=== PATIENT | male | born 1950 | race Hispanic/Latino ===

== ENCOUNTER 2017-10-25 17:11 | Emergency (ER) | payer BC, MEDICARE ==
[~2017-10-25] VITALS: Ht 177.8 cm; Wt 89.4 kg
[~2017-10-25 17:11] MED LIST: ATORVASTATIN CA20 MG PO; CLINDAMYCIN HC150 MG PO; HYDRALAZINE HCL25 MG PO; HYDRALAZINE HCL50 MG PO; METOPROLOL SUCC50 MG PO; NORCO 10MG-325MG1 EA PO; PROCARDIA XL60 MG PO; SODIUM BICARBO650 MG PO
[2017-10-25] MEDS ORDERED: MINERAL OIL 132 ML BTL PR ONE (17:45)
[2017-10-25] MEDS ORDERED: CITRATE OF MAGNESIA 300ML BOTTLE PO NR (18:00)
--- NOTE | 2017-10-25 18:15 | Diagnostic Imaging Report ---
PROCEDURE:ABDOMEN COMP INCL UPR OR DECUB TECHNIQUE:Supine and upright INDICATION:Constipation COMPARISON:None. FINDINGS: Moderate amount of stool in the right abdomen and in the left abdomen. Stool material within small bowel loops. Multiple prominent air-filled loops of small bowel. No radiopaque stones. No abnormal soft tissue masses. Mild degenerative changes of the lumbar spine CONCLUSION: Findings consistent with constipation. Dictated by: Orlando Perez M.D. on 10/25/2017 at 18:20 Electronically approved by: Orlando Perez M.D. on 10/25/2017 at 18:20
[2017-10-25 20:49] VITALS: BP 165/88
== END 2017-10-25 20:45 | disposition home or self-care (01) ==
LOC: ER 17:11
DX: R10.30 Lower abdominal pain, unspecified (principal); K59.00 Constipation, unspecified; I10 Essential (primary) hypertension; Z99.2 Dependence on renal dialysis
CPT/HCPCS: 99284

== ENCOUNTER 2018-03-25 11:21 | Emergency (ER) | payer BC, MEDICARE ==
[~2018-03-25] VITALS: Ht 177.8 cm; Wt 89.4 kg
--- OUTSIDE RECORDS SUMMARY | 2018-03-25 11:24 | XMS REPORT | Continuity of Care Document ---
Author Author [facility] Interface Address Unknown Phone Unavailable Problems Problem Status Onset Date Classification Date Reported Comments Source UNK Active 03/09/2018 [facility] M54.16 - RADICULOPATHY, LUMBAR REGION Active 11/06/2017 [facility] [place] [facility] CREATION Active 10/09/2017 [facility] Medications Medication Details Route Status Patient Instructions Ordering Provider Order Date Source Allergies, Adverse Reactions, Alerts Substance Category Reaction Severity Reaction type Status Date Reported Comments Source Immunizations Immunization Date Given Site Status Last Updated Comments Source Results Order Name Results Value Reference Range Date Interpretation Comments Source Chest 2 views DX Chest 2 views DX Patient Name: NOHEMI JEFFREY : 1950; Age: 66 years y/o Male MR: [id number] * CHEST, 2 views HISTORY: Coughing - preoperative study. COMPARISON: None TECHNIQUE: Frontal and lateral radiographs of the chest were obtained. FINDINGS: The lungs are clear. There are no pleural effusions. The heart and pulmonary vasculature are within normal limits. The regional skeleton is unremarkable. There is a right IJ PermCath which terminates in the mid right atrium. IMPRESSION: 1. No active disease. 2. There is a right IJ PermCath which terminates in the mid right atrium. SL: [id number] 11/03/2017 - - Read by: Vahe Knight MD Dictated Date/time: 11/03/17 12:25 Electronically Signed by: Vahe Knight MD 11/03/17 12:26 FINAL REPORT [facility] Vital Signs Vital Sign Value Date Comments Source Encounters Location Location Details Encounter Type Encounter Number Reason For Visit Attending Provider ADM Date DC Date Status Source Procedures Procedure Code Date Perfomer Comments Source
--- OUTSIDE RECORDS SUMMARY | 2018-03-25 11:24 | XMS REPORT | Clinical Summary ---
Author Author [facility] Address Unknown Phone Unavailable Care Team Providers Care Edge Stainer Machine Name Role Phone Chuckie Crawford PCP Unavailable Antony Keron 40 Allergies Comments Active Allergy Reactions Severity Noted Date Makes patient jittery Sulfa (Sulfonamide Other (See 05/24/2017 Antibiotics) Comments) Medications End Date Status Medication Sig Dispensed Refills Start Date Active hydrALAZINE (APRESOLINE) Take 50 mg by 0 50 MG tablet mouth 2 (two) times daily . Active NIFEdipine (ADALAT CC) 60 Take 60 mg by 0 MG 24 hr tablet mouth 2 (two) times daily . Active HYDROcodone-acetaminophen Take 1 tablet 0 (NORCO 5-325) 5-325 mg by mouth per tablet every 8 (eight) hours as needed for Pain. Active Problems Not on file Encounters Care Team Description Date Type Specialty Polina Redding 03/19/2018 Documentation Transplant Terese Magdaleno MD Provider, [facility] Generic 02/21/2018 [facility] Charge Transplant Visit Polina Redding 02/21/2018 Documentation Transplant Jennifer Patton, RN 02/21/2018 Documentation Transplant Mariya Pak RN Follow-up 01/04/2018 Telephone Transplant Sadia Foreman Follow-up (Unable to leave a message on Mr. Jeffrey voicemail his mailbox is full. I spoke with Mrs. Jeffrey and she's aware of Mr. Jeffrey MRB recommendations and per Mrs. Jeffrey her has been referred to a gastro doctor to have the colonoscopy and he's waiting for the gastro doctor office to call to schedule the appt) 11/23/2017 Telephone Transplant Shelly Coker RN 11/23/2017 Abstract Transplant Shelly Coker RN 11/20/2017 Abstract Transplant Shelly Coker RN Committee Review 11/20/2017 Telephone Transplant Shelly Coker RN Follow-up 11/14/2017 Telephone Transplant Terese Magdaleno MD ESRD (end stage renal disease) on dialysis (HCC); Pre-transplant evaluation for chronic kidney disease 09/22/2017 Hospital Cardiology Encounter Terese Magdaleno MD ESRD (end stage renal disease) on dialysis (HCC); Pre-transplant evaluation for chronic kidney disease 09/22/2017 Hospital Radiology Encounter Shelly Coker RN Pre-transplant evaluation for chronic kidney disease (Primary Dx); ESRD (end stage renal disease) on dialysis (HCC) 09/21/2017 Orders Only Transplant Sadia Foreman Appointment (Mr. Jeffrey is aware of his appt on Monday,09/22/17 and to check in at 6:30 am to complete the registration process and not to eat after 3:30 am. I have mailed the patient his itinerary for the appt and faxed the itinerary to the hd unit) 09/07/2017 Telephone Transplant Shelly Coker RN Committee Review 08/31/2017 Telephone Transplant Shelly Coker RN ESRD (end stage renal disease) on dialysis (HCC) (Primary Dx); Pre-transplant evaluation for chronic kidney disease 07/17/2017 Orders Only Transplant Shelly Coker RN Committee Review 07/17/2017 Telephone Transplant Shelly Coker RN 07/17/2017 Abstract Transplant Terese Magdaleno MD Pandya, Aashish Mahesh, MD ESRD (end stage renal disease) (HCC) (Primary Dx) 06/28/2017 Evaluation Transplant Terese Magdaleno MD Pre-transplant evaluation for chronic kidney disease; ESRD (end stage renal disease) on dialysis (HCC); Hypertensive renal disease; Anemia of renal disease 06/28/2017 Orders Only Lab Terese Magdaleno MD ESRD (end stage renal disease) on dialysis (HCC); Pre-transplant evaluation for chronic kidney disease; Hypertensive renal disease; Anemia of renal disease 06/28/2017 Hospital Radiology Encounter Patito Hough MD 06/27/2017 Orders Only Transplant Sadia Foreman Appointment (Mr. Jeffrey confirmed his appt for tomorrow and he's aware of the locations of the appts) 06/27/2017 Telephone Transplant Terese Magdaleno MD ESRD (end stage renal disease) on dialysis (HCC); Pre-transplant evaluation for chronic kidney disease; Hypertensive renal disease; Anemia of renal disease 05/24/2017 Hospital Encounter Terese Magdaleno MD ESRD (end stage renal disease) on dialysis (HCC); Pre-transplant evaluation for chronic kidney disease; Hypertensive renal disease; Anemia of renal disease 05/24/2017 Hospital Radiology Encounter Terese Magdaleno MD ESRD (end stage renal disease) on dialysis (HCC) (Primary Dx) 05/24/2017 Evaluation Transplant Terese Magdaleno MD 05/24/2017 Evaluation Transplant Terese Magdaleno MD Pre-transplant evaluation for chronic kidney disease 05/24/2017 Orders Only Transplant Hepatology Terese Magdaleno MD Labrador, Florencia P, RN 05/24/2017 Office Visit Transplant Reynaldo Shane RN ESRD (end stage renal disease) (HCC) (Primary Dx); Pre-op evaluation 05/24/2017 Orders Only Transplant Terese Magdaleno MD 05/24/2017 Outside Orders Shelly Coker RN ESRD (end stage renal disease) on dialysis (HCC) (Primary Dx); Pre-transplant evaluation for chronic kidney disease; Hypertensive renal disease; Anemia of renal disease 05/19/2017 Orders Only Transplant Sim, Na Y 04/26/2017 Documentation Transplant after 03/24/2017 Family History Medical History Relation Name Comments No Known Problem Brother No Known Problem Brother No Known Problem Brother No Known Problem Father Hypertension Mother No Known Problem Sister No Known Problem Sister No Known Problem Sister Cancer Son Relation Name Status Comments Brother Alive Brother Alive Brother Alive Father Mother Sister Alive Sister Alive Sister Alive Son Social History Date Tobacco Use Types Packs/Day Years Used Current Every Day Smoker 1.5 Alcohol Use Drinks/Week oz/Week Comments Yes beer occassional Sex Assigned at Date Recorded Not on file Industry Job Start Date Occupation Not on file Not on file Not on file Travel End Travel History Travel Start No recent travel history available. Last Filed Vital Signs Time Taken Vital Sign Reading 06/28/2017 3:01 PM CDT Blood Pressure 175/89 06/28/2017 3:01 PM CDT Pulse 102 06/28/2017 2:12 PM CDT Temperature 37.1 C (98.7 F) 06/28/2017 3:01 PM CDT Respiratory Rate 20 - Oxygen Saturation - - Inhaled Oxygen - Concentration 06/28/2017 2:12 PM CDT Weight 88.1 kg (194 lb 3.2 oz) 06/28/2017 2:12 PM CDT Height 170.2 cm (5' 7") 06/28/2017 2:12 PM CDT Body Mass Index 30.42 Plan of Treatment Health Maintenance Due Date Last Done Comments INFLUENZA VACCINE 01/08/2018 Procedures Comments Procedure Name Priority Date/Time Associated Diagnosis OCCULT BLOOD, STOOL Routine 12/14/2017 Pre-transplant evaluation 12:10 PM CDT for chronic kidney disease OCCULT BLOOD, STOOL Routine 12/14/2017 Pre-transplant evaluation 12:10 PM CDT for chronic kidney disease ECHOCARDIOGRAM REPORT - 09/22/2017 SCAN 12:20 PM CDT 2D ECHO W/ DOPPLER Routine 09/22/2017 ESRD (end stage renal (CW/PW/COLOR) 10:45 AM CDT disease) on dialysis ([facility] [place]) Pre-transplant evaluation for chronic kidney disease 2D ECHO W/ DOPPLER Routine 09/22/2017 Pre-transplant evaluation (CW/PW/COLOR) 10:19 AM CDT for chronic kidney disease ESRD (end stage renal disease) on dialysis ([facility] [place]) CT/CTA ABDOMEN & PELVIS Routine 09/22/2017 Pre-transplant evaluation 10:10 AM CDT for chronic kidney disease ESRD (end stage renal disease) on dialysis ([facility] [place]) TRANSFUSION SERVICE 06/29/2017 REPORT - SCAN 5:44 PM CDT FL CYSTOGRAM CINE OR Routine 06/28/2017 ESRD (end stage renal VIDEO VOIDING 1:15 PM CDT disease) on dialysis ([facility] [place]) Pre-transplant evaluation for chronic kidney disease Hypertensive renal disease Anemia of renal disease TYPE AND SCREEN, Routine 06/28/2017 Pre-transplant evaluation AUTOMATED 11:27 AM CDT for chronic kidney disease BLOOD TYPING, AUTOMATED Routine 06/28/2017 ESRD (end stage renal 11:27 AM CDT disease) on dialysis ([facility] [place]) Pre-transplant evaluation for chronic kidney disease Hypertensive renal disease Anemia of renal disease AB SPECIFICITY CLASS II Routine 06/28/2017 ESRD (end stage renal 11:27 AM CDT disease) on dialysis ([facility] [place]) Pre-transplant evaluation for chronic kidney disease Hypertensive renal disease Anemia of renal disease AB SPECIFICITY CLASS I Routine 06/28/2017 ESRD (end stage renal 11:27 AM CDT disease) on dialysis ([facility] [place]) Pre-transplant evaluation for chronic kidney disease Hypertensive renal disease Anemia of renal disease HLA TYPING CII Routine 06/28/2017 ESRD (end stage renal 11:27 AM CDT disease) on dialysis ([facility] [place]) Pre-transplant evaluation for chronic kidney disease Hypertensive renal disease Anemia of renal disease PROTHROMBIN TIME/INR Routine 06/28/2017 Pre-transplant evaluation 11:27 AM CDT for chronic kidney disease FLOW PRA CLASS II WITH Routine 06/28/2017 ESRD (end stage renal REFLEX TO ANTIBODY 11:27 AM CDT disease) on dialysis SPECIFICITY ([facility] [place]) Pre-transplant evaluation for chronic kidney disease Hypertensive renal disease Anemia of renal disease FLOW PRA CLASS I WITH Routine 06/28/2017 ESRD (end stage renal REFLEX TO ANTIBODY 11:27 AM CDT disease) on dialysis SPECIFICITY ([facility] [place]) Pre-transplant evaluation for chronic kidney disease Hypertensive renal disease Anemia of renal disease HLA TYPING CI Routine 06/28/2017 ESRD (end stage renal 11:27 AM CDT disease) on dialysis ([facility] [place]) Pre-transplant evaluation for chronic kidney disease Hypertensive renal disease Anemia of renal disease LIPID PANEL Routine 06/28/2017 ESRD (end stage renal 11:27 AM CDT disease) on dialysis ([facility] [place]) Pre-transplant evaluation for chronic kidney disease Hypertensive renal disease Anemia of renal disease TRANSFUSION SERVICE 05/25/2017 REPORT - SCAN 5:45 PM ACADEMIC AFFAIRS SPECIALIST US ABDOMEN COMPLETE Routine 05/24/2017 ESRD (end stage renal 1:35 PM ACADEMIC AFFAIRS SPECIALIST disease) on dialysis (HCC) Pre-transplant evaluation for chronic kidney disease Hypertensive renal disease Anemia of renal disease XR CHEST 2 VIEWS Routine 05/24/2017 ESRD (end stage renal 12:49 PM ACADEMIC AFFAIRS SPECIALIST disease) on dialysis (HCC) Pre-transplant evaluation for chronic kidney disease Hypertensive renal disease Anemia of renal disease PSA Routine 05/24/2017 Pre-transplant evaluation 9:04 AM ACADEMIC AFFAIRS SPECIALIST for chronic kidney disease URINALYSIS W/ MICROSCOPIC Routine 05/24/2017 Pre-transplant evaluation 9:04 AM ACADEMIC AFFAIRS SPECIALIST for chronic kidney disease RPR Routine 05/24/2017 Pre-transplant evaluation 9:04 AM ACADEMIC AFFAIRS SPECIALIST for chronic kidney disease HIV-1 ANTIGEN WITH Routine 05/24/2017 Pre-transplant evaluation HIV-1/2 ANTIBODY 9:04 AM ACADEMIC AFFAIRS SPECIALIST for chronic kidney disease HEPATITIS C ANTIBODY Routine 05/24/2017 Pre-transplant evaluation 9:04 AM ACADEMIC AFFAIRS SPECIALIST for chronic kidney disease HEPATITIS B CORE Routine 05/24/2017 Pre-transplant evaluation ANTIBODY, IGM 9:04 AM ACADEMIC AFFAIRS SPECIALIST for chronic kidney disease HEPATITIS B SURFACE Routine 05/24/2017 Pre-transplant evaluation ANTIGEN 9:04 AM ACADEMIC AFFAIRS SPECIALIST for chronic kidney disease HEPATITIS B SURFACE Routine 05/24/2017 Pre-transplant evaluation ANTIBODY 9:04 AM ACADEMIC AFFAIRS SPECIALIST for chronic kidney disease EBV ANTIBODY, IGM Routine 05/24/2017 Pre-transplant evaluation 9:04 AM ACADEMIC AFFAIRS SPECIALIST for chronic kidney disease EBV ANTIBODY, IGG Routine 05/24/2017 Pre-transplant evaluation 9:04 AM ACADEMIC AFFAIRS SPECIALIST for chronic kidney disease CYTOMEGALOVIRUS ANTIBODY, Routine 05/24/2017 Pre-transplant evaluation IGM 9:04 AM ACADEMIC AFFAIRS SPECIALIST for chronic kidney disease CYTOMEGALOVIRUS ANTIBODY, Routine 05/24/2017 Pre-transplant evaluation IGG 9:04 AM ACADEMIC AFFAIRS SPECIALIST for chronic kidney disease URINE CULTURE Routine 05/24/2017 Pre-transplant evaluation 9:04 AM ACADEMIC AFFAIRS SPECIALIST for chronic kidney disease URIC ACID Routine 05/24/2017 Pre-transplant evaluation 9:03 AM ACADEMIC AFFAIRS SPECIALIST for chronic kidney disease T SPOT TB Routine 05/24/2017 Pre-transplant evaluation 9:03 AM ACADEMIC AFFAIRS SPECIALIST for chronic kidney disease PT/APTT Routine 05/24/2017 Pre-transplant evaluation 9:03 AM ACADEMIC AFFAIRS SPECIALIST for chronic kidney disease PHOSPHORUS Routine 05/24/2017 Pre-transplant evaluation 9:03 AM ACADEMIC AFFAIRS SPECIALIST for chronic kidney disease LACTATE DEHYDROGENASE Routine 05/24/2017 Pre-transplant evaluation (LDH) 9:03 AM ACADEMIC AFFAIRS SPECIALIST for chronic kidney disease GAMMA GLUTAMYL Routine 05/24/2017 Pre-transplant evaluation TRANSFERASE (GGT) 9:03 AM ACADEMIC AFFAIRS SPECIALIST for chronic kidney disease COMPREHENSIVE METABOLIC Routine 05/24/2017 Pre-transplant evaluation PANEL 9:03 AM ACADEMIC AFFAIRS SPECIALIST for chronic kidney disease CBC W/PLT COUNT & AUTO Routine 05/24/2017 Pre-transplant evaluation DIFFERENTIAL 9:02 AM ACADEMIC AFFAIRS SPECIALIST for chronic kidney disease DIRECT AHG (HYU)/DIRECT Routine 05/24/2017 Pre-transplant evaluation GILBERT 9:02 AM ACADEMIC AFFAIRS SPECIALIST for chronic kidney disease BLOOD TYPING, AUTOMATED Routine 05/24/2017 Pre-transplant evaluation 9:02 AM ACADEMIC AFFAIRS SPECIALIST for chronic kidney disease HEMOGLOBIN A1C Routine 05/24/2017 Pre-transplant evaluation 9:02 AM ACADEMIC AFFAIRS SPECIALIST for chronic kidney disease VARICELLA ZOSTER Routine 05/24/2017 Pre-transplant evaluation ANTIBODY, IGG 9:02 AM ACADEMIC AFFAIRS SPECIALIST for chronic kidney disease PTH, INTACT Routine 05/24/2017 Pre-transplant evaluation 9:02 AM ACADEMIC AFFAIRS SPECIALIST for chronic kidney disease CBC W/PLT COUNT & AUTO Routine 05/24/2017 Pre-transplant evaluation DIFFERENTIAL 9:02 AM ACADEMIC AFFAIRS SPECIALIST for chronic kidney disease after 03/24/2017 Results * Occult blood, stool (12/14/2017 12:10 PM CDT) Only the most recent of 2 results within the time period is included. Occult blood Negative Negative [facility] Specimen Stool - Stool Performing Organization Address City/State/Zipcode Phone Number [facility] [address] [place] [address] MEDICAL CENTER * ECHOCARDIOGRAM REPORT - SCAN (09/22/2017 12:20 PM CDT) Narrative Performed At * 2D Echo W/Doppler(CW/PW/Color) (09/22/2017 10:45 AM CDT) Ejection Fraction [facility] Narrative Performed At Transthoracic Echocardiography Report (TTE) [facility] Demographics [facility] Patient Name SEGUNDO JEFFREY Date of Study09/22/2017 [id number] Gender Male Visit Number [id number] Race Unknown [id number] Number Number Date of Birth1950 ReferringRasta Johnson Physician Age66 year(s) SonographerMartinez Mendes Interpreting Physician MaeveMD Fellow JOHN Mendosa Procedure Type of Study TTE procedure:2DECHO W DOPPLER(CW/PW/COLOR) (Routine) Indications:Pre-surgical evaluation of organ transplant. Height: 67 inches Weight: 88 kg (194 lbs) BSA: 2 m^2 BMI: 30.38 kg/m^2 HR: 96 bpm BP: 193/94 mmHg Summary The LV endocardium is incompletely visualized. Parasternal long axis measurements not possible. Consider IV ultrasound enhancing agent for improved endocardial border detection. Global LV systolic function normal . Unable to reliably assess LV ejection fraction. LVEF is in the range of 55-60% based on available views. The estimated RA pressure by IVC dynamics 5-10mmHg . Estimated peak systolic PA pressure is 35-40 mmHg + RA pressure. Previous Study In comparison with the prior exam on 08/06/2016 there are no significant changes. Signature Findings Left Ventricle The LV endocardium is incompletely visualized. Parasternal long axis measurements not possible. Consider IV ultrasound enhancing agent for improved endocardial border detection. Global LV systolic function normal . Unable to reliably assess LV ejection fraction. LVEF is in the range of 55-60% based on available views. Left AtriumLA size is normal . LA size by qualitative assessment (unable to measure). Right VentricleThe right ventricular chamber size and systolic function are within normal limits. Right Atrium RA size is probably normal based on available views. Aortic Valve AoV is not well visualized. No evidence of aortic regurgitation. No evidence of aortic stenosis. Mitral Valve MV is not well visualized; function appears normal by Doppler. Tricuspid ValveTV is not well visualized; likely normal based on available views and Doppler. Estimated peak systolic PA pressure is 35-40 mmHg + RA pressure. Pulmonic Valve PV is not well visualized; function appears normal by Doppler visualized. AortaAortic root size (SInus of Valsalva diameter) is normal . PericardiumNo significant pericardial effusion is visualized. IVC/SVC/PA/PV/PleuralThe estimated RA pressure by IVC dynamics 5-10mmHg . Chambers/Structures Left Ventricle LVOT Diameter: 2.1 cm Doppler/Quantitative Measurements Mitral Valve MV Peak E-Wave: 1.07 m/sMV Peak A-Wave: 1.02 m/s E/A Ratio: 1.04 Peak Gradient: 4.57 mmHg MV Fidel. Peak: Tissue Doppler E' Lateral Velocity: 0.09 m/s E/E': 11.35 Aortic Valve Peak Velocity: 1.61 m/sMean Velocity: 0.96 m/s Peak Gradient: 10.36 mmHgMean Gradient: 4.57 mmHg AV Area (continuity): 3.3 cm^2 AV VTI: 28.3 cm AV DVI: 0.95 LVOT Peak Velocity: 1.38 m/s Peak Gradient: 7.62 mmHg Mean Velocity: 0.85 m/s Mean Gradient: 3.59 mmHg LVOT Diameter: 2.1 cm LVOT VTI: 26.98 cm LVOT Area: 3.46 cm^2LVOT SV:93.4 ml LVOT CO: 8.97 l/min LVOT CI: 4.48 l/min/m^2 Tricuspid Valve TR Velocity: 2.98 m/s TR Gradient: 35.41 mmHg Procedure Note Interface, External Ris In - 09/22/2017 11:56 AM CDT Transthoracic Echocardiography Report (TTE) Demographics Patient Name SEGUNDO JEFFREY Date of Study 09/22/2017 Gender Male Visit Number [id number] Race Unknown Room Number Number Date of 1950 Referring Rasta Johnson Physician Age 66 year(s) Skein Mercerizing Machine Operator Martinez Mendes Interpreting Stewart Callejas Physician MD Fellow JOHN Mendosa Procedure Type of Study TTE procedure:2DECHO W DOPPLER(CW/PW/COLOR) (Routine) Indications:Pre-surgical evaluation of organ transplant. Height: 67 inches Weight: 88 kg (194 lbs) BSA: 2 m^2 BMI: 30.38 kg/m^2 HR: 96 bpm BP: 193/94 mmHg Summary The LV endocardium is incompletely visualized. Parasternal long axis measurements not possible. Consider IV ultrasound enhancing agent for improved endocardial border detection. Global LV systolic function normal . Unable to reliably assess LV ejection fraction. LVEF is in the range of 55-60% based on available views. The estimated RA pressure by IVC dynamics 5-10mmHg . Estimated peak systolic PA pressure is 35-40 mmHg + RA pressure. Previous Study In comparison with the prior exam on 08/06/2016 there are no significant changes. Signature Findings Left Ventricle The LV endocardium is incompletely visualized. Parasternal long axis measurements not possible. Consider IV ultrasound enhancing agent for improved endocardial border detection. Global LV systolic function normal . Unable to reliably assess LV ejection fraction. LVEF is in the range of 55-60% based on available views. Left Atrium LA size is normal . LA size by qualitative assessment (unable to measure). Right Ventricle The right ventricular chamber size and systolic function are within normal limits. Right Atrium RA size is probably normal based on available views. Aortic Valve AoV is not well visualized. No evidence of aortic regurgitation. No evidence of aortic stenosis. Mitral Valve MV is not well visualized; function appears normal by Doppler. Tricuspid Valve TV is not well visualized; likely normal based on available views and Doppler. Estimated peak systolic PA pressure is 35-40 mmHg + RA pressure. Pulmonic Valve PV is not well visualized; function appears normal by Doppler visualized. Aorta Aortic root size (SInus of Valsalva diameter) is normal . Pericardium No significant pericardial effusion is visualized. IVC/SVC/PA/PV/Pleural The estimated RA pressure by IVC dynamics 5-10mmHg . Chambers/Structures Left Ventricle LVOT Diameter: 2.1 cm Doppler/Quantitative Measurements Mitral Valve MV Peak E-Wave: 1.07 m/s MV Peak A-Wave: 1.02 m/s E/A Ratio: 1.04 Peak Gradient: 4.57 mmHg MV Fidel. Peak: Tissue Doppler E' Lateral Velocity: 0.09 m/s E/E': 11.35 Aortic Valve Peak Velocity: 1.61 m/s Mean Velocity: 0.96 m/s Peak Gradient: 10.36 mmHg Mean Gradient: 4.57 mmHg AV Area (continuity): 3.3 cm^2 AV VTI: 28.3 cm AV DVI: 0.95 LVOT Peak Velocity: 1.38 m/s Peak Gradient: 7.62 mmHg Mean Velocity: 0.85 m/s Mean Gradient: 3.59 mmHg LVOT Diameter: 2.1 cm LVOT VTI: 26.98 cm LVOT Area: 3.46 cm^2 LVOT SV:93.4 ml LVOT CO: 8.97 l/min LVOT CI: 4.48 l/min/m^2 Tricuspid Valve TR Velocity: 2.98 m/s TR Gradient: 35.41 mmHg Performing Organization Address City/State/Zipcode Phone Number [facility] * CTA abdomen & pelvis (09/22/2017 10:10 AM CDT) Narrative Performed At Addendum Begins [employer] RIS REPORT STATUS:A ADDENDUM: I agree with the nonvascular findings as reported by Dr. Castellanos. Signed: René Victoria MD Report Verified Date/Time:09/22/2017 18:26:06 Reading Location: [facility] P048 Angio Body Reading Room Addendum Ends FINAL REPORT CT angiography of the abdominal aorta and pelvic arteries, 22 September 2017 INDICATION: This is a 66 year old male with a diagnosis of end-stage renal disease, presents for pretransplant assessment.This study is performed in an attempt to avoid an invasive procedure. TECHNIQUE: Spiral acquisition before and during intravenous contrast administration using a Siemens CT scanner. Images were obtained before and during the dynamic passage of intravenous contrast material.Multi-planar 3-D volume-rendering reconstruction was performed using an independent workstation interactively by the interpreting physician as well as the 3-D specialist for optimal visualisation of the abdominal aorta, pelvic arteries, and its proximal branches. Please refer to the contrast sheet scanned in the RIS system for the amount and route of contrast given. This exam was performed according to our departmental dose-optimisation programme, which includes automated exposure control, adjustment of the mA and/or kV according to patient size and/or use of iterative reconstruction technique. Dose modulation, iterative reconstruction, and/or weight based adjustment of the mA/kV was utilized to reduce the radiation dose to as low as reasonably achievable. FINDINGS: VASCULAR: The abdominal aorta is normal in course, calibre and contour. However, there is scattered calcific atherosclerosis is identified. No ectasia or aneurysmal dilation is present.There is no evidence of acute aortic pathology, specifically, there is no dissection, intramural hematoma, or contained rupture. Quantitative dimensions of the abdominal aorta are as follows: 2.3 cm at the mesenteric segment; 2.1 cm at the renal segment,; and 1.8 cm at the aortic bifurcation. The common iliac, external iliac, common femoral, and the visualized superficial femoral arteries, bilaterally, are widely patent, except for minimal nonobstructive calcific atherosclerosis. Manufacturing Controls Engineer dimensions of the left and the right external iliac arteries are 8 and 9 mm, respectively. Similarly, the associated pelvic veins are patent with no venous thrombosis identified.Manufacturing Controls Engineer dimensions of the left and the right external iliac veins are 14 and 14 mm, respectively. The celiac axis, SMA, SANJIV are widely patent. There are single left and right renal arteries that are also widely patent with minimal nonobstructive calcification seen in the ostium of the right renal artery. Single left and two right renal veins are seen draining normally into the IVC. NON-VASCULAR: The lung bases are unremarkable. No pleural effusions identified. Minimal atelectatic changes are seen. Next In the abdomen, the liver and spleen appears unremarkable. The liver edge is smooth. Patchy enhancement is identified image 25, likely represent vascular shunting. The gallbladder, the adrenal glands, and the pancreas appears unremarkable. In the precontrast series, that could be tiny punctate calcification seen in the body of the pancreas. Patient has end-stage renal disease status. The left kidney is atrophic. Cortical scarring is identified in the right kidney. Subcentimeter hypodensities are seen in both kidneys, too small to characterize. Bowel is not well assessed by CT angiography as enteric contrast is not given. No obvious bowel dilation is identified. The appendix appears unremarkable. Scattered colonic diverticulum is identified. Tiny fat-containing hernia is identified in the right. The bladder appears unremarkable. The prostate gland is unremarkable. No free air free fluid is seen abdomen and pelvis. No significant retroperitoneal adenopathy is identified. Some small lymph nodes are seen in both groins, considered nonspecific in nature. In the bony windows, no acute bony pathology is seen. Degenerative changes is noted. CONCLUSIONS: 1.The abdominal aorta is normal in course, calibre and contour. Mild atherosclerosis is identified. There is no evidence of acute aortic pathology, specifically, there is no dissection, intramural hematoma, or contained rupture. Quantitative dimension of the abdominal aorta are as noted. The pelvic arteries and veins are widely patent with no arterial stenosis or venous thrombosis identified. Manufacturing Controls Engineer dimensions of the left and the right external iliac arteries and veins are as described above. 2.Widely patent mesenteric and renal arteries. 3.Other findings as described above. 4.An addendum will be dictated regarding the non-vascular findings by the Automotive Welder Radiologist. Signed: Sebastien Castellanos MD Report Verified Date/Time:09/22/2017 10:45:05 Reading Location: [place] [id number] Cardiology MRI Procedure Note Interface, External Ris In - 09/22/2017 6:28 PM CDT Addendum Begins REPORT STATUS:A ADDENDUM: I agree with the nonvascular findings as reported by Dr. Castellanos. Signed: René Victoria MD Report Verified Date/Time: 09/22/2017 18:26:06 Reading Location: [facility] P048 Angio Body Reading Room Addendum Ends FINAL REPORT CT angiography of the abdominal aorta and pelvic arteries, 22 September 2017 INDICATION: This is a 66 year old male with a diagnosis of end-stage renal disease, presents for pretransplant assessment. This study is performed in an attempt to avoid an invasive procedure. TECHNIQUE: Spiral acquisition before and during intravenous contrast administration using a Siemens CT scanner. Images were obtained before and during the dynamic passage of intravenous contrast material. Multi-planar 3-D volume-rendering reconstruction was performed using an independent workstation interactively by the interpreting physician as well as the 3-D specialist for optimal visualisation of the abdominal aorta, pelvic arteries, and its proximal branches. Please refer to the contrast sheet scanned in the RIS system for the amount and route of contrast given. This exam was performed according to our departmental dose-optimisation programme, which includes automated exposure control, adjustment of the mA and/or kV according to patient size and/or use of iterative reconstruction technique. Dose modulation, iterative reconstruction, and/or weight based adjustment of the mA/kV was utilized to reduce the radiation dose to as low as reasonably achievable. FINDINGS: VASCULAR: The abdominal aorta is normal in course, calibre and contour. However, there is scattered calcific atherosclerosis is identified. No ectasia or aneurysmal dilation is present. There is no evidence of acute aortic pathology, specifically, there is no dissection, intramural hematoma, or contained rupture. Quantitative dimensions of the abdominal aorta are as follows: 2.3 cm at the mesenteric segment; 2.1 cm at the renal segment,; and 1.8 cm at the aortic bifurcation. The common iliac, external iliac, common femoral, and the visualized superficial femoral arteries, bilaterally, are widely patent, except for minimal nonobstructive calcific atherosclerosis. Manufacturing Controls Engineer dimensions of the left and the right external iliac arteries are 8 and 9 mm, respectively. Similarly, the associated pelvic veins are patent with no venous thrombosis identified. Manufacturing Controls Engineer dimensions of the left and the right external iliac veins are 14 and 14 mm, respectively. The celiac axis, SMA, SANJIV are widely patent. There are single left and right renal arteries that are also widely patent with minimal nonobstructive calcification seen in the ostium of the right renal artery. Single left and two right renal veins are seen draining normally into the IVC. NON-VASCULAR: The lung bases are unremarkable. No pleural effusions identified. Minimal atelectatic changes are seen. Next In the abdomen, the liver and spleen appears unremarkable. The liver edge is smooth. Patchy enhancement is identified image 25, likely represent vascular shunting. The gallbladder, the adrenal glands, and the pancreas appears unremarkable. In the precontrast series, that could be tiny punctate calcification seen in the body of the pancreas. Patient has end-stage renal disease status. The left kidney is atrophic. Cortical scarring is identified in the right kidney. Subcentimeter hypodensities are seen in both kidneys, too small to characterize. Bowel is not well assessed by CT angiography as enteric contrast is not given. No obvious bowel dilation is identified. The appendix appears unremarkable. Scattered colonic diverticulum is identified. Tiny fat-containing hernia is identified in the right. The bladder appears unremarkable. The prostate gland is unremarkable. No free air free fluid is seen abdomen and pelvis. No significant retroperitoneal adenopathy is identified. Some small lymph nodes are seen in both groins, considered nonspecific in nature. In the bony windows, no acute bony pathology is seen. Degenerative changes is noted. CONCLUSIONS: 1. The abdominal aorta is normal in course, calibre and contour. Mild atherosclerosis is identified. There is no evidence of acute aortic pathology, specifically, there is no dissection, intramural hematoma, or contained rupture. Quantitative dimension of the abdominal aorta are as noted. The pelvic arteries and veins are widely patent with no arterial stenosis or venous thrombosis identified. Manufacturing Controls Engineer dimensions of the left and the right external iliac arteries and veins are as described above. 2. Widely patent mesenteric and renal arteries. 3. Other findings as described above. 4. An addendum will be dictated regarding the non-vascular findings by the Automotive Welder Radiologist. Signed: Sebastien Castellanos MD Report Verified Date/Time: 09/22/2017 10:45:05 Reading Location: [facility] P047 Cardiology MRI Performing Organization Address City/[facility] Phone Number [facility] * TRANSFUSION SERVICE REPORT - SCAN (06/29/2017 5:44 PM CDT) Only the most recent of 2 results within the time period is included. Narrative Performed At * [place] Cystogram Cine or Video Voiding (06/28/2017 1:15 PM CDT) Narrative Performed At FINAL REPORT [facility] [employer] Voiding cystourethrogram Clinical History: pre transplant evaluation Discussion: After a Palacios catheter is placed into the bladder, performed by the Radiology nurse, approximately 300 cc of Isovue 300 is infused into the bladder via gravity. Sequential images are obtained. The bladder contour is normal.No vesicoureteral reflux is noted. The urethra is normal. There is no significant post void residual. Fluoro time:0.58 minutes Number of images obtained: 9 Impression: Normal VCUG exam Signed: Miah Sherwood MD Report Verified Date/Time:06/28/2017 14:29:52 Reading Location: [facility] [id number] Ortho Consult Reading Room Procedure Note Interface, External Ris In - 06/28/2017 2:32 PM CDT FINAL REPORT Voiding cystourethrogram Clinical History: pre transplant evaluation Discussion: After a Palacios catheter is placed into the bladder, performed by the Radiology nurse, approximately 300 cc of Isovue 300 is infused into the bladder via gravity. Sequential images are obtained. The bladder contour is normal. No vesicoureteral reflux is noted. The urethra is normal. There is no significant post void residual. Fluoro time: 0.58 minutes Number of images obtained: 9 Impression: Normal VCUG exam Signed: Miah Sherwood MD Report Verified Date/Time: 06/28/2017 14:29:52 Reading Location: [facility] C013X Ortho Consult Reading Room Performing Organization Address City/[facility] Phone Number [facility] * HLA TYPING CII (06/28/2017 11:27 AM CDT) HLA-DR AG1 4 [facility] HLA-DR AG2 13 [facility] HLA-DR AG3-1 [facility] HLA-DR AG3-2 52 [facility] HLA-DR AG4-1 53 [facility] HLA-DR AG4-2 [facility] HLA-DR AG5-1 [facility] HLA-DR AG5-2 [facility] HLA-DQA1 AG 1-1 03 [facility] HLA-DQA1 AG 1-2 01 [facility] HLA-DQB1 AG 1-1 8 [facility] HLA-DQB1 AG 1-2 6 [facility] HLA-DPA1 AG 1-1 01 [facility] HLA-DPA1 AG 1-2 01 [facility] HLA-DPB1 AG 1-1 04:01 [facility] HLA-DPB1 AG 1-2 04:02 [facility] HLA-AG Notes [facility] HLA-AG Report Comments [facility] Specimen Blood Performing Organization Address [facility] Phone Number [facility] ONE [facility] Marika, MS: [id number], [place] [address] CLIA#[id number] CAP#[id number] UNOS#[id number] [facility] ONE [facility] Marika, MS: [id number] [place] [address] * HLA TYPING CI (06/28/2017 11:27 AM CDT) HLA-A AG1 2 [facility] HLA-A AG2 3 [facility] HLA-B AG1 62 [facility] HLA-B AG2 35 [facility] HLA-C AG1 9 [facility] HLA-C AG2 7 [facility] HLA-B BW1 6 [facility] HLA-B BW2 6 [facility] HLA-AG Notes [facility] HLA-AG Report Comments [facility] Specimen Blood Performing Organization Address [facility] Phone Number [facility] ONE [facility] Marika, MS: [id number], [place] [address] CLIA#[id number] CAP#[id number] UNOS#[id number] [facility] ONE [facility] Marika, MS: [id number] [place] [address] * FLOW PRA CLASS II WITH REFLEX TO ANTIBODY SPECIFICITY (06/28/2017 11:27 AM CDT) Flow Class II Percent 5 [facility] Positive Flow Class Report [facility] Comments Specimen Blood Performing Organization Address [facility] Phone Number [facility], MS: [id number], [place] [address] CLIA#[id number] CAP#[id number] UNOS#[id number] [facility], MS: [id number] [place] [address] * FLOW PRA CLASS I WITH REFLEX TO ANTIBODY SPECIFICITY (06/28/2017 11:27 AM CDT) Flow Class I Percent 5 [facility] Positive Flow Class Report [facility] Comments Specimen Blood Performing Organization Address [facility] Phone Number [facility] [address], MS: [id number], [place] [address] CLIA#[id number] CAP#[id number] UNOS#[id number] [facility] ONE Salty Hairston, MS: [id number] [place] [address] * AB SPECIFICITY CLASS II (06/28/2017 11:27 AM CDT) AB Specificity Class II NO CLASS II ANTIBODY DETECTED [facility] WITH MFIs > 4000 AB Specificity Titr Class [facility] Report Specimen Blood Performing Organization Address [facility] Phone Number [facility] ONE [facility] Marika, MS: [id number], [place] [address] CLIA#[id number] CAP#[id number] UNOS#[id number] [facility] ONE Salty Hairston, MS: [id number] [place] [address] * AB SPECIFICITY CLASS I (06/28/2017 11:27 AM CDT) AB Specificity Class I NO CLASS I ANTIBODY DETECTED [facility] WITH MFIs > 4000 AB Specificity Titr Class [facility] Report Specimen Blood Performing Organization Address [facility] Phone Number [facility] ONE Salty Hairston, MS: [id number], [place] [address] CLIA#[id number] CAP#[id number] UNOS#[id number] [facility] ONE [facility] Marika, MS: [id number] [place] [address] * Type and Screen, Automated (06/28/2017 11:27 AM CDT) ABO/RH AUTOMATED (BEAKER) A POSITIVE [facility] Ab Scrn NEGATIVE [facility] Specimen Blood Performing Organization Address City/[facility]/Zipcode Phone Number [facility] [address] [place] [address] [facility] * Blood typing, automated (06/28/2017 11:27 AM CDT) Only the most recent of 2 results within the time period is included. ABO/RH AUTOMATED ([facility] A POSITIVE [facility] Specimen Blood Performing Organization Address [facility] Phone Number [facility] [address] [place] [address] [facility] * Prothrombin time/INR (06/28/2017 11:27 AM CDT) Protime 12.8 11.7 - 14.7 seconds [facility] INR 1.0 <=5.9 [facility] Specimen Blood Narrative Performed At RECOMMENDED COUMADIN/WARFARIN INR THERAPY RANGES [facility] STANDARD DOSE: 2.0 - 3.0 Includes: PROPHYLAXIS for venous thrombosis, [facility] systemic embolization; TREATMENT for venous thrombosis and/or pulmonary embolus. HIGH RISK: Target INR is 2.5-3.5 for patients with mechanical heart valves. Performing Organization Address City/[facility] Phone Number [facility] [address] [place] [address] [facility] * Lipid panel (06/28/2017 11:27 AM CDT) Triglycerides 75 mg/dL [facility] Cholesterol 173 mg/dL [facility] HDL 100 mg/dL [facility] LDL Calculated 58 mg/dL [facility] Specimen Blood Narrative Performed At Triglyceride Reference Range: [facility] Low Risk <150 [facility] [id number] High Risk 200-499 Very High Risk>=500 Cholesterol Reference Range: Low Risk <200 [id number] High Risk>240 HDL Cholesterol Reference Range: Low Risk >=60 High Risk <40 LDL Cholesterol Reference Range: Optimal<100 Near [id number] Pgqb363-191 Very High >=190 Performing Organization Address City/State/Zipcode Phone Number [facility] [address] [place] [address] [facility] * US abdomen complete (05/24/2017 1:35 PM ACADEMIC AFFAIRS SPECIALIST) Narrative Performed At FINAL REPORT [employer] [facility] Ultrasound of the Abdomen, complete Clinical History:pre transplant evaluation Discussion: Sonographic evaluation of the abdomen is performed. Liver: 14 cm in length at the right midclavicular line.Normal echogenicity.No discrete lesion is identified by ultrasound.Main portal vein diameter 1.4 cm. Biliary tree:Common duct 5 mm.No intrahepatic biliary dilatation. Gallbladder:No shadowing calculus/calculi. No wall thickening. No pericholecystic fluid. Negative sonographic Canseco's sign. Pancreas: Mostly obscured by bowel gas. Ascites:None seen Spleen:10.2 cm in length. Kidneys: Right kidney 10.3 x 5.6 x 5 cm.Left kidney 9.2 x 4.5 x 3.8 cm.Increased cortical echogenicity. There is a 1 cm cyst in the right lower pole, and a 9 mm cyst in the left upper pole.No shadowing calculus, no hydronephrosis. IVC/Aorta:Segments partially seen.Unremarkable. Impression: Echogenic kidneys, compatible with medical renal disease. Poor visualization of the pancreas. Signed: Miah Sherwood MD Report Verified Date/Time:05/24/2017 15:26:21 Reading Location: [address] Radiology Reading Room Procedure Note Interface, External Ris In - 05/24/2017 3:28 PM ACADEMIC AFFAIRS SPECIALIST FINAL REPORT Ultrasound of the Abdomen, complete Clinical History: pre transplant evaluation Discussion: Sonographic evaluation of the abdomen is performed. Liver: 14 cm in length at the right midclavicular line. Normal echogenicity. No discrete lesion is identified by ultrasound. Main portal vein diameter 1.4 cm. Biliary tree: Common duct 5 mm. No intrahepatic biliary dilatation. Gallbladder: No shadowing calculus/calculi. No wall thickening. No pericholecystic fluid. Negative sonographic Canseco's sign. Pancreas: Mostly obscured by bowel gas. Ascites: None seen Spleen: 10.2 cm in length. Kidneys: Right kidney 10.3 x 5.6 x 5 cm. Left kidney 9.2 x 4.5 x 3.8 cm. Increased cortical echogenicity. There is a 1 cm cyst in the right lower pole, and a 9 mm cyst in the left upper pole. No shadowing calculus, no hydronephrosis. IVC/Aorta: Segments partially seen. Unremarkable. Impression: Echogenic kidneys, compatible with medical renal disease. Poor visualization of the pancreas. Signed: Miah Sherwood MD Report Verified Date/Time: 05/24/2017 15:26:21 Reading Location: [address] Radiology Reading Room Performing Organization Address City/State/Zipcode Phone Number [facility] * XR chest 2 views (05/24/2017 12:49 PM ACADEMIC AFFAIRS SPECIALIST) Narrative Performed At FINAL REPORT [facility] Chest x-ray, PA and lateral views Clinical History: pre transplant evaluation Comparison:None Findings: Cardiomediastinal contours are unremarkable. There is a right-sided dialysis catheter, tip projects over the right atrium. There is no consolidation, bhavna edema, pneumothorax, or effusion. Osseous structures demonstrate degenerative changes. Impression: No acute process identified. Signed: Miah Sherwood MD Report Verified Date/Time:05/24/2017 13:43:29 Reading Location: [address] Radiology Reading Room Procedure Note Interface, External Ris In - 05/24/2017 1:45 PM ACADEMIC AFFAIRS SPECIALIST FINAL REPORT Chest x-ray, PA and lateral views Clinical History: pre transplant evaluation Comparison: None Findings: Cardiomediastinal contours are unremarkable. There is a right-sided dialysis catheter, tip projects over the right atrium. There is no consolidation, bhavna edema, pneumothorax, or effusion. Osseous structures demonstrate degenerative changes. Impression: No acute process identified. Signed: Miah Sherwood MD Report Verified Date/Time: 05/24/2017 13:43:29 Reading Location: [address] Radiology Reading Room Performing Organization Address City/State/Zipcode Phone Number [facility] * HIV-1 Antigen with HIV-1/2 Antibody (05/24/2017 9:04 AM ACADEMIC AFFAIRS SPECIALIST) HIV-1 Antigen with HIV NON-REACTIVE Nonreactive [facility] 1&2 Antibody [facility] Specimen Blood Performing Organization Address City/State/Zipcode Phone Number [phone] [place] [address] * Hepatitis C Antibody (05/24/2017 9:04 AM ACADEMIC AFFAIRS SPECIALIST) Hepatitis C Ab NON-REACTIVE Nonreactive [facility] Specimen Blood Performing Organization Address City/[facility] Phone Number [address] * Cytomegalovirus antibody, IgM (05/24/2017 9:04 AM ACADEMIC AFFAIRS SPECIALIST) CMV IgM Negative [facility] Specimen Blood Performing Organization Address City/[facility] Phone Number [address] * Hepatitis B core antibody, IgM (05/24/2017 9:04 AM ACADEMIC AFFAIRS SPECIALIST) Hep B C IgM NON-REACTIVE Nonreactive [facility] Specimen Blood Performing Organization Address City/State/Zipcode Phone Number [phone] [place] [address] * EBV-VCA antibody, IgM (05/24/2017 9:04 AM ACADEMIC AFFAIRS SPECIALIST) EBV VCA IgM Negative [facility] Specimen Blood Performing Organization Address City/[facility]/Zipcode Phone Number [address] * EBV-VCA antibody, IgG (05/24/2017 9:04 AM ACADEMIC AFFAIRS SPECIALIST) EBV VCA IgG Positive [facility] Specimen Blood Performing Organization Address [facility] Phone Number [phone] [place] [address] * RPR (05/24/2017 9:04 AM ACADEMIC AFFAIRS SPECIALIST) RPR Nonreactive Nonreactive [facility] Specimen Blood Performing Organization Address City/[facility] Phone Number [phone] [place] [address] * Hepatitis B surface antibody (05/24/2017 9:04 AM ACADEMIC AFFAIRS SPECIALIST) Hep B S Ab 130.1 (H) <8.0 mIU/mL [facility] Specimen Blood Performing Organization Address [facility] Phone Number [phone] [place] [address] * Hepatitis B surface antigen (05/24/2017 9:04 AM ACADEMIC AFFAIRS SPECIALIST) hepatitis B Surface Ag NON-REACTIVE Nonreactive [facility] Specimen Blood Performing Organization Address [facility] Phone Number [phone] [place] [address] * Cytomegalovirus antibody, IgG (05/24/2017 9:04 AM ACADEMIC AFFAIRS SPECIALIST) CMV IgG Positive [facility] Specimen Blood Performing Organization Address [facility] Phone Number [address] * Urinalysis, Routine (05/24/2017 9:04 AM ACADEMIC AFFAIRS SPECIALIST) Color, UA Light Yellow [facility] Clarity, UA Clear [facility] Specific [place], UA 1.010 1.001 - 1.035 [facility] pH, UA 7.0 5.0 - 8.0 [facility] Protein, UA 300 mg/dL (A) Negative [facility] Glucose, UA Negative Negative [facility] Ketones, UA Negative Negative [facility] Bilirubin, UA Negative Negative [facility] Blood, UA Negative Negative [facility] Nitrite, UA Negative Negative [facility] Leukocytes, UA Negative Negative [facility] Urobilinogen, UA 0.2 0.2 - 1.0 mg/dL [facility] RBC, UA <1 /HPF [facility] HOSPITAL WBC, UA <1 /HPF [facility] Squam Epithel, UA <1 /HPF [facility] Specimen Source [facility] Specimen Urine Performing Organization Address City/[facility]/Zipcode Phone Number [address] * Urine Culture (05/24/2017 9:04 AM ACADEMIC AFFAIRS SPECIALIST) Result No growth [facility] Specimen Urine Performing Organization Address City/[facility]/Zipcode Phone Number [address] * PSA (05/24/2017 9:04 AM ACADEMIC AFFAIRS SPECIALIST) PSA 0.4 0.0 - 4.0 ng/mL [facility] Specimen Blood Performing Organization Address City/[facility] Phone Number [address] * T Spot TB (05/24/2017 9:03 AM ACADEMIC AFFAIRS SPECIALIST) T-Spot TB Negative [facility] Neg Ctrl Spot Count 0 [facility] Panel A Spot 0 [facility] Panel B Spot 1 [facility] Pos Ctrl Spot Ct >20 [facility] Scan Result [facility] Specimen Blood Narrative Performed At Performing Organization Address City/State/Zipcode Phone Number [facility] [address] [facility] [place] [address] LABORATORIES 100 * PT/aPTT (05/24/2017 9:03 AM ACADEMIC AFFAIRS SPECIALIST) Protime 13.2 11.7 - 14.7 seconds [facility] INR 1.0 <=5.9 [facility] PTT 28.6 22.5 - 36.0 seconds [facility] Specimen Blood Narrative Performed At RECOMMENDED COUMADIN/WARFARIN INR THERAPY RANGES [facility] STANDARD DOSE: 2.0 - 3.0 Includes: PROPHYLAXIS for venous thrombosis, [facility] systemic embolization; TREATMENT for venous thrombosis and/or pulmonary embolus. HIGH RISK: Target INR is 2.5-3.5 for patients with mechanical heart valves. Performing Organization Address City/[facility]/Zipcode Phone Number [place] [phone] [place] [address] * Uric Acid (05/24/2017 9:03 AM ACADEMIC AFFAIRS SPECIALIST) Uric Acid 5.4 2.6 - 7.2 mg/dL [facility] Specimen Blood Performing Organization Address City/[facility] Phone Number [address] [address] [facility] * Phosphorus (05/24/2017 9:03 AM ACADEMIC AFFAIRS SPECIALIST) Phosphorus 4.4 2.3 - 4.7 mg/dL [facility] Specimen Blood Performing Organization Address City/[facility]/Zipcode Phone Number [address] [address] [facility] * Lactate Dehydrogenase (LDH) (05/24/2017 9:03 AM ACADEMIC AFFAIRS SPECIALIST) LDH 233 (H) 125 - 220 U/L [facility] Specimen Blood Performing Organization Address City/[facility]/Zipcode Phone Number [address] [address] [facility] * Gamma Glutamyl Transferase (GGT) (05/24/2017 9:03 AM ACADEMIC AFFAIRS SPECIALIST) GGT 36 9 - 64 U/L [facility] Specimen Blood Performing Organization Address City/[facility]/Zipcode Phone Number [facility] [address] [place] [address] [facility] * Comprehensive metabolic panel (05/24/2017 9:03 AM ACADEMIC AFFAIRS SPECIALIST) Protein, Total 7.5 6.0 - 8.3 gm/dL [facility] Albumin 3.8 3.5 - 5.0 g/dL [facility] Alkaline Phosphatase 71 40 - 150 U/L [facility] Total Bilirubin <0.3 0.2 - 1.2 mg/dL [facility] Sodium 138 136 - 145 meq/L [facility] Potassium 4.1 3.5 - 5.1 meq/L [facility] Chloride 99 98 - 107 meq/L [facility] CO2 26 22 - 29 meq/L [facility] BUN 53 (H) 7 - 21 mg/dL [facility] Creatinine 4.96 (H) 0.57 - 1.25 mg/dL [facility] Glucose 85 70 - 105 mg/dL [facility] Calcium 8.5 8.4 - 10.2 mg/dL [facility] AST 13 5 - 34 U/L [facility] ALT 12 6 - 55 U/L [facility] EGFR 12Comment: ESTIMATED GFR IS mL/min/1.73 sq m [facility] NOT ACCURATE CREATININE [facility] CLEARANCE IN PREDICTING GLOMERULAR FILTRATION RATE. ESTIMATED GFR IS NOT APPLICABLE FOR DIALYSIS PATIENTS. Specimen Blood Performing Organization Address City/State/Zipcode Phone Number [facility] [address] [address] [facility] * CBC with platelet count + automated diff (05/24/2017 9:02 AM ACADEMIC AFFAIRS SPECIALIST) WBC 9.3 3.5 - 10.5 K/L [facility] RBC 3.74 (L) 4.63 - 6.08 M/L [facility] Hemoglobin 11.8 (L) 13.7 - 17.5 GM/DL [facility] Hematocrit 36.4 (L) 40.1 - 51.0 % [facility] MCV 97.3 (H) 79.0 - 92.2 fL [facility] MCH 31.6 25.7 - 32.2 pg [facility] MCHC 32.4 32.3 - 36.5 GM/DL [facility] RDW 14.1 11.6 - 14.4 % [facility] Platelets 314 150 - 450 K/CU MM [facility] MPV 10.4 9.4 - 12.4 fL [facility] nRBC 0 0 - 0 /100 WBC [facility] % Neutros 68 % [facility] % Lymphs 17 % [facility] % Monos 11 % [facility] % Eos 3 % [facility] % Baso 1 % [facility] # Neutros 6.27 (H) 1.78 - 5.38 K/L [facility] # Lymphs 1.59 1.32 - 3.57 K/L [facility] # Monos 1.02 (H) 0.30 - 0.82 K/L [facility] # Eos 0.29 0.04 - 0.54 K/L [facility] # Baso 0.06 0.01 - 0.08 K/L [facility] Immature 1 0 - 1 % [facility] Granulocytes-Relative [facility] Specimen Blood Performing Organization Address City/[facility]ode Phone Number [address] * Direct AHG (HUY)/Direct Gilbert (05/24/2017 9:02 AM ACADEMIC AFFAIRS SPECIALIST) Direct AHG-IGG NEGATIVE [facility] Direct AHG-C3B, C3D NEGATVIE [facility] Specimen Blood Performing Organization Address [facility] Cent[facility]ofl Phone Number [address] * Varicella Zoster Antibody, IgG (05/24/2017 9:02 AM ACADEMIC AFFAIRS SPECIALIST) Varicella IgG 2.9 Al [facility] Specimen Blood Narrative Performed At VARICELLA ZOSTER RESULT INTERPRETATIONS: [facility] <=0.8 AlNonreactive:Presumed non-immune to VZV [facility] 0.9-1.0 AlEquivocal >=1.1 AlReactive:Presumed immune to VZV Performing Organization Address [facility] Phone Number [address] * PTH, Intact (05/24/2017 9:02 AM ACADEMIC AFFAIRS SPECIALIST) PTH 298.6 (H) 8.5 - 72.5 pg/mL [facility] Specimen Blood Performing Organization Address City/[facility]ode Phone Number [address] * Hemoglobin A1c (05/24/2017 9:02 AM ACADEMIC AFFAIRS SPECIALIST) Hemoglobin A1C 4.7 4.3 - 6.1 % [facility] Specimen Blood Performing Organization Address City/[facility]ode Phone Number [facility] [address] [place], [place] [id number] [facility] after 03/24/2017 Insurance Payer Benefit Subscriber ID Type Phone Address Plan / Group [employer] - MEDICARE MGD [employer] xxxxxxxxx Maps CARE MEDICARE Contracted ADV
[2018-03-25] MEDS ORDERED: ALBUTEROL/IPRATROPIUM 3 ML NEB NEB ONE ×2 (12:00→13:45)
[2018-03-25] MEDS ORDERED: METHYLPREDNISOLONE SOD SUCC 125 MG/2ML VIAL IV ONE (12:00)
[2018-03-25 12:05] LABS: BASOPHILS % 0.3 % (0.0-1.0); EOSINOPHILS # (AUTO) 0.2 (0.0-0.4); EOSINOPHILS % 2.2 % (0.0-6.0); HEMATOCRIT 30.4 % (38.2-49.6); LYMPHOCYTES % 13.6 % (18.0-39.1); MEAN CORPUSCULAR HEMOGLOBIN 30.7 pg (28-32); MEAN CORPUSCULAR HGB CONC 32.9 g/dL (31-35); MEAN CORPUSCULAR VOLUME 93.3 fL (81-99); MONOCYTES # (AUTO) 0.6 (0.2-0.8); MONOCYTES % 8.1 % (4.4-11.3); NEUTROPHILS # (AUTO) 5.6 (2.1-6.9); NEUTROPHILS % 75.1 % (38.7-80.0); PLATELET COUNT 266 x10e3/uL (140-360); RED BLOOD COUNT 3.26 x10e6/uL (4.3-5.7); RED CELL DISTRIBUTION WIDTH 14.6 % (11.7-14.4)
[2018-03-25 12:16] LABS: PARTIAL THROMBOPLASTIN TIME 29.2 seconds (23.8-35.5)
[2018-03-25 12:23] LABS: ALBUMIN 3.2 g/dL (3.5-5.0); ALBUMIN/GLOBULIN RATIO 0.8 (0.8-2.0); ANION GAP 20.9 mmol/L (8-16); CALCIUM 8.9 mg/dL (8.4-10.2); CREATININE, SERUM 8.14 mg/dL (0.72-1.25); MAGNESIUM 2.2 MG/DL (1.3-2.1); POTASSIUM 4.9 mmol/L (3.5-5.1)
[2018-03-25 12:30] LABS: CREATINE KINASE MB 3.4 ng/mL (0-5.0)
[2018-03-25 12:31] LABS: INR 0.84; PROTHROMBIN TIME 12.3 seconds (11.9-14.5)
--- NOTE | 2018-03-25 12:51 | Diagnostic Imaging Report ---
EXAMINATION: CHEST SINGLE (NOT PORTABLE) INDICATION: Shortness of breath, chest pain ^ERMD ORDER ^[id number] ^1215 ^Y COMPARISON: Chest radiograph 09/21/2016 FINDINGS: AP view TUBES and LINES: None. LUNGS: Lungs are well inflated. Reticular opacities in both medial lower lobes. This is increased. There is no evidence of pneumonia or pulmonary edema. PLEURA: No pleural effusion or pneumothorax. HEART AND MEDIASTINUM: Mild enlargement of the cardiac silhouette is stable. BONES AND SOFT TISSUES: No acute osseous lesion. Soft tissues are unremarkable. UPPER ABDOMEN: No free air under the diaphragm. IMPRESSION: Bilateral interstitial edema with possible superimposed infection. Recommend follow-up chest radiograph in 4-6 weeks. Signed by: Dr. Ruby Hawthorne M.D. on 03/25/2018 12:48 PM
[2018-03-25] MEDS ORDERED: FUROSEMIDE INJ 10 MG/ML 10 ML VIAL IV ONE (13:30)
[2018-03-25] MEDS ORDERED: FUROSEMIDE INJ 10 MG/ML 4 ML VIAL ONE (13:31)
[2018-03-25] MEDS ORDERED: FUROSEMIDE INJ 10 MG/ML 4 ML VIAL IV ONE (13:45)
== END 2018-03-25 14:15 | disposition home or self-care (01) ==
LOC: ER 11:21
DX: R06.09 Other forms of dyspnea (principal); R06.2 Wheezing; I10 Essential (primary) hypertension; N19 Unspecified kidney failure; Z99.2 Dependence on renal dialysis; E78.5 Hyperlipidemia, unspecified; F17.210 Nicotine dependence, cigarettes, uncomplicated
CPT/HCPCS: 36415; 71045; 80053; 82550; 82553; 83735; 83880; 84484; 85025; 85610; 85730; 93005; 99284; J1940; J2930

== ENCOUNTER 2018-06-25 02:56 | Inpatient (IN) | payer MEDICARE ==
[2018-06-25] VITALS (12 sets, daily range): BP systolic 93–157; BP diastolic 51–80
[~2018-06-25] VITALS: Ht 177.8 cm; Wt 69.5 kg
--- OUTSIDE RECORDS SUMMARY | 2018-06-25 03:00 | XMS REPORT | Clinical Summary ---
Author Author RAFAELA [facility] Address Unknown Phone Unavailable Care Team Providers Care Sugar Cane Planter Name Role Phone Chuckie Crawford PCP Unavailable Ade Hardydavenia 40 Allergies Comments Active Allergy Reactions Severity [...] Team Description Date Type Specialty Polina Redding Appointment 05/30/2018 Telephone Transplant Floresita Goode RN Awaiting transplantation of kidney (Primary Dx) 05/19/2018 Documentation Transplant Floresita Goode RN Awaiting transplantation of kidney (Primary Dx) 04/14/2018 Orders Only Transplant Judit Zapata MD Renal failure, unspecified chronicity (Primary Dx) 03/26/2018 Orders Only Lab Polina Redding 03/19/2018 Documentation Transplant Terese Magdaleno II, MD Provider, [facility] Registry Generic 02/21/2018 UNOS Charge Transplant Visit Polina Redding 02/21/2018 Documentation Transplant Jennifer Patton RN 02/21/2018 Documentation Transplant Mariya Pak RN Follow-up 01/04/2018 Telephone Transplant Mode Foremana Follow-up (Unable to leave a message on [...] RN Follow-up 11/14/2017 Telephone Transplant Terese Magdaleno II, MD ESRD (end stage renal disease) on dialysis (HCC); Pre-transplant evaluation for chronic kidney disease 09/22/2017 Hospital Cardiology Encounter Terese Magdaleno II, MD ESRD (end stage renal disease) on dialysis (HCC); Pre-transplant evaluation for chronic kidney disease 09/22/2017 Hospital Radiology Encounter Shelly Coker RN Pre-transplant evaluation for chronic kidney disease (Primary Dx); ESRD (end stage renal disease) on dialysis (HCC) 09/21/2017 Orders Only Transplant Ahsan Sadia Appointment (Mr. Jeffrey is aware of his [...] Coker RN 07/17/2017 Abstract Transplant Terese Magdaleno II, MD Pandya, Aashish Mahesh, MD ESRD (end stage renal disease) (HCC) (Primary Dx) 06/28/2017 Evaluation Transplant Terese Magdaleno II, MD Pre-transplant evaluation for chronic kidney disease; ESRD (end stage renal disease) on dialysis (HCC); Hypertensive renal disease; Anemia of renal disease 06/28/2017 Orders Only Lab Terese Magdaleno II, MD ESRD (end stage renal disease) on dialysis (HCC); Pre-transplant evaluation for chronic kidney disease; Hypertensive renal disease; Anemia of renal disease 06/28/2017 Hospital Radiology Encounter Provider, MD Patito 06/27/2017 Orders Only Transplant Sadia Foreman Appointment (Mr. Jeffrey confirmed his appt for tomorrow and he's aware of the locations of the appts) 06/27/2017 Telephone Transplant after 06/24/2017 Family History Medical History Relation Name Comments [...] Body Mass Index 30.42 Plan of Treatment Care Team Description Date Type Specialty Terese Magdaleno II, MD [address] [place] [address] 06/27/2018 Appointment Cardiology 06/27/2018 Orders Only Transplant Hepatology 06/27/2018 Evaluation Transplant Procedures Comments Procedure Name Priority Date/Time Associated Diagnosis FLOW PRA CLASS II WITH Routine 03/26/2018 Renal failure, REFLEX TO ANTIBODY 3:16 PM SCIENTIST unspecified chronicity SPECIFICITY FLOW PRA CLASS I WITH Routine 03/26/2018 Renal failure, REFLEX TO ANTIBODY 3:16 PM SCIENTIST unspecified chronicity SPECIFICITY OCCULT BLOOD, STOOL Routine 12/14/2017 Pre-transplant evaluation 12:10 PM CDT for chronic kidney disease OCCULT BLOOD, STOOL Routine 12/14/2017 Pre-transplant evaluation 12:10 PM CDT for chronic kidney disease ECHOCARDIOGRAM REPORT - 09/22/2017 SCAN 12:20 PM CDT 2D ECHO W/ DOPPLER Routine 09/22/2017 ESRD (end stage renal (CW/PW/COLOR) 10:45 AM CDT disease) on dialysis ([facility]) Pre-transplant evaluation for chronic kidney disease 2D ECHO W/ DOPPLER Routine 09/22/2017 Pre-transplant evaluation (CW/PW/COLOR) 10:19 AM CDT for chronic kidney disease ESRD (end stage renal disease) on dialysis ([facility]) CT/CTA ABDOMEN & PELVIS Routine 09/22/2017 Pre-transplant evaluation 10:10 AM CDT for chronic kidney disease ESRD (end stage renal disease) on dialysis ([facility]) TRANSFUSION SERVICE 06/29/2017 REPORT - SCAN 5:44 PM CDT FL CYSTOGRAM CINE OR Routine 06/28/2017 ESRD (end stage renal VIDEO VOIDING 1:15 PM CDT disease) on dialysis ([facility]) Pre-transplant evaluation for chronic kidney disease Hypertensive renal disease Anemia of renal disease TYPE AND SCREEN, Routine 06/28/2017 Pre-transplant evaluation AUTOMATED 11:27 AM CDT for chronic kidney disease BLOOD TYPING, AUTOMATED Routine 06/28/2017 ESRD (end stage renal 11:27 AM CDT disease) on dialysis ([facility]) Pre-transplant evaluation for chronic kidney disease Hypertensive renal disease Anemia of renal disease AB SPECIFICITY CLASS II Routine 06/28/2017 ESRD (end stage renal 11:27 AM CDT disease) on dialysis (HCC) Pre-transplant evaluation for chronic kidney disease Hypertensive renal disease Anemia of renal disease AB SPECIFICITY CLASS I Routine 06/28/2017 ESRD (end stage renal 11:27 AM CDT disease) on dialysis (HCC) Pre-transplant evaluation for chronic kidney disease Hypertensive renal disease Anemia of renal disease HLA TYPING CII Routine 06/28/2017 ESRD (end stage renal 11:27 AM CDT disease) on dialysis (HCC) Pre-transplant evaluation for chronic kidney disease Hypertensive renal disease Anemia of renal disease PROTHROMBIN TIME/INR Routine 06/28/2017 Pre-transplant evaluation 11:27 AM CDT for chronic kidney disease FLOW PRA CLASS II WITH Routine 06/28/2017 ESRD (end stage renal REFLEX TO ANTIBODY 11:27 AM CDT disease) on dialysis SPECIFICITY ([facility]) Pre-transplant evaluation for chronic kidney disease Hypertensive renal disease Anemia of renal disease FLOW PRA CLASS I WITH Routine 06/28/2017 ESRD (end stage renal REFLEX TO ANTIBODY 11:27 AM CDT disease) on dialysis SPECIFICITY ([facility]) Pre-transplant evaluation for chronic kidney disease Hypertensive renal disease Anemia of renal disease HLA TYPING CI Routine 06/28/2017 ESRD (end stage renal 11:27 AM CDT disease) on dialysis ([facility]) Pre-transplant evaluation for chronic kidney disease Hypertensive renal disease Anemia of renal disease LIPID PANEL Routine 06/28/2017 ESRD (end stage renal 11:27 AM CDT disease) on dialysis ([facility]) Pre-transplant evaluation for chronic kidney disease Hypertensive renal disease Anemia of renal disease after 06/24/2017 Results * FLOW PRA CLASS II WITH REFLEX TO ANTIBODY SPECIFICITY (03/26/2018 3:16 PM SCIENTIST) Only the most recent of 2 results within the time period is included. Flow Class II Percent 0 [facility] HLA TESTING Positive Flow Class Report [facility] HLA TESTING Comments Specimen Blood Narrative Performed At Disclaimer: [facility] HLA TESTING This test was developed and its performance characteristics determined by the [facility]. It has not been cleared or approved by the U.S. Food and Drug Administration. The FDA has determined that such clearance or approval is not necessary. This test is used for clinical purposes. It should not be regarded as investigational or for research. This laboratory is certified under the Clinical Laboratory Improvement Amendments of 1988 (CLIA-88) as qualified to perform high complexity clinical laboratory testing. Performing Organization Address City/[facility] Cent[facility]ode Phone Number [facility] HLA TESTING [address], MS: [id number], [place] [address] CLIA#[id number] CAP#[id number] UNOS#[id number] * FLOW PRA CLASS I WITH REFLEX TO ANTIBODY SPECIFICITY (03/26/2018 3:16 PM SCIENTIST) Only the most recent of 2 results within the time period is included. Flow Class I Percent 0 [facility] HLA TESTING Positive Flow Class Report [facility] HLA TESTING Comments Specimen Blood Narrative Performed At Disclaimer: [facility] HLA TESTING This test was developed and its performance characteristics determined by the [facility] Laboratory. It has not been cleared or approved by the U.S. Food and Drug Administration. The FDA has determined that such clearance or approval is not necessary. This test is used for clinical purposes. It should not be regarded as investigational or for research. This laboratory is certified under the Clinical Laboratory Improvement Amendments of 1988 (CLIA-88) as qualified to perform high complexity clinical laboratory testing. Performing Organization Address [facility] Phone Number [facility] HLA TESTING [address], MS: [id number], [place] [address] CLIA#[id number] CAP#[id number] UNOS#[id number] * Occult blood, stool (12/14/2017 12:10 PM CDT) Only the most recent of 2 results within the time period is included. Occult blood Negative Negative [facility] Specimen Stool - Stool Performing Organization Address City/[facility]/Zipcode Phone Number [facility] [address] [place] [address] [facility] * ECHOCARDIOGRAM REPORT - SCAN (09/22/2017 12:20 PM CDT) Narrative Performed At * 2D Echo W/Doppler(CW/PW/Color) (09/22/2017 10:45 AM CDT) Ejection Fraction [facility] Narrative Performed At Transthoracic Echocardiography Report (TTE) [facility]CHO [facility]ART[facility] Demographics [facility] Patient Name SEGUNDO JEFFREY Date of Study09/22/2017 [id number] Gender Male Visit Number [id number] Race Unknown [id number] Number Number Date of Birth1950 Timmy Johnson Physician Age66 year(s) SonographerMartinez Mendes Interpreting [...] of Study 09/22/2017 Gender Male Visit Number [id number] Race Unknown Room Number Number Date of 1950 Referring Rasta Johnson Physician Age 66 year(s) Packaging Engineer Martinez Mendes Interpreting Stewart Callejas Physician Fellow JOHN Mendosa Procedure Type of Study [...] mmHg Performing Organization Address City/State/Zipcode Phone Number [facility] * CTA abdomen & pelvis (09/22/2017 10:10 AM CDT) Narrative Performed At Addendum Begins Acomni [facility] REPORT STATUS:A ADDENDUM: I agree with the nonvascular findings as reported by Dr. Castellanos. Signed: René Victoria MD Report Verified Date/Time:09/22/2017 18:26:06 Reading Location: [place] [address] Angio Body Reading Room Addendum Ends FINAL [...] patent, except for minimal nonobstructive calcific atherosclerosis. Steerer dimensions of the left and the right external iliac arteries are 8 and 9 mm, respectively. Similarly, the associated pelvic veins are patent with no venous thrombosis identified.Steerer dimensions of the left and the right [...] no arterial stenosis or venous thrombosis identified. Steerer dimensions of the left and the right external iliac arteries and veins are as described above. 2.Widely patent mesenteric and renal arteries. 3.Other findings as described above. 4.An addendum will be dictated regarding the non-vascular findings by the Haul Truck Driver Radiologist. Signed: Sebastien Castellanos MD Report Verified Date/Time:09/22/2017 10:45:05 Reading Location: [place] [address] Cardiology MRI Procedure Note Interface, External Ris In - 09/22/2017 6:28 PM CDT Addendum Begins REPORT STATUS:A ADDENDUM: I agree with the nonvascular findings as reported by Dr. Castellanos. Signed: René Victoria MD Report Verified Date/Time: 09/22/2017 18:26:06 Reading Location: [facility] P048 Angio Body Reading Room Addendum Ends [...] patent, except for minimal nonobstructive calcific atherosclerosis. Steerer dimensions of the left and the right external iliac arteries are 8 and 9 mm, respectively. Similarly, the associated pelvic veins are patent with no venous thrombosis identified. Steerer dimensions of the left and the right [...] no arterial stenosis or venous thrombosis identified. Steerer dimensions of the left and the right external iliac arteries and veins are as described above. 2. Widely patent mesenteric and renal arteries. 3. Other findings as described above. 4. An addendum will be dictated regarding the non-vascular findings by the Haul Truck Driver Radiologist. Signed: Sebastien Castellanos MD Report Verified Date/Time: 09/22/2017 10:45:05 Reading Location: [place] [address] Cardiology MRI Performing Organization Address City/State/Zipcode Phone Number [employer] * TRANSFUSION SERVICE REPORT - SCAN (06/29/2017 5:44 PM CDT) Narrative Performed At * FL Cystogram Cine or Video Voiding (06/28/2017 1:15 PM CDT) Narrative Performed At FINAL REPORT [employer] Voiding cystourethrogram Clinical History: pre transplant evaluation [...] MD Report Verified Date/Time:06/28/2017 14:29:52 Reading Location: [facility] C013X Ortho Consult Reading Room Procedure Note [...] Report Verified Date/Time: 06/28/2017 14:29:52 Reading Location: [facility] B1 C013X Ortho Consult Reading Room Performing Organization Address City/State/Zipcode Phone Number GE [facility]IS * HLA TYPING CII (06/28/2017 11:27 AM CDT) HLA-DR AG1 4 [facility] HLA TESTING HLA-DR AG2 13 [facility] HLA TESTING HLA-DR AG3-1 [facility] HLA TESTING HLA-DR AG3-2 52 [facility] HLA TESTING HLA-DR AG4-1 53 [facility] HLA TESTING HLA-DR AG4-2 [facility] HLA TESTING HLA-DR AG5-1 [facility] HLA TESTING HLA-DR AG5-2 [facility] HLA TESTING HLA-DQA1 AG 1-1 03 [facility] HLA TESTING HLA-DQA1 AG 1-2 01 [facility] HLA TESTING HLA-DQB1 AG 1-1 8 [facility] HLA TESTING HLA-DQB1 AG 1-2 6 [facility] HLA TESTING HLA-DPA1 AG 1-1 01 [facility] HLA TESTING HLA-DPA1 AG 1-2 01 [facility] HLA TESTING HLA-DPB1 AG 1-1 04:01 [facility] HLA TESTING HLA-DPB1 AG 1-2 04:02 [facility] HLA TESTING HLA-AG Notes [facility] HLA TEST[facility] HLA-AG Report Comments [facility] HLA TESTING Specimen Blood Performing Organization Address [facility] Phone Number [facility] HLA TESTING ONE [address], MS: [id number], [place] [address] CLIA#[id number] CAP#[id number] UNOS#[id number] [facility] HLA TESTING ONE [place] [address], MS: [id number] [place] [address] * HLA TYPING CI (06/28/2017 11:27 AM CDT) HLA-A AG1 2 [facility] HLA TESTING HLA-A AG2 3 [facility] HLA TESTING HLA-B AG1 62 [facility] HLA TESTING HLA-B AG2 35 [facility] HLA TESTING HLA-C AG1 9 [facility] HLA TESTING HLA[facility]C AG2 7 [facility] HLA TESTING HLA-B BW1 6 [facility] HLA TESTING HLA-B BW2 6 [facility] HLA TEST[facility] HLA-AG Notes [facility] HLA TESTING HLA-AG Report Comments [facility] HLA TESTING Specimen Blood Performing Organization Address [facility] Phone Number [facility] HLA TESTING ONE [place] [address], MS: [id number], [place] [address] CLIA#[id number] CAP#[id number] UNOS#[id number] [facility] HLA TESTING ONE [place] [place] [address], MS: [id number] [place] [address] * AB SPECIFICITY CLASS II (06/28/2017 11:27 AM CDT) AB Specificity Class II NO CLASS II ANTIBODY DETECTED [facility] HLA TESTING WITH MFIs > 4000 AB Specificity Titr Class [facility] HLA TESTING Report Specimen Blood Performing Organization Address [facility] Phone Number [facility] HLA TESTING ONE [place] [place] [address], MS: [id number], [place] [address] CLIA#[id number] CAP#[id number] UNOS#[id number] [facility] HLA TESTING ONE [place] [address], MS: [id number] [place] [address] * AB SPECIFICITY CLASS I (06/28/2017 11:27 AM CDT) AB Specificity Class I NO CLASS I ANTIBODY DETECTED [facility] HLA TESTING WITH MFIs > 4000 AB Specificity Titr Class [facility] HLA TESTING Report Specimen Blood Performing Organization Address City/State/[facility] Cent[facility] Phone Number [facility] HLA TESTING ONE [place] [place] [address], MS: [id number], [place] [address] CLIA#[id number] CAP#[id number] UNOS#[id number] [facility] HLA TESTING ONE [address] [place] [address], MS: [id number] [place] [address] * Type and Screen, Automated (06/28/2017 11:27 AM CDT) ABO/RH AUTOMATED ([employer]) A POSITIVE [facility] Ab Scrn NEGATIVE [facility] Specimen Blood Performing Organization Address City/[facility]/Zipcode Phone Number [address] * Blood typing, automated (06/28/2017 11:27 AM CDT) ABO/RH AUTOMATED ([employer]) A POSITIVE [facility] Specimen Blood Performing Organization Address City/[facility] Centercode Phone Number [phone] * Prothrombin time/INR (06/28/2017 11:27 AM CDT) Protime 12.8 11.7 - 14.7 seconds [facility] INR 1.0 <=5.9 [facility] Specimen Blood Narrative Performed At RECOMMENDED COUMADIN/WARFARIN INR THERAPY RANGES [facility] STANDARD DOSE: 2.0 - 3.0 Includes: PROPHYLAXIS for venous thrombosis, [facility] systemic embolization; TREATMENT for venous thrombosis and/or pulmonary embolus. HIGH RISK: Target INR is 2.5-3.5 for patients with mechanical heart valves. Performing Organization Address City/[facility] Centercode Phone Number [address] [address] [phone] [place] [address] * Lipid panel (06/28/2017 11:27 AM CDT) Triglycerides 75 mg/dL [facility] Cholesterol 173 mg/dL [facility] HDL 100 mg/dL [facility] LDL Calculated 58 mg/dL [facility] Specimen Blood Narrative Performed At Triglyceride Reference Range: [facility] Low Risk <150 [facility] [id number] High Risk 200-499 Very High Risk>=500 Cholesterol Reference Range: Low Risk <200 [id number] High Risk>240 HDL Cholesterol Reference Range: Low Risk >=60 High Risk <40 LDL Cholesterol Reference Range: Optimal<100 Near [id number] Fdnzpdamik546-191 Gnfm808-075 Very High >=190 Performing Organization Address City/State/Zipcode Phone Number [facility] [address] [place] [address] [facility] after 06/24/2017 Insurance Payer Benefit Subscriber ID Type Phone Address Plan / Group [employer] - MEDICARE MGD HU[employer]NA xxxxxxxxx [facility] MEDICARE Contracted ADV
--- OUTSIDE RECORDS SUMMARY | 2018-06-25 03:01 | XMS REPORT | Summary of Care ---
Author Author [facility] [place] Organization [facility] [place] Address Unknown Phone Unavailable Encounter HQ Huyen_tricia(FIN) [id number] Date(s): 11/08/17 - 11/08/17 [facility] [place] [address] [phone] Attending Physician: Chuckie Morgan MD Referring Physician: Chuckie Morgan MD Vital Signs No data available for this section Problem List Condition Effective Dates Status Health Status Informant Back pain(Confirmed) Active COPD (chronic Active obstructive pulmonary disease)(Confirmed) Cramping of Active feet(Confirmed)1 Dialysis Active patient(Confirmed) SOB (shortness of Active breath) on exertion(Confirmed) ESRD (end stage Active renal disease) on dialysis(Confirmed) Hypercholesteremia(C Active onfirmed) HTN Active (hypertension)(Confi rmed) 1and LE bilat after dialysis Allergies, Adverse Reactions, Alerts Substance Reaction Severity Status sulfa drugs Active Medications No data available for this section Results No data available for this section Immunizations No data available for this section Procedures Procedure Date Related Diagnosis Body Site Status Formation of arteriovenous fistula by Completed external cannula for renal dialysis Operation Completed Social History Social History Type Response Alcohol Current, Type Beer. Frequency: Daily. Smoking Status Current every day smoker; Type: Cigarettes; Ready to change: No; Concerns about tobacco use in household: No; Exposure to Tobacco Smoke None; Cigarette Smoking Last 365 Days Yes; Reg Smoking Cessation Counseling Yes; Tobacco use per day: 20; Number of years: 22; entered on: 12/20/17 Assessment and Plan No data available for this section
--- OUTSIDE RECORDS SUMMARY | 2018-06-25 03:01 | XMS REPORT | Encounter Summary ---
Author Organization Unknown Address [address] [place] [address] Phone [phone] Care Team Providers Care First Aid Officer Name Role Phone Dr. Siddhartha Mckee 3 [phone] Jm Wasserman MD 102 [phone] [facility] [place], [place] 111 [phone] Adolfo Tolliver 118 [phone] [facility] 124 [phone] Reason for Visit other - see typed reason Instructions 1. Acute bronchitis 2. Acute exacerbation of chronic obstructive airways disease Discussion Note: None recorded. Patient educational handouts: No information available. Plan of Care Reminders Provider Appointments Est Patient 07/23/2018 9:30AM Chuckie Lee MD Lab None recorded. Referral None recorded. Procedures None recorded. Surgeries None recorded. Imaging None recorded. Medications Name Start Date albuterol sulfate 2.5 mg/3 mL (0.083 %) solution for nebulization Inhale 3 mL by nebulization route as needed. amoxicillin 875 mg-potassium clavulanate 125 mg tablet Take 1 tablet every 12 hours by oral route as directed for 10 days. atorvastatin 80 mg tablet TAKE 1 TABLET BY MOUTH EVERY DAY calcium carbonate 260 mg calcium (648 mg) tablet gabapentin 300 mg capsule TAKE 1 CAPSULE BY MOUTH EVERY DAY AT BEDTIME needs appt hydralazine 100 mg tablet take 1 and 1/2 tablet in the AM and 1 tablet at PM hydrocodone 10 mg-acetaminophen 325 mg tablet TID PRN ipratropium-albuterol 0.5 mg-3 mg(2.5 mg base)/3 mL nebulization soln USE 1 VIAL VIA NEBULIZER FOUR TIMES DAILY nifedipine ER 60 mg tablet,extended release 24 hr Take 1 tablet twice a day by oral route for 90 days. sodium bicarbonate 650 mg tablet TID Symbicort 160 mcg-4.5 mcg/actuation HFA aerosol inhaler Inhale 1 puff twice a day by inhalation route as directed for 30 days. Velphoro 500 mg chewable tablet 3 tabs with every meal Ventolin HFA 90 mcg/actuation aerosol inhaler INHALE 2 PUFFS BY MOUTH EVERY 4 HOURS Medications Administered None recorded. Vitals Height Weight BMI Blood Pressure 5 ft 10 in 182 lbs 26.1 kg/m2 (1) 160/62 mm[Hg] (2) 152/58 mm[Hg] Lab Results None recorded. Allergies Code Code System Name Reaction Severity Status Onset Sulfa (Sulfonamide Antibiotics) Active Problems Name Status Onset Date Source Idiopathic Peripheral Neuropathy Active 05/08/2017 Chronic Kidney Disease Active 05/08/2017 Dependence on Hemodialysis Active 05/08/2017 Chronic Obstructive Lung Disease Active 10/18/2017 Hyperlipidemia Active Hypertensive Disorder Active Renal Failure Syndrome Active Cellulitis Active Procedures Date Name Performed by 01/24/2018 Colonoscopy Information not available Vaccine List Vaccine Type influenza, unspecified formulation 12/09/2016 12/09/2017 pneumococcal, unspecified formulation 09/08/2017 Social History Smoking Status Current Some Day Smoker Past Encounters 05/02/2018 Acute Bronchitis; Acute Exacerbation of Chronic Obstructive Airways Disease Chuckie Lee MD: [address] [place] [address], Ph. 04/27/2018 Acute Bronchitis; Acute Exacerbation of Chronic Obstructive Airways Disease; Opioid Dependence; Peripheral Vascular Disease; Dependence on Hemodialysis; Fever Chuckie Lee MD: [address] [place] [address], Ph. History of Present Illness Note:F/u on acute bronchitis/COPD exacerbation. Feeling better. Cough, runny nose, nasal congestion have decreased progressively. Denies sob or wheezing. Taking augmentin day 09/17. Pt completed 5 days of prednisone. Review of Systems:ROS as noted in the HPI Review of Systems None recorded. Physical Exam General Adult Exam (male) Reported By: Patient Constitutional: General Appearance: healthy-appearing, overweight. Level of Distress: NAD. Ambulation: ambulating normally Psychiatric: Insight: good judgement. Mental Status: active and alert, normal mood, normal affect. Orientation: to time, to place, to person. Memory: recent memory normal, remote memory normal Eyes: Lids and Conjunctivae: non-injected, no discharge ENMT: Ears: EACs clear, TMs clear. Nose: nares patent, no sinus tenderness, no nasal discharge. Lips, Teeth, and Gums: no mouth or lip ulcers. Oropharynx: moist mucous membranes, no erythema, no exudates, tonsils not enlarged Neck: Neck: supple, trachea midline. Thyroid: no enlargement, non-tender Lungs: Respiratory effort: no dyspnea; R subclavian HD catheter. Auscultation: no rhonchi, expiratory wheezing Cardiovascular: Heart Auscultation: RRR, normal S1, normal S2, no murmurs Musculoskeletal:: Motor Strength and Tone: normal, normal tone. Joints, Bones, and Muscles: normal movement of all extremities. Extremities: no edema Neurologic: Gait and Station: normal gait
--- OUTSIDE RECORDS SUMMARY | 2018-06-25 03:01 | XMS REPORT | Encounter Summary ---
Author Organization Unknown Address [address] [place] [address] Phone [phone] Care Team Providers Care Wet Pour Mixer Name Role Phone Dr. Siddhartha Mckee 3 [phone] Jm Wasserman MD 102 [phone] [facility] [place] 111 [phone] Adolfo Tolliver 118 [phone] [facility] 124 [phone] Reason for Visit Chronic obstructive lung disease; URI Instructions 1. Acute bronchitis Augmentin 875 mg-125 mg tablet ceftriaxone 1 gram solution for injection Depo-Medrol 80 mg/mL suspension for injection albuterol sulfate 2.5 mg/3 mL (0.083 %) solution for nebulization prednisone 50 mg tablet 2. Acute exacerbation of chronic obstructive airways disease ipratropium-albuterol 0.5 mg-3 mg(2.5 mg base)/3 mL nebulization soln spirometry 3. Opioid dependence 4. Peripheral vascular disease 5. Dependence on hemodialysis 6. Fever rapid flu (A+B) Discussion Note: None recorded. Patient educational handouts: No information available. Plan of Care Reminders Provider Appointments Est Patient 05/01/2018 8:00AM Chuckie Lee MD Lab Rapid Flu (A+B) 04/27/2018 [facility] Referral None recorded. Procedures None recorded. Surgeries None recorded. Imaging None recorded. Medications Name Start Date atorvastatin 80 mg tablet TAKE 1 TABLET BY MOUTH EVERY DAY Augmentin 875 mg-125 mg tablet Take 1 tablet every 12 hours by oral route as directed for 10 days. calcium carbonate 260 mg calcium (648 mg) tablet gabapentin 300 mg capsule TAKE 1 CAPSULE BY MOUTH EVERY DAY AT BEDTIME needs appt hydralazine 100 mg tablet take 1 and 1/2 tablet in the AM and 1 tablet at PM hydrocodone 10 mg-acetaminophen 325 mg tablet TID PRN ipratropium-albuterol 0.5 mg-3 mg(2.5 mg base)/3 mL nebulization soln use four times daily as needed nifedipine ER 60 mg tablet,extended release 24 hr Take 1 tablet twice a day by oral route for 90 days. prednisone 50 mg tablet Take 1 tablet every day by oral route as directed for 5 days. sodium bicarbonate 650 mg tablet TID Symbicort 160 mcg-4.5 mcg/actuation HFA aerosol inhaler Inhale 1 puff twice a day by inhalation route as directed for 30 days. Ventolin HFA 90 mcg/actuation aerosol inhaler INHALE 2 PUFFS BY MOUTH EVERY 4 HOURS Medications Administered None recorded. Vitals Height Weight BMI Blood Pressure 5 ft 10 in 182 lbs 26.1 kg/m2 (1) 156/64 mm[Hg] (2) 140/70 mm[Hg] Lab Results None recorded. Allergies Code [...] Vaccine Type influenza, unspecified formulation 12/09/2016 12/09/2017 Social History Smoking Status Heavy Tobacco Smoker (1/2 PPD) Past Encounters 04/27/2018 Acute Bronchitis; Acute Exacerbation of Chronic Obstructive Airways Disease; Opioid Dependence; Peripheral Vascular Disease; Dependence on Hemodialysis; Fever Chuckie Lee MD: [address] [place] [phone], Ph. 03/30/2018 Acute Exacerbation of Chronic Obstructive Airways Disease; Benign Essential Hypertension; Hyperlipidemia; Peripheral Vascular Disease Chuckie Lee MD: [address] [place] [address], Ph. History of Present Illness Note:Hx of COPD complaining of productive cough, runny nose, nasal congestion, sob and wheezing since 3 days ago. Using symbicort inh bid and ipratropium/albuterol nebs every 4-6 hrs.<div>Hx of spinal stenosis in lumbar area taking hydrocodone as needed. Appointment with pain management scheduled for 05/29.
</div> Review of Systems:ROS as noted in the HPI Review of Systems None recorded. Physical Exam General Adult Exam (male) Reported By: Patient Constitutional: General Appearance: healthy-appearing, overweight. Level of Distress: mild distress. Ambulation: ambulating normally Psychiatric: Insight: good judgement. Mental Status: active and alert, normal mood, normal affect. Orientation: to time, to place, to person. Memory: recent memory normal, remote memory normal Eyes: Lids and Conjunctivae: non-injected, no discharge ENMT: Ears: EACs clear, TMs clear. Nose: nares non-patent, nasal discharge, post nasal drip. Lips, Teeth, and Gums: no mouth or lip ulcers. Oropharynx: moist mucous membranes, no exudates, tonsils enlarged, erythema Neck: Neck: supple, trachea midline. Thyroid: no enlargement, non-tender Lungs: Respiratory effort: ; R subclavian HD catheter. Auscultation: inspiratory wheezing, expiratory wheezing, rhonchi Cardiovascular: Heart Auscultation: RRR, normal S1, normal S2, no murmurs Musculoskeletal:: Motor Strength and Tone: normal, normal tone. Joints, Bones, and Muscles: normal movement of all extremities. Extremities: no edema Neurologic: Gait and Station: normal gait
--- OUTSIDE RECORDS SUMMARY | 2018-06-25 03:01 | XMS REPORT | Continuity of Care Document ---
Author Author [facility] Interface Address Unknown Phone Unavailable Problems Problem Status Onset Date Classification Date Reported Comments Source UNK Active 03/09/2018 [facility] Hypertensive chronic kidney disease with stage 5 chronic kidney disease or end stage renal disease 11/23/2017 05/30/2018 [facility] M54.16 - RADICULOPATHY, LUMBAR REGION Active 11/06/2017 ANGELIQUE Hyatta AVF CREATION Active 10/09/2017 [facility] End stage renal disease 05/30/2018 [facility] Dependence on renal dialysis 05/30/2018 [facility] Pure hypercholesterolemia, unspecified 05/30/2018 [facility] Nicotine dependence, cigarettes, uncomplicated 05/30/2018 [facility] Back pain Active Problem [facility]/30[facility] (<span ID="[id number]">Confirmed</span>) Active Problem 05/30/2018 [facility] Cramping of feet<sup>1</sup> Active Problem 05/30/2018 and LE bilat after dialysis ANGELIQUE Lewis,[facility] Dialysis patient Active Problem 05/30/2018 [facility] SOB on exertion(<span ID="[id number]">Confirmed</span>) Active Problem 05/30/2018 [facility] ESRD on [facility](<span ID="[id number]">Confirmed</span>) Active Problem 05/30/2018 [facility] Hypercholesteremia Active Problem 05/30/2018 [facility] HTN (<span ID="[id number]">Confirmed</span>) Active Problem 05/30/2018 [facility] Medications Medication Details Route Status Patient Instructions Ordering Provider Order Date Source Meperidine 12.5 mg, Route: IVP, Q30Min, Dosing Weight 84.091, kg, PRN Other -See Comment, For shivering, Start date: 11/10/17 15:05:00 CDT, Duration: 2 doses or times, Stop date: Limited # of times No Longer Active 11/10/2017 [facility] 72 HR Scopolamine 0.0139 MG/HR Transdermal Patch 1 patch, Route: TOP, Drug Form: ERFILM, Dosing Weight 84.091, kg, ONCE, Apply behind ear. Avoid use in elderly., Start date: 11/10/17 15:05:00 CDT, Stop date: 11/10/17 15:05:00 CDT No Longer Active 11/10/2017 [facility] Ondansetron 4 mg, Route: IVP, ONCE, Dosing Weight 84.091, kg, PRN Nausea & Vomiting, Start date: 11/10/17 15:05:00 CDT No Longer Active 11/10/2017 [facility] Promethazine 6.25 mg, Route: IVPB, ONCE, Dosing Weight 84.091, kg, PRN Nausea & Vomiting, Start date: 11/10/17 15:05:00 CDT No Longer Active 11/10/2017 [facility] Oxycodone 10 mg, Route: PO, Drug form: TAB, Q4H, Dosing Weight 84.091, kg, PRN Pain Score 7-10, Start date: 11/10/17 15:05:00 CDT, Duration: 30 day, Stop date: 12/10/17 15:04:00 CDT No Longer Active 11/10/2017 [facility] Hydromorphone 0.5 mg, Route: IVP, Q5Min, Dosing Weight 84.091, kg, PRN Pain Score 7-10, Start date: 11/10/17 15:05:00 CDT, Duration: 4 doses or times, Stop date: Limited # of times No Longer Active 11/10/2017 [facility] Fentanyl 50 microgram, Route: IVP, Q5Min, Dosing Weight 84.091, kg, PRN Pain Score 7-10, Priority: Routine, Start date: 11/10/17 15:05:00 CDT, Duration: 2 doses or times, Stop date: Limited # of times No Longer Active 11/10/2017 [facility] Flumazenil 0.2 mg, Route: IVP, PRN, Dosing Weight 84.091, kg, PRN Benzodiazepine Reversal, Initial dose, Start date: 11/10/17 15:05:00 CDT, Duration: 30 day, Stop date: 12/10/17 15:04:00 CDT No Longer Active 11/10/2017 [facility] Morphine 4 mg, Route: IVP, Q5Min, Dosing Weight 84.091, kg, PRN Pain Score 7-10, Start date: 11/10/17 15:05:00 CDT, Duration: 3 doses or times, Stop date: Limited # of times No Longer Active 11/10/2017 [facility] Diphenhydramine 12.5 mg, Route: IVP, Drug form: INJ, Q6H, Dosing Weight 84.091, kg, PRN Itching, Start date: 11/10/17 15:05:00 CDT, Duration: 30 day, Stop date: 12/10/17 15:04:00 CDT No Longer Active 11/10/2017 [facility] Naloxone 0.4 mg, Route: IVP, Q2MIN, Dosing Weight 84.091, kg, PRN Narcotic Reversal, Start date: 11/10/17 15:05:00 CDT, Duration: 8 doses or times, Stop date: Limited # of times No Longer Active 11/10/2017 [facility] Ketorolac 30 mg, Route: IVP, ONCE, Dosing Weight 84.091, kg, Start date: 11/10/17 15:05:00 CDT, Stop date: 11/10/17 15:05:00 CDT No Longer Active 11/10/2017 [facility] Acetaminophen 1,000 mg, Route: IVPB, Drug form: INJ, ONCE, Dosing Weight 84.091, kg, PRN Pain Score 1-3, Start date: 11/10/17 15:05:00 CDT No Longer Active 11/10/2017 [facility] Calcium Chloride 0.0014 MEQ/ML / Potassium Chloride 0.004 MEQ/ML / Sodium Chloride 0.103 MEQ/ML / Sodium Lactate 0.028 MEQ/ML Injectable Solution 1,000 mL, Rate: 125 ml/hr, Infuse over: 8 hr, Route: IV, Dosing Weight 84.091 kg, Total Volume: 1,000, Start date: 11/10/17 15:05:00 CDT, Duration: 30 day, Stop date: 12/10/17 15:04:00 CDT, 2.04, m2 No Longer Active 11/10/2017 [facility] Acetaminophen 325 MG / Hydrocodone Bitartrate 10 MG Oral Tablet 1 tab, Route: PO, Dosing Weight 84.091, kg, Q4H, PRN Pain Score 4-6, Start date: 11/10/17 13:38:00 CDT, Duration: 30 day, Stop date: 12/10/17 13:37:00 CDT No Longer Active 11/10/2017 [facility] Morphine 2 mg, Route: IVP, Q3H, Dosing Weight 84.091, kg, PRN Pain Score 1-3, Start date: 11/10/17 13:38:00 CDT, Duration: 30 day, Stop date: 12/10/17 13:37:00 CDT No Longer Active 11/10/2017 [facility] Acetaminophen 325 MG / Hydrocodone Bitartrate 5 MG Oral Tablet 1 tab, Route: PO, Dosing Weight 84.091, kg, Q4H, PRN Pain Score 4-6, Start date: 11/10/17 13:38:00 CDT, Duration: 30 day, Stop date: 12/10/17 13:37:00 CDT No Longer Active 11/10/2017 [facility] ondansetron (ANES) Route: IV, Drug form: INJ, ONCE, Stop date: 11/10/17 13:36:00 CDT Inactive 11/10/2017 [facility] metoclopramide (ANES) Route: IV, Drug form: INJ, ONCE, Stop date: 11/10/17 13:36:00 CDT Inactive 11/10/2017 [facility] famotidine (ANES) Route: IV, Drug form: INJ, ONCE, Stop date: 11/10/17 13:36:00 CDT Inactive 11/10/2017 [facility] dexamethasone (ANES) Route: IV, Drug form: INJ, ONCE, Stop date: 11/10/17 13:36:00 CDT Inactive 11/10/2017 [facility] propofol (ANES) Route: IV, Drug form: INJ, ONCE, Stop date: 11/10/17 13:36:00 CDT Inactive 11/10/2017 [facility] midazolam (ANES) Route: IV, Drug form: SOLN, ONCE, Stop date: 11/10/17 13:36:00 CDT Inactive 11/10/2017 [facility] lidocaine (ANES) Route: IV, Drug form: INJ, ONCE, Stop date: 11/10/17 13:36:00 CDT Inactive 11/10/2017 [facility] fentaNYL (ANES) Route: IV, Drug form: INJ, ONCE, Stop date: 11/10/17 13:36:00 CDT Inactive 11/10/2017 [facility] acetaminophen (ANES) 10 mg Route: IV, Drug form: INJ, Start date: 11/10/17 13:21:00 CDT, Stop date: 11/10/17 14:21:00 CDT Inactive 11/10/2017 [facility] vancomycin (ANES) 1000 mg Route: IV, Drug form: INJ, Start date: 11/10/17 12:42:00 CDT, Stop date: 11/10/17 13:42:00 CDT Inactive 11/10/2017 [facility] ceFAZolin (ANES) 1000 mg Route: IV, Drug form: INJ, Start date: 11/10/17 12:42:00 CDT, Stop date: 11/10/17 13:42:00 CDT Inactive 11/10/2017 [facility] Sodium Chloride 0.9% IV (ANES) 500 mL Route: IV, Total Volume: 500, Start date: 11/10/17 12:41:00 CDT, Stop date: 11/10/17 13:41:00 CDT Inactive 11/10/2017 [facility] Calcium Chloride 0.0014 MEQ/ML / Potassium Chloride 0.004 MEQ/ML / Sodium Chloride 0.103 MEQ/ML / Sodium Lactate 0.028 MEQ/ML Injectable Solution 1,000 mL, Rate: 25 ml/hr, Infuse over: 40 hr, Route: IV, Dosing Weight 84.091 kg, Total Volume: 1,000, Start date: 11/10/17 10:41:00 CDT, Duration: 30 day, Stop date: 12/10/17 10:40:00 CDT, 2.04, m2 Inactive 11/10/2017 [facility] Iron Chews 15 mg, PO, Daily, 0 Refill(s) Active 11/03/2017 [facility] Renvela PO, 0 Refill(s) No Longer Active 11/03/2017 [facility] Ventolin HFA INHALATION, QID, 0 Refill(s) Active 11/03/2017 [facility] Hydralazine Hydrochloride 100 MG Oral Tablet 100 mg=1 tab, PO, BID, 0 Refill(s) Active 11/03/2017 [facility] atorvastatin 80 mg oral tablet 80 mg=1 tab, PO, Daily, 0 Refill(s) Active 11/03/2017 [facility] NIFEdipine 60 mg oral tablet, extended release 60 mg=1 tab, PO, Daily, 0 Refill(s) Active 11/03/2017 [facility] gabapentin 300 MG Oral Capsule 300 mg=1 cap, PO, TID, 0 Refill(s) Active 11/03/2017 [facility] Acetaminophen 325 MG / Hydrocodone Bitartrate 10 MG Oral Tablet [[place] 10/325] 1 tab, PO, Q6H, 0 Refill(s) Active 11/03/2017 [facility] Ancef 2 gm, 20 mL, Route: IV, Drug form: INJ, PRE OP, Dosing Weight 84.091, kg, Start date: 11/03/17 11:00:00 CDT, Duration: 1 day, Stop date: 11/04/17 10:59:00 CDT, ABX Indication: Surgical ProphylaxisNotes: (Same As: Ancef) Inject direct IV slowly over 5 minutes. Cefazolin 1gm in sterile water 10mL No Longer Active 11/03/2017 [facility] Vancomycin 1 gm, Route: IVPB, Drug form: INJ, PRE OP, Dosing Weight 84.091, kg, Start date: 11/03/17 11:00:00 CDT, Duration: 1 day, Stop date: 11/04/17 10:59:00 CDT, ABX Indication: Surgical ProphylaxisNotes: TIME CRITICAL MEDICATION (Same As: Vancocin) Infusion rate 2001 mg: infuse over 2.5 hours For adult patients only: Round to nearest 250 mg per Medical Staff approval MEDICATION WASTE Product Size: 1000 mg Product Wasted: ___ mg No Longer Active 11/03/2017 [facility] Allergies, Adverse Reactions, Alerts Substance Category Reaction Severity Reaction type Status Date Reported Comments Source sulfa drugs Assertion Drug allergy Active [facility] Immunizations Immunization Date Given Site Status Last Updated Comments Source Results Order Name Results Value Reference Range Date Interpretation Comments Source ELECTROLYTES Potassium Lvl 3.8 meq/L 3.5 - 5.1 11/10/2017 [facility] BLOOD BANK RESULTS ABO/Rh A POS 11/03/2017 [facility] BLOOD BANK RESULTS Antibody Scrn Negative (11/03/17 11:04 AM) 11/03/2017 [facility] ELECTROLYTES AGAP 14.5 meq/L 10.0 - 20.0 11/03/2017 [facility] ELECTROLYTES eGFR 11 mL/min/1.73m2 11/03/2017 Result Comment: The eGFR is calculated using the CKD-EPI formula. In most young, healthy individuals the eGFR will be >90 mL/min/1.73m2. The eGFR declines with age. An eGFR of 60-89 may be normal in some populations, particularly the elderly, for whom the CKD-EPI formula has not been extensively validated. Use of the eGFR is not recommended in the following populations: Individuals with unstable creatinine concentrations, including patients and those with serious co-morbid conditions. Patients with extremes in muscle mass or diet. The data above are obtained from the National Kidney Disease Education Program (NKDEP) which additionally recommends that when the eGFR is used in patients with extremes of body mass index for purposes of drug dosing, the eGFR should be multiplied by the estimated BMI. [facility] ELECTROLYTES CO2 30 meq/L 24 - 32 11/03/2017 [facility] ELECTROLYTES Calcium Lvl 8.5 mg/dL 8.5 - 10.5 11/03/2017 [facility] ELECTROLYTES Chloride Lvl 104 meq/L 95 - 109 11/03/2017 [facility] ELECTROLYTES Potassium Lvl 4.5 meq/L 3.5 - 5.1 11/03/2017 [facility] ELECTROLYTES Sodium Lvl 144 meq/L 135 - 145 11/03/2017 [facility] ELECTROLYTES Creatinine Lvl 5.16 mg/dL 0.50 - 1.40 11/03/2017 [facility] ELECTROLYTES BUN 38 mg/dL 7 - 11/03/2017 [facility] ELECTROLYTES Glucose Lvl 83 mg/dL 70 - 99 11/03/2017 [facility] HEMATOLOGY Monocytes 9.7 % 2.0 - 12.0 11/03/2017 [facility] HEMATOLOGY Segs 73.2 % 45.0 - 75.0 11/03/2017 [facility] HEMATOLOGY Lymphocytes 13.6 % 20.0 - 40.0 11/03/2017 [facility] HEMATOLOGY Basophils 0.7 % 0.0 - 1.0 11/03/2017 [facility] HEMATOLOGY Eosinophils 2.8 % 0.0 - 4.0 11/03/2017 [facility] Lymphocytes # 1.1 K/CMM 1.0 - 5.5 11/03/2017 [facility] Neutrophils # 5.9 K/CMM 1.5 - 8.1 11/03/2017 [facility] Eosinophils # 0.2 K/CMM 0.0 - 0.5 11/03/2017 [facility] Monocytes # 0.8 K/CMM 0.0 - 0.8 11/03/2017 [facility] Basophils # 0.1 K/CMM 0.0 - 0.2 11/03/2017 [facility] PTT 26.8 s 22.9 - 35.8 11/03/2017 [facility] INR 0.91 0.85 - 1.17 11/03/2017 [facility] PT 12.2 s 12.0 - 14.7 11/03/2017 [facility] RDW 15.4 % 11.5 - 14.5 11/03/2017 [facility] Platelet 229 K/CMM 133 - 450 11/03/2017 [facility] MPV 8.6 fL 7.4 - 10.4 11/03/2017 [facility] RBC 3.85 M/CMM 4.70 - 6.10 11/03/2017 [facility] Hct 36.5 % 42.0 - 54.0 11/03/2017 [facility] Hgb 12.0 g/dL 14.0 - 18.0 11/03/2017 [facility] MCH 31.2 pg 27.0 - 31.0 11/03/2017 [facility] MCHC 32.9 g/dL 32.0 - 36.0 11/03/2017 [facility] MCV 94.8 fL 80.0 - 94.0 11/03/2017 [facility] WBC 8.1 K/CMM 3.7 - 10.4 11/03/2017 [facility] Chest 2 views DX Chest 2 views DX Patient Name: NOHEMI JEFFREY : 1950; Age: 66 years y/o Male MR: [id number] * CHEST, 2 views HISTORY: Coughing - [...] terminates in the mid right atrium. SL: [id number] 11/03/2017 - - Read by: Vahe Knight MD Dictated Date/time: 11/03/17 12:25 Electronically Signed by: Vahe Knight MD 11/03/17 12:26 FINAL REPORT [facility] Vital Signs Vital Sign Value Date Comments Source Systolic (mm Hg) 135 11/10/2017 [facility] Diastolic (mm Hg) 59 11/10/2017 [facility] Respitory Rate 15 11/10/2017 [facility] Respitory Rate 14 11/10/2017 [facility] Systolic (mm Hg) 144 11/10/2017 [facility] Diastolic (mm Hg) 62 11/10/2017 [facility] Respitory Rate 14 11/10/2017 [facility] Systolic (mm Hg) 155 11/10/2017 [facility] Diastolic (mm Hg) 67 11/10/2017 [facility] Heart Rate 88 11/10/2017 [facility] Heart Rate 95 11/03/2017 [facility] Temperature Oral (F) 99.2 F 11/03/2017 [facility] BMI Calculated 27.38 11/03/2017 [facility] Weight 84.091 11/03/2017 [facility] Height 175.26 cm 11/03/2017 [facility] Encounters Location Location Details Encounter Type Encounter Number Reason For Visit Attending Provider ADM Date DC Date Status Source [facility] [place] [facility] [id number] Chuckie Lee 11/08/2017 11/08/2017 ANGELIQUE Lewis [facility] [id number] [place] 11/10/2017 11/10/2017 [facility] Procedures Procedure Code Date Perfomer Comments Source Formation of arteriovenous fistula by external cannula for renal dialysis [id number] [id number] Formation of arteriovenous fistula by external cannula for renal dialysis [id number] [facility] Operation [id number] [facility]
--- OUTSIDE RECORDS SUMMARY | 2018-06-25 03:01 | XMS REPORT | Summary of Care ---
Author Author [facility] Address Unknown Phone Unavailable Encounter NATALIYA Nava(RISHI) [id number] Date(s): 11/10/17 - 11/10/17 [facility] [id number] [place] [address]- Encounter Diagnosis Hypertensive chronic kidney disease with stage 5 chronic kidney disease or end s tage renal disease (Final) - 11/22/17 End stage renal disease (Final) - Dependence on renal dialysis (Final) - Pure hypercholesterolemia, unspecified (Final) - Nicotine dependence, cigarettes, uncomplicated (Final) - Discharge Disposition: Home or Self Care Attending Physician: Cholo Mesa MD Referring Physician: Cholo Mesa MD Vital Signs 1 2 3 Most recent to oldest [Reference Range]: 175.26 cm (11/03/17 10:50 AM) Height 99.2 DegF *HI* (11/03/17 10:50 AM) Temperature Oral [96.4-99.1 DegF] 135/59 mmHg (11/10/17 3:35 PM) 144/62 mmHg *HI* (11/10/17 3:20 PM) 155/67 mmHg *HI* (11/10/17 3:05 PM) Blood Pressure [90-140/60-90 mmHg] 15 BRMIN (11/10/17 3:35 PM) 14 BRMIN (11/10/17 3:20 PM) 14 BRMIN (11/10/17 3:05 PM) Respiratory Rate [14-20 BRMIN] 88 bpm (11/10/17 10:43 AM) 95 bpm (11/03/17 10:50 AM) Peripheral Pulse Rate [60-100 bpm] 84.091 kg (11/03/17 10:50 AM) Weight 27.38 m2 (11/03/17 10:50 AM) Body Mass Index Problem List Condition Effective Dates Status Health [...] Reaction Severity Status sulfa drugs Active Medications acetaminophen (ANES) 10 mg Route: IV, Drug form: INJ, Start date: 11/10/17 13:21:00 CDT, Stop date: 8 14:21:00 CDT Start Date: 11/10/17 Stop Date: 11/10/17 Status: Completed acetaminophen-hydrocodone 325 mg-10 mg oral tablet 1 tab, Route: PO, Dosing Weight 84.091, kg, Q4H, PRN Pain Score 4-6, Start date: 11/10/17 13:38:00 CDT, Duration: 30 day, Stop date: 12/10/17 13:37:00 CDT Start Date: 11/10/17 Stop Date: 11/11/17 Status: Discontinued acetaminophen-hydrocodone 325 mg-5 mg oral tablet 1 tab, Route: PO, Dosing Weight 84.091, kg, Q4H, PRN Pain Score 4-6, Start date: 11/10/17 13:38:00 CDT, Duration: 30 day, Stop date: 12/10/17 13:37:00 CDT Start Date: 11/10/17 Stop Date: 11/11/17 Status: Discontinued Ancef 2 gm, 20 mL, Route: IV, Drug form: INJ, PRE OP, Dosing Weight 84.091, kg, Start date: 11/03/17 11:00:00 CDT, Duration: 1 day, Stop date: 11/04/17 10:59:00 CDT, ABX Indication: Surgical Prophylaxis Notes: (Same As: Ancef)Inject direct IV slowly over 5 minutes.Cefazolin 1gm in s terile water 10mL Start Date: 11/03/17 Stop Date: 11/11/17 Status: Discontinued ANES acetaminophen 1,000 mg, Route: IVPB, Drug form: INJ, ONCE, Dosing Weight 84.091, kg, PRN Pain Score 1-3, Start date: 11/10/17 15:05:00 CDT Start Date: 11/10/17 Stop Date: 11/11/17 Status: Discontinued ANES diphenhydrAMINE 12.5 mg, Route: IVP, Drug form: INJ, Q6H, Dosing Weight 84.091, kg, PRN Itching, Start date: 11/10/17 15:05:00 CDT, Duration: 30 day, Stop date: 12/10/17 15:04: 00 CDT Start Date: 11/10/17 Stop Date: 11/11/17 Status: Discontinued ANES fentaNYL 50 microgram, Route: IVP, Q5Min, Dosing Weight 84.091, kg, PRN Pain Score 7-10, Priority: Routine, Start date: 11/10/17 15:05:00 CDT, Duration: 2 doses or times , Stop date: Limited # of times Start Date: 11/10/17 Stop Date: 11/11/17 Status: Discontinued ANES fentaNYL 25 microgram, Route: IVP, Q5Min, Dosing Weight 84.091, kg, PRN Pain Score 4-6, P riority: Routine, Start date: 11/10/17 15:05:00 CDT, Duration: 4 doses or times, Stop date: Limited # of times Start Date: 11/10/17 Stop Date: 11/11/17 Status: Discontinued ANES flumazenil 0.2 mg, Route: IVP, PRN, Dosing Weight 84.091, kg, PRN Benzodiazepine Reversal, Initial dose, Start date: 11/10/17 15:05:00 CDT, Duration: 30 day, Stop date: 15:04:00 CDT Start Date: 11/10/17 Stop Date: 11/11/17 Status: Discontinued ANES HYDROmorphone 0.5 mg, Route: IVP, Q5Min, Dosing Weight 84.091, kg, PRN Pain Score 7-10, Start date: 11/10/17 15:05:00 CDT, Duration: 4 doses or times, Stop date: Limited # of times Start Date: 11/10/17 Stop Date: 11/11/17 Status: Discontinued ANES ketOROLAC 30 mg, Route: IVP, ONCE, Dosing Weight 84.091, kg, Start date: 11/10/17 15:05:00 CDT, Stop date: 11/10/17 15:05:00 CDT Start Date: 11/10/17 Stop Date: 11/20/17 Status: Discontinued ANES meperidine 12.5 mg, Route: IVP, Q30Min, Dosing Weight 84.091, kg, PRN Other -See Comment, F or shivering, Start date: 11/10/17 15:05:00 CDT, Duration: 2 doses or times, Sto p date: Limited # of times Start Date: 11/10/17 Stop Date: 11/11/17 Status: Discontinued ANES morphine Sulfate 4 mg, Route: IVP, Q5Min, Dosing Weight 84.091, kg, PRN Pain Score 7-10, Start da te: 11/10/17 15:05:00 CDT, Duration: 3 doses or times, Stop date: Limited # of t imes Start Date: 11/10/17 Stop Date: 11/11/17 Status: Discontinued ANES morphine Sulfate 2 mg, Route: IVP, Q5Min, Dosing Weight 84.091, kg, PRN Pain Score 4-6, Start christian e: 11/10/17 15:05:00 CDT, Duration: 5 doses or times, Stop date: Limited # of ti mes Start Date: 11/10/17 Stop Date: 11/11/17 Status: Discontinued ANES naloxone 0.4 mg, Route: IVP, Q2MIN, Dosing Weight 84.091, kg, PRN Narcotic Reversal, Star t date: 11/10/17 15:05:00 CDT, Duration: 8 doses or times, Stop date: Limited # of times Start Date: 11/10/17 Stop Date: 11/11/17 Status: Discontinued ANES ondansetron 4 mg, Route: IVP, ONCE, Dosing Weight 84.091, kg, PRN Nausea & Vomiting, Start date: 11/10/17 15:05:00 CDT Start Date: 11/10/17 Stop Date: 11/11/17 Status: Discontinued ANES oxyCODONE 10 mg, Route: PO, Drug form: TAB, Q4H, Dosing Weight 84.091, kg, PRN Pain Score 7-10, Start date: 11/10/17 15:05:00 CDT, Duration: 30 day, Stop date: 12/10/17 1 5:04:00 CDT Start Date: 11/10/17 Stop Date: 11/11/17 Status: Discontinued ANES oxyCODONE 5 mg, Route: PO, Drug form: TAB, Q4H, Dosing Weight 84.091, kg, PRN Pain Score 4 -6, Start date: 11/10/17 15:05:00 CDT, Duration: 30 day, Stop date: 12/10/17 15: 04:00 CDT Start Date: 11/10/17 Stop Date: 11/11/17 Status: Discontinued ANES promethazine 6.25 mg, Route: IVPB, ONCE, Dosing Weight 84.091, kg, PRN Nausea & Vomiting, Start date: 11/10/17 15:05:00 CDT Start Date: 11/10/17 Stop Date: 11/11/17 Status: Discontinued ANES scopolamine 1.5 mg transdermal film 1 patch, Route: TOP, Drug Form: ERFILM, Dosing Weight 84.091, kg, ONCE, Apply be hind ear. Avoid use in elderly., Start date: 11/10/17 15:05:00 CDT, Stop date: 11/10/17 15:05:00 CDT Start Date: 11/10/17 Stop Date: 11/20/17 Status: Discontinued atorvastatin 80 mg oral tablet 80 mg=1 tab, PO, Daily, 0 Refill(s) Start Date: 11/03/17 Status: Ordered ceFAZolin (ANES) 1000 mg Route: IV, Drug form: INJ, Start date: 11/10/17 12:42:00 CDT, Stop date: 8 13:42:00 CDT Start Date: 11/10/17 Stop Date: 11/10/17 Status: Completed dexamethasone (ANES) Route: IV, Drug form: INJ, ONCE, Stop date: 11/10/17 13:36:00 CDT Start Date: 11/10/17 Stop Date: 11/10/17 Status: Completed famotidine (ANES) Route: IV, Drug form: INJ, ONCE, Stop date: 11/10/17 13:36:00 CDT Start Date: 11/10/17 Stop Date: 11/10/17 Status: Completed fentaNYL (ANES) Route: IV, Drug form: INJ, ONCE, Stop date: 11/10/17 13:36:00 CDT Start Date: 11/10/17 Stop Date: 11/10/17 Status: Completed gabapentin 300 mg oral capsule 300 mg=1 cap, PO, TID, 0 Refill(s) Start Date: 11/03/17 Status: Ordered hydrALAZINE 100 mg oral tablet 100 mg=1 tab, PO, BID, 0 Refill(s) Start Date: 11/03/17 Status: Ordered Iron Chews 15 mg, PO, Daily, 0 Refill(s) Start Date: 11/03/17 Status: Ordered Lactated Ringers Injection IV 1000 mL 1,000 mL, Rate: 25 ml/hr, Infuse over: 40 hr, Route: IV, Dosing Weight 84.091 kg , Total Volume: 1,000, Start date: 11/10/17 10:41:00 CDT, Duration: 30 day, Stop date: 12/10/17 10:40:00 CDT, 2.04, m2 Start Date: 11/10/17 Stop Date: 11/10/17 Status: Discontinued Lactated Ringers Injection IV 1000 mL 1,000 mL, Rate: 125 ml/hr, Infuse over: 8 hr, Route: IV, Dosing Weight 84.091 kg , Total Volume: 1,000, Start date: 11/10/17 15:05:00 CDT, Duration: 30 day, Stop date: 12/10/17 15:04:00 CDT, 2.04, m2 Start Date: 11/10/17 Stop Date: 11/11/17 Status: Discontinued lidocaine (ANES) Route: IV, Drug form: INJ, ONCE, Stop date: 11/10/17 13:36:00 CDT Start Date: 11/10/17 Stop Date: 11/10/17 Status: Completed metoclopramide (ANES) Route: IV, Drug form: INJ, ONCE, Stop date: 11/10/17 13:36:00 CDT Start Date: 11/10/17 Stop Date: 11/10/17 Status: Completed midazolam (ANES) Route: IV, Drug form: SOLN, ONCE, Stop date: 11/10/17 13:36:00 CDT Start Date: 11/10/17 Stop Date: 11/10/17 Status: Completed morphine Sulfate 2 mg, Route: IVP, Q3H, Dosing Weight 84.091, kg, PRN Pain Score 1-3, Start date: 11/10/17 13:38:00 CDT, Duration: 30 day, Stop date: 12/10/17 13:37:00 CDT Start Date: 11/10/17 Stop Date: 11/11/17 Status: Discontinued NIFEdipine 60 mg oral tablet, extended release 60 mg=1 tab, PO, Daily, 0 Refill(s) Start Date: 11/03/17 Status: Ordered [place] 10/325 oral tablet 1 tab, PO, Q6H, 0 Refill(s) Start Date: 11/03/17 Status: Ordered ondansetron (ANES) Route: IV, Drug form: INJ, ONCE, Stop date: 11/10/17 13:36:00 CDT Start Date: 11/10/17 Stop Date: 11/10/17 Status: Completed propofol (ANES) Route: IV, Drug form: INJ, ONCE, Stop date: 11/10/17 13:36:00 CDT Start Date: 11/10/17 Stop Date: 11/10/17 Status: Completed Renvela PO, 0 Refill(s) Start Date: 11/03/17 Stop Date: 12/20/17 Status: Completed Sodium Chloride 0.9% IV (ANES) 500 mL Route: IV, Total Volume: 500, Start date: 11/10/17 12:41:00 CDT, Stop date: 06/25 13:41:00 CDT Start Date: 11/10/17 Stop Date: 11/10/17 Status: Completed vancomycin (ANES) 1000 mg Route: IV, Drug form: INJ, Start date: 11/10/17 12:42:00 CDT, Stop date: 8 13:42:00 CDT Start Date: 11/10/17 Stop Date: 11/10/17 Status: Completed vancomycin + Dextrose 5% in Water IV 250 mL 1 gm, Route: IVPB, Drug form: INJ, PRE OP, Dosing Weight 84.091, kg, Start date: 11/03/17 11:00:00 CDT, Duration: 1 day, Stop date: 11/04/17 10:59:00 CDT, ABX I ndication: Surgical Prophylaxis Notes: TIME CRITICAL MEDICATION(Same As: Vancocin)Infusion rate< 1000 mg: infuse over 1 [id number] - 1500 mg: infuse over 1.5 [id number] - 2000 mg: infuse over 2 hours> 2001 mg: infuse over 2.5 hoursFor adult patients only: Round to nearest 250 mg per Medical Staff approval MEDICATION WASTE Product Size: 1000 mgProduct Wasted: ___ mg Start Date: 11/03/17 Stop Date: 11/11/17 Status: Discontinued Ventolin HFA INHALATION, QID, 0 Refill(s) Start Date: 11/03/17 Status: Ordered Results BLOOD BANK RESULTS Most recent to 1 oldest [Reference Range]: ABO/Rh A POS *Unknown* (11/03/17 11:04 AM) Antibody Scrn Negative (11/03/17 11:04 AM) ELECTROLYTES Most recent to 1 2 oldest [Reference Range]: Sodium Lvl [135-145 144 mEq/L mEq/L] (11/03/17 11:04 AM) Potassium Lvl 3.8 mEq/L 4.5 mEq/L [3.5-5.1 mEq/L] (11/10/17 10:38 AM) (11/03/17 11:04 AM) Chloride Lvl [95-109 104 mEq/L mEq/L] (11/03/17 11:04 AM) CO2 [24-32 mEq/L] 30 mEq/L (11/03/17 11:04 AM) AGAP [10.0-20.0 14.5 mEq/L mEq/L] (11/03/17 11:04 AM) CHEM PANEL Most recent to 1 2 oldest [Reference Range]: Creatinine Lvl 5.16 mg/dL [0.50-1.40 mg/dL] *HI* (11/03/17 11:04 AM) eGFR 11 mL/min/1.73m2 1 *NA* (11/03/17 11:04 AM) BUN [7-22 mg/dL] 38 mg/dL *HI* (11/03/17 11:04 AM) Glucose Lvl [70-99 83 mg/dL mg/dL] (11/03/17 11:04 AM) Calcium Lvl 8.5 mg/dL [8.5-10.5 mg/dL] (11/03/17 11:04 AM) 1Result Comment: The eGFR is calculated using the [...] from the National Kid[employer] Education Program ( NKDEP) which additionally recommends that when the eGFR is used in patients with extremes of body mass index for purposes of drug dosing, the eGFR should be mul tiplied by the estimated BMI. HEMATOLOGY Most recent to 1 2 oldest [Reference Range]: WBC [3.7-10.4 K/CMM] 8.1 K/CMM (11/03/17 11:04 AM) RBC [4.70-6.10 3.85 M/CMM M/CMM] *LOW* (11/03/17 11:04 AM) Hgb [14.0-18.0 g/dL] 12.0 g/dL *LOW* (11/03/17 11:04 AM) Hct [42.0-54.0 %] 36.5 % *LOW* (11/03/17 11:04 AM) MCV [80.0-94.0 fL] 94.8 fL *HI* (11/03/17 11:04 AM) MCH [27.0-31.0 pg] 31.2 pg *HI* (11/03/17 11:04 AM) MCHC [32.0-36.0 32.9 g/dL g/dL] (11/03/17 11:04 AM) RDW [11.5-14.5 %] 15.4 % *HI* (11/03/17 11:04 AM) MPV [7.4-10.4 fL] 8.6 fL (11/03/17 11:04 AM) Platelet [133-450 229 K/CMM K/CMM] (11/03/17 11:04 AM) Segs [45.0-75.0 %] 73.2 % (11/03/17 11:04 AM) Lymphocytes 13.6 % [20.0-40.0 %] *LOW* (11/03/17:04 AM) Monocytes [2.0-12.0 9.7 % %] (11/03/17 11:04 AM) Eosinophils [0.0-4.0 2.8 % %] (11/03/17 11:04 AM) Basophils [0.0-1.0 0.7 % %] (11/03/17 11:04 AM) Neutrophils # 5.9 K/CMM [1.5-8.1 K/CMM] (11/03/17 11:04 AM) Lymphocytes # 1.1 K/CMM [1.0-5.5 K/CMM] (11/03/17 11:04 AM) Monocytes # [0.0-0.8 0.8 K/CMM K/CMM] (11/03/17 11:04 AM) Eosinophils # 0.2 K/CMM [0.0-0.5 K/CMM] (11/03/17 11:04 AM) Basophils # [0.0-0.2 0.1 K/CMM K/CMM] (11/03/17 11:04 AM) PT [12.0-14.7 12.2 seconds seconds] (11/03/17 11:04 AM) INR [0.85-1.17] 0.91 (11/03/17 11:04 AM) PTT [22.9-35.8 26.8 seconds seconds] (11/03/17 11:04 AM) Immunizations No data available for this section [...]
[2018-06-25] MEDS ORDERED: VECURONIUM BROMIDE FOR INJ 20 MG VIAL ONE ×2 (03:23→18:46)
[2018-06-25] MEDS ORDERED: VECURONIUM BROMIDE FOR INJ 20 MG VIAL IV STA (03:28)
[2018-06-25] MEDS ORDERED: ETOMIDATE 2 MG/ML 10 ML INJ IV STA (03:33)
[2018-06-25 03:41] LABS: BASOPHILS % 0.3 % (0.0-1.0); EOSINOPHILS # (AUTO) 0.1 (0.0-0.4); EOSINOPHILS % 0.9 % (0.0-6.0); HEMATOCRIT 27.3 % (38.2-49.6); HEMOGLOBIN 8.6 g/dL (14.0-18.0); LYMPHOCYTES # (AUTO) 1.2 (1.0-3.2); LYMPHOCYTES % 13.3 % (18.0-39.1); MEAN CORPUSCULAR HEMOGLOBIN 32.3 pg (28-32); MEAN CORPUSCULAR HGB CONC 31.5 g/dL (31-35); MEAN CORPUSCULAR VOLUME 102.6 fL (81-99); MONOCYTES # (AUTO) 0.8 (0.2-0.8); MONOCYTES % 9.3 % (4.4-11.3); NEUTROPHILS # (AUTO) 6.5 (2.1-6.9); NEUTROPHILS % 75.7 % (38.7-80.0); PLATELET COUNT 270 x10e3/uL (140-360); RED BLOOD COUNT 2.66 x10e6/uL (4.3-5.7); RED CELL DISTRIBUTION WIDTH 16.3 % (11.7-14.4)
[2018-06-25] MEDS ORDERED: FUROSEMIDE INJ 10 MG/ML 4 ML VIAL IV ONE (03:45)
[2018-06-25 03:54] LABS: ALBUMIN 3.7 g/dL (3.5-5.0); ALBUMIN/GLOBULIN RATIO 0.9 (0.8-2.0); CALCIUM 8.3 mg/dL (8.4-10.2); CREATININE, SERUM 6.48 mg/dL (0.72-1.25); MAGNESIUM 2.4 MG/DL (1.3-2.1)
--- NOTE | 2018-06-25 03:55 | Diagnostic Imaging Report ---
EXAMINATION: CHEST SINGLE (PORTABLE) INDICATION: S/P INTUBATION COMPARISON: Chest radiograph 03/25/2018 FINDINGS: AP view TUBES and LINES: ET with distal tip approximately 3.1 cm proximal to the danyelle, in adequate position. LUNGS: There is mild prominence of the central pulmonary vasculature, consistent with pulmonary venous congestion. PLEURA: No pleural effusion or pneumothorax. HEART AND MEDIASTINUM: Mild enlargement of the cardiac silhouette is stable. BONES AND SOFT TISSUES: No acute osseous lesion. UPPER ABDOMEN: No free air under the diaphragm. IMPRESSION: 1. ET tube in adequate position. 2. Mild bilateral pulmonary venous congestion. Signed by: Dr. Dm Capone M.D. on 06/25/2018 3:52 AM
[2018-06-25] MEDS ORDERED: MIDAZOLAM HCL 2 MG/2 ML VIAL ONE ×2 (04:00→18:46)
[2018-06-25] MEDS ORDERED: MIDAZOLAM HCL 25 MG in SODIUM CHLORIDE 0.9% 50ML 45 ML IV PRN (04:00)
[2018-06-25 04:01] LABS: CREATINE KINASE MB 3.5 ng/mL (0-5.0)
[2018-06-25] MEDS ORDERED: SODIUM CHLORIDE 0.9% 50ML 50 ML ONE (04:01)
[2018-06-25] MEDS ORDERED: ASPIRIN 81 MG CHEW TAB PO ONE (05:00)
[2018-06-25] MEDS ORDERED: PROPOFOL IV EMULSION 10MG/ML 100 ML ONE (05:10)
--- NOTE | 2018-06-25 05:10 | NUR ---
PER MD ORDERS, VERSED D/C AND PROPOFOL IV STARTED.
[2018-06-25] MEDS: PROPOFOL IV EMULSION 10MG/ML 100 ML IV SCH ×4 (05:12→22:38)
--- OUTSIDE RECORDS SUMMARY | 2018-06-25 05:39 | XMS REPORT | Clinical Summary ---
Author Author [facility] Address Unknown Phone Unavailable Care Team Providers Care Shower Maid Name Role Phone Chuckie Crawford PCP Unavailable [...] Date Type Specialty Terese Magdaleno II, MD [address] [place] [address] 06/27/2018 Appointment Cardiology 06/27/2018 Orders Only Transplant Hepatology 06/27/2018 Evaluation Transplant Procedures Comments Procedure Name Priority Date/Time Associated Diagnosis FLOW PRA CLASS II WITH Routine 03/26/2018 Renal failure, REFLEX TO ANTIBODY 3:16 PM COMMUNITY RELATIONS REPRESENTATIVE unspecified chronicity SPECIFICITY FLOW PRA CLASS I WITH Routine 03/26/2018 Renal failure, REFLEX TO ANTIBODY 3:16 PM COMMUNITY RELATIONS REPRESENTATIVE unspecified chronicity SPECIFICITY OCCULT BLOOD, STOOL Routine [...] REFLEX TO ANTIBODY SPECIFICITY (03/26/2018 3:16 PM COMMUNITY RELATIONS REPRESENTATIVE) Only the most recent of 2 results within the time period is included. Flow Class II Percent 0 [facility] Positive Flow Class Report [facility] Comments Specimen Blood Narrative Performed At Disclaimer: [facility] This test was developed and its performance characteristics determined by the [facility]. It has not been cleared or [...] complexity clinical laboratory testing. Performing Organization Address City/[facility] Phone Number [facility] HLA TESTING [address], MS: [id number], [place] [address] CLIA#[id number] CAP#[id number] UNOS#[id number] * FLOW PRA CLASS I WITH REFLEX TO ANTIBODY SPECIFICITY (03/26/2018 3:16 PM COMMUNITY RELATIONS REPRESENTATIVE) Only the most recent of 2 results within the time period is included. Flow Class I Percent 0 [facility] Positive Flow Class Report [facility] TEST[facility] Comments Specimen Blood Narrative Performed At Disclaimer: [facility] This test was developed and its performance characteristics determined by the [facility]. It has not been cleared or [...] complexity clinical laboratory testing. Performing Organization Address [facility] Phone Number [facility] HLA TESTING [address], MS: [id number], [place] [address] CLIA#[id number] CAP#[id number] UNOS#[id number] * Occult blood, stool (12/14/2017 12:10 PM CDT) Only the most recent of 2 results within the time period is included. Occult blood Negative Negative [facility] Specimen Stool - Stool Performing Organization Address City/[facility]/Zipcode Phone Number [facility] [address] [place] [address] [facility] * ECHOCARDIOGRAM REPORT - SCAN (09/22/2017 12:20 PM CDT) Narrative Performed At * 2D Echo W/Doppler(CW/PW/Color) (09/22/2017 10:45 AM CDT) Ejection Fraction [facility] Narrative Performed At Transthoracic Echocardiography Report (TTE) [facility] Demographics [facility] Patient Name SEGUNDO JEFFREY Date of Study09/22/2017 [id number] Gender Male Visit Number [id number] Race Unknown [id number] Number Number Date of Birth1950 Timmy Johnson [...] of Study 09/22/2017 Gender Male Visit Number [id number] Race Unknown Room Number Number Date of 1950 Referring Rasta Johnson Physician Age 66 year(s) [employer] Machine Feeder Offbearer Martinez Mendes Interpreting Stewart Callejas Physician Fellow [...] AM CDT) Narrative Performed At Addendum Begins Keyword [employer] [facility] REPORT STATUS:A ADDENDUM: I agree with the nonvascular findings as reported by Dr. Castellanos. Signed: René Victoria MD Report Verified Date/Time:09/22/2017 18:26:06 Reading Location: [place] [address] Angio Body Reading Room Addendum Ends FINAL [...] patent, except for minimal nonobstructive calcific atherosclerosis. [employer] dimensions of the left and the right external iliac arteries are 8 and 9 mm, respectively. Similarly, the associated pelvic veins are patent with no venous thrombosis identified.[employer] Developer dimensions of the left and the right [...] no arterial stenosis or venous thrombosis identified. [employer] dimensions of the left and the right external iliac arteries and veins are as described above. 2.Widely patent mesenteric and renal arteries. 3.Other findings as described above. 4.An addendum will be dictated regarding the non-vascular findings by the Foreign Legal Consultant Radiologist. Signed: Sebastien Castellanos MD Report Verified Date/Time:09/22/2017 10:45:05 Reading Location: [place] [address] Cardiology MRI Procedure Note Interface, External Ris In - 09/22/2017 6:28 PM CDT Addendum Begins REPORT STATUS:A ADDENDUM: I agree with the nonvascular findings as reported by Dr. Castellanos. Signed: René Victoria MD Report Verified Date/Time: 09/22/2017 18:26:06 Reading Location: [facility] P048 Angio Body Reading Room [...] patent, except for minimal nonobstructive calcific atherosclerosis. [employer] dimensions of the left and the right external iliac arteries are 8 and 9 mm, respectively. Similarly, the associated pelvic veins are patent with no venous thrombosis identified. [employer] Developer dimensions of the left and the right [...] no arterial stenosis or venous thrombosis identified. [employer] dimensions of the left and the right external iliac arteries and veins are as described above. 2. Widely patent mesenteric and renal arteries. 3. Other findings as described above. 4. An addendum will be dictated regarding the non-vascular findings by the Foreign Legal Consultant Radiologist. Signed: Sebastien Castellanos MD Report Verified Date/Time: 09/22/2017 10:45:05 Reading Location: [place] [address] Cardiology MRI Performing Organization Address City/State/Zipcode Phone Number [employer] * TRANSFUSION SERVICE REPORT - SCAN (06/29/2017 5:44 PM CDT) Narrative Performed At * [place] Cystogram Cine or Video Voiding (06/28/2017 1:15 PM CDT) Narrative Performed At FINAL REPORT [employer] Voiding cystourethrogram Clinical History: pre transplant evaluation [...] MD Report Verified Date/Time:06/28/2017 14:29:52 Reading Location: [facility] C013X Ortho Consult Reading Room [...] Report Verified Date/Time: 06/28/2017 14:29:52 Reading Location: [facility] B1 C013X Ortho Consult Reading Room Performing Organization Address City/State/Zipcode Phone Number [facility] * HLA TYPING CII (06/28/2017 11:27 AM CDT) HLA-DR AG1 4 [facility] HLA-DR AG2 13 [facility] HLA-DR AG3-1 [facility] TEST[facility] HLA-DR AG3-2 52 [facility] TEST[facility] HLA-DR AG4-1 53 [facility] TESTING HLA-DR AG4-2 [facility] TEST[facility] HLA-DR AG5-1 [facility] TEST[facility] HLA-DR AG5-2 [facility] TEST[facility] HLA-DQA1 AG 1-1 03 [facility] TEST[facility] HLA-DQA1 AG 1-2 01 [facility] TEST[facility] HLA-DQB1 AG 1-1 8 [facility] TEST[facility] HLA-DQB1 AG 1-2 6 [facility] TEST[facility] HLA-DPA1 AG 1-1 01 [facility] TEST[facility] HLA-DPA1 AG 1-2 01 [facility] HLA-DPB1 AG 1-1 04:01 [facility] TEST[facility] HLA-DPB1 AG 1-2 04:02 [facility] HLA-AG Notes [facility] HLA-AG Report Comments [facility] Specimen Blood Performing Organization Address [facility] Phone Number [facility] HLA TESTING ONE [address] Marika, MS: [id number], [place] [address] CLIA#[id number] CAP#[id number] UNOS#[id number] [facility] HLA TEST[facility] ONE [address], MS: [id number] [place] [address] * HLA TYPING CI (06/28/2017 11:27 AM CDT) HLA-A AG1 2 [facility] HLA-A AG2 3 [facility] HLA-B AG1 62 [facility] HLA TESTING HLA-B AG2 35 [facility] TEST[facility] HLA-C AG1 9 [facility] TESTING HLA-C AG2 7 [facility] TEST[facility] HLA-B BW1 6 [facility] TESTING HLA-B BW2 6 [facility] HLA-AG Notes [facility] HLA-AG Report Comments [facility] Specimen Blood Performing Organization Address [facility] Phone Number [facility] HLA TEST[facility] ONE [address], MS: [id number], [place] [address] CLIA#[id number] CAP#[id number] UNOS#[id number] [facility] HLA TEST[facility] ONE [address], MS: [id number] [place] [address] * AB SPECIFICITY CLASS II (06/28/2017 11:27 AM CDT) AB Specificity Class II NO CLASS II ANTIBODY DETECTED [facility] TEST[facility] WITH MFIs > 4000 AB Specificity Titr Class [facility] Report Specimen Blood Performing Organization Address [facility] Phone Number [facility] HLA TESTING ONE [address], MS: [id number], [place] [address] CLIA#[id number] CAP#[id number] UNOS#[id number] [facility] HLA TEST[facility] [address], MS: [id number] [place] [address] * AB SPECIFICITY CLASS I (06/28/2017 11:27 AM CDT) AB Specificity Class I NO CLASS I ANTIBODY DETECTED [facility] HLA TESTING WITH MFIs > 4000 AB Specificity Titr Class [facility] TEST[facility] Report Specimen Blood Performing Organization Address City/State/[facility] Phone Number [facility] HLA TESTING ONE [address]ika, MS: [id number], [place] [address] CLIA#[id number] CAP#[id number] UNOS#[id number] [facility] HLA TESTING ONE [address], MS: [id number] [place] [address] * Type and Screen, Automated (06/28/2017 11:27 AM CDT) ABO/RH AUTOMATED ([employer]) A POSITIVE [facility] Ab Scrn NEGATIVE [facility] Specimen Blood Performing Organization Address City/[facility]/Zipcode Phone Number [address] * Blood typing, automated (06/28/2017 11:27 AM CDT) ABO/RH AUTOMATED ([employer]) A POSITIVE [facility] Specimen Blood Performing Organization Address City/[facility] Phone Number [address] [address] [phone] * Prothrombin time/INR (06/28/2017 11:27 AM CDT) Protime 12.8 11.7 - 14.7 seconds [facility] INR 1.0 <=5.9 [facility] Specimen Blood Narrative Performed At RECOMMENDED COUMADIN/WARFARIN INR THERAPY RANGES [facility] STANDARD DOSE: 2.0 - 3.0 Includes: PROPHYLAXIS for venous thrombosis, [facility] systemic embolization; TREATMENT for venous thrombosis and/or pulmonary embolus. HIGH RISK: Target INR is 2.5-3.5 for patients with mechanical heart valves. Performing Organization Address City/[facility] Phone Number [address] [address] [phone] [place] [address] * Lipid panel (06/28/2017 11:27 AM CDT) Triglycerides 75 mg/dL [facility] Cholesterol 173 mg/dL [facility] HDL 100 mg/dL [facility] LDL Calculated 58 mg/dL [facility] Specimen Blood Narrative Performed At Triglyceride Reference Range: [facility] Low Risk <150 [facility] [id number] High Risk 200-499 Very High Risk>=500 Cholesterol Reference Range: Low Risk <200 [id number] High Risk>240 HDL Cholesterol Reference Range: Low Risk >=60 High Risk <40 LDL Cholesterol Reference Range: Optimal<100 Near [id number] [id number] Heas161-753 Very High >=190 Performing Organization Address City/State/Zipcode Phone Number [facility] [address] [place] [address] [facility] after 06/24/2017 Insurance Payer Benefit Subscriber ID Type Phone Address Plan / Group [employer] - MEDICARE MGD HU[employer]NA xxxxxxxxx [facility] MEDICARE Contracted ADV
[2018-06-25] MEDS ORDERED: ACETAMINOPHEN 1000 MG/100 ML IV STA (05:56)
[2018-06-25 06:00] LABS: CLARITY,URINE CLEAR (CLEAR); COLOR,URINE YELLOW (YELLOW); KETONES,URINE NEGATIVE (NEGATIVE); LEUKOCYTE ESTERASE ,URINE NEGATIVE (NEGATIVE); NITRITE,URINE NEGATIVE (NEGATIVE); PROTEIN,URINE DIPSTICK 2+ (NEGATIVE); URINE UROBILINOGEN 0.2 mg/dL (0.2 - 1)
[2018-06-25] MEDS ORDERED: VANCOMYCIN 1GM/NS 250 ML 250 ML IV ONE (06:00)
[2018-06-25] MEDS ORDERED: SOD POLYSTYRENE SULFONATE SUSP 15 GM/60 ML BTL PO ONE (06:00)
[2018-06-25] MEDS ORDERED: CEFEPIME HCL 1 GM VIAL IV SCH (06:00)
[2018-06-25 06:01] LABS: BILIRUBIN,URINE NEGATIVE (NEGATIVE)
[2018-06-25 06:11] LABS: BACTERIA,URINE RARE /HPF; EPITHELIAL CELLS,URINE FEW /LPF; WBC,URINE (MAN) 0-5 /HPF (0-5)
[2018-06-25] MEDS ORDERED: METOPROLOL TARTRATE INJ 1 MG/ML VIAL IV PRN (06:15)
--- NOTE | 2018-06-25 06:45 | NUR ---
DR. RICHARD AT BEDSIDE WITH PT.
[2018-06-25] MEDS: CEFEPIME 1GM/NS 0.9% 50 ML 50 ML IV SCH ×2 (06:48→17:24)
--- NOTE | 2018-06-25 07:05 | NUR ---
DR. RICHARD ROUNDING AT THIS TIME, AWAITING ORDERS.
--- NOTE | 2018-06-25 07:10 | NUR ---
BEDSIDE REPORT GIVEN TO SAMEER HENDERSON AND SAMEER VALLEJO DAY SHIFT NURSES.
--- NOTE | 2018-06-25 08:00 | NUR ---
RT AT BEDSIDE FOR ABG.
[2018-06-25] MEDS: PANTOPRAZOLE 40 MG 10ML VIAL IV SCH (08:05)
[2018-06-25] MEDS: ENOXAPARIN SOD INJ 40 MG/0.4 ML SYR SC SCH (08:05)
--- NOTE | 2018-06-25 08:12 | NUR ---
RT AT BEDSIDE, DECREASING FiO2 to 60.
[2018-06-25 08:22] LABS: ABG PCO2 37 mmHg (41-51); ABG PH 7.46 (7.31-7.41); ABG PO2 363 mmHg (80-105)
[2018-06-25 08:23] LABS: ABG HCO3 27 mmol/L (23-28)
--- NOTE | 2018-06-25 08:26 | NUR ---
DR. VELIZ ROUNDING AT THIS TIME, AWAITING ORDERS.
--- NOTE | 2018-06-25 08:30 | NUR ---
DR. VELIZ AT BEDSIDE, ADJUSTING VENT SETTINGS. O2 50%, RR 16. NO FURTHER ORDERS RECEIVED AT THIS TIME.
--- NOTE | 2018-06-25 08:48 | NUR ---
Spoke with HD nurse, SAMEER Wynne. Labs & status update provided.
--- NOTE | 2018-06-25 09:00 | NUR ---
SPOKE WITH Luis M JEFFREY (PT ) FOR VERBAL CONSENT, AWARE OF RISKS AND BENEFITS OF PROCEDURE, TELEPHONE CONSENT FOR HD COMPLETED, VERIFIED WITH SAMEER GROVES. CONSENT FORM PLACED ON CHART.
[2018-06-25] MEDS: AZITHROMYCIN 500MG/NS 250 ML 250 ML IV SCH ×2 (09:15→13:50)
--- NOTE | 2018-06-25 09:15 | NUR ---
DIALYSIS NURSE AT BEDSIDE AT THIS TIME.
[2018-06-25] MEDS: METOPROLOL SUCCINATE 50 MG TAB XL PO SCH (09:20)
[2018-06-25] MEDS: SODIUM BICARBONATE 650 MG TAB PO SCH (09:20)
[2018-06-25] MEDS ORDERED: SODIUM CHLORIDE 0.9% 1000ML 2,000 ML ONE (09:23)
[2018-06-25 11:49] LABS: CREATINE KINASE MB 1.8 ng/mL (0-5.0)
--- NOTE | 2018-06-25 11:50 | NUR ---
ECHO AT BEDSIDE, UNABLE TO PERFORM EXAM AT THIS TIME DUE TO DIALYSIS MACHINE ON EXAM SIDE.
--- NOTE | 2018-06-25 14:31 | History and Physical ---
PRIMARY CARE PHYSICIAN: Not on staff. CHILD NUTRITION DIRECTOR: Dr. Conklin. CHIEF COMPLAINT: Severe dyspnea. The patient was intubated in the ER. HISTORY OF PRESENT ILLNESS: Mr. Garcia is a 67-year-old gentleman with end-stage renal disease on dialysis, Monday, and Monday. His last dialysis was Monday. This is Monday morning, he complains of severe dyspnea, worsening extreme as he was intubated urgently in the ER by the ER physician. REVIEW OF SYSTEMS: Unobtainable as the patient is intubated. PAST MEDICAL HISTORY: Significant for hypertension, type 2 diabetes, and end-stage renal disease on hemodialysis, Monday, , Monday. He has had dialysis access placed. No other history is available at this time. SOCIAL HISTORY: Not available due to intubation. FAMILY HISTORY: Not available due to intubation. PHYSICAL EXAMINATION: GENERAL: The patient is intubated. He has normal body habitus. VITAL SIGNS: Blood pressure 167/80, came down to 123/65 after intubation, pulse 126, came down to 84 after intubation, respiratory rate 20 with O2 sat of 100% on vent, temperature 100.0. HEENT: His head is atraumatic. His eyes are anicteric. He is orally intubated with an oral NG tube. His ears and nares have no drainage or erythema. NECK: Supple with no mass or thyromegaly. LYMPHATIC SYSTEM: He has no palpable cervical, axillary, or inguinal adenopathy. CARDIOVASCULAR: His heart has regular rate and rhythm without murmur or extra heart sound. RESPIRATORY: His lungs have basilar crackles. He has been ventilated. GASTROINTESTINAL: His abdomen is soft with normal bowel sounds. CUTANEOUS: His skin is warm and dry to touch with no rash or skin breakdown. MUSCULOSKELETAL: His joints are in normal alignment. He has no calf tenderness. No palpable venous cords. NEUROLOGIC: The patient was nonfocal, but now sedated on the ventilator. DIAGNOSTIC STUDIES: Chest x-ray shows mild bilateral pulmonary vascular congestion. His BNP is 663.2, troponin is 0.024. His chemistry shows a potassium of 5.0. Rest of his electrolytes are normal. CO2 26, creatinine 6.48, BUN 35 for a GFR of 9, calcium is 8.3, lipase is 41. Transaminase, bilirubin, and alkaline phosphatase were normal. CBC shows a white count of 8.62 with a normal differential, hemoglobin 8.6, macrocytic indices, hematocrit 27.3, platelet count 270,000. ASSESSMENT AND PLAN: 1. Acute respiratory failure. The patient has been intubated. He is on a ventilator, will go to the ICU. Nephrology has been consulted and Pulmonary has been consulted. 2. End-stage renal disease with volume overload. Lasix given in the ER. The patient needs hemodialysis per Nephrology. 3. Possible pneumonia. The patient will receive IV vanc and Zosyn since he is going to the ICU. 4. Hypertension with end-stage renal disease. We will use IV hydralazine and metoprolol as needed at this time. 5. Type 2 diabetes with end-stage renal disease. We will place the patient on sliding scale insulin. 6. For prophylaxis, the patient will be on Lovenox and Protonix. MD LLOYD Hernandes/JOSE EDUARDO /[id number]
--- NOTE | 2018-06-25 14:45 | Consultation ---
DATE OF CONSULTATION: 06/25/2018 Pulmonary Critical Care Consultation CHIEF COMPLAINT: Dyspnea and respiratory failure. HISTORY OF PRESENT ILLNESS: The patient is a 67-year-old man. He has a history of hypertension and chronic renal failure. He receives dialysis on a regular basis. He came to the hospital with worsening dyspnea and congestion. He had some phlegm production. He did not report any chest pain. After arriving in the emergency department, he was intubated and started on mechanical ventilation. He was placed on Diprivan and is receiving antibiotics. He was also seen in consultation with Nephrology. PAST SURGICAL HISTORY: Status post brain surgery at [facility]. PAST MEDICAL HISTORY: 1. Chronic renal failure. 2. Hypertension. 3. Pulmonary hypertension with elevated pulmonary artery pressures in the 60 to 70 range. ALLERGIES: NO KNOWN DRUG ALLERGIES. SOCIAL HISTORY: The patient has been an occasional drinker and an occasional smoker. FAMILY HISTORY: Hypertension. REVIEW OF SYSTEMS: There is no report of fevers. He does not have a headache. There is no neck pain. He has increased chest congestion and dyspnea. He did not have chest pain. There is no nausea or vomiting. He has no abdominal pain. He does have some leg swelling. PHYSICAL EXAMINATION: VITAL SIGNS: The blood pressure is 129/66 and the saturation is 100%. Pulse is 76 and the respiratory rate is at 19. HEENT: Shows no facial swelling or erythema. The nasal mucosa is normal. The patient has an oral endotracheal tube in place. CARDIAC: Reveals a regular rate and rhythm with a normal S1 and S2. There are no murmurs or rubs heard. LUNGS: Auscultation of lungs reveals rhonchorous breath sounds bilaterally. There is no wheezing. ABDOMEN: Soft and nontender. There is no rebound or guarding. EXTREMITIES: Show 2 to 3+ leg edema. NEUROLOGICAL: Shows no focal abnormalities. The patient is sedated on Diprivan. RADIOGRAPHIC DATA: Chest x-ray shows mild pulmonary edema. LABORATORY DATA: White blood cell count is 8.6 and hemoglobin is 8.6. Platelet count is 270. The BUN to creatinine ratio is 55:6.5. The other electrolytes are within normal limits. The blood gas is 7.46, 37, 363 and 27. IMPRESSION: 1. Pneumonia with severe sepsis, present on admission. 2. Acute on chronic respiratory failure. 3. End-stage renal disease. 4. Hypertension. 5. Chronic pain requiring [place]. PLAN: 1. Begin antibiotics including coverage for healthcare-acquired organisms. 2. Await culture results. 3. Await dialysis. 4. Begin aggressive weaning working towards extubation once dialysis is completed. 5. Avoid Versed in this patient because of the prolonged metabolites and possibility of prolonged sedation. 6. Continue antihypertensive regimen. 7. Case discussed with nursing and ER staff. 8. Discuss further management with Dr. Conklin and Dr. Keys. MD TWIN Martinez/MODL /[id number]
--- NOTE | 2018-06-25 15:31 | NUR ---
patient received from ER via stretcher. see admit assess. sinus rhythm. restrained and intubated. Dr Willard in to see patient and weaning already in process. CPAP 10/5 at 50%. will monitor status closely. AGB in 30 min.
--- NOTE | 2018-06-25 16:45 | NUR ---
patient failed weaning and propofol restarted to sedate. Dr Willard notified. restraints causing no distress.
[2018-06-25 16:54] LABS: ABG HCO3 32 mmol/L (23-28); ABG PCO2 57 mmHg (41-51); ABG PH 7.35 (7.31-7.41); ABG PO2 46 mmHg (80-105)
[2018-06-25] MEDS ORDERED: ETOMIDATE 2 MG/ML 10 ML INJ IV ONE (18:46)
[2018-06-25] MEDS ORDERED: WATER STERILE 10 ML VIAL ONE (18:46)
[2018-06-25 19:54] LABS: CREATINE KINASE MB 1.9 ng/mL (0-5.0)
[2018-06-25] MEDS: ACETAMINOPHEN 325 MG TAB PO PRN (20:44)
[2018-06-26] VITALS (26 sets, daily range): BP systolic 81–165; BP diastolic 48–109
[2018-06-26] MEDS: PROPOFOL IV EMULSION 10MG/ML 100 ML IV SCH ×7 (01:50→22:56)
--- NOTE | 2018-06-26 03:39 | Consultation ---
DATE OF CONSULTATION: 06/25/2018 HISTORY OF PRESENT ILLNESS: A 67-year-old gentleman, underlying history of end-stage renal disease, hypertension, type 2 diabetes, history of congestive heart failure, secondary hyperparathyroidism, anemia, and chronic kidney disease. The patient was admitted with severe respiratory failure, subsequently intubated, currently sedated in the ICU. Being treated for pneumonia and congestive heart failure. He has a history of pulmonary hypertension, has been taking pain medication in the form of [place] for chronic pain. Apparently, he is currently intubated and unable to give any history or following commands to give review of system. Chemistries show serum sodium of 135, potassium 5, bicarb 26, creatinine 6.4, calcium 8.3. CBC shows a white count of 8.6 with a hemoglobin of 8.2. His urinalysis shows rbc 6-10, wbc 0-5. ALLERGIES: SULFA. CURRENT MEDICATIONS: The patient is on propofol. He is sedated. He is on pantoprazole. He is also on sodium bicarbonate through the NG tube 1300 mg daily. He received a dose of Kayexalate for hyperkalemia, received one time dose of furosemide. He is on 50 mg metoprolol daily, aspirin 81 mg daily, enoxaparin 40 mg subcu daily. He received vancomycin, currently on cefepime 1 g IV q.12 hours and azithromycin 250 mg IV every 24 hours. SOCIAL HISTORY: Please see primary care physician's note. FAMILY HISTORY: Significant for apparent diabetes and hypertension. PHYSICAL EXAMINATION: GENERAL: He is intubated, sedated, and unable to follow any commands. VITAL SIGNS: Pupils are reactive. Orally intubated. Blood pressure 157/80, pulse rate 110, temperature 100.1 degree Fahrenheit with a respiratory rate of 18. HEAD AND NECK: As above. LUNGS: Harsh vesicular breath sounds. Scattered rales. HEART: S1, S2 audible. Tachycardic rhythm. ABDOMEN: Otherwise soft, nontender. EXTREMITIES: Lower extremity, 1+ edema. IMPRESSION: Evidence of third spacing edema. Congestive heart failure. Acute respiratory failure with fever, likely sepsis, possible pneumonia versus bacteremia. We will draw blood cultures, arrange for dialysis, consult ID. Agree with antibiotics. We will change the cefepime dose to q.24 given his ESRD status. Laboratory test noted. Please see orders. MD SHAWN Martinez/JOSE EDUARDO /[id number]
[2018-06-26] MEDS: ACETAMINOPHEN 325 MG TAB PO PRN (04:06)
[2018-06-26 04:48] LABS: BASOPHILS % 0.3 % (0.0-1.0); EOSINOPHILS # (AUTO) 0.2 (0.0-0.4); HEMATOCRIT 27.5 % (38.2-49.6); HEMOGLOBIN 8.7 g/dL (14.0-18.0); LYMPHOCYTES # (AUTO) 0.7 (1.0-3.2); LYMPHOCYTES % 7.2 % (18.0-39.1); MEAN CORPUSCULAR HEMOGLOBIN 31.9 pg (28-32); MEAN CORPUSCULAR HGB CONC 31.6 g/dL (31-35); MEAN CORPUSCULAR VOLUME 100.7 fL (81-99); MONOCYTES # (AUTO) 1.3 (0.2-0.8); MONOCYTES % 14.6 % (4.4-11.3); NEUTROPHILS # (AUTO) 6.9 (2.1-6.9); NEUTROPHILS % 75.4 % (38.7-80.0); PLATELET COUNT 208 x10e3/uL (140-360); RED BLOOD COUNT 2.73 x10e6/uL (4.3-5.7); RED CELL DISTRIBUTION WIDTH 16.8 % (11.7-14.4)
[2018-06-26 05:09] LABS: ALBUMIN/GLOBULIN RATIO 0.8 (0.8-2.0); ANION GAP 17.1 mmol/L (8-16); CALCIUM 8.5 mg/dL (8.4-10.2); CREATININE, SERUM 5.05 mg/dL (0.72-1.25); MAGNESIUM 2.3 MG/DL (1.3-2.1); PHOSPHORUS 5.2 MG/DL (2.3-4.7); POTASSIUM 4.1 mmol/L (3.5-5.1)
--- NOTE | 2018-06-26 06:24 | Diagnostic Imaging Report ---
Examination: Single AP view of the chest. COMPARISON: Portable chest 06/25/2018 INDICATION: Acute respiratory failure IMPRESSION: 1. Lines and Tubes: Endotracheal tube is stable. Interval placement of enteric tube, which is noted below the hemidiaphragm, tip not visualized. 2. Lungs are well aerated. No consolidation. Mild bilateral perihilar interstitial edema, which is similar to prior exam. 3. Stable enlargement of the cardiac silhouette. Stable central pulmonary venous congestion 4. No acute bony abnormalities. Signed by: Dr. Jerman Gay M.D. on 06/26/2018 6:21 AM
--- NOTE | 2018-06-26 07:33 | NUR ---
see shift assess. patient on cooling blanket. dialysis being started now.
[2018-06-26] MEDS ORDERED: LORAZEPAM INJ 2 MG/ML VIAL IV STA (08:11)
[2018-06-26] MEDS ORDERED: LORAZEPAM INJ 2 MG/ML VIAL IV PRN (08:15)
[2018-06-26 09:38] LABS: ABG PH 7.26 (7.31-7.41)
[2018-06-26 09:39] LABS: ABG HCO3 31 mmol/L (23-28); ABG PCO2 69 mmHg (41-51); ABG PO2 96 mmHg (80-105)
--- NOTE | 2018-06-26 09:41 | NUR ---
all am meds being held until after dialysis
--- NOTE | 2018-06-26 11:10 | NUR ---
Dr Cedeno's office notified of consult. spoke with Joe.
[2018-06-26] MEDS ORDERED: ONDANSETRON HCL INJ 2MG/ML 2ML 2 MG/ML VIAL IV PRN (11:15)
[2018-06-26] MEDS ORDERED: DEXTROSE 50% SYRINGE 50 ML IV PRN (11:15)
[2018-06-26] MEDS: INSULIN LISPRO 100 UNIT/1 ML 3ML VIAL SQ SCH ×3 (11:30→21:00)
--- NOTE | 2018-06-26 12:21 | Diagnostic Imaging Report ---
Examination: Single AP view of the chest. COMPARISON: Earlier 06/26/2018 INDICATION: Possible endotracheal tube movement DISCUSSION: When accounting for differences in patient positioning, endotracheal tube appears stable in position, projecting approximately 1.5-2 cm above the danyelle. Enteric tube tip projects over the gastric fundus. Lungs remain reasonably well inflated and without focal consolidation or effusion. Mild pulmonary venous congestion, unchanged. No acute osseous abnormality. IMPRESSION: Endotracheal tube is likely stable in position when accounting for differences in patient positioning, with the tip projecting 1.5-2 cm above the danyelle. Pulmonary venous congestion improved relative to 0558 hours 06/26/2018. Signed by: Dr. Jm Stephenson M.D. on 06/26/2018 12:17 PM
[2018-06-26] MEDS: METOPROLOL SUCCINATE 50 MG TAB XL PO SCH (12:27)
[2018-06-26] MEDS: AZITHROMYCIN 500MG/NS 250 ML 250 ML IV SCH (12:27)
[2018-06-26] MEDS: CEFEPIME 1GM/NS 0.9% 50 ML 50 ML IV SCH (12:27)
[2018-06-26] MEDS: ENOXAPARIN SOD INJ 40 MG/0.4 ML SYR SC SCH (12:27)
[2018-06-26] MEDS: SODIUM BICARBONATE 650 MG TAB PO SCH (12:27)
[2018-06-26] MEDS: PANTOPRAZOLE 40 MG 10ML VIAL IV SCH (12:27)
--- NOTE | 2018-06-26 12:28 | NUR ---
dialysis complete with 2500 removed. am meds given at this time.
[2018-06-26] MEDS ORDERED: ACETAMINOPHEN 1000 MG/100 ML IV PRN (14:00)
--- NOTE | 2018-06-26 16:15 | NUR ---
PT LIVE WITH HIS IN A HOUSE IN [place] PT IS RETIRED NO DME OR HOME HEALTH LEVI JEFFREY [phone] PT WAS INDEPENDENT PRIOR TO ADMIT ADMITS TO HEAVY ETOH CONSUMPTION [facility]AN [facility]
[2018-06-26] MEDS: FAMOTIDINE 20 MG/2 ML VIAL IV SCH (17:05)
[2018-06-26] MEDS ORDERED: VANCOMYCIN 1GM/NS 250 ML 250 ML IV ONE (17:30)
--- NOTE | 2018-06-26 18:04 | NUR ---
vent settings changed per Dr Willard to PC25, P5, 50%, R16. CT abd and US abd ordered. vanco dose given. nepro to be started after CT
[2018-06-26] MEDS ORDERED: DIATRIZOATE MEGL/DIATRIZOA SOD 30 ML BTL PO ONE (18:14)
--- NOTE | 2018-06-26 18:38 | Progress Note ---
DATE: 06/26/2018 Pulmonary Critical Care Progress Note SUBJECTIVE: The patient received dialysis early this morning. He subsequently developed some fevers and had to be placed on a cooling blanket. He continues to be agitated and has required increased sedation. PHYSICAL EXAMINATION: VITAL SIGNS: The blood pressure is 156/88 with a heart rate of 105. He is on a propofol infusion at 75 and intermittent Ativan. His T-max is 101.3. He is on a cooling blanket. HEENT: Shows no facial swelling. He has an oral endotracheal tube in place. CARDIAC: Reveals a regular rate and rhythm with a normal S1 and S2. LUNGS: Auscultation of lungs reveals decreased breath sounds at the bases. There is no wheezing. ABDOMEN: Firm and distended. There is no tenderness. EXTREMITIES: Show 1 to 2+ edema. NEUROLOGICAL: Shows the patient to be sedated. LABORATORY DATA: The patient has ABG of 7.26, 69, 96 and 31 on an assist control with volume control at a rate of 16 and a tidal volume of 450. The white blood cell count is 9.1 and the hemoglobin is 8.7. The platelet count is 208. The BUN to creatinine ratio is 29:5.05. The other electrolytes are within normal limits. Urinalysis is normal. RADIOGRAPHIC DATA: Chest x-ray shows an endotracheal about 1-2 cm above the danyelle and with some improved venous congestion. IMPRESSION: 1. Acute on chronic respiratory failure. 2. End-stage renal disease. 3. Fever of unclear etiology. 4. Possible liver disease. 5. Metabolic encephalopathy. PLAN: 1. The patient will be switched to pressure regulated assist control with a repeat ABG. 2. Ultrasound of the abdomen. 3. Ammonia level and coagulation parameters. 4. Await culture results. 5. Continue antibiotics. 6. Ultrasound of abdomen. 7. Greater than 35 minutes in direct critical care time during 2 separate visits. 8. Case discussed with nursing staff, Respiratory and Dr. Keys. Rojelio Willard MD [facility] /[id number]
[2018-06-26] MEDS: FENTANYL CITRATE INJ 2,000 MCG in SODIUM CHLORIDE 0.9% 250ML 210 ML IV PRN ×2 (19:53→20:10)
--- NOTE | 2018-06-26 20:33 | Diagnostic Imaging Report ---
A single frontal view of the chest. HISTORY: abnormal ABG, acute respiratory failure COMPARISON: Chest radiograph June 26, 2018. DISCUSSION: Portable technique, limits sensitivity of the exam. Numerous overlying artifacts. Soft tissue attenuation partially limits sensitivity of the exam. Tubes/Lines: The endotracheal tube and NG/OG tube appear unchanged when allowing for the limitations and differences in technique. Lungs and pleura: The lungs are well inflated. No evidence of a consolidative pneumonia or pulmonary alveolar edema. No definite pleural effusion or pneumothorax is identified. Heart and mediastinum: The cardiomediastinal silhouette appears unremarkable. Persistent pulmonary vascular congestion. Bones and soft tissues: Appear unremarkable, given this limited exam. IMPRESSION: 1. Pulmonary vascular congestion. 2. No significant interval change. Signed by: Dr. Josue Mcfadden D.O., M.M.M. on 06/26/2018 8:30 PM
[2018-06-26 20:41] LABS: BASOPHILS % 0.2 % (0.0-1.0); EOSINOPHILS % 0.2 % (0.0-6.0); HEMATOCRIT 27.1 % (38.2-49.6); HEMOGLOBIN 8.4 g/dL (14.0-18.0); LYMPHOCYTES # (AUTO) 0.6 (1.0-3.2); LYMPHOCYTES % 4.5 % (18.0-39.1); MEAN CORPUSCULAR HEMOGLOBIN 32.3 pg (28-32); MEAN CORPUSCULAR VOLUME 104.2 fL (81-99); MONOCYTES # (AUTO) 1.8 (0.2-0.8); MONOCYTES % 14.4 % (4.4-11.3); NEUTROPHILS % 80.2 % (38.7-80.0); PLATELET COUNT 181 x10e3/uL (140-360); RED CELL DISTRIBUTION WIDTH 17.1 % (11.7-14.4)
[2018-06-26 20:51] LABS: INR 0.93
[2018-06-26 20:52] LABS: PARTIAL THROMBOPLASTIN TIME 41.8 seconds (23.8-35.5)
[2018-06-26 21:00] LABS: ALBUMIN/GLOBULIN RATIO 0.8 (0.8-2.0); ANION GAP 17.8 mmol/L (8-16); CALCIUM 8.5 mg/dL (8.4-10.2); CREATININE, SERUM 3.66 mg/dL (0.72-1.25); POTASSIUM 3.8 mmol/L (3.5-5.1)
[2018-06-26 21:16] LABS: ABG PH 7.21 (7.31-7.41)
[2018-06-26 21:22] LABS: ABG PCO2 76 mmHg (41-51)
[2018-06-26 21:23] LABS: ABG HCO3 30 mmol/L (23-28); ABG PO2 192 mmHg (80-105)
[2018-06-26] MEDS ORDERED: THIAMINE HCL INJ 100 MG/ML 2ML VIAL IV ONE (21:30)
[2018-06-26 21:36] LABS: ABG HCO3 28 mmol/L (23-28); ABG PCO2 53 mmHg (41-51); ABG PH 7.35 (7.31-7.41); ABG PO2 110 mmHg (80-105)
[2018-06-26] MEDS: METRONIDAZOLE 500MG/NS 100ML 100 ML IV SCH (22:11)
[2018-06-27] VITALS (20 sets, daily range): BP systolic 86–134; BP diastolic 44–63
--- NOTE | 2018-06-27 01:24 | Consultation ---
DATE OF CONSULTATION: REASON FOR CONSULTATION: Sepsis. HISTORY OF PRESENT ILLNESS: This patient, who is currently in the intensive care unit, was admitted on June 25, 2018, to [facility] with shortness of breath, had to be intubated in the emergency room. The patient, who is 67, who have history of end-stage renal disease, on hemodialysis Monday, and Monday, comes in with shortness of breath. Came to the emergency room after he was found to be in respiratory failure. He was intubated. The patient does have underlying history of diabetes mellitus, end-stage renal disease on hemodialysis. It was also found out that he does have history of alcoholism. He was seen by Dr. Rojelio Willard, he was seen by Dr. Conklin. I was asked to see him to make recommendations in terms of antibiotic. There was no family for me to interview, but I did review all the records since he came here, the charts and the labs. The patient was admitted with diagnoses of pneumonia, acute respiratory failure, renal failure, history of chronic pain, on Edmondson. As mentioned above, there is concern about alcoholism. He was started on several antibiotics, but I am asked to see him today to make recommendations for antibiotic. He has been seen by Renal. ALLERGIES: SULFA DRUGS. SOCIAL HISTORY: There is no smoking or drug abuse, but apparently the patient is on Edmondson and he does drink alcohol, but I do not have any family to confirm. MEDICATIONS: The patient is currently on Pepcid, propofol, cefepime daily, Toprol, Protonix, Lovenox. He received azithromycin. PHYSICAL EXAMINATION: GENERAL: He is intubated and sedated. VITAL SIGNS: Stable currently. Temperature 101.3, heart rate 97, and blood pressure 108/78. HEENT: Normocephalic. He is not icteric. Oral intubation. CHEST: Few crackles in the bases. HEART: S1, S2. No S3, S4, or murmur. ABDOMEN: Soft, but distended. The bowel sounds hypoactive. EXTREMITIES: No edema. SKIN: There is no rash. IMPRESSION: 1. Sepsis, present on admission. I am concerned about the finding of the abdomen on physical examination. I would recommend to obtain a CT scan of abdomen and pelvis stat with oral contrast. Obtain amylase, lipase. Recheck CBC. Recheck Chem panel. We will put him on cefepime, metronidazole oral, Flagyl and vancomycin. We will modify after the above. Discussed with the nurse. 2. End-stage renal disease. 3. Concerned about history of alcoholism. 4. We will reassess. Thank you for asking me to see this patient. MD MOSHE Cooper/JOSE EDUARDO /[id number]
[2018-06-27] MEDS: PROPOFOL IV EMULSION 10MG/ML 100 ML IV SCH ×4 (01:26→20:31)
[2018-06-27 05:43] LABS: INR 0.81; PROTHROMBIN TIME 11.7 seconds (11.9-14.5)
[2018-06-27 05:58] LABS: ALBUMIN 2.7 g/dL (3.5-5.0); ALBUMIN/GLOBULIN RATIO 0.8 (0.8-2.0); ANION GAP 16.4 mmol/L (8-16); BILIRUBIN,DIRECT 0.3 mg/dL (0.0-0.5); CALCIUM 8.2 mg/dL (8.4-10.2); CREATININE, SERUM 4.31 mg/dL (0.72-1.25); MAGNESIUM 2.1 MG/DL (1.3-2.1); POTASSIUM 3.4 mmol/L (3.5-5.1)
[2018-06-27] MEDS: METRONIDAZOLE 500MG/NS 100ML 100 ML IV SCH ×3 (05:58→20:50)
--- NOTE | 2018-06-27 06:09 | Diagnostic Imaging Report ---
Examination: Single AP view of the chest. COMPARISON: Portable chest 06/26/2018 INDICATION: Acute respiratory failure IMPRESSION: 1. Lines and Tubes: Supporting tubes are unchanged. 2. No interval change in central pulmonary venous congestion. No consolidation or effusion. Signed by: Dr. Jerman Gay M.D. on 06/27/2018 6:06 AM
[2018-06-27 06:24] LABS: FERRITIN 542.24 ng/mL (21.81-274.66); FREE T4 (FREE THYROXINE) 1.07 ng/dL (0.9-1.8); THYROID STIMULATING HORMONE 0.485 uIU/mL (0.350-4.940)
[2018-06-27 06:33] LABS: BASOPHILS % 0.4 % (0.0-1.0); EOSINOPHILS # (AUTO) 0.1 (0.0-0.4); EOSINOPHILS % 1.8 % (0.0-6.0); FOLATE 13.4 ng/mL (7.0-15.4); HEMATOCRIT 24.5 % (38.2-49.6); LYMPHOCYTES # (AUTO) 0.3 (1.0-3.2); LYMPHOCYTES % 4.7 % (18.0-39.1); MEAN CORPUSCULAR HEMOGLOBIN 32.3 pg (28-32); MEAN CORPUSCULAR HGB CONC 32.7 g/dL (31-35); MEAN CORPUSCULAR VOLUME 98.8 fL (81-99); MONOCYTES # (AUTO) 0.5 (0.2-0.8); MONOCYTES % 8.1 % (4.4-11.3); NEUTROPHILS # (AUTO) 4.7 (2.1-6.9); NEUTROPHILS % 84.5 % (38.7-80.0); PLATELET COUNT 162 x10e3/uL (140-360); RED BLOOD COUNT 2.48 x10e6/uL (4.3-5.7); RED CELL DISTRIBUTION WIDTH 16.7 % (11.7-14.4)
[2018-06-27 06:53] LABS: % IRON SATURATION 9 % (15-50); IRON 18 ug/dL (65-175); TOTAL IRON BINDING CAPACITY 206 ug/dL (261-478); TRANSFERRIN 147 mg/dL (174-364)
[2018-06-27 07:09] LABS: B-TYPE NATRIURETIC PEPTIDE2 477.6 pg/mL (0-100)
[2018-06-27] MEDS: INSULIN LISPRO 100 UNIT/1 ML 3ML VIAL SQ SCH ×4 (07:30→21:00)
[2018-06-27] MEDS ORDERED: POTASSIUM CHLORIDE 20MEQ/100ML 100 ML IV ONE (08:15)
[2018-06-27] MEDS ORDERED: LORAZEPAM INJ 2 MG/ML VIAL ONE (08:23)
[2018-06-27] MEDS ORDERED: LIDOCAINE HCL 2% LOCAL 20 ML VIAL ONE (08:29)
[2018-06-27 08:32] LABS: ABG PCO2 37 mmHg (41-51); ABG PH 7.44 (7.31-7.41)
[2018-06-27 08:33] LABS: ABG HCO3 25 mmol/L (23-28); ABG PO2 127 mmHg (80-105)
[2018-06-27] MEDS ORDERED: THIAMINE HCL INJ 100 MG/ML 2ML VIAL IV ONE (09:00)
[2018-06-27] MEDS: METOPROLOL SUCCINATE 50 MG TAB XL PO SCH (09:00)
--- NOTE | 2018-06-27 09:22 | Diagnostic Imaging Report ---
EXAMINATION: CHEST XRAY LINE PLACEMENT INDICATION: Central venous catheter placement COMPARISON: Chest radiograph 06/27/18 at 630AM. FINDINGS: TUBES and LINES: Interval placement of a right IJ central line which terminates in the expected location of the brachiocephalic confluence. ET tube terminates proximally 6.1 cm above the danyelle. Enteric tube courses into the stomach, the side port is below the GE junction. LUNGS: Mild central vascular congestion. No evidence of pulmonary edema or pneumonia. PLEURA: No pleural effusion or pneumothorax. HEART AND MEDIASTINUM: The cardiomediastinal silhouette is unremarkable. BONES AND SOFT TISSUES: No acute osseous abnormality. UPPER ABDOMEN: No free air under the diaphragm. IMPRESSION: Interval placement of a right IJ central line which terminates in the expected location of the brachiocephalic confluence. No evidence of pneumothorax. Signed by: Dr. Michelle Shafer MD on 06/27/2018 9:18 AM
[2018-06-27] MEDS ORDERED: SODIUM CHLORIDE 0.9% 1000ML 2,000 ML ONE (10:59)
[2018-06-27] MEDS: CEFEPIME 1GM/NS 0.9% 50 ML 50 ML IV SCH (11:12)
[2018-06-27] MEDS: PANTOPRAZOLE 40 MG 10ML VIAL IV SCH (11:12)
[2018-06-27] MEDS: FAMOTIDINE 20 MG/2 ML VIAL IV SCH ×2 (11:12→17:31)
--- NOTE | 2018-06-27 11:18 | Diagnostic Imaging Report ---
CT BRAIN WO HISTORY: Altered mental status COMPARISON: None. Technique: Noncontrast axial scans were obtained from skull base to the vertex. Coronal and sagittal reconstructions obtained from the axial data. One or more of the following dose reduction techniques were used: Automated exposure control, adjustment of the mA and/or kV according to patient size, and/or utilization of iterative reconstruction technique. DISCUSSION: Scalp/Skull: Unremarkable. Brain sulci: Mildly prominent. Ventricles: Compensatory dilatation. Extra-axial spaces: No masses or fluid collections. Carotid siphon calcifications are present. Parenchyma: Mild bilateral deep white matter hypodensity is likely chronic microvascular ischemic change. Old small lacunar infarct in the left christine is suspected. Otherwise, no masses, hemorrhage, or large vascular territory acute infarct. Dural sinuses: No abnormal densities. Sellar/Suprasellar region: Intact. Skull base: Intact. Incidental findings: Tube and fluid in the pharynx are partially visualized. Mild scattered ethmoid air cell and sphenoid sinus opacification is present. Trace bilateral mastoid effusions are also present. IMPRESSION: 1. No acute intracranial abnormalities. 2. Mild supratentorial chronic microvascular ischemic change. Mild generalized cerebral volume loss. 3. Suspected old small lacunar infarct in the left christine. Signed by: Dr. Sarbjit Landa M.D. on 06/27/2018 11:14 AM
--- NOTE | 2018-06-27 11:32 | Operative Report ---
DATE OF PROCEDURE: SURGEON: Rojelio Willard MD PROCEDURE: Central line placement under ultrasound guidance. PREOPERATIVE DIAGNOSIS: End-stage renal disease. POSTOPERATIVE DIAGNOSIS: End-stage renal disease. CONSENT: Consent was obtained from the . SEDATION: Lidocaine was used for local anesthesia. PROCEDURE IN DETAIL: Ultrasound was used to locate the right internal jugular vein. The patient was then prepped sterilely. A full sterile field was used. The area was anesthetized with lidocaine. The vein was localized with the ultrasound again and the vein was cannulated with an 18-gauge needle on the second attempt. A wire was passed through the needle and a triple-lumen catheter was placed over the wire by the Seldinger technique. All the ports flushed. X-ray is pending at the time of this dictation. COMPLICATIONS: None. ESTIMATED BLOOD LOSS: 10 mL. Rojelio Willard MD [facility] /[id number]
--- NOTE | 2018-06-27 11:37 | Diagnostic Imaging Report ---
EXAM: CT Abdomen and Pelvis WITHOUT contrast INDICATION: Abdominal distention. COMPARISON: None. TECHNIQUE: Abdomen and pelvis were scanned utilizing a multidetector helical scanner from the lung base to the pubic symphysis without administration of IV contrast. Absence of intravenous contrast decreases sensitivity for detection of focal lesions and vascular pathology. Coronal and sagittal reformations were obtained. Routine protocol was performed. IV CONTRAST: None. ORAL CONTRAST: Barium contrast within the colon. RADIATION DOSE: Total DLP: 624.8 mGy*cm Dose modulation, iterative reconstruction, and/or weight based adjustment of the mA/kV was utilized to reduce the radiation dose to as low as reasonably achievable. COMPLICATIONS: None FINDINGS: LINES and TUBES: Enteric tube terminates in the gastric body. LOWER THORAX: Mild patchy opacities at lung bases, right greater than left. HEPATOBILIARY: No focal hepatic lesions. No biliary ductal dilation. GALLBLADDER: The gallbladder appears distended and may contain sludge, although evaluation is limited secondary to streak artifact from adjacent contrast. No CT evidence of cholecystitis. SPLEEN: No splenomegaly. PANCREAS: No focal masses or ductal dilatation. ADRENALS: No adrenal nodules KIDNEYS/URETERS: Mildly atrophic right kidney and markedly atrophic left kidney. No evidence of hydronephrosis, stone, or mass lesion. GI TRACT: Barium contrast opacifies the colon. No abnormal distention, wall thickening, or evidence of bowel obstruction. Appendix is not clearly identified. There is however no fat stranding or adenopathy in the right lower quadrant to suggest appendicitis. Stomach is decompressed. PELVIC ORGANS/BLADDER: Palacios catheter within a decompressed bladder. The bladder contains a small amount of air, likely related to instrumentation. LYMPH NODES: Mildly prominent bilateral inguinal lymph nodes with unremarkable morphology and not meeting size criteria for pathologic enlargement. No evidence of intraabdominal lymphadenopathy. VESSELS: There are scattered atherosclerotic changes in the abdominal aorta and branch vessels. PERITONEUM / RETROPERITONEUM: No free air or fluid. BONES/SOFT TISSUES: No acute osseous abnormality. No suspicious lytic or blastic lesions. Mild degenerative changes of the visualized spine. IMPRESSION: No acute CT abnormality in the abdomen or pelvis. Mildly distended gallbladder with possible sludge. No CT evidence of cholecystitis. Mildly atrophic right kidney and markedly atrophic left kidney. Mild patchy opacities at lung bases, right greater than left, likely atelectasis. Patchy pneumonia is possible at the right lung base in the appropriate clinical context. Signed by: Dr. Michelle Shafer MD on 06/27/2018 11:34 AM
[2018-06-27] MEDS: ENOXAPARIN SOD INJ 40 MG/0.4 ML SYR SC SCH (12:00)
[2018-06-27] MEDS: SODIUM BICARBONATE 650 MG TAB PO SCH (12:00)
[2018-06-27] MEDS ORDERED: VASOPRESSIN 100 UNIT in DEXTROSE 5% 100ML 100 ML IV PRN (12:00)
--- NOTE | 2018-06-27 13:50 | Diagnostic Imaging Report ---
EXAM: US ABDOMEN COMPLETE DATE: 06/27/2018 12:00 AM INDICATION: Abdominal distention COMPARISON: CT abdomen/pelvis, 06/27/2018 Limitations: Patient intubated, unable to position fully. FINDINGS: Grayscale and color flow Doppler ultrasound of the abdomen was performed. Liver: 18.9 cm span, hepatomegaly. Normal parenchymal echogenicity. No intrahepatic mass or bile duct dilatation. Main portal vein 1.2 cm, nondilated, normal hepatopetal flow. Spleen: 13.3 cm span, borderline splenomegaly. Biliary: Gallbladder hydrops measuring 11.9 cm in length. No cholelithiasis or gallbladder wall thickening. No pericholecystic fluid. Sonographic Canseco's sign negative. Common bile duct 0.4 cm, normal. Pancreas: Obscured by overlying bowel. Right kidney: 9.8 x 4.4 x 3.8 cm. Echogenic cortex. No hydronephrosis or contour deforming mass. Left kidney: Obscured by overlying bowel. Vessels: Visualized portions of aorta and IVC unremarkable. Ascites: None IMPRESSION: 1. Hepatomegaly, no intrahepatic mass or bile duct dilatation. Borderline splenomegaly. 2. Gallbladder hydrops, with no cholelithiasis or sonographic evidence for cholecystitis. No dilatation of the biliary tree. 3. Hyperechoic right renal cortex compatible with medical renal disease. Left kidney was obscured by bowel. Signed by: Dr. Farhat Anaya M.D. on 06/27/2018 1:47 PM
--- NOTE | 2018-06-27 15:14 | Progress Note ---
DATE: 06/27/2018 Pulmonary Critical Care Progress Note SUBJECTIVE: The patient remains on assist-control ventilation with pressure regulation. He had low blood pressure this morning and was started on vasopressin. He was unable to tolerate dialysis because of the low blood pressure. The patient went for CT scan of the abdomen and pelvis. PHYSICAL EXAMINATION: VITAL SIGNS: The blood pressure is 103/52 on low-dose vasopressin. The pulse is 52. The patient is afebrile. He is currently on a pressure regulated volume control at rate of 18 with a tidal volume of 450. HEENT: Shows no facial swelling. He had a piece of cotton in the external canal of his right ear. This was removed and the tympanic membrane was visualized using an otoscope. He appears to have some chronic scarring of the tympanic membrane. He has an oral endotracheal tube in place. There is a right IJ line. CARDIAC: Reveals a regular rate and rhythm with a normal S1 and S2. There are no murmurs or rubs heard. LUNGS: Auscultation of the lungs reveals rhonchorous breath sounds bilaterally. There is no wheezing. ABDOMEN: Soft and nontender. There is no rebound or guarding. EXTREMITIES: Show 1 to 2+ leg edema. NEURO: The patient is sedated. LABORATORY DATA: BUN to creatinine ratio is 37:4.31. The other electrolytes are within normal limits. The hemoglobin is 8 and the white blood cell count is 5.7. The platelet count is 162. Blood gas is 7.44 with a CO2 of 37 and an O2 of 127, the bicarb is 25. The PT is 11.7 and the PTT is 14.8. RADIOGRAPHIC DATA: CT scan of the abdomen and pelvis shows mildly distended gallbladder with possible sludge. He has an atrophic right kidney and atrophic left kidney. He has some patchy infiltrates at the lung bases. CT scan of the head shows no acute cranial abnormalities. There is an old small lacunar infarct in the left christine. He has mild generalized volume loss. Chest x-ray shows pulmonary venous congestion. IMPRESSION: 1. Acute on chronic respiratory failure. 2. Pneumonia with severe sepsis, present on admission. 3. Metabolic encephalopathy. 4. Chronic end-stage renal disease. PLAN: 1. The patient will be continued on the current antibiotics. We are awaiting culture results as well as an ID consultation. 2. Wean vasopressin as tolerated. 3. Re-attempt dialysis later this afternoon. 4. Decrease minute ventilation as tolerated. 5. Begin enteral feedings. 6. DVT prophylaxis. 7. Case discussed with and other family members. Case discussed with Nursing and Respiratory. Case discussed with Dr. Keys. Greater than 35 minutes in direct critical care time that is separate from any procedures performed. MD TWIN Martinez/JOSE EDUARDO /[id number]
--- NOTE | 2018-06-27 15:31 | NUR ---
Nutrition Intervention Note RD Recommendation(s) for Physician: -Rec to initiate continuous TF of Vital HP @30mL/hr and advance as tolerated to goal rate of 70mL/hr, providing 1680kcal, 147g protein, and 1404mL water -Rec 30mL water flushes q 4hr; additional water per MD discretion -Rec renal MVi w/minerals, thiamine and folate due to hx of alcoholism Plan of Care: RD following, monitoring for tolerance and adequacy, TF rec Nutrition reason for involvement: New TF RD Assessment 06/27 - 67yo M, who was admitted for severe dyspnea. Pt remained intubated and on vent. No pressor meds. Pt was receiving HD during my visit. No hx obtained due to current medical condition. TF order has been placed but not started. Awaiting Dr. Willard to page back for TF rec. Will continue to monitor and follow. Principal Problems/Diagnoses: sepsis, respiratory failure PMH: HTN, DM, ESRD on HD, alcoholism GI: abdomen soft, non-tender, large, round, flatus present Skin: no pressure wound noted Labs: (06/27) K 3.4 L, BUN 37 H, Creatinine 4.31 H, Ca 8.2 L, Iron 18 L, ferritin 542 H, AST 60H Meds: sodium bicarb, pepcid, abx, protonix, propofol (titrate) Ht: 70in Wt: 190lb BMI: 27.3kg/m2 IBW: 166lb Malnutrition Evaluation (06/27) The patient does not meet criteria for a specified degree of malnutrition at this time. Will re-evaluate at follow-up as appropriate. Nutrition Prescription (Diet Order): Nepro @20mL/hr Estimated Nutritional Needs: Calories: 1720 2150kcal(20-25kcal/kg/d) Weight used: current BW Protein: 129 215g(1.5-2.5g/kg/d) Weight used: current BW Diet Adequacy: Not meeting calorie needs, Not meeting protein needs Diet Education Needs Assessment: Diet education not indicated. Nutrition Care Level: mod Nutrition Diagnosis: Inadequate oral intake related to current medical status (intubated and in vent) as evidenced by pt requiring EN as main source of nutrition. Goal: Patient will meet 75-100% of estimated needs by follow up Progress: N/A Interventions: Composition, Rate, Route Monitoring/Evaluation: Total energy intake, Total protein intake, Formula/Solution, Weight change, Check labs, Check GI tolerance Signed: Keri Cox, MS, RD, LD
--- NOTE | 2018-06-27 19:00 | NUR ---
Bedside report received from Enio ESTRELLA. Care plan reviewed. No family present at this time. No signs of distress noted.
[2018-06-27] MEDS ORDERED: DEXTROSE 5% 100ML 100 ML IV ONE (20:26)
[2018-06-28] VITALS (26 sets, daily range): BP systolic 102–151; BP diastolic 47–84
--- NOTE | 2018-06-28 02:40 | NUR ---
Bed bath completed, linens and gown changed. Assisted by Amalia GIBBS.
--- NOTE | 2018-06-28 04:55 | NUR ---
AM blood specimen collected and sent with Laney to the lab.
[2018-06-28 05:43] LABS: ANION GAP 22.2 mmol/L (8-16); CALCIUM 7.6 mg/dL (8.4-10.2); CREATININE, SERUM 6.54 mg/dL (0.72-1.25); MAGNESIUM 2.4 MG/DL (1.3-2.1)
[2018-06-28 05:46] LABS: POTASSIUM 4.2 mmol/L (3.5-5.1)
[2018-06-28] MEDS: METRONIDAZOLE 500MG/NS 100ML 100 ML IV SCH ×3 (05:51→22:55)
[2018-06-28] MEDS: PROPOFOL IV EMULSION 10MG/ML 100 ML IV SCH ×2 (06:19→11:51)
[2018-06-28 06:46] LABS: BASOPHILS % 0.2 % (0.0-1.0); EOSINOPHILS # (AUTO) 0.1 (0.0-0.4); EOSINOPHILS % 2.2 % (0.0-6.0); HEMATOCRIT 23.6 % (38.2-49.6); HEMOGLOBIN 7.2 g/dL (14.0-18.0); LYMPHOCYTES # (AUTO) 0.5 (1.0-3.2); LYMPHOCYTES % 9.4 % (18.0-39.1); MEAN CORPUSCULAR HEMOGLOBIN 31.3 pg (28-32); MEAN CORPUSCULAR HGB CONC 30.5 g/dL (31-35); MEAN CORPUSCULAR VOLUME 102.6 fL (81-99); MONOCYTES # (AUTO) 0.7 (0.2-0.8); MONOCYTES % 13.1 % (4.4-11.3); NEUTROPHILS # (AUTO) 4.1 (2.1-6.9); NEUTROPHILS % 74.5 % (38.7-80.0); PLATELET COUNT 142 x10e3/uL (140-360); RED CELL DISTRIBUTION WIDTH 16.7 % (11.7-14.4)
--- NOTE | 2018-06-28 07:00 | NUR ---
Bedside report given to Maria Isabel Del Toro RN. No signs of distress noted at this time. Care plan reviewed. No family present at this time.
[2018-06-28] MEDS: INSULIN LISPRO 100 UNIT/1 ML 3ML VIAL SQ SCH ×4 (07:30→23:45)
[2018-06-28] MEDS: FAMOTIDINE 20 MG/2 ML VIAL IV SCH ×2 (08:23→18:48)
[2018-06-28] MEDS: CEFEPIME 1GM/NS 0.9% 50 ML 50 ML IV SCH (08:23)
[2018-06-28] MEDS: PANTOPRAZOLE 40 MG 10ML VIAL IV SCH (08:24)
[2018-06-28] MEDS: SODIUM BICARBONATE 650 MG TAB PO SCH (08:24)
[2018-06-28] MEDS: METOPROLOL SUCCINATE 50 MG TAB XL PO SCH (08:24)
[2018-06-28] MEDS ORDERED: SODIUM CHLORIDE 0.9% 250ML 250 ML ONE (08:47)
[2018-06-28] MEDS ORDERED: ENOXAPARIN SOD INJ 40 MG/0.4 ML SYR SC SCH (09:00)
[2018-06-28] MEDS ORDERED: ENOXAPARIN 30 MG/0.3 ML SYR SC SCH (09:00)
[2018-06-28 11:11] LABS: BAND NEUTROPHILS % (MANUAL) 2 %; EOSINOPHILS % (MANUAL) 20 % (0-7); LYMPHOCYTES % (MANUAL) 29 % (19-48); MONOCYTES % (MANUAL) 2 % (3.4-9.0); NEUTROPHILS % (MANUAL) 42 % (40-74)
[2018-06-28 11:12] LABS: ANISOCYTOSIS SLIGHT; HYPOCHROMASIA SLIGHT; PLATELET ESTIMATE SLIGHTLY DECREASED; PLATELET MORPHOLOGY COMMENT NORMAL; RBC MORPHOLOGY COMMENT NORMAL
[2018-06-28 14:21] LABS: ABG HCO3 20 mmol/L (23-28); ABG PCO2 41 mmHg (41-51); ABG PO2 187 mmHg (80-105)
--- NOTE | 2018-06-28 14:41 | Progress Note ---
DATE: 06/28/2018 Pulmonary Critical Care Progress Note SUBJECTIVE: The patient had no fever last night. He continues to require mechanical ventilation and is currently on a pressure regulated volume control. He continues to require vasopressin. The patient was unable to tolerate dialysis yesterday because of low blood pressure, but it will be re-attempted today. PHYSICAL EXAMINATION: VITAL SIGNS: The patient is afebrile. The blood pressure is 119/56. He is on a pressure regulated volume control at a rate of 18 with a tidal volume of 450. HEENT: Shows no facial swelling or erythema. There is a right IJ line in good position. The site looks clean. There is no drainage. CARDIAC: Reveals regular rate and rhythm with normal S1 and S2. There are no murmurs or rubs. LUNGS: Auscultation of lungs reveals clear breath sounds bilaterally. There is no wheezing. ABDOMEN: Soft, nontender. There is no rebound or guarding. EXTREMITIES: Show no leg edema or calf tenderness. There is no cyanosis or clubbing. SKIN: Shows no rashes. LABORATORY DATA: White blood cell count is 5.3 and the hemoglobin is 7.2. The platelet count is 142. The BUN to creatinine ratio is elevated at 60 to 6.54. IMPRESSION: 1. Acute on chronic respiratory failure. 2. Pneumonia with severe sepsis, present on admission. 3. Metabolic encephalopathy. 4. Chronic end-stage renal disease, requiring dialysis. PLAN: 1. Wean vasopressin as tolerated. 2. Repeat ABG now and wean as tolerated. 3. Repeat dialysis today. 4. Packed red blood cells for anemia. 5. Enteral feedings. 6. Change Lovenox to q.48 hours because of renal failure. 7. Continue current antibiotics and await culture results. 8. Case discussed with Nursing and Respiratory. Greater than 35 minutes in direct critical care time. Rojelio Willard MD [facility] /[id number]
[2018-06-28] MEDS ORDERED: SODIUM CHLORIDE 0.9% 250ML 250 ML IV ONE (14:45)
[2018-06-28 15:27] LABS: BASOPHILS % 0.2 % (0.0-1.0); EOSINOPHILS # (AUTO) 0.1 (0.0-0.4); EOSINOPHILS % 2.3 % (0.0-6.0); HEMATOCRIT 24.9 % (38.2-49.6); HEMOGLOBIN 7.8 g/dL (14.0-18.0); LYMPHOCYTES # (AUTO) 0.9 (1.0-3.2); LYMPHOCYTES % 15.1 % (18.0-39.1); MEAN CORPUSCULAR HEMOGLOBIN 31.8 pg (28-32); MEAN CORPUSCULAR HGB CONC 31.3 g/dL (31-35); MEAN CORPUSCULAR VOLUME 101.6 fL (81-99); MONOCYTES # (AUTO) 0.8 (0.2-0.8); NEUTROPHILS # (AUTO) 4.1 (2.1-6.9); NEUTROPHILS % 67.7 % (38.7-80.0); PLATELET COUNT 136 x10e3/uL (140-360); RED BLOOD COUNT 2.45 x10e6/uL (4.3-5.7); RED CELL DISTRIBUTION WIDTH 16.7 % (11.7-14.4)
[2018-06-28 15:39] LABS: ANION GAP 25.5 mmol/L (8-16); CALCIUM 7.5 mg/dL (8.4-10.2); CREATININE, SERUM 7.5 mg/dL (0.72-1.25); POTASSIUM 4.5 mmol/L (3.5-5.1)
--- NOTE | 2018-06-28 19:00 | NUR ---
Bedside report received from Maria Isabel Del Toro RN. Care plan reviewed, no family present at this time. HD ongoing at this time.
--- NOTE | 2018-06-28 20:58 | Progress Note ---
DATE: SUBJECTIVE: Mr. Garcia remains in intensive care unit on the ventilator; hypotensive, on vasopressors, . REVIEW OF SYSTEMS: Could not be obtained. PHYSICAL EXAMINATION: GENERAL: He is lethargic. VITAL SIGNS: Stable. Afebrile. HEENT: He is not icteric. Normocephalic. NECK: Supple. No JVD. No lymphadenopathy. No thyromegaly. CHEST: Clear bilaterally. HEART: S1, S2. No S3, S4, or murmur. ABDOMEN: Soft. Bowel sounds present. No tenderness. EXTREMITIES: No edema. SKIN: No rashes. LABORATORY DATA: Blood cultures are negative. White count 6.02, hemoglobin 7.8. Sodium 135, potassium 4.5. CT abdomen and pelvis showed there is no acute finding. IMPRESSION: 1. Sepsis with hypotensive septic shock. I am concerned that this is still from intra-abdominal source. He is currently on metronidazole and cefepime. Continue with the same. Maybe it is ischemic colitis. Continue supportive care. 2. Chronic kidney disease. 3. Respiratory failure. 4. Anemia. 5. We will follow. MD MOSHE Cooper/MODL /[id number]
[2018-06-29] VITALS (22 sets, daily range): BP systolic 84–193; BP diastolic 38–121
[2018-06-29 05:06] LABS: EOSINOPHILS # (AUTO) 0.2 (0.0-0.4); EOSINOPHILS % 3.1 % (0.0-6.0); HEMATOCRIT 27.1 % (38.2-49.6); HEMOGLOBIN 8.8 g/dL (14.0-18.0); LYMPHOCYTES # (AUTO) 0.5 (1.0-3.2); MEAN CORPUSCULAR HEMOGLOBIN 31.4 pg (28-32); MEAN CORPUSCULAR HGB CONC 32.5 g/dL (31-35); MEAN CORPUSCULAR VOLUME 96.8 fL (81-99); MONOCYTES # (AUTO) 0.8 (0.2-0.8); MONOCYTES % 16.2 % (4.4-11.3); NEUTROPHILS # (AUTO) 3.3 (2.1-6.9); NEUTROPHILS % 69.3 % (38.7-80.0); PLATELET COUNT 133 x10e3/uL (140-360); RED CELL DISTRIBUTION WIDTH 17.5 % (11.7-14.4)
[2018-06-29 05:25] LABS: ALBUMIN 2.4 g/dL (3.5-5.0); ALBUMIN/GLOBULIN RATIO 0.6 (0.8-2.0); ANION GAP 17.7 mmol/L (8-16); CALCIUM 7.8 mg/dL (8.4-10.2); CREATININE, SERUM 5.07 mg/dL (0.72-1.25); POTASSIUM 3.7 mmol/L (3.5-5.1)
[2018-06-29] MEDS: METRONIDAZOLE 500MG/NS 100ML 100 ML IV SCH ×3 (06:05→20:53)
[2018-06-29] MEDS: INSULIN LISPRO 100 UNIT/1 ML 3ML VIAL SQ SCH ×4 (06:06→23:28)
--- NOTE | 2018-06-29 06:14 | Diagnostic Imaging Report ---
Examination: Single AP view of the chest. COMPARISON: Portable chest 06/27/2018 INDICATION: Acute respiratory failure IMPRESSION: 1. Lines and Tubes: Supporting lines and tubes are unchanged. 2. Venous congestion and mild bilateral interstitial edema similar to previous. No consolidation or effusion. 3. Cardiomediastinal silhouette is normal. 4. No acute bony abnormalities. Signed by: Dr. Jerman Gay M.D. on 06/29/2018 6:11 AM
[2018-06-29] MEDS: PANTOPRAZOLE 40 MG 10ML VIAL IV SCH (09:43)
[2018-06-29] MEDS: FAMOTIDINE 20 MG/2 ML VIAL IV SCH ×2 (09:43→18:41)
[2018-06-29] MEDS: SODIUM BICARBONATE 650 MG TAB PO SCH (09:43)
[2018-06-29] MEDS: CEFEPIME 1GM/NS 0.9% 50 ML 50 ML IV SCH (09:43)
[2018-06-29] MEDS: METOPROLOL SUCCINATE 50 MG TAB XL PO SCH (09:44)
[2018-06-29] MEDS ORDERED: NIFEDIPINE CR 30 MG TAB PO SCH (13:00)
[2018-06-29] MEDS: HYDRALAZINE HCL 25 MG TAB PO SCH ×2 (15:12→20:53)
[2018-06-29] MEDS ORDERED: NON-FORMULARY MEDICATION (Hydralazine Hcl 50 MG) PO SCH (17:00)
[2018-06-29] MEDS ORDERED: NON-FORMULARY MEDICATION (Nifedipine (Procardia Xl) 60 MG) PO SCH (17:00)
[2018-06-29] MEDS: PROPOFOL IV EMULSION 10MG/ML 100 ML IV SCH (17:13)
[2018-06-29] MEDS ORDERED: FENTANYL CITRATE INJ 2,000 MCG in SODIUM CHLORIDE 0.9% 250ML 210 ML IV PRN (17:15)
[2018-06-29 17:18] LABS: ABG HCO3 26 mmol/L (23-28); ABG PCO2 52 mmHg (41-51); ABG PH 7.32 (7.31-7.41); ABG PO2 107 mmHg (80-105)
--- NOTE | 2018-06-29 18:29 | Progress Note ---
DATE: Pulmonary Critical Care Progress Note SUBJECTIVE: The patient had dialysis again yesterday. Sedation was held this morning, but he remained somnolent most of the day. Spontaneous breathing trial was attempted in the afternoon. The patient seems to be tolerating it well. PHYSICAL EXAMINATION: VITAL SIGNS: The blood pressure is 185/90 and pulse is 63. The saturation is 99%. T-max is 99.8. HEENT: Shows no facial swelling or erythema. Nasal mucosa is normal. The oropharynx is normal. LYMPHATIC: Shows no submandibular, cervical or supraclavicular adenopathy. NECK: Shows no JVD or thyromegaly. There is no nuchal rigidity. CARDIAC: Reveals regular rate and rhythm with normal S1, S2. There are no murmurs or rubs. LUNGS: Auscultation of lungs reveals rhonchorous breath sounds bilaterally. There is no wheezing. ABDOMEN: Soft, nontender. There is no rebound or guarding. EXTREMITIES: Shows no leg edema or calf tenderness. There is no cyanosis or clubbing. SKIN: Shows no rashes. LABORATORY DATA: The blood count is 4.8, hemoglobin is 8.8. The platelet count is 133. The electrolytes are within normal limits. RADIOGRAPHIC DATA: Chest x-ray shows some interstitial changes bilaterally. IMPRESSION: 1. Acute on chronic respiratory failure. 2. Pneumonia with severe sepsis, present on admission. 3. Metabolic encephalopathy. 4. Chronic end-stage renal disease, requiring dialysis. PLAN: 1. Continue spontaneous breathing trial and extubate if tolerated. 2. Continue current antibiotics and monitor cultures. 3. Continue enteral feedings. 4. Dialysis as needed. 5. Case discussed with Nursing, Respiratory, and family. Greater than 35 minutes in direct critical care time. Rojelio Willard MD [facility]/MODL /[id number]
[2018-06-29] MEDS: ALBUTEROL/IPRATROPIUM 3 ML NEB NEB SCH ×2 (19:10→23:05)
[2018-06-29] MEDS: ATORVASTATIN 40 MG TAB PO SCH (20:53)
[2018-06-29] MEDS ORDERED: ATORVASTATIN 20 MG TAB PO SCH (21:00)
[2018-06-30] VITALS (24 sets, daily range): BP systolic 110–191; BP diastolic 55–119
[2018-06-30] MEDS: ALBUTEROL/IPRATROPIUM 3 ML NEB NEB SCH ×6 (02:15→23:15)
[2018-06-30 05:06] LABS: BASOPHILS % 0.2 % (0.0-1.0); EOSINOPHILS # (AUTO) 0.1 (0.0-0.4); EOSINOPHILS % 1.5 % (0.0-6.0); HEMATOCRIT 25.9 % (38.2-49.6); HEMOGLOBIN 8.5 g/dL (14.0-18.0); LYMPHOCYTES # (AUTO) 0.6 (1.0-3.2); LYMPHOCYTES % 11.5 % (18.0-39.1); MEAN CORPUSCULAR HEMOGLOBIN 31.3 pg (28-32); MEAN CORPUSCULAR HGB CONC 32.8 g/dL (31-35); MEAN CORPUSCULAR VOLUME 95.2 fL (81-99); MONOCYTES % 21.3 % (4.4-11.3); NEUTROPHILS # (AUTO) 3.1 (2.1-6.9); NEUTROPHILS % 64.5 % (38.7-80.0); PLATELET COUNT 129 x10e3/uL (140-360); RED BLOOD COUNT 2.72 x10e6/uL (4.3-5.7); RED CELL DISTRIBUTION WIDTH 17.2 % (11.7-14.4)
[2018-06-30] MEDS: METRONIDAZOLE 500MG/NS 100ML 100 ML IV SCH ×3 (05:46→22:51)
[2018-06-30] MEDS: INSULIN LISPRO 100 UNIT/1 ML 3ML VIAL SQ SCH ×3 (06:21→18:00)
--- NOTE | 2018-06-30 06:54 | Diagnostic Imaging Report ---
Examination: Single AP view of the chest. COMPARISON: Portable chest 06/29/2018 INDICATION: Respiratory failure IMPRESSION: 1. Lines and Tubes: Support lines and tubes are unchanged. 2. No interval change in central venous congestion and bilateral mild perihilar interstitial edema. No consolidation or effusion. Signed by: Dr. Jerman Gay M.D. on 06/30/2018 6:51 AM
[2018-06-30 07:09] LABS: ALBUMIN 2.4 g/dL (3.5-5.0); ALBUMIN/GLOBULIN RATIO 0.6 (0.8-2.0); ANION GAP 19.6 mmol/L (8-16); CALCIUM 7.7 mg/dL (8.4-10.2); CREATININE, SERUM 7.27 mg/dL (0.72-1.25); POTASSIUM 3.6 mmol/L (3.5-5.1)
--- NOTE | 2018-06-30 07:10 | NUR ---
Patient received on ETT to Vent: PRVC-18;FIO2-40%; TV-450 and Peep-5 and 02 sats are 100%. Patient on Propofol drip at 30mcg and Fentanyl Drip at 25mcg and tolerating well. Patient is calm and resting and respirations are even and unlabored. V/S are stable.
--- NOTE | 2018-06-30 07:45 | NUR ---
Sedation held for Vent weaning trials this am. V/S are stable. Maira-RT at bedside.
[2018-06-30] MEDS: SODIUM BICARBONATE 650 MG TAB PO SCH (09:00)
[2018-06-30] MEDS ORDERED: ENOXAPARIN 30 MG/0.3 ML SYR SC SCH (09:00)
[2018-06-30] MEDS: FAMOTIDINE 20 MG/2 ML VIAL IV SCH ×2 (09:00→20:04)
[2018-06-30] MEDS: NIFEDIPINE CR 30 MG TAB PO SCH ×2 (09:00→21:00)
[2018-06-30] MEDS: HYDRALAZINE HCL 25 MG TAB PO SCH ×2 (09:00→22:51)
[2018-06-30 09:58] LABS: ABG HCO3 25 mmol/L (23-28); ABG PCO2 46 mmHg (41-51); ABG PH 7.34 (7.31-7.41); ABG PO2 118 mmHg (80-105)
[2018-06-30] MEDS ORDERED: SODIUM CHLORIDE 0.9% 1000ML 2,000 ML ONE (10:36)
[2018-06-30] MEDS: HYDRALAZINE HCL 20 MG/ML VIAL IV PRN (13:30)
[2018-06-30] MEDS: DILTIAZEM HCL 125 ML IV SCH (13:45)
[2018-06-30] MEDS ORDERED: DILTIAZEM HCL 125 ML IV PRN (14:00)
[2018-06-30] MEDS ORDERED: FENTANYL CITRATE INJ 2,000 MCG in SODIUM CHLORIDE 0.9% 250ML 210 ML IV PRN (15:45)
[2018-06-30] MEDS: CEFEPIME 1GM/NS 0.9% 50 ML 50 ML IV SCH (17:14)
--- NOTE | 2018-06-30 17:23 | Progress Note ---
DATE: Pulmonary Progress Note. SUBJECTIVE: The patient was placed on a spontaneous breathing trial and did well this morning. He was switched back to PRVC prior to dialysis. During dialysis, he became agitated and had high blood pressures. He also had some frequent PVCs. He was evaluated by Cardiology. They did an echocardiogram. PHYSICAL EXAMINATION: VITAL SIGNS: The blood pressure is now 171/104. The pulse rate is 100. HEENT: Shows no facial swelling or erythema. There is an oral endotracheal tube in place. There is a right IJ line in place. CARDIAC: Reveals a regular rate and rhythm with normal S1, S2. There are no murmurs or rubs heard. LUNGS: Auscultation of lungs reveals rhonchorous breath sounds bilaterally. There is no wheezing. ABDOMEN: Soft, nontender. There is no rebound or guarding. EXTREMITIES: There is no leg edema or calf tenderness. There is no cyanosis or clubbing. SKIN: Shows no rashes. NEUROLOGICAL: Shows no focal abnormalities. LABORATORY DATA: White blood cell count is 4.78, hemoglobin is 8.5, and the platelet count is 129. The BUN to creatinine ratio is 65:7.27. The other electrolytes are within normal limits. The pH is 7.34, 46, 118, and 25. RADIOGRAPHIC DATA: Chest x-ray shows no interval change. There is some mild congestion. IMPRESSION: 1. Qwdgf-wi-ebhyxuv respiratory failure. 2. Pneumonia with severe sepsis, present on admission. 3. Metabolic encephalopathy. 4. End-stage renal disease. PLAN: 1. We will obtain spontaneous breathing trial again tomorrow and work towards extubation. 2. Continue current antibiotics. 3. Restart fentanyl because the patient has been on pain medicine chronically. 4. Continue dialysis as needed. 5. Continue enteral feedings. 6. Case discussed with nursing staff and Respiratory. Greater than 35 minutes in direct critical care time during 2 separate visits. Rojelio Willard MD [facility]/MODL /[id number]
[2018-06-30] MEDS: PANTOPRAZOLE 40 MG 10ML VIAL IV SCH (20:02)
[2018-06-30] MEDS: METOPROLOL SUCCINATE 50 MG TAB XL PO SCH (20:04)
[2018-06-30] MEDS: METOPROLOL TARTRATE INJ 1 MG/ML VIAL IV SCH (20:05)
[2018-06-30] MEDS: PROPOFOL IV EMULSION 10MG/ML 100 ML IV SCH (22:30)
[2018-06-30] MEDS: ATORVASTATIN 40 MG TAB PO SCH (22:50)
[2018-07-01] VITALS (32 sets, daily range): BP systolic 110–190; BP diastolic 56–158
[2018-07-01] MEDS: METOPROLOL TARTRATE INJ 1 MG/ML VIAL IV SCH ×7 (00:07→21:27)
[2018-07-01] MEDS: ACETAMINOPHEN 325 MG TAB PO PRN (00:35)
[2018-07-01] MEDS: ALBUTEROL/IPRATROPIUM 3 ML NEB NEB SCH ×6 (00:40→21:00)
[2018-07-01] MEDS: PROPOFOL IV EMULSION 10MG/ML 100 ML IV SCH (03:25)
[2018-07-01 04:50] LABS: BASOPHILS % 0.4 % (0.0-1.0); EOSINOPHILS # (AUTO) 0.1 (0.0-0.4); EOSINOPHILS % 2.1 % (0.0-6.0); HEMATOCRIT 28.1 % (38.2-49.6); LYMPHOCYTES # (AUTO) 0.7 (1.0-3.2); LYMPHOCYTES % 14.6 % (18.0-39.1); MEAN CORPUSCULAR HEMOGLOBIN 30.9 pg (28-32); MEAN CORPUSCULAR VOLUME 96.6 fL (81-99); MONOCYTES % 20.6 % (4.4-11.3); NEUTROPHILS # (AUTO) 2.9 (2.1-6.9); NEUTROPHILS % 60.2 % (38.7-80.0); PLATELET COUNT 137 x10e3/uL (140-360); RED BLOOD COUNT 2.91 x10e6/uL (4.3-5.7); RED CELL DISTRIBUTION WIDTH 17.2 % (11.7-14.4)
[2018-07-01 05:14] LABS: ALBUMIN 2.4 g/dL (3.5-5.0); ALBUMIN/GLOBULIN RATIO 0.6 (0.8-2.0); ANION GAP 16.9 mmol/L (8-16); CALCIUM 8.1 mg/dL (8.4-10.2); CREATININE, SERUM 6.11 mg/dL (0.72-1.25); POTASSIUM 3.9 mmol/L (3.5-5.1)
[2018-07-01] MEDS: INSULIN LISPRO 100 UNIT/1 ML 3ML VIAL SQ SCH ×4 (05:28→18:00)
--- NOTE | 2018-07-01 06:10 | Diagnostic Imaging Report ---
Examination: Single AP view of the chest. COMPARISON: Portable chest 06/30/2018 INDICATION: Respiratory failure IMPRESSION: 1. Lines and Tubes: Supporting lines and tubes are unchanged. 2. No significant interval change in central venous congestion and mild perihilar interstitial edema. No consolidation or effusion. Signed by: Dr. Jerman Gay M.D. on 07/01/2018 6:07 AM
[2018-07-01] MEDS: METRONIDAZOLE 500MG/NS 100ML 100 ML IV SCH ×3 (06:36→23:40)
[2018-07-01 06:46] LABS: MAGNESIUM 2.5 MG/DL (1.3-2.1); PHOSPHORUS 5.6 MG/DL (2.3-4.7)
--- NOTE | 2018-07-01 07:30 | NUR ---
PATIENT RECEIVED SEDATED ON PROPOFOL DRIP AT 30MCG AND FENTANY DRIP AT 25 MCG AND TOLERATING WELL. ON ETT TO VENT: PRVC-18; TV-450; FI02-40%;PEEP-5 AND TOLERATING WELL WITH 02 SATS AT 100%. RESPIRATIONS ARE EVEN AND UNLABORED. NO SIGNS OF DISTRESS OR DISCOMFORT. DIALYSIS NURSE AT BEDSIDE AND CALLING DR. NIETO FOR ORDERS.
--- NOTE | 2018-07-01 08:30 | NUR ---
ORDERS RECEIVED BY DIALYSIS NURSE(DOMINIC) FROM DR. NIETO AND DIALYSIS ABOUT TO BEGIN. PATIENT IS SEDATED AND V/S ARE STABLE.
[2018-07-01] MEDS ORDERED: SODIUM CHLORIDE 0.9% 1000ML 1,000 ML ONE (09:16)
[2018-07-01 09:24] LABS: EOSINOPHILS % (MANUAL) 2 % (0-7); LYMPHOCYTES % (MANUAL) 16 % (19-48); MONOCYTES % (MANUAL) 18 % (3.4-9.0); NEUTROPHILS % (MANUAL) 61 % (40-74)
[2018-07-01 09:25] LABS: BAND NEUTROPHILS % (MANUAL) 3 %; PLATELET ESTIMATE SLIGHTLY DECREASED; PLATELET MORPHOLOGY COMMENT NORMAL; RBC MORPHOLOGY COMMENT NORMAL
[2018-07-01] MEDS ORDERED: SODIUM CHLORIDE 0.9% 250ML 500 ML IV PRN (10:00)
[2018-07-01] MEDS ORDERED: SODIUM CHLORIDE 0.9% 1000ML 2,000 ML IV PRN (10:00)
--- NOTE | 2018-07-01 10:30 | NUR ---
DIALYSIS COMPLETED AND 2 LITERS OF FLUID TAKEN OFF AND TOLERATED WELL BY PATIENT. V/S ARE STABLE. WILL CONTINUE TO MONITOR.
--- NOTE | 2018-07-01 10:35 | NUR ---
PROPOFOL DRIP AND FENTANYL DRIP STOPPED TO PREPARE FOR EXTUBATION OF PATIENT.
--- NOTE | 2018-07-01 11:00 | NUR ---
DR. Dm VELIZ HERE AT BEDSIDE AND RT ALSO AT BEDSIDE
[2018-07-01] MEDS: HYDRALAZINE HCL 25 MG TAB PO SCH ×2 (11:45→21:00)
[2018-07-01] MEDS: METOPROLOL SUCCINATE 50 MG TAB XL PO SCH (11:45)
[2018-07-01] MEDS: SODIUM BICARBONATE 650 MG TAB PO SCH (11:45)
[2018-07-01] MEDS: NIFEDIPINE CR 30 MG TAB PO SCH (11:45)
[2018-07-01] MEDS ORDERED: METHADONE HCL 10 MG TAB PO SCH ×2 (11:45→21:00)
[2018-07-01] MEDS: PANTOPRAZOLE 40 MG 10ML VIAL IV SCH (12:00)
[2018-07-01] MEDS: CEFEPIME 1GM/NS 0.9% 50 ML 50 ML IV SCH (12:00)
[2018-07-01] MEDS: FAMOTIDINE 20 MG/2 ML VIAL IV SCH ×2 (12:00→17:07)
--- NOTE | 2018-07-01 12:00 | NUR ---
PATIENT EXTUBATED AT 11:40 AND TOLERATED WELL. OG TUBE REMOVED WELL. PATIENT IS GROGGY, BUT AWAKE AND OPENS EYES ON COMMAND. V/S ARE STABLE. V/S ARE STABLE. ABG'S TO BE DONE IN [address] VELIZ WILL BE NOTIFIED OF RESULTS. PATIENT PLACED ON BIPAP AND TOLERATING WELL WITH 02 SATS AT 100%. RESPIRATIONS ARE 24-28 BREATHS PER MINUTE.
[2018-07-01 13:58] LABS: ABG HCO3 28 mmol/L (23-28); ABG PCO2 46 mmHg (41-51); ABG PH 7.39 (7.31-7.41); ABG PO2 107 mmHg (80-105)
--- NOTE | 2018-07-01 14:00 | NUR ---
PATIENT TOLERATING BIPAP WELL WITH O2 SATS AT 98%. RESPIRATIONS ARE EVEN AND UNLABORED AT 22 BPM.
--- NOTE | 2018-07-01 14:07 | Progress Note ---
DATE: 07/01/2018 SUBJECTIVE: The patient completed dialysis this morning. He was placed on a spontaneous breathing trial with a pressure support of 8 and a CPAP of 3. His fentanyl and propofol have been held. PHYSICAL EXAMINATION: GENERAL: The patient is afebrile. He is on a spontaneous breathing trial at this time. He is orally intubated. He has a right IJ line. The site looks clean. There is no drainage. CARDIAC: Reveals regular rate and rhythm with normal S1 and S2. There are no murmurs or rubs. LUNGS: Auscultation of lungs reveals rhonchorous breath sounds bilaterally. There is no wheezing. ABDOMEN: Soft, nontender. There is no rebound or guarding. EXTREMITIES: Show no leg edema or calf tenderness. There is no cyanosis or clubbing. SKIN: Shows no rashes. NEUROLOGICAL: Shows no focal abnormalities. LABORATORY DATA: The BUN to creatinine ratio is 49:6.11 and the other electrolytes are within normal limits. The CBC is within normal limits. RADIOGRAPHIC DATA: Chest x-ray shows no significant change. IMPRESSION: 1. Acute on chronic respiratory failure. 2. Pneumonia with severe sepsis, present on admission. 3. Metabolic encephalopathy. 4. End-stage renal disease. PLAN: 1. Continue spontaneous breathing trial and work towards extubation. 2. Continue current antibiotics. 3. Dialysis as needed. 4. Enteral feedings. 5. Case discussed with nursing staff, Respiratory and Dr. Keys. Greater than 35 minutes in direct critical care time. Rojelio Willard MD [facility]/MODL /[id number]
[2018-07-01 14:18] LABS: ALBUMIN 2.7 g/dL (3.5-5.0); BILIRUBIN,DIRECT 0.3 mg/dL (0.0-0.5)
--- NOTE | 2018-07-01 14:48 | Progress Note ---
DATE: 07/01/2018 SUBJECTIVE: Tolerated ultrafiltration today, starting to wake up, breathing on his own, however, the ET tube is still in place. OBJECTIVE: VITAL SIGNS: Pulse is 61, blood pressure 110/61, O2 saturation 100% on mechanical with spontaneous breathing earlier, and temperature is 98. CHEST: Occasional crackles. EXTREMITIES: No definite edema. NEURO: Still a bit sedate. LABORATORY DATA: Hemoglobin is 9.0. Potassium is 3.9. Serum CO2 of 26. Chest x-ray was showing fluid overload. ASSESSMENT: End-stage renal disease, fluid overload. PLAN: Ultrafiltration done today, 2 L removed, 2-hour run, F160 filter. Please see orders for details. Severo Yip MD [facility]/MODL /[id number]
[2018-07-01] MEDS ORDERED: LORAZEPAM INJ 2 MG/ML VIAL IV PRN (16:00)
--- NOTE | 2018-07-01 17:13 | Consultation ---
DATE OF CONSULTATION: 07/01/2018 Cardiology Consultation Report REASON FOR CONSULT: AFib with RVR. CHIEF COMPLAINT: Shortness of breath. HISTORY OF PRESENT ILLNESS: A 67-year-old man, history of hypertension and chronic renal failure, end-stage renal disease on dialysis, who presented with worsening dyspnea and congestion, had to be intubated due to acute hypoxemic respiratory failure. Yesterday during dialysis, he was noted to have a run of AFib with RVR with heart rates in the 200s, which resolved after administration of some IV metoprolol. He has remained in sinus rhythm since yesterday and has not had any further episodes. He has frequent PACs with occasional sinus tachycardia. He was extubated earlier today. Denies any chest pain or shortness of breath at this time. PAST MEDICAL HISTORY: 1. End-stage renal disease. 2. Hypertension. 3. Pulmonary hypertension with pulmonary pressures in 60s to 70s based on echocardiography. SOCIAL HISTORY: Occasional drinker and occasional smoker. Does not use drugs. FAMILY HISTORY: No family history of early CAD or sudden cardiac . REVIEW OF SYSTEMS: Could not be obtained as the patient was on respiratory support. PHYSICAL EXAMINATION: VITAL SIGNS: Temperature afebrile, pulse 101, respiratory rate 24, blood pressure 153/73, saturating 97% on 4 L BiPAP. GENERAL: A middle-aged man, in no acute distress, well developed, well nourished. CARDIOVASCULAR: Irregular rhythm. Normal S1, S2. No murmurs, rubs, or gallops. LUNGS: Bilateral rhonchi. No wheezing or rales. ABDOMEN: Obese, soft, nontender, and nondistended. No rebound or guarding. NEURO AND PSYCH: The patient is awake, alert, and oriented. INPATIENT MEDICATIONS: Reviewed. LABORATORY DATA: Reviewed. ASSESSMENT: 1. Atrial fibrillation with rapid ventricular response. 2. Acute on chronic respiratory failure. 3. Pneumonia with severe sepsis. 4. Metabolic encephalopathy. 5. End-stage renal disease, on dialysis. 6. Pulmonary hypertension reported by echo previously. PLAN: Continue metoprolol, we will up titrate the dose of oral metoprolol today. Continue p.r.n. IV metoprolol. 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 Thank you for this consult. We will continue to follow. MD ZONIA Fisher/JOSE EDUARDO /[id number]
[2018-07-01 17:22] LABS: ABG HCO3 29 mmol/L (23-28); ABG PCO2 46 mmHg (41-51); ABG PO2 140 mmHg (80-105)
--- NOTE | 2018-07-01 18:20 | NUR ---
AT BEDSIDE AND PATIENT IS NOW MORE AGITATED. NEW ORDERS RECEIVED FROM MCKINLEY MARTINEZ FOR PATIENT'S AGITATION. 16 ESTONIAN NGT SALEM SUMP NGT PLACED TO RIGHT NOSTRIL AND TOLERATED WELL. KUB WILL BE DONE. DARK BROWN LIQUID STOOL FROM FECAL MANAGEMENT BAG COLLECTED AND SPECIMEN SENT TO LAB FOR C. DIFF.
[2018-07-01] MEDS: HYDRALAZINE HCL 20 MG/ML VIAL IV PRN (20:08)
--- NOTE | 2018-07-01 20:27 | Diagnostic Imaging Report ---
Exam: Limited abdominal film Clinical History: Check NG tube placement Comparison: CT abdomen and pelvis 06/27/2018 DISCUSSION: See impression. IMPRESSION: 1. Enteric tube is noted under the left hemidiaphragm, with distal tip in the proximal fundus and side port likely above the GE junction. Further advancement is recommended. 2. Nonobstructive bowel gas pattern. The staff physician below has personally reviewed this exam on the date of dictation. Signed by: Dr. Jerman Gay M.D. on 07/01/2018 8:23 PM
[2018-07-01] MEDS: DILTIAZEM HCL 125 ML IV SCH (21:41)
--- NOTE | 2018-07-01 22:00 | NUR ---
Pt's HR 150-180's, afib. Notified Dr. Hardy of patient change. Cardizem bolus given, order to start previously ordered cardizem gtt. director packaging aware of pt situation and orders.
--- NOTE | 2018-07-01 22:04 | Diagnostic Imaging Report ---
Exam: Limited abdominal film Clinical History: NG tube placement Comparison: KUB 07/01/2018 DISCUSSION: See impression. IMPRESSION: 1. Enteric tube is noted under the left hemidiaphragm, with tip coiled in the stomach fundus. The distal side-port is also likely located in the fundus, although it is not clearly visualized. 2. Grossly clear lung bases. Nonobstructive bowel gas pattern. The staff physician below has personally reviewed this exam on the date of dictation. Signed by: Dr. Jerman Gay M.D. on 07/01/2018 10:00 PM
[2018-07-01] MEDS ORDERED: DILTIAZEM HCL 5 MG/ML 5 ML VIAL IV STA (22:07)
[2018-07-01] MEDS: LORAZEPAM INJ 2 MG/ML VIAL IV PRN (23:30)
[2018-07-01] MEDS: CHLORDIAZEPOXIDE HCL 25 MG CAP PO SCH (23:40)
[2018-07-01] MEDS: ATORVASTATIN 40 MG TAB PO SCH (23:40)
[2018-07-01] MEDS: DILTIAZEM HCL 60 MG TAB NG SCH (23:40)
[2018-07-01] MEDS ORDERED: SODIUM CHLORIDE 0.9% 250ML 250 ML ONE (23:41)
[2018-07-02] VITALS (46 sets, daily range): BP systolic 118–194; BP diastolic 56–95
[2018-07-02] MEDS: DILTIAZEM HCL 125 ML IV SCH (01:30)
[2018-07-02] MEDS: METOPROLOL TARTRATE INJ 1 MG/ML VIAL IV SCH ×4 (02:16→14:01)
[2018-07-02] MEDS: ALBUTEROL/IPRATROPIUM 3 ML NEB NEB SCH ×6 (03:00→23:20)
[2018-07-02 04:10] LABS: BASOPHILS % 0.3 % (0.0-1.0); EOSINOPHILS # (AUTO) 0.1 (0.0-0.4); EOSINOPHILS % 1.1 % (0.0-6.0); HEMATOCRIT 31.6 % (38.2-49.6); HEMOGLOBIN 9.9 g/dL (14.0-18.0); LYMPHOCYTES # (AUTO) 0.9 (1.0-3.2); LYMPHOCYTES % 12.2 % (18.0-39.1); MEAN CORPUSCULAR HEMOGLOBIN 30.6 pg (28-32); MEAN CORPUSCULAR HGB CONC 31.3 g/dL (31-35); MEAN CORPUSCULAR VOLUME 97.5 fL (81-99); MONOCYTES # (AUTO) 1.3 (0.2-0.8); MONOCYTES % 19.1 % (4.4-11.3); NEUTROPHILS # (AUTO) 4.5 (2.1-6.9); PLATELET COUNT 186 x10e3/uL (140-360); RED BLOOD COUNT 3.24 x10e6/uL (4.3-5.7); RED CELL DISTRIBUTION WIDTH 16.6 % (11.7-14.4)
[2018-07-02] MEDS: LORAZEPAM INJ 2 MG/ML VIAL IV PRN ×3 (04:20→18:39)
[2018-07-02 04:40] LABS: ALBUMIN 2.6 g/dL (3.5-5.0); BILIRUBIN,DIRECT 0.2 mg/dL (0.0-0.5); CALCIUM 8.7 mg/dL (8.4-10.2); CREATININE, SERUM 6.04 mg/dL (0.72-1.25); MAGNESIUM 2.4 MG/DL (1.3-2.1)
[2018-07-02] MEDS: INSULIN LISPRO 100 UNIT/1 ML 3ML VIAL SQ SCH ×4 (05:26→18:23)
[2018-07-02] MEDS: CHLORDIAZEPOXIDE HCL 25 MG CAP PO SCH ×5 (06:00→23:59)
[2018-07-02] MEDS: METRONIDAZOLE 500MG/NS 100ML 100 ML IV SCH (06:00)
[2018-07-02] MEDS: DILTIAZEM HCL 60 MG TAB NG SCH ×4 (06:00→23:59)
[2018-07-02] MEDS ORDERED: SODIUM CHLORIDE 0.9% 1000ML 2,000 ML ONE (06:34)
--- NOTE | 2018-07-02 07:00 | NUR ---
PT NOTED TO BE JERKING AWAY FROM DIALYSIS NURSE WHILE SHE ATTEMPT TO START DIALYSIS PT AT RISK FOR PULLING NEEDLE OUT. NOTIFIED FOR ORDERS
[2018-07-02 07:33] LABS: BAND NEUTROPHILS % (MANUAL) 2 %; EOSINOPHILS % (MANUAL) 2 % (0-7); LYMPHOCYTES % (MANUAL) 15 % (19-48); MONOCYTES % (MANUAL) 22 % (3.4-9.0); NEUTROPHILS % (MANUAL) 59 % (40-74)
[2018-07-02 07:34] LABS: ANISOCYTOSIS SLIGHT; PLATELET ESTIMATE ADEQUATE; PLATELET MORPHOLOGY COMMENT NORMAL; RBC MORPHOLOGY COMMENT NORMAL
[2018-07-02] MEDS: THIAMINE HCL 100 MG TAB PO SCH (08:10)
[2018-07-02] MEDS: HYDRALAZINE HCL 25 MG TAB PO SCH ×2 (09:00→21:44)
[2018-07-02] MEDS ORDERED: MANNITOL 25% 12.5GM/50 ML VIAL IV PRN (10:45)
[2018-07-02] MEDS ORDERED: ALBUMIN 25% 12.5GM 0.25 GM/ML BTL IV PRN (10:45)
--- NOTE | 2018-07-02 11:00 | NUR ---
PT PULLED OUT RIGHT IJ. PRESSURE DRESSING APPLIED.
[2018-07-02] MEDS: CEFEPIME 1GM/NS 0.9% 50 ML 50 ML IV SCH (11:54)
[2018-07-02] MEDS: SODIUM BICARBONATE 650 MG TAB PO SCH (11:54)
[2018-07-02] MEDS: PANTOPRAZOLE 40 MG 10ML VIAL IV SCH (11:54)
[2018-07-02] MEDS: FAMOTIDINE 20 MG/2 ML VIAL IV SCH ×2 (11:54→17:58)
[2018-07-02] MEDS: METOPROLOL SUCCINATE 50 MG TAB XL PO SCH (11:54)
--- NOTE | 2018-07-02 13:00 | NUR ---
CARDIZEM DRIP OFF AT THIS TIME.
--- NOTE | 2018-07-02 14:57 | NUR ---
MD RUFFIN MADE AWARE PATIENT PULLED OUT CENTRAL LINE. NO NEW ORDERS AT THIS TIME
[2018-07-02] MEDS ORDERED: HYDROCORTISONE SOD SUCCINATE 100 MG VIAL IV ONE (15:00)
[2018-07-02] MEDS ORDERED: QUETIAPINE FUMARATE 25 MG TAB PO PRN (15:00)
--- NOTE | 2018-07-02 15:10 | NUR ---
ABG Results called to Dr. Magana office. waiting any new orders. will continue to monitor
[2018-07-02 15:20] LABS: ABG HCO3 29 mmol/L (23-28); ABG PCO2 46 mmHg (41-51); ABG PH 7.42 (7.31-7.41); ABG PO2 84 mmHg (80-105)
--- NOTE | 2018-07-02 15:37 | Progress Note ---
DATE: SUBJECTIVE: The patient had dialysis today. He has had intermittent confusion and pulled out his IJ line. He has no fever. He was on BiPAP, but has recently been switched to nasal cannula. OBJECTIVE: VITAL SIGNS: The patient is afebrile, the blood pressure is 160/67, the pulse is 97, saturation is 100% on 3 L. HEENT: No facial swelling or erythema. The nasal mucosa is normal. The oropharynx is normal. LYMPHATIC: No submandibular, cervical, or supraclavicular adenopathy. CARDIAC: Regular rate and rhythm with a normal S1, S2. There are no murmurs or rubs. LUNGS: Auscultation of lungs reveals wheezing bilaterally. There are some crackles. ABDOMEN: Soft and nontender. There is no rebound or guarding. EXTREMITIES: No leg edema or calf tenderness. RADIOGRAPHIC DATA: Chest x-ray shows some venous congestion. IMPRESSION: 1. Mkauu-ea-iminhra respiratory failure. 2. Pneumonia with severe sepsis, present on admission. 3. End-stage renal disease. 4. Metabolic encephalopathy. PLAN: 1. Continue bronchodilators and antibiotics. 2. Low-dose Seroquel and Ativan p.r.n. 3. Dialysis. 4. Enteral feedings. 5. Repeat ABG. 6. Continue treatment for atrial fibrillation. Rojelio Willard MD [facility]/MODL /[id number]
[2018-07-02] MEDS ORDERED: RIVAROXABAN 20 MG TABLET PO SCH (17:00)
[2018-07-02] MEDS: RIVAROXABAN 15 MG TABLET PO SCH (17:58)
--- NOTE | 2018-07-02 18:54 | NUR ---
Nutrition Intervention Note RD Recommendation(s) for Physician: -If PO is feasible, rec advancing diet to Renal/ ADA diet; diet texture per DIRECTOR EXECUTIVE COMMUNICATIONS -If PO is not feasible, rec to increase Nepro to 55mL/hr to more adequately meet his needs. (2376kcal, 107g protein, and 960mL water) -Rec 30mL water flushes q 4hr; additional water per MD discretion -Rec renal MVi w/minerals, thiamine and folate due to hx of alcoholism - Check daily labs, weight and GI tolerance Plan of Care: RD following, monitoring for tolerance and adequacy, TF rec Nutrition reason for involvement: Follow up RD Assessment 07/02 Pt was discussed during AM rounds. Pt was extubated yesterday. Pt had dialysis today. He was confused and lethargic. TF was held during HD. KUB was unremarkable. RD rec to consult DIRECTOR EXECUTIVE COMMUNICATIONS for swallow eval when mental status improved. Otherwise, increase TF rate to 55mL/hr to more adequately meet his needs. Will continue to monitor and follow. 06/27 - 67yo M, who was admitted for severe dyspnea. Pt remained intubated and on vent. No pressor meds. Pt was receiving HD during my visit. No hx obtained due to current medical condition. TF order has been placed but not started. Awaiting Dr. Willard to page back for TF rec. Will continue to monitor and follow. Principal Problems/Diagnoses: sepsis, respiratory failure PMH: HTN, DM, ESRD on HD, alcoholism GI: abdomen soft, non-tender, large, flatus present Skin: no pressure wound noted Labs: (07/02) BUN 48 H, Creatinine 6.04 H, Glucose 130 140 H, AST 56 H (06/27) K 3.4 L, BUN 37 H, Creatinine 4.31 H, Ca 8.2 L, Iron 18 L, ferritin 542 H, AST 60H Meds: insulin, xarelto, pepcid, abx, sodium bicarb, protonix, thiamine Ht: 70in Wt: 190lb; 173.25lb BMI: 27.3kg/m2 IBW: 166lb Malnutrition Evaluation (06/27) The patient does not meet criteria for a specified degree of malnutrition at this time. Will re-evaluate at follow-up as appropriate. Nutrition Prescription (Diet Order): Nepro @40mL/hr Estimated Nutritional Needs: Calories: 2370 - 2765kcal (30 - 35kcal/kg/d) Weight used: current BW Protein: 95 - 120g (1.2 1.5g/kg/d) Weight used: current BW Diet Adequacy: Not meeting calorie needs, not meeting protein needs Diet Education Needs Assessment: Diet education not indicated. Nutrition Care Level: mod Nutrition Diagnosis: Inadequate oral intake related to current medical status as evidenced by pt requiring EN as main source of nutrition. Goal: Patient will meet 75-100% of estimated needs by follow up Progress: Progressing Interventions: Composition, Rate, Route Monitoring/Evaluation: Total energy intake, Total protein intake, Formula/Solution, Weight change, Check labs, Check GI tolerance Signed: Keri Cox MS, RD, LD
[2018-07-02] MEDS ORDERED: ENOXAPARIN 30 MG/0.3 ML SYR SC SCH (21:00)
[2018-07-02] MEDS: ATORVASTATIN 40 MG TAB PO SCH (21:44)
[2018-07-03] VITALS (25 sets, daily range): BP systolic 101–164; BP diastolic 47–84
[2018-07-03] MEDS: INSULIN LISPRO 100 UNIT/1 ML 3ML VIAL SQ SCH ×4 (00:02→18:26)
[2018-07-03] MEDS: LORAZEPAM INJ 2 MG/ML VIAL IV PRN ×2 (00:04→05:02)
--- NOTE | 2018-07-03 00:34 | Progress Note ---
DATE: 07/02/2018 Cardiology Progress Note SUBJECTIVE: No major events overnight. He remains on BiPAP, getting dialyzed today. Brief episode of atrial fibrillation with rapid ventricular response. OBJECTIVE: GENERAL: man, in no acute distress. CARDIOVASCULAR: Regular rate and rhythm. No murmurs, rubs, or gallops. LUNGS: Clear to auscultation anteriorly. Bibasilar coarse breath sounds. ABDOMEN: Soft, nontender, and nondistended. NEURO AND PSYCH: Alert and oriented to person, place, and time. Normal affect. INPATIENT MEDICATIONS: Reviewed. LABORATORY DATA: Reviewed. TELEMETRY DATA: Reviewed, shows sinus rhythm with frequent PACs and runs of atrial fibrillation with RVR with heart rates in the 150s to 160s. ASSESSMENT: 1. Atrial fibrillation with rapid ventricular response. 2. Dhnai-ja-pdfmafa respiratory failure. 3. Pneumonia with severe sepsis. 4. Metabolic encephalopathy. 5. End-stage renal disease, on dialysis. 6. History of pulmonary hypertension. PLAN: We will up titrate his diltiazem, which is being given orally to 90 mg q.6 hours, non-extended release and wean off the IV diltiazem drip. We will also start Xarelto for atrial fibrillation given his CHADS-VASc score. Continue cardiovascular medications. Otherwise, awaiting echo results. Thank you for this consult. We will continue to follow. MD ZONIA Fisher/MODL /[id number]
[2018-07-03] MEDS: ALBUTEROL/IPRATROPIUM 3 ML NEB NEB SCH ×6 (03:10→22:45)
--- NOTE | 2018-07-03 04:04 | Diagnostic Imaging Report ---
EXAMINATION: CHEST SINGLE (PORTABLE) INDICATION: Resp Failure COMPARISON: Chest x-ray 07/01/2018 FINDINGS: AP view TUBES and LINES: Interval removal of endotracheal tube and right subclavian catheter. Nasogastric tube tip projects over the gastric fundus. LUNGS: Mild interstitial edema and central congestion, mildly decreased. No consolidations. PLEURA: No pleural effusion or pneumothorax. HEART AND MEDIASTINUM: The cardiomediastinal silhouette is unremarkable. BONES AND SOFT TISSUES: No acute osseous lesion. Soft tissues are unremarkable. UPPER ABDOMEN: No free air under the diaphragm. IMPRESSION: Lines and tubes as above. Mildly decreased interstitial edema. Signed by: DR. Jarek Ramon MD on 07/03/2018 4:00 AM
[2018-07-03 04:58] LABS: BASOPHILS % 0.4 % (0.0-1.0); EOSINOPHILS % 0.2 % (0.0-6.0); HEMATOCRIT 32.1 % (38.2-49.6); HEMOGLOBIN 10.1 g/dL (14.0-18.0); LYMPHOCYTES # (AUTO) 0.8 (1.0-3.2); LYMPHOCYTES % 14.3 % (18.0-39.1); MEAN CORPUSCULAR HEMOGLOBIN 30.5 pg (28-32); MEAN CORPUSCULAR HGB CONC 31.5 g/dL (31-35); MONOCYTES # (AUTO) 1.1 (0.2-0.8); MONOCYTES % 20.4 % (4.4-11.3); NEUTROPHILS # (AUTO) 3.5 (2.1-6.9); NEUTROPHILS % 61.7 % (38.7-80.0); PLATELET COUNT 222 x10e3/uL (140-360); RED BLOOD COUNT 3.31 x10e6/uL (4.3-5.7); RED CELL DISTRIBUTION WIDTH 16.1 % (11.7-14.4)
[2018-07-03 05:35] LABS: ALBUMIN 2.6 g/dL (3.5-5.0); ALBUMIN/GLOBULIN RATIO 0.6 (0.8-2.0); ANION GAP 14.9 mmol/L (8-16); CALCIUM 9.1 mg/dL (8.4-10.2); CREATININE, SERUM 5.82 mg/dL (0.72-1.25); POTASSIUM 3.9 mmol/L (3.5-5.1)
[2018-07-03] MEDS: DILTIAZEM HCL 60 MG TAB NG SCH ×3 (05:52→18:07)
[2018-07-03 05:53] LABS: MAGNESIUM 2.4 MG/DL (1.3-2.1)
[2018-07-03] MEDS: CHLORDIAZEPOXIDE HCL 25 MG CAP PO SCH ×3 (05:53→18:07)
[2018-07-03] MEDS: HYDRALAZINE HCL 25 MG TAB PO SCH ×2 (09:00→20:33)
[2018-07-03] MEDS: THIAMINE HCL 100 MG TAB PO SCH (09:30)
[2018-07-03] MEDS: METOPROLOL SUCCINATE 50 MG TAB XL PO SCH (09:30)
[2018-07-03] MEDS: PANTOPRAZOLE 40 MG 10ML VIAL IV SCH (09:30)
[2018-07-03] MEDS: FAMOTIDINE 20 MG/2 ML VIAL IV SCH ×2 (09:30→18:00)
[2018-07-03] MEDS: CEFEPIME 1GM/NS 0.9% 50 ML 50 ML IV SCH (09:30)
[2018-07-03] MEDS: SODIUM BICARBONATE 650 MG TAB PO SCH (09:30)
[2018-07-03] MEDS: RIVAROXABAN 15 MG TABLET PO SCH (18:00)
--- NOTE | 2018-07-03 18:04 | Progress Note ---
DATE: 07/03/2018 Pulmonary Progress Note SUBJECTIVE: The patient is less agitated today. He is on a nasal cannula. PHYSICAL EXAMINATION: VITAL SIGNS: The patient is afebrile. The blood pressure is 129/59 and saturation is 97% on 3 L. HEENT: Shows no facial swelling or erythema. CARDIAC: Reveals a regular rate and rhythm with a normal S1 and S2. There are no murmurs or rubs heard. LUNGS: Auscultation of lungs reveals clear breath sounds bilaterally. There is no wheezing. ABDOMEN: Soft and nontender. There is no rebound or guarding. EXTREMITIES: Show no leg edema or calf tenderness. There is no cyanosis or clubbing. SKIN: Shows no rashes. NEUROLOGIC: Shows no focal abnormalities. IMPRESSION: 1. Acute on chronic respiratory failure. 2. Pneumonia with severe sepsis, present on admission. 3. End-stage renal disease. 4. Metabolic encephalopathy. PLAN: 1. Continue antibiotics and bronchodilators. 2. Continue current sedatives. 3. Enteral feedings. Rojelio Willard MD [facility]/MODL /[id number]
--- NOTE | 2018-07-03 19:04 | Progress Note ---
DATE: 07/03/2018 Cardiology Progress Note SUBJECTIVE: No major events overnight. Off BiPAP today, on nasal cannula. Seems more calm and less agitated. OBJECTIVE: VITAL SIGNS: Temperature afebrile, pulse 76, respiratory rate 19, blood pressure 124/55, saturating 98% on 3 L nasal cannula. GENERAL: man, in no acute distress. CARDIOVASCULAR: Regular rate and rhythm. No murmurs, rubs, or gallops. LUNGS: Clear to auscultation anteriorly. ABDOMEN: Soft, nontender, nondistended. NEURO AND PSYCH: The patient is lethargic, disoriented sleeping. INPATIENT MEDICATIONS: Reviewed. LABORATORY DATA: Reviewed. TELEMETRY DATA: Reviewed, now in sinus rhythm with occasional PVCs, normal atrial fibrillation overnight. ASSESSMENT: 1. Atrial fibrillation with rapid ventricular response. 2. Acute on chronic respiratory failure. 3. Pneumonia with severe sepsis. 4. Metabolic encephalopathy. 5. End-stage renal disease on dialysis. 6. History of pulmonary hypertension. PLAN: Continue oral diltiazem. Now he is off diltiazem drip. We will discontinue metoprolol as well. Continue Xarelto. Thank you for this consult. We will continue to follow. MD ZONIA Fisher/JOSE EDUARDO /[id number]
[2018-07-03] MEDS: ATORVASTATIN 40 MG TAB PO SCH (20:33)
[2018-07-04] VITALS (16 sets, daily range): BP systolic 111–181; BP diastolic 62–88
[2018-07-04] MEDS: DILTIAZEM HCL 60 MG TAB NG SCH ×4 (01:18→18:38)
[2018-07-04] MEDS: CHLORDIAZEPOXIDE HCL 25 MG CAP PO SCH ×4 (01:19→18:38)
[2018-07-04] MEDS: ALBUTEROL/IPRATROPIUM 3 ML NEB NEB SCH ×3 (02:35→11:00)
[2018-07-04 05:03] LABS: BASOPHILS % 0.5 % (0.0-1.0); EOSINOPHILS # (AUTO) 0.3 (0.0-0.4); EOSINOPHILS % 4.2 % (0.0-6.0); HEMATOCRIT 34.7 % (38.2-49.6); HEMOGLOBIN 10.8 g/dL (14.0-18.0); LYMPHOCYTES # (AUTO) 1.1 (1.0-3.2); LYMPHOCYTES % 13.9 % (18.0-39.1); MEAN CORPUSCULAR HEMOGLOBIN 30.4 pg (28-32); MEAN CORPUSCULAR HGB CONC 31.1 g/dL (31-35); MEAN CORPUSCULAR VOLUME 97.7 fL (81-99); MONOCYTES % 12.5 % (4.4-11.3); NEUTROPHILS # (AUTO) 4.9 (2.1-6.9); NEUTROPHILS % 64.4 % (38.7-80.0); PLATELET COUNT 265 x10e3/uL (140-360); RED BLOOD COUNT 3.55 x10e6/uL (4.3-5.7); RED CELL DISTRIBUTION WIDTH 15.9 % (11.7-14.4)
[2018-07-04 05:26] LABS: ANION GAP 16.6 mmol/L (8-16); CALCIUM 9.4 mg/dL (8.4-10.2); CREATININE, SERUM 7.97 mg/dL (0.72-1.25); MAGNESIUM 2.6 MG/DL (1.3-2.1); POTASSIUM 3.6 mmol/L (3.5-5.1)
[2018-07-04] MEDS: INSULIN LISPRO 100 UNIT/1 ML 3ML VIAL SQ SCH ×4 (06:51→18:00)
[2018-07-04 07:10] LABS: EOSINOPHILS % (MANUAL) 4 % (0-7); HYPOCHROMASIA SLIGHT; LYMPHOCYTES % (MANUAL) 10 % (19-48); METAMYELOCYTES % (MANUAL) 2 % (0-0); MONOCYTES % (MANUAL) 9 % (3.4-9.0); MYELOCYTES % (MANUAL) 1 % (0-0); NEUTROPHILS % (MANUAL) 72 % (40-74); PROMYELOCYTES % (MANUAL) 1 % (0-0); RBC MORPHOLOGY COMMENT NORMAL
[2018-07-04 07:11] LABS: PLATELET ESTIMATE ADEQUATE; PLATELET MORPHOLOGY COMMENT NORMAL
[2018-07-04] MEDS: HYDRALAZINE HCL 25 MG TAB PO SCH ×2 (09:00→18:00)
[2018-07-04] MEDS: LORAZEPAM INJ 2 MG/ML VIAL IV PRN (11:20)
--- NOTE | 2018-07-04 13:23 | NUR ---
Pt unavailable at this time. Pt's dialysis nurse performing procedure bedside. I will follow up as able. THOMAS SARGENT Assistant Manager Bilingual Spiritual Care Department O: [phone] Pager: [phone] ([phone] number calling from)
[2018-07-04] MEDS ORDERED: DILTIAZEM HCL IV 5MG/ML 25 ML VIAL ONE (13:34)
[2018-07-04] MEDS ORDERED: DILTIAZEM HCL VIAL 5 ML ONE (13:35)
[2018-07-04] MEDS ORDERED: DILTIAZEM HCL 125 ML IV SCH (13:45)
[2018-07-04] MEDS ORDERED: DILTIAZEM HCL 125 ML IV PRN (13:45)
--- NOTE | 2018-07-04 13:46 | NUR ---
Auxiliary Power Equipment Operator responded to Rapid Response. No family present. Provided calming pastoral presence for staff. Will follow as able. THOMAS Mckeelain Spiritual Care Department O: [phone] Pager: [phone] ([phone] number calling from)
[2018-07-04] MEDS ORDERED: DIGOXIN INJ 0.25 MG/ML 2 ML AMP ONE (14:00)
[2018-07-04] MEDS ORDERED: METOPROLOL TARTRATE INJ 1 MG/ML VIAL ONE (14:27)
[2018-07-04] MEDS: FAMOTIDINE 20 MG/2 ML VIAL IV SCH ×2 (15:07→17:00)
--- NOTE | 2018-07-04 15:25 | Progress Note ---
DATE: 07/04/2018 Cardiology Progress Note SUBJECTIVE: No major events overnight. OBJECTIVE: VITAL SIGNS: Temperature 98.3, pulse 74, respiratory rate 16, blood pressure 156/63, and saturating 98% on nasal cannula. GENERAL: Middle-aged man, in no acute distress. CARDIOVASCULAR: Regular rate and rhythm. No murmurs, rubs, or gallops. LUNGS: Clear to auscultation bilaterally. ABDOMEN: Soft, nontender, and nondistended. Obese. NEURO AND PSYCH: The patient is sleeping and disoriented. INPATIENT MEDICATIONS: Reviewed. LABORATORY DATA: Reviewed. IMAGING DATA: Reviewed. TELEMETRY DATA: Reviewed. Remains in normal sinus rhythm. ASSESSMENT: 1. Atrial fibrillation with rapid ventricular response. 2. Acute on chronic respiratory failure. 3. Pneumonia with severe sepsis. 4. Metabolic encephalopathy. 5. End-stage renal disease, on dialysis. 6. History of pulmonary hypertension. PLAN: Continue oral diltiazem. Now off IV drip, started on Xarelto. Thank you for this consult. We will continue to follow. MD ZONIA Fisher/ISRRAELL /[id number]
--- NOTE | 2018-07-04 15:40 | Progress Note ---
DATE: 07/04/2018 Pulmonary Critical Care Progress Note SUBJECTIVE: The patient is receiving dialysis today. He still is intermittently confused. He has not had any respiratory distress or coughing. PHYSICAL EXAMINATION: VITAL SIGNS: The patient is afebrile. The vital signs are stable. HEENT: Shows no facial swelling or erythema. The patient has an oral endotracheal tube in place. LYMPHATIC: Shows no submandibular, cervical, or supraclavicular adenopathy. CARDIAC: Reveals a regular rate and rhythm with a normal S1 and S2. There are no murmurs or rubs. LUNGS: Auscultation of lungs reveals rhonchorous breath sounds bilaterally. There is no wheezing. ABDOMEN: Soft and nontender. There is no rebound or guarding. EXTREMITIES: Show no leg edema or calf tenderness. There is no cyanosis or clubbing. SKIN: Shows no rashes. NEUROLOGIC: Shows no focal abnormalities. IMPRESSION: 1. Metabolic encephalopathy. 2. Pneumonia. 3. Acute on chronic respiratory failure. 4. Atrial fibrillation with rapid ventricular response. 5. End-stage renal disease. PLAN: 1. The patient will continue current antibiotics. 2. Continue dialysis. 3. Continue enteral feedings. 4. Continue to monitor mental status. Rojelio Willard MD [facility]/MODL /[id number]
--- NOTE | 2018-07-04 15:40 | Progress Note ---
DATE: 07/04/2018 Pulmonary Critical Care Addendum During dialysis, the patient developed rapid ventricular rate. A rapid response was initially called and defibrillator was hooked up, but further evaluation suggested atrial fibrillation with a rapid ventricular response. The patient received Cardizem 10 mg IV and his rate slowed down to the 150 range with more obvious atrial fibrillation. A 12-lead EKG subsequently confirmed rapid atrial fibrillation. He was started on a Cardizem drip at 10 mg an hour, which was increased to 15. He subsequently received digoxin 0.25 mg IV x2. The patient later had further acceleration of his heart rate and required metoprolol 5 mg IV. He was also placed on BiPAP. Cardiology was notified and will evaluate the patient later today. There is also concern about possible strokes despite the patient being anticoagulated with Xarelto. Neurology was consulted. Greater than 35 minutes in direct critical care time was spent. MD TWIN Martinez/JOSE EDUARDO /[id number]
[2018-07-04] MEDS: RIVAROXABAN 15 MG TABLET PO SCH (18:37)
[2018-07-04] MEDS: PANTOPRAZOLE 40 MG 10ML VIAL IV SCH (18:37)
[2018-07-04] MEDS: THIAMINE HCL 100 MG TAB PO SCH (18:37)
[2018-07-04] MEDS: SODIUM BICARBONATE 650 MG TAB PO SCH (18:37)
[2018-07-04] MEDS: IPRATROPIUM BROMIDE 0.02% 2.5 ML NEB NEB SCH (18:40)
--- NOTE | 2018-07-04 19:30 | NUR ---
RECEIVED PATIENT, RESTLESS IN BED, REPOSITIONED FOR COMFORT AND SETTLED CALMLY IN BED
[2018-07-04] MEDS: ATORVASTATIN 40 MG TAB PO SCH (21:00)
[2018-07-05] VITALS (24 sets, daily range): BP systolic 102–165; BP diastolic 50–73
--- NOTE | 2018-07-05 | NUR ---
Remains on BIPAP and diltiazem drip, vitals stable
[2018-07-05] MEDS: IPRATROPIUM BROMIDE 0.02% 2.5 ML NEB NEB SCH ×4 (02:15→19:20)
[2018-07-05] MEDS: INSULIN LISPRO 100 UNIT/1 ML 3ML VIAL SQ SCH ×4 (06:00→17:36)
[2018-07-05] MEDS: CHLORDIAZEPOXIDE HCL 25 MG CAP PO SCH ×4 (06:00→17:33)
[2018-07-05] MEDS: DILTIAZEM HCL 60 MG TAB NG SCH ×4 (06:00→17:30)
[2018-07-05 06:15] LABS: ALBUMIN 2.9 g/dL (3.5-5.0); ALBUMIN/GLOBULIN RATIO 0.6 (0.8-2.0); ANION GAP 15.9 mmol/L (8-16); CALCIUM 9.4 mg/dL (8.4-10.2); CREATININE, SERUM 6.48 mg/dL (0.72-1.25); POTASSIUM 3.9 mmol/L (3.5-5.1)
[2018-07-05] MEDS ORDERED: DILTIAZEM HCL IV 5MG/ML 25 ML VIAL ONE (06:21)
[2018-07-05] MEDS ORDERED: SODIUM CHLORIDE 0.9% 100 ML ONE (06:21)
--- NOTE | 2018-07-05 07:04 | NUR ---
Patient handed over hemodynamically stable
[2018-07-05 07:21] LABS: BASOPHILS # (AUTO) 0.1 (0.0-0.1); BASOPHILS % 0.5 % (0.0-1.0); EOSINOPHILS # (AUTO) 0.5 (0.0-0.4); EOSINOPHILS % 4.4 % (0.0-6.0); HEMATOCRIT 36.8 % (38.2-49.6); HEMOGLOBIN 11.6 g/dL (14.0-18.0); LYMPHOCYTES # (AUTO) 1.4 (1.0-3.2); LYMPHOCYTES % 12.5 % (18.0-39.1); MEAN CORPUSCULAR HEMOGLOBIN 30.6 pg (28-32); MEAN CORPUSCULAR HGB CONC 31.5 g/dL (31-35); MEAN CORPUSCULAR VOLUME 97.1 fL (81-99); MONOCYTES # (AUTO) 2.2 (0.2-0.8); MONOCYTES % 20.6 % (4.4-11.3); NEUTROPHILS # (AUTO) 6.2 (2.1-6.9); NEUTROPHILS % 57.4 % (38.7-80.0); PLATELET COUNT 294 x10e3/uL (140-360); RED BLOOD COUNT 3.79 x10e6/uL (4.3-5.7); RED CELL DISTRIBUTION WIDTH 15.8 % (11.7-14.4)
[2018-07-05] MEDS: SODIUM BICARBONATE 650 MG TAB PO SCH (09:16)
[2018-07-05] MEDS: FAMOTIDINE 20 MG/2 ML VIAL IV SCH ×2 (09:16→17:29)
[2018-07-05] MEDS: HYDRALAZINE HCL 25 MG TAB PO SCH ×2 (09:16→21:00)
[2018-07-05] MEDS: PANTOPRAZOLE 40 MG 10ML VIAL IV SCH (09:16)
[2018-07-05] MEDS: THIAMINE HCL 100 MG TAB PO SCH (09:18)
[2018-07-05] MEDS ORDERED: METOPROLOL TARTRATE INJ 1 MG/ML VIAL ONE (10:34)
[2018-07-05] MEDS ORDERED: METOPROLOL TARTRATE INJ 1 MG/ML VIAL IV ONE (11:15)
--- NOTE | 2018-07-05 11:40 | NUR ---
ASSESSMENT: Spiritual distress Pt's son defensive. Pt's son states his father drinks beer excessively in spite of warning from dialysis staff. Pt's son states pt also has a son who of a brain tumor a couple of years ago and a daughter who lives in [facility]. When asked general questions, pt's son states, "you are too personal." Pt's son surprised when brattice builder mentioned pt's has visited. Intervention: Provided empathic listening. Facilitated storytelling. Outcome: Will follow as able. THOMAS SARGENT Master Deputy [employer] Security Spiritual Care Department O: [phone] Pager: [phone] ([phone] number calling from)
[2018-07-05] MEDS: RIVAROXABAN 15 MG TABLET PO SCH (17:29)
--- NOTE | 2018-07-05 17:42 | Progress Note ---
DATE: 07/05/2018 Pulmonary Critical Care Progress Note SUBJECTIVE: The patient was taken off BiPAP this morning. He still is not interacting normally. He had a low-grade fever of 100.2 last night. The patient had recurrent atrial fibrillation with rapid ventricular response this morning. He received metoprolol IV and it improved. He is back in normal sinus rhythm. PHYSICAL EXAMINATION: VITAL SIGNS: Stable. HEENT: Shows no facial swelling or erythema. CARDIAC: Reveals a regular rate and rhythm with a normal S1 and S2. There are no murmurs or rubs. LUNGS: Auscultation of lungs reveals clear breath sounds bilaterally. There is no wheezing. ABDOMEN: Soft and nontender. There is no rebound or guarding. EXTREMITIES: Show no leg edema or calf tenderness. There is no cyanosis or clubbing. SKIN: Shows no rashes. NEUROLOGICAL: Shows no focal abnormalities. IMPRESSION: 1. Metabolic encephalopathy. 2. Atrial fibrillation with rapid ventricular response. 3. End-stage renal disease. 4. Acute on chronic respiratory failure. PLAN: 1. The patient is awaiting Neurology consultation. The patient will also probably need an MRI. 2. Continue to use metoprolol as needed for the rapid ventricular rate along with Cardizem through the feeding tube. 3. Continue oxygen. 4. Continue dialysis. Rojelio Willard MD [facility] /[id number]
--- NOTE | 2018-07-05 18:56 | Progress Note ---
DATE: 07/05/2018 CARDIOLOGY PROGRESS NOTE SUBJECTIVE: The patient had a lot of ectopy overnight including short runs of nonsustained VT as well as some atrial fibrillation RVR with aberrancy. Remains hemodynamically stable. OBJECTIVE: VITAL SIGNS: Temperature 100.2, pulse 86, respiratory rate 24, blood pressure 139/66, and saturating 98% on nasal cannula. GENERAL: man in no acute distress. CARDIOVASCULAR: Regular rate and rhythm. No murmurs, rubs, or gallops. LUNGS: Coarse breath sounds bilaterally. ABDOMEN: Soft, nontender, and nondistended. NEURO AND PSYCH: The patient is confused and nonfocal. LABORATORY DATA: Reviewed. IMAGING DATA: Reviewed. TELEMETRY DATA: Reviewed. Shows episodes of atrial fibrillation with RVR with aberrancy and occasional short runs of nonsustained VT as well. Difficult to assess what is ventricular tachycardia versus atrial fibrillation with aberrancy given poor quality of the tracings. ASSESSMENT: 1. Atrial fibrillation with rapid ventricular response. 2. Nonsustained ventricular tachycardia. 3. Acute on chronic respiratory failure. 4. Pneumonia with severe sepsis. 5. Metabolic encephalopathy. 6. End-stage renal disease on dialysis. 7. History of pulmonary hypertension. PLAN: 1. Continue oral diltiazem. 2. Continue Xarelto. 3. Continue p.r.n. IV metoprolol. 4. Remains hemodynamically stable. 5. EF is preserved by echocardiogram. 6. Once acute issues resolve, recommend nuclear stress test prior to discharge to look for any ischemia given significant ectopy with wide-complex tachycardia at times. Thank you for this consult. We will continue to follow. MD ZONIA Fisher/ISRRAELL /[id number]
--- NOTE | 2018-07-05 19:30 | NUR ---
Received patient calm in bed, off the Cardizem drip, running a sinus rhythm. Vitals stable
--- NOTE | 2018-07-05 20:30 | NUR ---
Reviewed by Dr Rowan, new orders put in
[2018-07-05] MEDS: ATORVASTATIN 40 MG TAB PO SCH (21:00)
--- NOTE | 2018-07-05 23:00 | NUR ---
Patient given a full bath, had a BM, dirty linens changed. Remains stable
[2018-07-06] VITALS (24 sets, daily range): BP systolic 103–180; BP diastolic 44–73
[2018-07-06] MEDS: IPRATROPIUM BROMIDE 0.02% 2.5 ML NEB NEB SCH ×4 (01:23→19:20)
--- NOTE | 2018-07-06 02:04 | Consultation ---
DATE OF CONSULTATION: 07/05/2018 Neurology Consult Note HISTORY OF PRESENT ILLNESS: Mr. Garcia is a 67-year-old man with past medical history significant for hypertension, hyperlipidemia, diabetes mellitus, end-stage renal disease, on hemodialysis Tuesdays, , and Saturdays, and pulmonary hypertension, admitted to [facility] on June 25, 2018 with acute respiratory failure. Unfortunately, Mr. Garcia is encephalopathic. There are no family members available at the bedside to provide history. Therefore, history is obtained from hospital staff as well as review of the electronic medical records. As stated above, Mr. Garcia was admitted with acute respiratory failure requiring intubation and possible pneumonia on Monday, June 25, 2018. Over the next several days, the patient was hospitalized in the ICU, intubated and mechanically ventilated, sedated with fentanyl and Diprivan. For two days, Mr. Garcia received vancomycin for treatment of probable pneumonia. After this initial two days, the patient received cefepime and azithromycin for treatment of probable pneumonia. Both courses of antibiotics were completed approximately two days ago. Over the first two days of the patient's hospitalization, numerous blood, urine, and sputum cultures were collected. The last culture was collected on June 26, 2018. Mr. Garcia was extubated and placed on BiPAP on July 01, 2018. On the evening following extubation, the patient was reportedly awake and alert, conversant, and consistently following simple commands. However, the following day, the patient was noted to be encephalopathic. He has remained encephalopathic since Monday, July 02, 2018. Since June 26, 2018, the patient has been intermittently febrile with a maximum temperature of 100.5 degrees Fahrenheit. However, cultures were never repeated. On July 01, 2018, the patient developed atrial fibrillation with rapid ventricular response. He has experienced numerous occurrences of atrial fibrillation with rapid ventricular response over the last few days. Most recently, a rapid response was called on July 04, 2018, due to atrial fibrillation with rapid ventricular response. Although sedation with fentanyl and Diprivan were discontinued prior to extubation, Mr. Garcia continues to receive multiple sedating medications. On July 04, 2018 at 1120 hours, the patient received lorazepam 0.5 mg intravenously. He is receiving Librium 25 mg by mouth every 6 hours with the most recent dose given on July 05, 2018 at 1733 hours. Mr. Garcia does have Seroquel ordered, but has not received any doses of this medication. REVIEW OF SYSTEMS: Unable to obtain secondary to the patient being encephalopathic. PAST MEDICAL HISTORY: Hypertension, hyperlipidemia, diabetes mellitus, pulmonary hypertension, end-stage renal disease on hemodialysis Tuesdays, , and Saturdays. PAST SURGICAL HISTORY: Reported prior brain surgery at [facility] [place], access for hemodialysis. PAST HOSPITALIZATIONS: Unable to obtain secondary to the patient being encephalopathic. FAMILY MEDICAL HISTORY: Hypertension, diabetes mellitus. SOCIAL HISTORY: Mr. Garcia is . He is retired. The patient does reportedly use tobacco. Mr. Garcia does consume alcohol, reportedly two six packs (16 ounces) per day, possibly more. Current or prior recreational drug use is not reported. HOME MEDICATIONS: Reviewed. Please see the list of home medications available in the electronic medical record. HOSPITAL MEDICATIONS: Reviewed. Please see the list of hospital medications available in the electronic medical record. ALLERGIES: SULFA. NO KNOWN FOOD ALLERGIES. NO KNOWN ALLERGIES TO LATEX. NO KNOWN ALLERGIES TO IODINE OR OTHER CONTRAST MATERIALS. PHYSICAL EXAMINATION: VITAL SIGNS: Height 70 inches, weight 172 pounds, BMI 24.7 kg/m2, blood pressure 158/69 mmHg, pulse 85 beats per minute, respiratory rate 24 breaths per minute, and oxygen saturation 95% on 2 L by nasal cannula. GENERAL: The patient is somnolent, very briefly opens his eyes to central noxious stimulation. HEENT: Normocephalic, atraumatic. Pupils are equal, round, and reactive to light. Moist mucous membranes. NECK: Supple. No appreciable thyromegaly. No appreciable carotid bruits. CARDIOVASCULAR: S1, S2, regular rate and rhythm. No murmurs, rubs, or gallops. RESPIRATORY: Inspiratory and expiratory wheezes are auscultated throughout. Fine rhonchi are auscultated at the bases. EXTREMITIES: The skin is warm and dry. No clubbing, cyanosis, or edema. The posterior tibial and dorsalis pedis pulses are 2+ on the left and trace on the right. SKIN: No rashes or lesions. Neurologic: Memory/Attention: The patient is somnolent. He very briefly opens his eyes to central noxious stimulation. Mr. Garcia does not answer orientation questions. Cranial Nerves: Pupils are equal and round, react briskly to light (4 mm to 2 mm). Corneal reflexes are intact. Oculocephalic reflexes cannot be assessed secondary to lack of patient participation. The face appears symmetric. Strength: Bulk is normal. The patient withdraws all four extremities to peripheral noxious stimulation. However, a lesser response is noted in the right arm. Tone is diminished in all four extremities. DTRs: Deep tendon reflexes are trace and symmetric at the triceps, biceps, and brachioradialis. Deep tendon reflexes are absent and symmetric at the patellas and Achilles. Plantar responses are flexor bilaterally. Sensation: Sensation is as per motor exam. Cerebellar: Unable to assess secondary to the patient being encephalopathic. Gait: Deferred. Speech: Unable to assess secondary to the patient being encephalopathic. Involuntary Movements: None. Pronator Drift: As per motor exam. LABORATORY DATA: The most recent comprehensive metabolic panel reveals a chloride of 95, BUN of 55, creatinine of 6.48, estimated GFR of 9, serum glucose of 132, magnesium of 2.5, AST of 40, albumin of 2.9, globulin of 5.2. B-natriuretic peptide 611.4. The most recent CBC with differential and platelets reveals a white blood cell count of 10.83 with a right shift with 57.4% neutrophils, 12.5% lymphocytes, 20.6% monocytes, 4.4% eosinophils, and 0.5% basophils. The hemoglobin and hematocrit are 11.6 and 36.8, respectively. The platelet count is 294. A urinalysis collected on June 25, 2018 was significant for 2+ protein, 1+ glucose, 1+ blood, and 6 to 10 red blood cells. Stool was positive for occult blood on June 29, 2018. C. difficile toxin A and B negative. Hepatitis B surface antigen negative, hepatitis B surface antibody quantitative 3.6. Hepatitis B core IgM antibody negative. Hepatitis B E antibody negative. Influenza types A and B antigen negative. Urine Legionella antigen negative. Blood cultures collected on June 25, 2018, revealed no growth after five days. An MRSA screen on June 26, 2018 was negative. A sputum Gram stain and culture on June 26, 2018, grew usual respiratory alexys. A urine culture collected on June 26, 2018 revealed no growth at 36 to 48 hours. DIAGNOSTIC STUDIES: Chest x-ray on 06/25/2018: 1. ET tube in adequate position. 2. Mild bilateral pulmonary venous congestion. Abdomen ultrasound on 06/27/2018: 1. Hepatomegaly, no intrahepatic mass or bile duct dilatation. Borderline splenomegaly. 2. Gallbladder hydrops, with no cholelithiasis or sonographic evidence for cholecystitis. No dilatation of the biliary tree. 3. Hyperechoic right renal cortex compatible with medical renal disease. Left kidney was obscured by bowel. CT of the brain without contrast on 06/27/2018: On my review, there is no evidence of recent large territorial ischemia, hemorrhage, mass, or mass effect. A chronic lacunar infarct is seen in the left christine. There is diffuse cerebral atrophy with compensatory dilatation of the ventricles, more than expected for the patient's age. Their findings compatible with [id number] chronic small-vessel ischemic disease. CT of the abdomen and pelvis on 06/27/2018: No acute CT abnormality in the abdomen or pelvis. Mildly distended gallbladder with possible sludge. No CT evidence of cholecystitis. Mildly atrophic right kidney and markedly atrophic left kidney. Mild patchy opacities at the lung bases, right greater than the left, likely atelectasis. Patchy pneumonia is possible at the right lung base in appropriate clinical context. Abdomen x-ray on 07/01/2018: 1. Enteric tube is noted under the left hemidiaphragm, with tip coiled in the stomach fundus. The distal side port is also likely located in the fundus, although it is not clearly visualized. 2. Grossly clear lung bases. Nonobstructive bowel gas pattern. Chest x-ray on 07/03/2018: Lines and tubes as above. Mildly decreased interstitial edema. ASSESSMENT AND PLAN: Mr. Garcia is a 67-year-old man with an extensive past medical history, noted to be noncompliant with treatment, with encephalopathy of undetermined etiology. The patient has undergone a thorough neurological examination with findings detailed above. The patient's laboratory data and other diagnostic studies have been reviewed and are documented above. RECOMMENDATIONS: Are as follows: 1. Blood and urine studies will be ordered to evaluate for an underlying cause of encephalopathy. Those studies will include: A comprehensive metabolic panel, complete blood count with differential, and ammonia level are ordered. Added to these orders will be: Thyroid-stimulating hormone, vitamin B1 level, vitamin B12 level, methylmalonic acid, folate, rapid plasma reagin, urinalysis with microanalysis, urine culture, blood culture. 2. An MRI of the brain without contrast will be ordered to evaluate for stroke, hypoxic ischemic injury, etc. 3. Treatment was sedative/hypnotic and pain medication should be limited as these medications will alter the patient's sensorium. To that end, Librium, Ativan, and Seroquel will be discontinued. 4. Utilize environmental cues to combat delirium. 5. Defer management of the remaining medical comorbidities to the primary and other services following the patient. Thank you for this consultation. I will continue to follow the patient, while he remains in the hospital. TIME SPENT: 70 minutes. Itzel Rowan MD [facility] /[id number]
[2018-07-06 05:24] LABS: BASOPHILS # (AUTO) 0.1 (0.0-0.1); BASOPHILS % 0.5 % (0.0-1.0); EOSINOPHILS # (AUTO) 0.5 (0.0-0.4); EOSINOPHILS % 4.4 % (0.0-6.0); HEMATOCRIT 34.4 % (38.2-49.6); LYMPHOCYTES # (AUTO) 1.4 (1.0-3.2); LYMPHOCYTES % 12.9 % (18.0-39.1); MEAN CORPUSCULAR HEMOGLOBIN 30.5 pg (28-32); MEAN CORPUSCULAR VOLUME 95.3 fL (81-99); MONOCYTES # (AUTO) 1.8 (0.2-0.8); MONOCYTES % 16.6 % (4.4-11.3); NEUTROPHILS # (AUTO) 6.7 (2.1-6.9); PLATELET COUNT 337 x10e3/uL (140-360); RED BLOOD COUNT 3.61 x10e6/uL (4.3-5.7); RED CELL DISTRIBUTION WIDTH 15.6 % (11.7-14.4)
[2018-07-06 05:46] LABS: ALBUMIN 2.6 g/dL (3.5-5.0); ALBUMIN/GLOBULIN RATIO 0.6 (0.8-2.0); ANION GAP 17.4 mmol/L (8-16); CALCIUM 9.2 mg/dL (8.4-10.2); CREATININE, SERUM 8.69 mg/dL (0.72-1.25); POTASSIUM 4.4 mmol/L (3.5-5.1)
[2018-07-06] MEDS: DILTIAZEM HCL 60 MG TAB NG SCH ×4 (06:00→17:49)
[2018-07-06] MEDS: INSULIN LISPRO 100 UNIT/1 ML 3ML VIAL SQ SCH ×4 (06:00→17:49)
[2018-07-06 06:01] LABS: MAGNESIUM 2.6 MG/DL (1.3-2.1); PHOSPHORUS 3.1 MG/DL (2.3-4.7)
[2018-07-06 06:19] LABS: FOLATE 10.8 ng/mL (7.0-15.4)
--- NOTE | 2018-07-06 06:34 | Diagnostic Imaging Report ---
EXAMINATION: CHEST SINGLE (PORTABLE) INDICATION: Resp Failure COMPARISON: Chest x-ray 07/03/2018 FINDINGS: AP view TUBES and LINES: Nasogastric tube tip projects over the gastric body. LUNGS: Central pulmonary venous congestion. No consolidations. PLEURA: No pleural effusion or pneumothorax. HEART AND MEDIASTINUM: The cardiomediastinal silhouette is unremarkable. BONES AND SOFT TISSUES: No acute osseous lesion. Soft tissues are unremarkable. UPPER ABDOMEN: No free air under the diaphragm. IMPRESSION: Lines and tubes as above. Central vascular congestion. No consolidations. Signed by: DR. Jarek Ramon MD on 07/06/2018 6:31 AM
--- NOTE | 2018-07-06 07:09 | NUR ---
Handed over stable
[2018-07-06] MEDS: PANTOPRAZOLE 40 MG 10ML VIAL IV SCH (08:31)
[2018-07-06] MEDS: FAMOTIDINE 20 MG/2 ML VIAL IV SCH ×2 (08:31→17:48)
[2018-07-06] MEDS: HYDRALAZINE HCL 25 MG TAB PO SCH ×2 (08:32→20:04)
[2018-07-06] MEDS: SODIUM BICARBONATE 650 MG TAB PO SCH (08:32)
[2018-07-06] MEDS: THIAMINE HCL 100 MG TAB PO SCH (08:32)
[2018-07-06] MEDS ORDERED: ALBUMIN 25% 12.5GM 0.25 GM/ML BTL IV ONE (10:00)
--- NOTE | 2018-07-06 10:30 | NUR ---
attempting to turn patient to change loose bm, hd rn in room but hd not started yet. when turning patient, his heart rate jumps to 160 and is irregular. metoprolol iv given, but only decreases rate to 140s, still irregular. dr. madelaine mar, amiodarone started, bolus given, heart rate is better, patient tolerates turning now.
[2018-07-06] MEDS: METOPROLOL TARTRATE INJ 1 MG/ML VIAL IV PRN ×2 (10:36→22:50)
[2018-07-06] MEDS ORDERED: AMIODARONE HCL 150 MG in DEXTROSE 5% 100ML 100 ML IV ONE (11:00)
[2018-07-06] MEDS: AMIODARONE HCL 900 MG in DEXTROSE 5 % 500ML BOTTLE 482 ML IV SCH (11:30)
--- NOTE | 2018-07-06 13:46 | Progress Note ---
DATE: 07/06/2018 SUBJECTIVE: The patient is still not responding well. He is awaiting MRI. PHYSICAL EXAMINATION: VITAL SIGNS: The blood pressure is 139/72 and the pulse is 84. HEENT: Shows no facial swelling or erythema. The nasal mucosa is normal. CARDIAC: Reveals a regular rate and rhythm with a normal S1 and S2. There are no murmurs or rubs. LUNGS: Auscultation of lungs reveals rhonchorous breath sounds bilaterally. There is no wheezing. ABDOMEN: Soft and nontender. There is no rebound or guarding. EXTREMITIES: Show no leg edema or calf tenderness. There is no cyanosis clubbing. SKIN: Shows no rashes. IMPRESSION: 1. Metabolic encephalopathy. 2. Atrial fibrillation with rapid ventricular response. 3. End-stage renal disease. 4. Acute on chronic respiratory failure. PLAN: 1. Await MRI results. 2. Continue current treatment for atrial fibrillation. 3. Continue oxygen. 4. Continue dialysis. Rojelio Willard MD [facility]/JOSE EDUARDO /[id number]
--- NOTE | 2018-07-06 16:00 | Diagnostic Imaging Report ---
Exam: Brain MRI without IV contrast History: Stroke, hypoxic injury Comparison studies: Head CT 3 such . Technique: Sagittal and axial T2 FS, axial DWI, axial T2*GRE, axial T1 FLAIR and axial coronal T2 FLAIR. Intravenous contrast: None Findings: Scalp: Normal in signal. No masses. Bone marrow: Normal in signal intensity. Brain sulci: Appropriate for age. Ventricles: Mildly prominent. Mild compensatory dilatation. Extra axial spaces: No mass, no fluid collection. Parenchyma: No mass, hemorrhage or acute ischemia. A few scattered T2 FLAIR hyperintense foci in the supratentorial white matter are nonspecific but most compatible with chronic microvascular ischemic changes. Mild generalized volume loss with slightly greater volume loss in the bilateral frontal lobes. Suprasellar region: No abnormalities. Craniocervical junction: Patent foramen magnum. No Chiari malformation. Vessels: Normal flow-voids in the arteries and sinuses. Incidental findings: Mild reactive T2 hyperintense changes in the mastoids. Partially imaged NG tube. IMPRESSION: 1. No acute ischemia or other acute intracranial abnormalities. 2. Mild chronic microvascular ischemic changes. 3. Mild generalized volume loss with slightly greater volume loss in the in the frontal lobes. Signed by: Dr. Jm Toure M.D. on 07/06/2018 3:56 PM
--- NOTE | 2018-07-06 16:01 | NUR ---
Nutrition Intervention Note RD Recommendation(s) for Physician: -Obtain stool culture and rec probiotics for reported diarrhea -Continue Nepro @55mL/hr, providing 2376kcal, 107g protein, and 960mL water. -Water flushes per MD discretion -Rec renal MVi w/minerals, thiamine and folate due to hx of alcoholism -Check daily labs, weight and GI tolerance -If PO is feasible, rec advancing diet to Renal/ ADA diet; diet texture per COW TENDER Plan of Care: RD following, monitoring for tolerance and adequacy, TF rec Nutrition reason for involvement: Follow up RD Assessment 07/06 Pt was discussed during AM rounds. Amiodarone drip was started. No HD planned for today. TF was running at 55mL/hr with good tolerance prior to being held today. Per SAMEER Schaefer, pt has had diarrhea. Rec to obtain stool culture and order probiotics to promote gut health. Will continue to monitor and follow. 07/02 Pt was discussed during AM rounds. Pt was extubated yesterday. Pt had dialysis today. He was confused and lethargic. TF was held during HD. KUB was unremarkable. RD rec to consult COW TENDER for swallow eval when mental status improved. Otherwise, increase TF rate to 55mL/hr to more adequately meet his needs. Will continue to monitor and follow. 06/27 - 67yo M, who was admitted for severe dyspnea. Pt remained intubated and on vent. No pressor meds. Pt was receiving HD during my visit. No hx obtained due to current medical condition. TF order has been placed but not started. Awaiting Dr. Willard to page back for TF rec. Will continue to monitor and follow. Principal Problems/Diagnoses: sepsis, respiratory failure PMH: HTN, DM, ESRD on HD, alcoholism GI: abdomen soft, non-tender, large, flatus present Skin: no pressure wound noted Labs: (07/06) Na 135 L, BUN 86 H, Creatinine 8.69 H, Glucose 134 H, Mg 2.6 H (07/02) BUN 48 H, Creatinine 6.04 H, Glucose 130 140 H, AST 56 H (06/27) K 3.4 L, BUN 37 H, Creatinine 4.31 H, Ca 8.2 L, Iron 18 L, ferritin 542 H, AST 60H Meds: insulin, thiamine, sodium bicarb, pepcid, protonix Ht: 70in Wt: 190lb; 173.25lb;172lb BMI: 27.3kg/m2 IBW: 166lb Malnutrition Evaluation (06/27) The patient does not meet criteria for a specified degree of malnutrition at this time. Will re-evaluate at follow-up as appropriate. Nutrition Prescription (Diet Order): Nepro @55mL/hr Estimated Nutritional Needs: Calories: 2370 - 2765kcal (30 - 35kcal/kg/d) Weight used: current BW Protein: 95 - 120g (1.2 1.5g/kg/d) Weight used: current BW Diet Adequacy: TF was held. Diet Education Needs Assessment: Diet education not indicated. Nutrition Care Level: mod Nutrition Diagnosis: Inadequate oral intake related to current medical status as evidenced by pt requiring EN as main source of nutrition. Goal: Patient will meet 75-100% of estimated needs by follow up Progress: n/a TF was held. Interventions: Composition, Rate, Route Monitoring/Evaluation: Total energy intake, Total protein intake, Formula/Solution, Weight change, Check labs, Check GI tolerance Signed: Keri Cox, MS, RD, LD
--- NOTE | 2018-07-06 16:17 | NUR ---
PT IN ICU S/P D.T.'S POORLY RESPONSIVE MRI BRAIN TODAY PROGNOSIS GUARDED
[2018-07-06] MEDS: RIVAROXABAN 15 MG TABLET PO SCH (17:48)
--- NOTE | 2018-07-06 18:28 | Progress Note ---
DATE: 07/06/2018 Cardiology Progress Note SUBJECTIVE: No major events overnight. Remains confused. OBJECTIVE: VITAL SIGNS: Temperature afebrile, pulse 82, respiratory rate 17, blood pressure 131/67, saturating 99% on 2 L nasal cannula. GENERAL: A middle-aged male in no acute distress. CARDIOVASCULAR: Regular rate and rhythm. No murmurs, rubs, or gallops. LUNGS: Scattered wheezing. ABDOMEN: Soft, nontender, nondistended. NEURO AND PSYCH: Remain somnolent, confused. INPATIENT MEDICATIONS: Reviewed. LABORATORY DATA: Reviewed. IMAGING DATA: Reviewed. ASSESSMENT: 1. Atrial fibrillation with rapid ventricular response. 2. Nonsustained ventricular tachycardia. 3. Acute on chronic respiratory failure. 4. Pneumonia with severe sepsis. 5. Metabolic encephalopathy. 6. End-stage renal disease, on dialysis. 7. History of pulmonary hypertension. PLAN: Continue oral diltiazem. The patient was started on IV amiodarone, given recurrent episodes of atrial fibrillation with RVR. Continue Xarelto. We will convert to p.o. amiodarone tomorrow once IV is completed. EF is preserved by echocardiogram. If neurological status improves, recommend nuclear stress test to rule out any ischemia given multiple episodes of nonsustained ventricular tachycardia. Thank you for this consult. We will continue to follow. MD ZONIA Fisher/JOSE EDUARDO /[id number]
--- NOTE | 2018-07-06 19:00 | NUR ---
Bedside report received from Maria Isabel Del Toro RN. Pt received resting in bed with eyes open, no signs of distress, pain, or discomfort seen at this time. Alternating air mattress present, SCDs in use. Care plan reviewed, no family present.
[2018-07-06] MEDS: ATORVASTATIN 40 MG TAB PO SCH (20:04)
[2018-07-06] MEDS: METHYLPREDNISOLONE SOD SUCC 40 MG/ML VIAL 1ML IV SCH (20:04)
[2018-07-07] VITALS (23 sets, daily range): BP systolic 131–189; BP diastolic 47–88
[2018-07-07] MEDS: INSULIN LISPRO 100 UNIT/1 ML 3ML VIAL SQ SCH ×4 (00:55→18:42)
[2018-07-07] MEDS: DILTIAZEM HCL 60 MG TAB NG SCH ×4 (00:56→18:17)
[2018-07-07] MEDS: IPRATROPIUM BROMIDE 0.02% 2.5 ML NEB NEB SCH ×4 (01:25→18:30)
[2018-07-07 05:11] LABS: BASOPHILS % 0.2 % (0.0-1.0); EOSINOPHILS % 0.1 % (0.0-6.0); HEMATOCRIT 36.2 % (38.2-49.6); LYMPHOCYTES # (AUTO) 0.7 (1.0-3.2); LYMPHOCYTES % 4.7 % (18.0-39.1); MEAN CORPUSCULAR HEMOGLOBIN 30.5 pg (28-32); MEAN CORPUSCULAR HGB CONC 33.1 g/dL (31-35); MEAN CORPUSCULAR VOLUME 92.1 fL (81-99); MONOCYTES # (AUTO) 0.2 (0.2-0.8); MONOCYTES % 1.1 % (4.4-11.3); NEUTROPHILS # (AUTO) 12.9 (2.1-6.9); NEUTROPHILS % 91.3 % (38.7-80.0); PLATELET COUNT 398 x10e3/uL (140-360); RED BLOOD COUNT 3.93 x10e6/uL (4.3-5.7); RED CELL DISTRIBUTION WIDTH 15.5 % (11.7-14.4)
[2018-07-07 05:32] LABS: ALBUMIN 2.7 g/dL (3.5-5.0); ALBUMIN/GLOBULIN RATIO 0.5 (0.8-2.0); ANION GAP 20.9 mmol/L (8-16); CALCIUM 9.8 mg/dL (8.4-10.2); CREATININE, SERUM 10.62 mg/dL (0.72-1.25); POTASSIUM 4.9 mmol/L (3.5-5.1)
--- NOTE | 2018-07-07 07:00 | NUR ---
Bedside report given to Maria Isabel Del Toro RN. Care plan reviewed. No signs of distress, pain, or discomfort noted at this time.
[2018-07-07] MEDS: HYDRALAZINE HCL 25 MG TAB PO SCH ×2 (09:00→20:36)
[2018-07-07] MEDS: METHYLPREDNISOLONE SOD SUCC 40 MG/ML VIAL 1ML IV SCH (11:41)
[2018-07-07] MEDS: PANTOPRAZOLE 40 MG 10ML VIAL IV SCH (11:41)
[2018-07-07] MEDS: FAMOTIDINE 20 MG/2 ML VIAL IV SCH ×2 (11:41→18:16)
[2018-07-07] MEDS: AMIODARONE HCL 900 MG in DEXTROSE 5 % 500ML BOTTLE 482 ML IV SCH (13:55)
[2018-07-07] MEDS: METOPROLOL TARTRATE INJ 1 MG/ML VIAL IV PRN (14:52)
[2018-07-07] MEDS ORDERED: ESMOLOL HCL 2500MG/250 ML 250 ML ONE (15:00)
[2018-07-07] MEDS ORDERED: ESMOLOL HCL 2500MG/250 ML 250 ML IV PRN (15:30)
--- NOTE | 2018-07-07 17:53 | Progress Note ---
DATE: Cardiology Progress Note SUBJECTIVE: The patient is sleeping comfortably. Remains confused upon arousal. OBJECTIVE: VITAL SIGNS: Temperature is 98.6, heart rate is 85, respirations are 20, blood pressure is 179/68, and oxygen saturation is 93% on 2 L nasal cannula. GENERAL: He is a chronically ill-appearing male, lying comfortably in bed. CARDIOVASCULAR: Regular rate and rhythm. No murmurs. LUNGS: Scattered wheezing. ABDOMEN: Soft, nontender. EXTREMITIES: Trace edema. NEUROLOGIC: The patient remains confused. CARDIOVASCULAR MEDICATIONS: Reviewed. LABORATORY DATA: Reviewed. Hemoglobin 12, potassium 4.9. TELEMETRY: Monitoring revealed sinus rhythm. IMPRESSION: 1. Paroxysmal atrial fibrillation with occasional episodes of rapid ventricular response. 2. Nonsustained ventricular tachycardia. 3. Mryzl-yc-lvjvoxt respiratory failure. 4. End-stage renal disease. 5. Pulmonary hypertension. RECOMMENDATIONS: Continue oral diltiazem and IV amiodarone while he undergoes hemodialysis. Can switch to p.o. amiodarone once dialysis has been completed. Continue Xarelto for his anticoagulation needs. The patient likely will need ischemic evaluation. However, we will perform this likely as an outpatient once his neurologic status improves given that he has had episodes of nonsustained ventricular tachycardia. DO FAMILIA Steel/MODL /[id number]
[2018-07-07] MEDS: THIAMINE HCL 100 MG TAB PO SCH (18:16)
[2018-07-07] MEDS: SODIUM BICARBONATE 650 MG TAB PO SCH (18:16)
[2018-07-07] MEDS: RIVAROXABAN 15 MG TABLET PO SCH (18:17)
[2018-07-07] MEDS: LACTOBACILLUS ACIDOPHILUS CAPSULE PO SCH (18:17)
--- NOTE | 2018-07-07 19:00 | NUR ---
Bedside report received from Maria Isabel Del Toro RN. Pt received resting in bed with eyes open, no signs of distress, pain, or discomfort seen at this time. Alternating air mattress present, SCDs in use. Care plan reviewed, no family present. Dialysis present and ongoing. Per report from Maria Isabel Chavira stated to keep amiodarone infusing continuously. Pt is also on esmolol gtt at this time. HR currently 85, BP 136/63.
[2018-07-07] MEDS: ATORVASTATIN 40 MG TAB PO SCH (20:36)
--- NOTE | 2018-07-07 22:23 | Progress Note ---
DATE: SUBJECTIVE: Mr. Garcia is currently lying in bed, comfortable. No new complaints. Just finished his dialysis. I have discussed the case with his , who was at the bedside. I also reviewed all his laboratory data. The patient with no complaints, but he is weak. He is still confused. PHYSICAL EXAMINATION: GENERAL: He is currently alert, does not seem to be in acute distress. VITAL SIGNS: Stable. Currently afebrile. HEENT: Normocephalic, not icteric. NECK: Supple. No JVD. No lymphadenopathy. No thyromegaly. CHEST: Clear bilateral. HEART: S1, S2. No S3, S4, or murmur. ABDOMEN: Soft. Bowel sounds present. No tenderness. No hepatosplenomegaly. EXTREMITIES: No edema. MEDICATIONS: He is on Cardizem. He is on thiamine, Pepcid, metoprolol, Solu-Medrol 40 q.12h. LABORATORY DATA: Cultures are negative. His white count is 14.6 and hemoglobin is 12. IMPRESSION: 1. Leukocytosis, secondary to steroid. I would recommend to discontinue steroid. 2. History of alcoholism and history of heavy smoking. Discussed with the . 3. Congestive heart failure. 4. Chronic kidney disease. Answered all his questions. We will follow. MD MOSHE Cooper/MODL /[id number]
[2018-07-08] VITALS (22 sets, daily range): BP systolic 109–169; BP diastolic 53–78
[2018-07-08] MEDS: IPRATROPIUM BROMIDE 0.02% 2.5 ML NEB NEB SCH ×4 (00:43→19:20)
[2018-07-08 04:35] LABS: BASOPHILS % 0.2 % (0.0-1.0); HEMATOCRIT 35.1 % (38.2-49.6); HEMOGLOBIN 11.7 g/dL (14.0-18.0); LYMPHOCYTES # (AUTO) 0.9 (1.0-3.2); LYMPHOCYTES % 4.4 % (18.0-39.1); MEAN CORPUSCULAR HEMOGLOBIN 30.7 pg (28-32); MEAN CORPUSCULAR HGB CONC 33.3 g/dL (31-35); MEAN CORPUSCULAR VOLUME 92.1 fL (81-99); MONOCYTES # (AUTO) 1.8 (0.2-0.8); MONOCYTES % 8.7 % (4.4-11.3); NEUTROPHILS # (AUTO) 17.8 (2.1-6.9); NEUTROPHILS % 85.4 % (38.7-80.0); PLATELET COUNT 472 x10e3/uL (140-360); RED BLOOD COUNT 3.81 x10e6/uL (4.3-5.7); RED CELL DISTRIBUTION WIDTH 15.5 % (11.7-14.4)
[2018-07-08 04:53] LABS: ANION GAP 19.2 mmol/L (8-16); CALCIUM 9.9 mg/dL (8.4-10.2); CREATININE, SERUM 6.63 mg/dL (0.72-1.25); MAGNESIUM 2.4 MG/DL (1.3-2.1); POTASSIUM 4.2 mmol/L (3.5-5.1)
[2018-07-08] MEDS: INSULIN LISPRO 100 UNIT/1 ML 3ML VIAL SQ SCH ×4 (06:18→18:06)
[2018-07-08] MEDS: DILTIAZEM HCL 60 MG TAB NG SCH ×4 (06:42→18:05)
--- NOTE | 2018-07-08 07:00 | NUR ---
Bedside report given to Maria Isabel Del Toro RN.
[2018-07-08] MEDS: LACTOBACILLUS ACIDOPHILUS CAPSULE PO SCH ×2 (09:25→18:04)
[2018-07-08] MEDS: HYDRALAZINE HCL 25 MG TAB PO SCH ×2 (09:25→20:57)
[2018-07-08] MEDS: SODIUM BICARBONATE 650 MG TAB PO SCH (09:25)
[2018-07-08] MEDS: FAMOTIDINE 20 MG/2 ML VIAL IV SCH ×2 (09:25→18:04)
[2018-07-08] MEDS: THIAMINE HCL 100 MG TAB PO SCH (09:25)
[2018-07-08] MEDS: PANTOPRAZOLE 40 MG 10ML VIAL IV SCH (09:25)
[2018-07-08] MEDS: AMIODARONE HCL 200 MG TAB PO SCH ×2 (09:58→18:04)
--- NOTE | 2018-07-08 10:20 | Diagnostic Imaging Report ---
Examination: Single AP view of the chest. COMPARISON: None. INDICATION: Leukocytosis DISCUSSION: Lines/tubes: Enteric tube with the distal tip not visualized. Lungs: The lungs are well inflated and clear. No pneumonia or pulmonary edema. Pleura: No pleural effusion or pneumothorax. Heart and mediastinum: The heart and the mediastinum are unremarkable. Bones and soft tissues: No acute bony abnormalities. IMPRESSION: 1. No acute cardiopulmonary abnormalities. Signed by: Dr. Jean Marie Merrill M.D. on 07/08/2018 10:16 AM
--- NOTE | 2018-07-08 11:05 | Progress Note ---
DATE: Pulmonary Critical Care Progress Note SUBJECTIVE: The patient still has some difficulty waking up. He is off esmolol and not having atrial fibrillation. He received some Solu-Medrol 2 days ago and his white blood cell count is elevated, but he has no fever. PHYSICAL EXAMINATION: VITAL SIGNS: Stable. The blood pressure is 156/71 and the saturation is 92%. The patient is on 2 L. HEENT: Shows no facial swelling or erythema. The nasal mucosa is normal. The oropharynx is normal. LYMPHATIC: Shows no submandibular, cervical, or supraclavicular adenopathy. CARDIAC: Reveals a regular rate and rhythm with normal S1, S2. There are no murmurs or rubs. LUNGS: Auscultation of lungs reveals rhonchorous breath sounds bilaterally. There is no wheezing. ABDOMEN: Soft and nontender. There is no rebound or guarding. EXTREMITIES: Show no leg edema or calf tenderness. There is no cyanosis or clubbing. SKIN: Shows no rashes. LABORATORY DATA: The electrolytes are within normal limits. The white blood cell count is 20.4 and the hemoglobin is 11.7. The platelet count is 472. IMPRESSION: 1. Metabolic encephalopathy. 2. Paroxysmal atrial fibrillation with rapid ventricular response. 3. Acute on chronic respiratory failure. 4. End-stage renal disease. 5. Pulmonary hypertension. 6. Alcohol-related liver disease. PLAN: 1. Continue to hold Librium and other sedatives. 2. Repeat cultures and chest x-ray. 3. Continue oxygen. 4. Continue dialysis. 5. Metoprolol and Cardizem as needed for rate control. Rojelio Willard MD [facility]/MODL /[id number]
[2018-07-08 12:26] LABS: BILIRUBIN,URINE NEGATIVE (NEGATIVE); CLARITY,URINE HAZY (CLEAR); COLOR,URINE BROWN (YELLOW); KETONES,URINE NEGATIVE (NEGATIVE); LEUKOCYTE ESTERASE ,URINE TRACE (NEGATIVE); NITRITE,URINE POSITIVE (NEGATIVE); PROTEIN,URINE DIPSTICK 2+ (NEGATIVE); URINE UROBILINOGEN 1 mg/dL (0.2 - 1)
[2018-07-08 12:40] LABS: BACTERIA,URINE MODERATE /HPF; EPITHELIAL CELLS,URINE FEW /LPF; RBC,URINE 0-5 /HPF (0-5); WBC,URINE (MAN) 0-5 /HPF (0-5)
[2018-07-08 12:41] LABS: HYALINE CASTS 0-1 (0-1)
--- NOTE | 2018-07-08 14:06 | Progress Note ---
DATE: Cardiology Progress Note SUBJECTIVE: The patient has altered mental status. Opens eyes to voice commands. Cannot obtain review of systems. OBJECTIVE: VITAL SIGNS: Temperature is 99.1, heart rate is 93, respirations are 22, blood pressure is 146/57, and oxygen saturations 92% on 2 L nasal cannula. GENERAL: He is a chronically ill-appearing man with altered mental status, lying comfortably in bed. CARDIOVASCULAR: Regular rate and rhythm. No murmurs. LUNGS: Scattered wheezing. ABDOMEN: Soft, nontender, and nondistended. EXTREMITIES: Trace edema. CARDIOVASCULAR MEDICATIONS: Reviewed. LABORATORY DATA: Reviewed. TELEMETRY: Monitoring revealed normal sinus rhythm. IMPRESSION: 1. Paroxysmal atrial fibrillation with episodes of rapid ventricular response during hemodialysis sessions. 2. History of nonsustained ventricular tachycardia. 3. Ilgjq-dy-cffrfna respiratory failure. 4. End-stage renal disease. 5. Hypertension. 6. Pulmonary hypertension. 7. Altered mental status. RECOMMENDATIONS: Continue diltiazem for rate and rhythm control. Also continue p.o. amiodarone for rhythm control. Continue Xarelto for anticoagulation. Once his neurologic status has improved, the patient likely will need ischemic evaluation given his episodes of nonsustained ventricular tachycardia. Sebastien Siddiqui DO [facility]/MODL /[id number]
[2018-07-08] MEDS: RIVAROXABAN 15 MG TABLET PO SCH (18:04)
--- NOTE | 2018-07-08 18:47 | Progress Note ---
DATE: SUBJECTIVE: Mr. Garcia remains in Intensive Care Unit. He seems to be more alert. Family at the bedside, his son. There are no new problems. No new complaints per nursing, but he is still weak. PHYSICAL EXAMINATION: GENERAL: He is currently alert and follows simple commands. VITAL SIGNS: Stable. Currently afebrile. HEENT: He is not icteric. NECK: Supple. CHEST: Few crackles. COR: S1 and S2. No S3, S4, or murmur. ABDOMEN: Soft. Bowel sounds present. Nontender. No hepatomegaly. EXTREMITIES: No edema. SKIN: There is no rash. REVIEW OF SYSTEMS: The patient seems to be more alert, but he is not feeling good social information and remains lethargic. LABORATORY DATA: Reviewed. His white count is 20.84, yesterday was 14, hemoglobin 11. Sodium 136, potassium 4.2, creatinine 6.63. IMPRESSION: 1. Leukocytosis, I think active such as steroid, which we discontinued recently. Clinically, he seems to be stable. We will observe. 2. History of alcoholism. History of smoking. So far in the hospital, discussed with the family. They are aware. 3. Paroxysmal atrial fibrillation with rapid ventricular response during hemodialysis. History of non-sustained ventricular tachycardia, iszit-bd-kmjexav respiratory failure seems to be resolving. End-stage disease on hemodialysis, pulmonary hypertension, concerned about liver cirrhosis from alcoholism. Altered mental status, probably secondary to liver and metabolic. We will continue with the same off antibiotic. Recheck CBC. Discussed with the family. Discussed with . MD MOSHE Cooper/MODL /[id number]
--- NOTE | 2018-07-08 19:00 | NUR ---
Bedside report received from Maria Isabel Del Toro RN.
[2018-07-08] MEDS: ATORVASTATIN 40 MG TAB PO SCH (20:57)
[2018-07-09] VITALS (23 sets, daily range): BP systolic 130–172; BP diastolic 54–77
[2018-07-09] MEDS: IPRATROPIUM BROMIDE 0.02% 2.5 ML NEB NEB SCH ×4 (01:15→19:28)
[2018-07-09] MEDS: DILTIAZEM HCL 60 MG TAB NG SCH ×4 (01:30→17:10)
[2018-07-09 05:12] LABS: BASOPHILS # (AUTO) 0.1 (0.0-0.1); BASOPHILS % 0.3 % (0.0-1.0); EOSINOPHILS # (AUTO) 0.1 (0.0-0.4); EOSINOPHILS % 0.7 % (0.0-6.0); HEMATOCRIT 34.1 % (38.2-49.6); HEMOGLOBIN 11.1 g/dL (14.0-18.0); LYMPHOCYTES # (AUTO) 1.4 (1.0-3.2); LYMPHOCYTES % 8.7 % (18.0-39.1); MEAN CORPUSCULAR HEMOGLOBIN 30.3 pg (28-32); MEAN CORPUSCULAR HGB CONC 32.6 g/dL (31-35); MEAN CORPUSCULAR VOLUME 93.2 fL (81-99); MONOCYTES # (AUTO) 1.9 (0.2-0.8); MONOCYTES % 11.8 % (4.4-11.3); NEUTROPHILS # (AUTO) 12.7 (2.1-6.9); NEUTROPHILS % 77.4 % (38.7-80.0); PLATELET COUNT 442 x10e3/uL (140-360); RED BLOOD COUNT 3.66 x10e6/uL (4.3-5.7); RED CELL DISTRIBUTION WIDTH 15.5 % (11.7-14.4)
[2018-07-09 05:36] LABS: ANION GAP 23.2 mmol/L (8-16); CALCIUM 9.5 mg/dL (8.4-10.2); CREATININE, SERUM 8.96 mg/dL (0.72-1.25); MAGNESIUM 2.6 MG/DL (1.3-2.1); POTASSIUM 4.2 mmol/L (3.5-5.1)
[2018-07-09] MEDS: INSULIN LISPRO 100 UNIT/1 ML 3ML VIAL SQ SCH ×4 (05:47→17:17)
[2018-07-09 05:48] LABS: B-TYPE NATRIURETIC PEPTIDE2 180.4 pg/mL (0-100)
[2018-07-09] MEDS: PANTOPRAZOLE 40 MG 10ML VIAL IV SCH (08:22)
[2018-07-09] MEDS: HYDRALAZINE HCL 25 MG TAB PO SCH ×2 (08:22→20:02)
[2018-07-09] MEDS: THIAMINE HCL 100 MG TAB PO SCH (08:22)
[2018-07-09] MEDS: AMIODARONE HCL 200 MG TAB PO SCH ×2 (08:22→16:02)
[2018-07-09] MEDS: SODIUM BICARBONATE 650 MG TAB PO SCH (08:22)
[2018-07-09] MEDS: FAMOTIDINE 20 MG/2 ML VIAL IV SCH ×2 (08:22→16:02)
[2018-07-09] MEDS: LACTOBACILLUS ACIDOPHILUS CAPSULE PO SCH ×2 (08:22→16:02)
--- NOTE | 2018-07-09 08:50 | NUR ---
AT BEDSIDE. PT AND FAMILY REVIEWED POC. THEY VERBALIZE UNDERSTANDING AND CONSENT. UNABLE TO DETERMINE PT'S UNDERSTANDING AT THIS TIME. DR VELIZ MADE ROUNDS AND WAS UPDATED ON CURRENT STATUS AND CARE. SPEECH EVAL ORDERED.
--- NOTE | 2018-07-09 09:20 | Progress Note ---
DATE: Pulmonary Critical Care Progress Note SUBJECTIVE: The patient is still a little disoriented, but does respond to voice and does follow some simple commands. He still has a feeding tube in place. PHYSICAL EXAMINATION: VITAL SIGNS: The patient is afebrile, the blood pressure is 144/61, saturation is 97% on 2 L, and the pulse is 93. HEENT: Shows no facial swelling or erythema. The oropharynx is normal. LYMPHATIC: Shows no submandibular, cervical, or supraclavicular adenopathy. CARDIAC: Reveals regular rate and rhythm with a normal S1 and S2. There are no murmurs or rubs heard. LUNGS: Auscultation of the lungs reveals rhonchorous breath sounds bilaterally. There is no wheezing. ABDOMEN: Soft and nontender. There is no rebound or guarding. EXTREMITIES: Show no leg edema or calf tenderness. There is no cyanosis or clubbing. IMPRESSION: 1. Metabolic encephalopathy. 2. Paroxysmal atrial fibrillation with rapid ventricular response. 3. Mdhlu-gv-njspdpo respiratory failure. 4. End-stage renal disease. 5. Pulmonary hypertension. PLAN: 1. Continue to hold sedatives. 2. Monitor white blood cell count, cultures. 3. Continue oxygen. 4. Speech Therapy evaluation. 5. Continue dialysis as needed. 6. Neurology following the patient. Rojelio Willard MD [facility]/MODL /[id number]
--- NOTE | 2018-07-09 13:56 | NUR ---
WOUND CARE CONSULTATION LONNIE SCALE:12 HOB :30 DEGREES PUP :ACTIVE SKIN SCREEN DONE FOR PRESSURE ULCER NONE IDENTIFIED. PRESSURE ALTERNATING MATTRESS IN USE, ALLEVYN DRESSING TO SACRUM, BILATERAL HEEL PROTECTORS ON. RECEIVED PT ON SUPINE POSITION. PT REPOSITION ON RIGHT SIDE. RECOMMENDATIONS; CONTINUE WITH CURRENT TREATMENT PLAN Addendum: 07/09/18 at 1410 by Jac Mckeon RN Amended: Links added. Addendum: 07/09/18 at 1413 by Jac Mckeon RN PUP SCREEN
[2018-07-09] MEDS: RIVAROXABAN 15 MG TABLET PO SCH (16:02)
--- NOTE | 2018-07-09 16:05 | NUR ---
WENT TO ROOM FAMILY NOT PRESENT, WILL ATTEMPT TOMORROW FOR SNF ORDER.
--- NOTE | 2018-07-09 17:09 | Consultation ---
DATE OF CONSULTATION: 07/09/2018 REASON FOR EVALUATION: Inability to speak. HISTORY OF PRESENT ILLNESS: The patient is a 67-year-old male with significant underlying medical problems, who was admitted on 06/25/2018 after being urgently intubated for respiratory distress. The patient was then extubated on 06/30/2018. Since extubation, the patient has not been able to speak. I have been asked to evaluate for possible vocal cord pathology contributing to his inability to speak. PAST MEDICAL HISTORY: COPD; end-stage renal disease, on hemodialysis; hypertension; history of alcoholism; and hypercholesterolemia. ALLERGIES: HE IS ALLERGIC TO SULFA DRUGS. PHYSICAL EXAMINATION: GENERAL: The patient is an elderly Latin-Micron[place] male, appearing of stated age, lying in bed, in no apparent distress. He has an NG tube in his right nostril. HEENT: Left ear appears normal. Right ear reveals an anterior tympanic membrane perforation (dry). Nasal exam has diffuse inflammation with an NG tube on the right side. Oral cavity and oropharyngeal exam is suboptimal due to intolerance. NECK: No gross enlarged neck masses. Flexible fiberoptic nasolaryngoscopy was unable to be performed due to the patient's intolerance. ASSESSMENT: Inability to speak (aphasia?) due to uncertain etiology. Unlikely to be due to vocal cord pathology, but unable to be sure due to inability to tolerate flexible fiberoptic nasolaryngoscopy. RECOMMENDATIONS: Recommend further evaluation for aphasia. MD EAL Kong/JOSE EDUARDO /[id number] ЕКАТЕРИНА
--- NOTE | 2018-07-09 19:59 | Progress Note ---
DATE: Cardiology Progress Note SUBJECTIVE: The patient has altered mental status. Unable to obtain review of systems. OBJECTIVE: VITAL SIGNS: Temperature is 99.5, heart rate is 87, respirations are 21, blood pressure is 135/58, and oxygen saturation 97% on 2 L nasal cannula. GENERAL: He is an elderly, chronically ill-appearing male, not oriented or alert. CARDIOVASCULAR: Regular rate and rhythm. LUNGS: Clear to auscultation. ABDOMEN: Soft, nontender, and nondistended. NEUROLOGIC: The patient has altered mental status. CARDIOVASCULAR MEDICATIONS: Reviewed. LABORATORY DATA: Reviewed. TELEMETRY: Monitoring revealed normal sinus rhythm. IMPRESSION: 1. Paroxysmal atrial fibrillation. 2. History of nonsustained ventricular tachycardia. 3. Acute on chronic respiratory failure. 4. Altered mental status. 5. Hypertension. 6. End-stage renal disease. RECOMMENDATIONS: Continue diltiazem and amiodarone for rate and rhythm control. Continue Xarelto for anticoagulation. Once his neurologic status has improved, the patient will likely need an ischemic evaluation given his episodes of nonsustained ventricular tachycardia in the past. Continue to monitor closely on telemetry. DO FAMILIA Steel/MODL /[id number]
[2018-07-09] MEDS: ATORVASTATIN 40 MG TAB PO SCH (20:02)
[2018-07-09] MEDS ORDERED: HEPARIN SOD (PORCINE) 1000 UNIT/ML SDV ONE (22:11)
[2018-07-10] VITALS (27 sets, daily range): BP systolic 133–174; BP diastolic 56–115
[2018-07-10] MEDS: DILTIAZEM HCL 60 MG TAB NG SCH ×5 (00:24→23:50)
[2018-07-10] MEDS: INSULIN LISPRO 100 UNIT/1 ML 3ML VIAL SQ SCH ×5 (00:43→23:30)
[2018-07-10] MEDS: METOPROLOL TARTRATE INJ 1 MG/ML VIAL IV PRN (01:01)
[2018-07-10] MEDS: IPRATROPIUM BROMIDE 0.02% 2.5 ML NEB NEB SCH ×4 (01:08→19:20)
[2018-07-10 05:04] LABS: BASOPHILS % 0.3 % (0.0-1.0); EOSINOPHILS # (AUTO) 0.1 (0.0-0.4); EOSINOPHILS % 0.8 % (0.0-6.0); HEMATOCRIT 35.9 % (38.2-49.6); HEMOGLOBIN 11.8 g/dL (14.0-18.0); LYMPHOCYTES % 6.1 % (18.0-39.1); MEAN CORPUSCULAR HEMOGLOBIN 30.4 pg (28-32); MEAN CORPUSCULAR HGB CONC 32.9 g/dL (31-35); MEAN CORPUSCULAR VOLUME 92.5 fL (81-99); MONOCYTES # (AUTO) 1.7 (0.2-0.8); MONOCYTES % 10.7 % (4.4-11.3); NEUTROPHILS # (AUTO) 12.9 (2.1-6.9); NEUTROPHILS % 81.1 % (38.7-80.0); PLATELET COUNT 455 x10e3/uL (140-360); RED BLOOD COUNT 3.88 x10e6/uL (4.3-5.7); RED CELL DISTRIBUTION WIDTH 15.4 % (11.7-14.4)
[2018-07-10 05:26] LABS: ALBUMIN 2.7 g/dL (3.5-5.0); ALBUMIN/GLOBULIN RATIO 0.5 (0.8-2.0); ANION GAP 15.9 mmol/L (8-16); CALCIUM 9.8 mg/dL (8.4-10.2); CREATININE, SERUM 5.75 mg/dL (0.72-1.25); POTASSIUM 3.9 mmol/L (3.5-5.1)
[2018-07-10 08:23] LABS: LYMPHOCYTES % (MANUAL) 8 % (19-48); METAMYELOCYTES % (MANUAL) 1 % (0-0); MONOCYTES % (MANUAL) 11 % (3.4-9.0); MYELOCYTES % (MANUAL) 1 % (0-0); NEUTROPHILS % (MANUAL) 77 % (40-74); PLATELET ESTIMATE ADEQUATE; PLATELET MORPHOLOGY COMMENT NORMAL; RBC MORPHOLOGY COMMENT NORMAL
[2018-07-10] MEDS: FAMOTIDINE 20 MG/2 ML VIAL IV SCH ×2 (08:30→16:19)
[2018-07-10] MEDS: PANTOPRAZOLE 40 MG 10ML VIAL IV SCH (08:30)
[2018-07-10] MEDS: THIAMINE HCL 100 MG TAB PO SCH (08:31)
[2018-07-10] MEDS: HYDRALAZINE HCL 25 MG TAB PO SCH ×2 (08:31→21:00)
[2018-07-10] MEDS: AMIODARONE HCL 200 MG TAB PO SCH ×2 (08:31→16:19)
[2018-07-10] MEDS: LACTOBACILLUS ACIDOPHILUS CAPSULE PO SCH ×2 (08:31→16:19)
[2018-07-10] MEDS: SODIUM BICARBONATE 650 MG TAB PO SCH (08:31)
--- NOTE | 2018-07-10 10:52 | Progress Note ---
DATE: Pulmonary Critical Care Progress Note SUBJECTIVE: The patient is more alert, but still not talking much. He was evaluated by ENT yesterday. PHYSICAL EXAMINATION: VITAL SIGNS: The patient is afebrile. The blood pressure is 133/56 and respiratory rate is 17. HEENT: Shows no facial swelling or erythema. CARDIAC: Reveals regular rate and rhythm with normal S1 and S2. There are no murmurs or rubs heard. LUNGS: Auscultation of lungs shows clear breath sounds bilaterally. There is no wheezing. ABDOMEN: Soft, nontender. There is no rebound or guarding. EXTREMITIES: Show no leg edema or calf tenderness. There is no cyanosis or clubbing. SKIN: Shows no rashes. NEUROLOGICAL: Shows no focal abnormalities. IMPRESSION: 1. Metabolic encephalopathy. 2. Paroxysmal atrial fibrillation with rapid ventricular response. 3. Pzmuz-yn-axhcszx respiratory failure. 4. End-stage renal disease. PLAN: 1. Continue Neurology evaluation. 2. Continue to monitor culture results. 3. Continue dialysis intermittently. 4. Continue enteral feedings. 5. Continue amiodarone and Xarelto. Rojelio Willard MD [facility]/MODL /[id number]
[2018-07-10] MEDS: ACETAMINOPHEN 325 MG TAB PO PRN (11:26)
--- NOTE | 2018-07-10 12:46 | Diagnostic Imaging Report ---
Examination: Single AP view of the chest. COMPARISON: 07/08/2018 INDICATION: Fever DISCUSSION: Enteric tube is again noted. The tip lies off the current radiograph, inferior to the left hemidiaphragm. The lungs remain well-inflated. New patchy opacity in the retrocardiac region of the left lower lobe with air bronchograms. No pleural effusion or pneumothorax. Stable cardiomediastinal contour without overt pulmonary edema. No acute osseous abnormality. IMPRESSION: New patchy opacity in the retrocardiac region of the left lower lobe may reflect atelectasis, though aspiration pneumonitis or pneumonia are additional considerations in the clinical setting of fever. Signed by: Dr. mJ Stephenson M.D. on 07/10/2018 12:43 PM
[2018-07-10 14:33] LABS: ANION GAP 17.2 mmol/L (8-16); CALCIUM 9.7 mg/dL (8.4-10.2); CREATININE, SERUM 6.8 mg/dL (0.72-1.25); POTASSIUM 4.2 mmol/L (3.5-5.1)
--- NOTE | 2018-07-10 14:43 | NUR ---
Nutrition Intervention Note RD Recommendation(s) for Physician: - Continue Nepro @55mL/hr, providing 2376kcal, 107g protein, and 960mL water. - Water flushes per MD discretion - Check daily labs, weight and GI tolerance - If PO is feasible, rec advancing diet to Renal/ ADA diet; diet texture per TRANSIT DEPARTMENT CLERK Plan of Care: RD following, monitoring for tolerance and adequacy, TF rec Nutrition reason for involvement: Follow up RD Assessment 07/10 - Pt was discussed during AM rounds. Stable TF with good tolerance. Pt was not speaking, per RN. Pending swallow eval. Last HD on 07/09 pulled out 2.8L of fluids. Will continue to monitor and follow. 07/06 Pt was discussed during AM rounds. Amiodarone drip was started. No HD planned for today. TF was running at 55mL/hr with good tolerance prior to being held today. Per SAMEER Schaefer, pt has had diarrhea. Rec to obtain stool culture and order probiotics to promote gut health. Will continue to monitor and follow. 07/02 Pt was discussed during AM rounds. Pt was extubated yesterday. Pt had dialysis today. He was confused and lethargic. TF was held during HD. KUB was unremarkable. RD rec to consult TRANSIT DEPARTMENT CLERK for swallow eval when mental status improved. Otherwise, increase TF rate to 55mL/hr to more adequately meet his needs. Will continue to monitor and follow. 06/27 - 67yo M, who was admitted for severe dyspnea. Pt remained intubated and on vent. No pressor meds. Pt was receiving HD during my visit. No hx obtained due to current medical condition. TF order has been placed but not started. Awaiting Dr. Willard to page back for TF rec. Will continue to monitor and follow. Principal Problems/Diagnoses: sepsis, respiratory failure PMH: HTN, DM, ESRD on HD, alcoholism GI: abdomen non-tender, large, flatus present, +NGT Skin: no pressure wound noted Labs: (07/10) Na 135 L, BUN 77 H, Crea 6.8 H, Glucose 133 H (07/06) Na 135 L, BUN 86 H, Creatinine 8.69 H, Glucose 134 H, Mg 2.6 H (07/02) BUN 48 H, Creatinine 6.04 H, Glucose 130 140 H, AST 56 H (06/27) K 3.4 L, BUN 37 H, Creatinine 4.31 H, Ca 8.2 L, Iron 18 L, ferritin 542 H, AST 60H Meds: insulin, probiotics, thiamine, sodium bicarb, pepcid, protonix Ht: 70in Wt: 190lb; 173.25lb;172lb; 163.25lb BMI: 27.3kg/m2 IBW: 166lb Malnutrition Evaluation (06/27) The patient does not meet criteria for a specified degree of malnutrition at this time. Will re-evaluate at follow-up as appropriate. Nutrition Prescription (Diet Order): Nepro @40mL/hr but running at 55mL/hr Estimated Nutritional Needs: Calories: 2370 - 2765kcal (30 - 35kcal/kg/d) Weight used: current BW Protein: 95 - 120g (1.2 1.5g/kg/d) Weight used: current BW Diet Adequacy: Meeting protein and calorie needs. Diet Education Needs Assessment: Diet education not indicated. Nutrition Care Level: low Nutrition Diagnosis: Inadequate oral intake related to current medical status as evidenced by pt requiring EN as main source of nutrition. Goal: Patient will meet 75-100% of estimated needs by follow up Progress: Goal met Interventions: Composition, Rate, Route Monitoring/Evaluation: Total energy intake, Total protein intake, Formula/Solution, Weight change, Check labs, Check GI tolerance Signed: Keri Cox, MS, RD, LD
[2018-07-10] MEDS: RIVAROXABAN 15 MG TABLET PO SCH (16:19)
--- NOTE | 2018-07-10 18:06 | NUR ---
dr schuster making rounds. called fresenious to notify dr schuster wants him dyalized in the morning. message left.
--- NOTE | 2018-07-10 18:53 | Electroencephalogram ---
DATE OF STUDY: 07/10/2018 REQUESTING PHYSICIAN: Itzel Rowan MD HISTORY: This 67-year-old man with history of encephalopathy is having an EEG for evaluation of epileptiform activity. The patient is not taking any medications which may affect the EEG. TECHNIQUE: This is a routine, portable EEG, recorded digitally, using the International 10/20 electrode placement system, and done in the inpatient setting with the patient awake and asleep. The EEG is adequate for interpretation. DESCRIPTION: Well-organized, well-sustained 5 to 6 hertz activity is best seen symmetrically in the posterior head regions. No focal or epileptiform activity is recorded. Sleep is recorded with well-organized spindles and vertex waves. Photic stimulation does produce a driving response. Hyperventilation is not performed. INTERPRETATION: This is an abnormal EEG due to diffuse slowing of background electrocortical activity compatible with a moderate generalized encephalopathy. No epileptiform discharges are seen. Clinical correlation is recommended. Itzel Rowan MD CP/MODL /[id number] MTDD
--- NOTE | 2018-07-10 19:00 | NUR ---
Pt has only one saline lock to the right forearm. It is patent and appears healthy. The computer system is forcing a second iv to be documented in order to document the only iv site which is present.
--- NOTE | 2018-07-10 19:09 | Progress Note ---
DATE: Cardiology Progress Note SUBJECTIVE: The patient still has altered mental status. Cannot obtain review of systems. OBJECTIVE: VITAL SIGNS: Temperature is 100.8, heart rate is 92, respirations are 20, blood pressure is 174/70, and oxygen saturation 99% on 2 L nasal cannula. GENERAL: He is a chronically ill-appearing man with altered mental status. CARDIOVASCULAR: Regular rate and rhythm. LUNGS: Diminished breath sounds at bilateral bases. ABDOMEN: Soft, nontender, and nondistended. NEUROLOGIC: Altered mental status. LABORATORY DATA: Reviewed. AST 26, ALT 35, creatinine is 6.8, potassium 4.2. TELEMETRY: Monitoring revealed normal sinus rhythm with an episode of atrial fibrillation with rapid ventricular response overnight. IMPRESSION: 1. Paroxysmal atrial fibrillation. 2. History of nonsustained ventricular tachycardia. 3. Acute on chronic respiratory failure. 4. Altered mental status. 5. Hypertension. 6. End-stage renal disease. RECOMMENDATIONS: Continue diltiazem at current dose and increase amiodarone to 400 b.i.d. The patient continues to have episodes of rapid ventricular response when he is undergoing hemodialysis. He will need eventually a stress test to evaluate for any ischemia. However, we will do this once his neurologic status has improved. Sebastien Siddiqui DO BM/MODL /[id number]
[2018-07-10] MEDS: ATORVASTATIN 40 MG TAB PO SCH (21:00)
[2018-07-11] VITALS (13 sets, daily range): BP systolic 126–173; BP diastolic 49–81
[2018-07-11] MEDS: IPRATROPIUM BROMIDE 0.02% 2.5 ML NEB NEB SCH ×4 (01:25→19:20)
[2018-07-11] MEDS: HYDRALAZINE HCL 20 MG/ML VIAL IV PRN (03:11)
[2018-07-11 05:11] LABS: BASOPHILS # (AUTO) 0.1 (0.0-0.1); BASOPHILS % 0.4 % (0.0-1.0); EOSINOPHILS # (AUTO) 0.2 (0.0-0.4); EOSINOPHILS % 1.1 % (0.0-6.0); HEMATOCRIT 34.6 % (38.2-49.6); HEMOGLOBIN 11.1 g/dL (14.0-18.0); LYMPHOCYTES # (AUTO) 1.2 (1.0-3.2); LYMPHOCYTES % 6.8 % (18.0-39.1); MEAN CORPUSCULAR HEMOGLOBIN 30.1 pg (28-32); MEAN CORPUSCULAR HGB CONC 32.1 g/dL (31-35); MEAN CORPUSCULAR VOLUME 93.8 fL (81-99); MONOCYTES # (AUTO) 1.7 (0.2-0.8); MONOCYTES % 9.4 % (4.4-11.3); NEUTROPHILS # (AUTO) 14.8 (2.1-6.9); NEUTROPHILS % 81.7 % (38.7-80.0); PLATELET COUNT 455 x10e3/uL (140-360); RED BLOOD COUNT 3.69 x10e6/uL (4.3-5.7); RED CELL DISTRIBUTION WIDTH 15.6 % (11.7-14.4)
[2018-07-11 05:41] LABS: ANION GAP 19.1 mmol/L (8-16); CALCIUM 9.8 mg/dL (8.4-10.2); CREATININE, SERUM 8.27 mg/dL (0.72-1.25); POTASSIUM 4.1 mmol/L (3.5-5.1)
[2018-07-11] MEDS: INSULIN LISPRO 100 UNIT/1 ML 3ML VIAL SQ SCH ×3 (05:48→18:00)
[2018-07-11] MEDS: DILTIAZEM HCL 60 MG TAB NG SCH ×3 (05:54→18:31)
[2018-07-11 06:49] LABS: LYMPHOCYTES % (MANUAL) 4 % (19-48); MONOCYTES % (MANUAL) 8 % (3.4-9.0); NEUTROPHILS % (MANUAL) 88 % (40-74)
[2018-07-11 06:50] LABS: PLATELET ESTIMATE ADEQUATE; PLATELET MORPHOLOGY COMMENT FEW LARGE; RBC MORPHOLOGY COMMENT NORMAL
[2018-07-11] MEDS: FAMOTIDINE 20 MG/2 ML VIAL IV SCH ×2 (09:25→18:31)
[2018-07-11] MEDS: PANTOPRAZOLE 40 MG 10ML VIAL IV SCH (09:25)
[2018-07-11] MEDS: THIAMINE HCL 100 MG TAB PO SCH (09:26)
[2018-07-11] MEDS: HYDRALAZINE HCL 25 MG TAB PO SCH ×2 (09:26→20:04)
[2018-07-11] MEDS: AMIODARONE HCL 200 MG TAB PO SCH ×2 (09:26→18:31)
[2018-07-11] MEDS: LACTOBACILLUS ACIDOPHILUS CAPSULE PO SCH ×2 (09:26→18:31)
[2018-07-11] MEDS: SODIUM BICARBONATE 650 MG TAB PO SCH (09:26)
--- NOTE | 2018-07-11 11:27 | NUR ---
ST NOTE: Pt having dialysis, will return if time permits for PO trials. Pt extremely fatigued.
--- NOTE | 2018-07-11 13:12 | NUR ---
SPOKE WITH LEVI [phone] SHE GAVE [facility] CHOICE OVER PHONE FOR [facility], WILL FAX CLINICALS
[2018-07-11] MEDS: MEROPENEM 500MG/ NS 50ML 50 ML IV SCH (14:41)
--- NOTE | 2018-07-11 18:10 | Progress Note ---
DATE: 07/11/2018 Pulmonary Critical Care Progress Note SUBJECTIVE: The patient had fever to 100.7. He was started on meropenem. He is slightly more awake, but is not talking spontaneously. PHYSICAL EXAMINATION: VITAL SIGNS: The blood pressure is 128/51 and the pulse is 115. The respiratory rate is 26. Saturation is 97% on 3 L. HEENT: Shows no facial swelling or erythema. LYMPHATIC: Shows no submandibular, cervical, or supraclavicular adenopathy. CARDIAC: Reveals a regular rate and rhythm with a normal S1 and S2. There are no murmurs or rubs. LUNGS: Auscultation of lungs reveals rhonchorous breath sounds bilaterally. There is no wheezing. ABDOMEN: Soft and nontender. There is no rebound or guarding. EXTREMITIES: Show no leg edema or calf tenderness. There is no cyanosis or clubbing. SKIN: Shows no rashes. LABORATORY DATA: White blood cell count is 18 and the hemoglobin is 11.1. The platelet count is 455. The electrolytes are within normal limits. IMPRESSION: 1. New aspiration pneumonia that was not present on admission. 2. Paroxysmal atrial fibrillation. 3. Metabolic encephalopathy. 4. End-stage renal disease. 5. Hypertension. PLAN: 1. The patient has been restarted on Merrem and vancomycin. 2. Await culture results. 3. Continue oxygen. 4. Continue current regimen for atrial fibrillation. 5. Continue dialysis. 6. Physical therapy. Rojelio Willard MD [facility]/ISRRAELL /[id number]
--- NOTE | 2018-07-11 18:15 | Progress Note ---
DATE: Cardiology Progress Note SUBJECTIVE: Cannot obtain review of systems as the patient is aphasic and altered. OBJECTIVE: VITAL SIGNS: Temperature is 100.7, heart rate is 115, respirations are 26, blood pressure is 128/51, and oxygen saturation 97% on 3 L nasal cannula. GENERAL: He is a chronically ill-appearing man, in no apparent distress. CARDIOVASCULAR: Tachycardic, regular rhythm. LUNGS: Diminished breath sounds at bilateral bases. ABDOMEN: Soft, nontender, and nondistended. NEUROLOGIC: Altered mental status. CARDIOVASCULAR MEDICATIONS: Reviewed and include amiodarone, diltiazem, and Xarelto. LABORATORY DATA: Reviewed. TELEMETRY: Monitoring revealed sinus tachycardia. IMPRESSION: 1. Paroxysmal atrial fibrillation. 2. Sinus tachycardia. 3. Nonsustained ventricular tachycardia. 4. Tnbll-dy-ipwwlex respiratory failure. 5. Altered mental status. 6. Hypertension. 7. End-stage renal disease. RECOMMENDATIONS: Continue diltiazem and amiodarone for rate and rhythm control. If needed, can increase diltiazem. Continue Xarelto for anticoagulation. The patient will likely need a stress test; however, this can be deferred as an outpatient once he recovers from his neurologic standpoint. DO FAMILIA Steel/MODL /[id number]
[2018-07-11] MEDS: VANCOMYCIN 1GM/NS 250 ML 250 ML IV SCH (18:31)
[2018-07-11] MEDS: RIVAROXABAN 15 MG TABLET PO SCH (18:31)
--- NOTE | 2018-07-11 20:00 | NUR ---
Report called to Wali on MS 3.
[2018-07-11] MEDS: ATORVASTATIN 40 MG TAB PO SCH (20:04)
--- NOTE | 2018-07-11 20:35 | NUR ---
Transferred per bed to 297 with O2 & telemetry.
[2018-07-12] VITALS (7 sets, daily range): BP systolic 123–155; BP diastolic 57–71
[2018-07-12] MEDS: DILTIAZEM HCL 60 MG TAB NG SCH ×4 (00:17→17:43)
[2018-07-12] MEDS: IPRATROPIUM BROMIDE 0.02% 2.5 ML NEB NEB SCH ×4 (01:00→19:35)
[2018-07-12 06:12] LABS: BASOPHILS # (AUTO) 0.1 (0.0-0.1); BASOPHILS % 0.4 % (0.0-1.0); EOSINOPHILS # (AUTO) 0.1 (0.0-0.4); EOSINOPHILS % 0.8 % (0.0-6.0); HEMATOCRIT 34.2 % (38.2-49.6); LYMPHOCYTES # (AUTO) 0.9 (1.0-3.2); LYMPHOCYTES % 5.5 % (18.0-39.1); MEAN CORPUSCULAR HEMOGLOBIN 30.4 pg (28-32); MEAN CORPUSCULAR HGB CONC 32.2 g/dL (31-35); MEAN CORPUSCULAR VOLUME 94.5 fL (81-99); MONOCYTES # (AUTO) 1.6 (0.2-0.8); MONOCYTES % 9.3 % (4.4-11.3); NEUTROPHILS % 83.2 % (38.7-80.0); PLATELET COUNT 454 x10e3/uL (140-360); RED BLOOD COUNT 3.62 x10e6/uL (4.3-5.7); RED CELL DISTRIBUTION WIDTH 15.6 % (11.7-14.4)
[2018-07-12] MEDS: INSULIN LISPRO 100 UNIT/1 ML 3ML VIAL SQ SCH ×4 (06:31→18:00)
[2018-07-12 06:41] LABS: ANION GAP 16.3 mmol/L (8-16); CALCIUM 9.7 mg/dL (8.4-10.2); CREATININE, SERUM 6.31 mg/dL (0.72-1.25); MAGNESIUM 2.4 MG/DL (1.3-2.1); POTASSIUM 4.3 mmol/L (3.5-5.1)
--- NOTE | 2018-07-12 07:30 | NUR ---
Received patient in semi-fowlers position, AAOX1. No s/s of distress. NGT in right nare, assessed residual and placement of NGT, administered medications via NGT and via IV. Patient tolerated well.
[2018-07-12] MEDS: HYDRALAZINE HCL 25 MG TAB PO SCH ×2 (08:22→21:45)
[2018-07-12] MEDS: AMIODARONE HCL 200 MG TAB PO SCH ×2 (08:22→17:43)
[2018-07-12] MEDS: LACTOBACILLUS ACIDOPHILUS CAPSULE PO SCH ×2 (08:23→17:43)
[2018-07-12] MEDS: SODIUM BICARBONATE 650 MG TAB PO SCH (08:23)
[2018-07-12] MEDS: THIAMINE HCL 100 MG TAB PO SCH (08:24)
[2018-07-12] MEDS: PANTOPRAZOLE 40 MG 10ML VIAL IV SCH (08:31)
[2018-07-12] MEDS: FAMOTIDINE 20 MG/2 ML VIAL IV SCH ×2 (08:33→17:43)
[2018-07-12] MEDS ORDERED: SODIUM CHLORIDE 0.9% 250ML 250 ML ONE (12:35)
[2018-07-12] MEDS: MEROPENEM 500MG/ NS 50ML 50 ML IV SCH (12:57)
--- NOTE | 2018-07-12 14:00 | NUR ---
RECEIVED PT IN SEMI-FOWLERS POSITION. NGT JEVITY RUNNING AT 55 ML/HR, SON AT BEDSIDE, REPOSITIONED PATIENT ON RIGHT SIDE WITH WEDGE PILLOW. HEEL PROTECTORS ARE ON BILATERAL HEELS. IV IS INTACT, CLEAN, AND PATENT. NO S/S OF DISTRESS. WILL CON'T TO MONITOR.
--- NOTE | 2018-07-12 16:55 | Progress Note ---
DATE: 07/12/2018 Pulmonary Critical Care Progress Note SUBJECTIVE: The patient was transferred out of the Intensive Care Unit. He is more awake, but is still not responding completely appropriately. He still has a feeding tube in place. PHYSICAL EXAMINATION: VITAL SIGNS: The patient is afebrile. The blood pressure is 141/63 and the saturation is 98%. He is on 5 L. HEENT: Shows no facial swelling or erythema. The oropharynx is normal. LYMPHATIC: Shows no submandibular, cervical, or supraclavicular adenopathy. CARDIAC: Reveals a regular rate and rhythm with a normal S1 and S2. There are no murmurs or rubs. LUNGS: Auscultation of lungs reveals clear breath sounds bilaterally. There is no wheezing. ABDOMEN: Soft, nontender. There is no rebound or guarding. EXTREMITIES: Show no leg edema or calf tenderness. IMPRESSION: 1. Aspiration pneumonia. 2. Paroxysmal atrial fibrillation. 3. Metabolic encephalopathy. 4. End-stage renal disease. 5. Hypertension. PLAN: 1. Patient is awaiting a PEG tube. 2. Continue current antibiotics. 3. Continue current treatment for atrial fibrillation. 4. Dialysis. 5. Physical therapy. Rojelio Willard MD [facility]/MODL /[id number]
--- NOTE | 2018-07-12 17:07 | NUR ---
SPOKE WITH MCKINLEY STEINBERG ABOUT BLOODY STOOL ,ORDERS TO INFORM DR PRIDE ABOUT BLOODY STOOL
[2018-07-12] MEDS: RIVAROXABAN 15 MG TABLET PO SCH (17:43)
--- NOTE | 2018-07-12 19:00 | NUR ---
BS rounds completed with morning nurse. Pt alert to name. Lying in bed HOB 30 degrees. c/o 6/10 left leg pain. Family at bedside. Call inman within reach. Will continue to monitor.
[2018-07-12] MEDS: ATORVASTATIN 40 MG TAB PO SCH (21:45)
[2018-07-13] VITALS (7 sets, daily range): BP systolic 111–163; BP diastolic 62–79
[2018-07-13] MEDS: IPRATROPIUM BROMIDE 0.02% 2.5 ML NEB NEB SCH ×4 (01:00→19:30)
[2018-07-13] MEDS: INSULIN LISPRO 100 UNIT/1 ML 3ML VIAL SQ SCH ×4 (01:50→18:30)
[2018-07-13] MEDS: DILTIAZEM HCL 60 MG TAB NG SCH ×4 (06:00→18:20)
[2018-07-13 06:50] LABS: BASOPHILS # (AUTO) 0.1 (0.0-0.1); BASOPHILS % 0.7 % (0.0-1.0); EOSINOPHILS # (AUTO) 0.3 (0.0-0.4); EOSINOPHILS % 2.6 % (0.0-6.0); HEMATOCRIT 31.8 % (38.2-49.6); HEMOGLOBIN 10.3 g/dL (14.0-18.0); LYMPHOCYTES # (AUTO) 1.2 (1.0-3.2); LYMPHOCYTES % 9.4 % (18.0-39.1); MEAN CORPUSCULAR HEMOGLOBIN 30.5 pg (28-32); MEAN CORPUSCULAR HGB CONC 32.4 g/dL (31-35); MEAN CORPUSCULAR VOLUME 94.1 fL (81-99); MONOCYTES # (AUTO) 1.1 (0.2-0.8); MONOCYTES % 8.5 % (4.4-11.3); NEUTROPHILS # (AUTO) 10.3 (2.1-6.9); NEUTROPHILS % 77.7 % (38.7-80.0); PLATELET COUNT 405 x10e3/uL (140-360); RED BLOOD COUNT 3.38 x10e6/uL (4.3-5.7); RED CELL DISTRIBUTION WIDTH 15.4 % (11.7-14.4)
--- NOTE | 2018-07-13 07:00 | NUR ---
RECEIVED PATIENT RESTING IN BED. RESPIRATIONS EVEN AND UNLABORED, NO ACUTE DISTRESS NOTED. FAMILY AT BEDSIDE. CALL LIGHT WITHIN REACH. BED IN THE LOWEST POSITION. BED ALARM ON.
[2018-07-13 07:03] LABS: ANION GAP 20.6 mmol/L (8-16); CALCIUM 9.5 mg/dL (8.4-10.2); CREATININE, SERUM 8.99 mg/dL (0.72-1.25); POTASSIUM 4.6 mmol/L (3.5-5.1)
--- NOTE | 2018-07-13 07:47 | NUR ---
ST NOTE: Pt scheduled for peg placement today, no change/improvement in status. Pt is not responsive to speech intervention, will continue to follow. Handoff to SAMEER [place]
--- NOTE | 2018-07-13 08:38 | NUR ---
PT UNABLE TO WORK WITH P.T. YESTERDAY DUE TO ACTIVE LOWER GI BLEED
[2018-07-13] MEDS: PANTOPRAZOLE 40 MG 10ML VIAL IV SCH (08:43)
[2018-07-13] MEDS: FAMOTIDINE 20 MG/2 ML VIAL IV SCH ×2 (08:43→15:57)
[2018-07-13] MEDS: HYDRALAZINE HCL 25 MG TAB PO SCH ×2 (09:00→22:50)
[2018-07-13] MEDS: AMIODARONE HCL 200 MG TAB PO SCH ×2 (09:00→18:19)
[2018-07-13] MEDS: LACTOBACILLUS ACIDOPHILUS CAPSULE PO SCH ×2 (09:00→18:19)
--- NOTE | 2018-07-13 13:20 | NUR ---
PATIENT FINISHED DIALYSIS AT THIS TIME. 3L OF FLUID OUT PER DIALYSIS NURSE.
[2018-07-13] MEDS: MEROPENEM 500MG/ NS 50ML 50 ML IV SCH (13:21)
[2018-07-13] MEDS: METOPROLOL TARTRATE INJ 1 MG/ML VIAL IV PRN (13:58)
[2018-07-13] MEDS ORDERED: MANNITOL 25% 12.5GM/50 ML VIAL IV PRN (15:30)
[2018-07-13] MEDS ORDERED: SODIUM CHLORIDE 0.9% 1000ML 2,000 ML IV PRN (15:30)
[2018-07-13] MEDS ORDERED: ALBUMIN 25% 12.5GM 0.25 GM/ML BTL IV PRN (15:30)
[2018-07-13] MEDS ORDERED: HEPARIN SOD (PORCINE) 1000 UNIT/ML SDV IV PRN (15:30)
[2018-07-13] MEDS ORDERED: SODIUM CHLORIDE 0.9% 250ML 500 ML IV PRN (15:30)
--- NOTE | 2018-07-13 15:30 | NUR ---
PER DR. PRIDE PEG TUBE CANNOT BE DONE TODAY, HOLD XARELTO AND INSERT NG TUBE TO FEED PATIENT PREVIOUSLY ORDERED. NPO AFTER 0800 TOMORROW.
--- NOTE | 2018-07-13 15:41 | Progress Note ---
DATE: Pulmonary Critical Care Progress Note SUBJECTIVE: The patient is more alert, but is still not speaking spontaneously. He is awaiting a feeding tube. OBJECTIVE: VITAL SIGNS: The patient is afebrile. The blood pressure is 146/79 and the pulse is 111. Saturation is 92% on 5 L. HEENT: Shows no facial swelling or erythema. The oropharynx is normal. LYMPHATIC: Shows no submandibular, cervical, or supraclavicular adenopathy. CARDIAC: Reveals regular rate and rhythm with normal S1 and S2. There are no murmurs or rubs heard. LUNGS: Auscultation of lungs reveals clear breath sounds bilaterally. There is no wheezing. ABDOMEN: Soft, nontender. There is no rebound or guarding. EXTREMITIES: Show no leg edema or calf tenderness. There is no cyanosis or clubbing. SKIN: Shows no rashes. IMPRESSION: 1. Aspiration pneumonia. 2. Paroxysmal atrial fibrillation. 3. Metabolic encephalopathy. 4. Hypertension. 5. End-stage renal disease. PLAN: 1. Await PEG tube. 2. Continue current antibiotics. 3. Atrial fibrillation with continued treatment. 4. Dialysis. 5. Physical therapy. MD TWIN Martinez/JOSE EDUARDO /[id number]
[2018-07-13] MEDS: VANCOMYCIN 1GM/NS 250 ML 250 ML IV SCH (15:57)
[2018-07-13] MEDS: RIVAROXABAN 15 MG TABLET PO SCH (17:00)
--- NOTE | 2018-07-13 17:11 | Consultation ---
DATE OF CONSULTATION: SUBJECTIVE: Seen on dialysis, tolerating procedure, not really talking. OBJECTIVE: GENERAL: The patient is lying in bed, no distress. VITAL SIGNS: Temperature 98.2, pulse 90, and blood pressure 163/76. HEENT: Grossly atraumatic. NECK: Unable to see JVD. CHEST: No wheezes are heard. No crackles are heard. EXTREMITIES: No edema. VASCULAR: Pain in the left upper extremity. ASSESSMENT: 1. End-stage renal disease. 2. Fluid overload, resolving. 3. Aspiration pneumonia. 4. Deconditioning. 5. Paroxysmal atrial fibrillation. 6. Currently with still altered mental status. PLAN: 1. From renal standpoint, hemodialysis . 2. Potassium bath. Blood flow rate 400 mL/min, dialysate flow rate 800 mL/min. Increase UF to 4 L as blood pressure remains high. We will follow along. Leave him on a 2 potassium bath, F160 filter. MD KAILA HinesK/MODL /[id number]
--- NOTE | 2018-07-13 17:51 | Diagnostic Imaging Report ---
EXAM: ABDOMEN-1VIEW (KUB), DATE: 07/13/2018 3:40 PM INDICATION: N G-tube placement. COMPARISON: None FINDINGS: LINES/TUBES: NG tube with distal tip projected on the left upper quadrant laterally, likely within gastric fundus laterally. BOWEL PATTERN: No evidence for obstruction. SOFT TISSUES: Phleboliths projected on the lower right hemipelvis. No mass effect. LUNG BASES: Clear. BONES: No acute findings. IMPRESSION: NG tube with distal tip projected on the left upper quadrant laterally, likely within gastric fundus laterally. Signed by: Dr. Dm Capone M.D. on 07/13/2018 5:47 PM
[2018-07-13] MEDS: SODIUM BICARBONATE 650 MG TAB PO SCH (18:19)
[2018-07-13] MEDS: THIAMINE HCL 100 MG TAB PO SCH (18:19)
--- NOTE | 2018-07-13 18:20 | NUR ---
RE-STARTED PATIENT'S TUBE FEET AT THIS TIME. NG TUBE IN PLACE.
--- NOTE | 2018-07-13 19:21 | NUR ---
REPORT GIVEN TO ONCOMING NURSE, PATIENT IS RESTING IN BED. NO ACUTE DISTRESS NOTED. FAMILY AT BEDSIDE. CALL LIGHT WITHIN REACH. BED IN THE LOWEST POSITION.
--- NOTE | 2018-07-13 19:37 | Progress Note ---
DATE: SUBJECTIVE: Unable to obtain review of systems. The patient has eyes open and does not respond. OBJECTIVE: VITAL SIGNS: Temperature is 98.2, heart rate is 72, respirations 20, blood pressure is 146/79, and oxygen saturation 97% on 3 L nasal cannula. GENERAL: Altered mental status, opens eyes. Does not respond. CARDIOVASCULAR: Regular rate and rhythm. LUNGS: Clear to auscultation. ABDOMEN: Soft, nontender, nondistended. EXTREMITIES: Trace edema. MEDICATIONS: Reviewed. LABORATORY DATA: Reviewed. TELEMETRY MONITORING: Revealed normal sinus rhythm. IMPRESSION: 1. Paroxysmal atrial fibrillation, currently in normal sinus rhythm. 2. Episodes of sinus tachycardia. 3. History of nonsustained ventricular tachycardia. 4. Altered mental status. 5. Hypertension. 6. End-stage renal disease. RECOMMENDATIONS: Continue current cardiovascular medications for rate and rhythm control using diltiazem and amiodarone. Can decrease amiodarone to 200 mg b.i.d. at the time of discharge. Continue Xarelto for anticoagulation. The patient will need a stress test, however, this can be done as an outpatient once he recovers from his acute illness. DO FAMILIA Steel/JOSE EDUARDO /[id number]
--- NOTE | 2018-07-13 20:11 | NUR ---
PATIENT RESTING IN BED, NO DISTRESS NOTED, ROUNDS DONE PER AM NURSE. WILL CONTINUE TO MONITOR.
[2018-07-13] MEDS: ATORVASTATIN 40 MG TAB PO SCH (22:50)
[2018-07-14] VITALS (8 sets, daily range): BP systolic 116–144; BP diastolic 67–73
[2018-07-14] MEDS: IPRATROPIUM BROMIDE 0.02% 2.5 ML NEB NEB SCH ×3 (00:15→19:50)
[2018-07-14] MEDS: DILTIAZEM HCL 60 MG TAB NG SCH ×4 (04:56→20:56)
[2018-07-14 05:34] LABS: BASOPHILS # (AUTO) 0.1 (0.0-0.1); BASOPHILS % 0.9 % (0.0-1.0); EOSINOPHILS # (AUTO) 0.4 (0.0-0.4); EOSINOPHILS % 2.9 % (0.0-6.0); HEMATOCRIT 37.1 % (38.2-49.6); LYMPHOCYTES # (AUTO) 1.4 (1.0-3.2); LYMPHOCYTES % 10.8 % (18.0-39.1); MEAN CORPUSCULAR HGB CONC 32.3 g/dL (31-35); MEAN CORPUSCULAR VOLUME 92.8 fL (81-99); MONOCYTES # (AUTO) 1.4 (0.2-0.8); NEUTROPHILS # (AUTO) 9.6 (2.1-6.9); NEUTROPHILS % 73.5 % (38.7-80.0); PLATELET COUNT 493 x10e3/uL (140-360); RED CELL DISTRIBUTION WIDTH 15.1 % (11.7-14.4)
[2018-07-14 05:41] LABS: ANION GAP 21.1 mmol/L (8-16); CALCIUM 10.3 mg/dL (8.4-10.2); CREATININE, SERUM 6.92 mg/dL (0.72-1.25); MAGNESIUM 2.5 MG/DL (1.3-2.1); PHOSPHORUS 7.4 MG/DL (2.3-4.7); POTASSIUM 4.1 mmol/L (3.5-5.1)
[2018-07-14] MEDS: INSULIN LISPRO 100 UNIT/1 ML 3ML VIAL SQ SCH ×4 (06:00→18:00)
[2018-07-14 06:09] LABS: B-TYPE NATRIURETIC PEPTIDE2 133.5 pg/mL (0-100)
--- NOTE | 2018-07-14 07:16 | NUR ---
ROUNDS DONE, PATIENT CONTINUE RESTING IN BED, INCONTINENT CARE GIVEN, PATIENT HAD A LARGE BM. FEEDING STOP. WILL CONTINUE TO MONITOR. CALL LIGHT IN REACH.
--- NOTE | 2018-07-14 07:24 | NUR ---
PATIENT IN BED RESTING WITH HEAD OF BED ELEVATED, NO DISTRESS NOTED. NG TUBE IN PLACE AND FEEDING INFUSING ORDERED. HEEL PROTECTORS IN PLACE. LEFT UPPER ARM FISTULA WITH DRESSING DRY AND INTACT. BED IN LOWER POSITION, CALL LIGHT AT REACH.
--- NOTE | 2018-07-14 08:00 | NUR ---
FEEDING STOPPED AT THIS TIME PRIOR TO PEG TUBE PLACEMENT.
[2018-07-14] MEDS: HYDRALAZINE HCL 25 MG TAB PO SCH ×2 (09:00→20:56)
[2018-07-14] MEDS: LACTOBACILLUS ACIDOPHILUS CAPSULE PO SCH ×2 (09:00→20:56)
[2018-07-14] MEDS: AMIODARONE HCL 200 MG TAB PO SCH ×2 (09:00→20:56)
[2018-07-14] MEDS: THIAMINE HCL 100 MG TAB PO SCH (09:00)
[2018-07-14] MEDS: SODIUM BICARBONATE 650 MG TAB PO SCH (09:00)
[2018-07-14] MEDS: FAMOTIDINE 20 MG/2 ML VIAL IV SCH ×2 (10:00→20:56)
[2018-07-14] MEDS: PANTOPRAZOLE 40 MG 10ML VIAL IV SCH (10:00)
--- NOTE | 2018-07-14 11:34 | NUR ---
PATIENT IN BED RESTING WITH NO RESPIRATORY DISTRESS. FAMILY AT BED SIDE, CALL LIGHT AT REACH.
--- NOTE | 2018-07-14 15:00 | Progress Note ---
DATE: 07/14/2018 Cardiology Progress Note SUBJECTIVE: The patient is confused. He is scheduled for PEG today. He was able to deny any chest pain. OBJECTIVE: VITAL SIGNS: Temperature 97.2 degrees, pulse 96, respiratory rate 28, blood pressure 133/67, oxygen saturation 93% on 5 L nasal cannula. GENERAL: Elderly man, in no acute distress, confused. LUNGS: Clear to auscultation bilaterally. No wheezes or crackles. CARDIOVASCULAR: Normal rate, regular rhythm. No murmur. ABDOMEN: Soft, nontender. EXTREMITIES: Trace edema. CARDIAC MEDICATIONS: Diltiazem 90 mg p.o. q.6 hours, atorvastatin 40 mg p.o. at bedtime, hydralazine 50 mg p.o. q.12 hours, amiodarone 400 mg p.o. b.i.d., 50 mg p.o. daily. LABORATORY DATA: WBC 13.02, hemoglobin 12, hematocrit 37.1, platelets 493. Sodium 138, potassium 4.1, chloride 94, CO2 of 27, BUN 72, creatinine 6.92. BNP 133. Telemetry, normal sinus rhythm. IMPRESSION: 1. Paroxysmal atrial fibrillation, currently sinus rhythm. 2. Episodes of sinus tachycardia. 3. History of nonsustained ventricular tachycardia. 4. Altered mental status. 5. Hypertension. 6. End-stage renal disease. 7. Aspiration pneumonia. RECOMMENDATIONS: The patient is planned for PEG today. Resume anticoagulation once acceptable from a procedural standpoint. Continue current cardiac medications otherwise. Decrease amiodarone to 200 mg p.o. b.i.d. at discharge. Once the patient recovers from his acute illness and his mental status is improved, plan for outpatient stress test to evaluate for ischemia. Thank you for this consult. We will continue to follow. Lashaun Klein MD ABS/MODL /[id number]
[2018-07-14] MEDS: MEROPENEM 500MG/ NS 50ML 50 ML IV SCH (15:18)
--- NOTE | 2018-07-14 15:49 | NUR ---
PATIENT REMAINS NPO FOR PEG TUBE PLACEMENT. MOUTH CARE AND FACIAL CARE PROVIDED. REPOSITIONED IN BED. CALL LIGHT AT REACH.
--- NOTE | 2018-07-14 16:26 | Progress Note ---
DATE: Pulmonary Critical Care Progress Note SUBJECTIVE: The patient is slightly more lucid. He is still receiving enteral feedings. There are no fevers. PHYSICAL EXAMINATION: VITAL SIGNS: The patient is afebrile. The blood pressure is 128/67, saturation is 96% on 5 L. Pulse is 101. HEENT: Shows no facial swelling or erythema. The nasal mucosa is normal. LYMPHATIC: Shows no submandibular, cervical, or supraclavicular adenopathy. CARDIAC: Reveals regular rate and rhythm with normal S1 and S2. LUNGS: Auscultation of lungs reveals rhonchorous breath sounds bilaterally. There is no wheezing. ABDOMEN: Soft, nontender. There is no rebound or guarding. EXTREMITIES: Show no leg edema or calf tenderness. IMPRESSION: 1. Metabolic encephalopathy. 2. Aspiration pneumonia. 3. Paroxysmal atrial fibrillation. 4. End-stage renal disease. 5. Hypertension. PLAN: 1. Await PEG tube. 2. Continue treatment for atrial fibrillation. 3. Dialysis. 4. Physical therapy. 5. Continue current antibiotics. Rojelio Willard MD [facility]/MODL /[id number]
--- NOTE | 2018-07-14 16:55 | NUR ---
PATIENT OFF UNIT TO OR.
[2018-07-14] MEDS: RIVAROXABAN 15 MG TABLET PO SCH (17:00)
[2018-07-14 18:35] LABS: ANION GAP 26.5 mmol/L (8-16); CALCIUM 10.2 mg/dL (8.4-10.2); CREATININE, SERUM 8.48 mg/dL (0.72-1.25); MAGNESIUM 2.6 MG/DL (1.3-2.1); PHOSPHORUS 9.1 MG/DL (2.3-4.7); POTASSIUM 4.5 mmol/L (3.5-5.1)
[2018-07-14] MEDS: ATORVASTATIN 40 MG TAB PO SCH (20:56)
[2018-07-15] VITALS (9 sets, daily range): BP systolic 123–145; BP diastolic 64–74
[2018-07-15] MEDS: IPRATROPIUM BROMIDE 0.02% 2.5 ML NEB NEB SCH ×4 (00:18→20:40)
[2018-07-15] MEDS: INSULIN LISPRO 100 UNIT/1 ML 3ML VIAL SQ SCH ×4 (00:30→18:00)
[2018-07-15] MEDS: DILTIAZEM HCL 60 MG TAB NG SCH ×4 (05:49→18:02)
--- NOTE | 2018-07-15 06:23 | NUR ---
PAGED DR. HOPE TO INFORM HIM THAT THE PROCEDURE EGD AND PEG PLACEMENT WAS CANCELLED DUE TO PHOSPHORUS OF 9.1, AWAITING CALL BACK
--- NOTE | 2018-07-15 06:40 | NUR ---
SPOKE TO [facility]OVER[facility] FOR DR. HOPE AT THIS TIME. NEW ORDER RCV FOR RENVELA 1600MG TID.
[2018-07-15 06:51] LABS: BASOPHILS # (AUTO) 0.1 (0.0-0.1); BASOPHILS % 0.6 % (0.0-1.0); EOSINOPHILS # (AUTO) 0.3 (0.0-0.4); EOSINOPHILS % 2.1 % (0.0-6.0); HEMATOCRIT 35.4 % (38.2-49.6); HEMOGLOBIN 11.5 g/dL (14.0-18.0); LYMPHOCYTES # (AUTO) 1.2 (1.0-3.2); LYMPHOCYTES % 8.1 % (18.0-39.1); MEAN CORPUSCULAR HEMOGLOBIN 30.3 pg (28-32); MEAN CORPUSCULAR HGB CONC 32.5 g/dL (31-35); MEAN CORPUSCULAR VOLUME 93.4 fL (81-99); MONOCYTES # (AUTO) 1.5 (0.2-0.8); MONOCYTES % 10.1 % (4.4-11.3); NEUTROPHILS # (AUTO) 11.4 (2.1-6.9); NEUTROPHILS % 78.2 % (38.7-80.0); PLATELET COUNT 473 x10e3/uL (140-360); RED BLOOD COUNT 3.79 x10e6/uL (4.3-5.7); RED CELL DISTRIBUTION WIDTH 15.1 % (11.7-14.4)
--- NOTE | 2018-07-15 07:20 | NUR ---
PATIENT IN BED RESTING WITH HEAD OF BED ELEVATED, NO RESPIRATORY DISTRESS OBSERVED. NG TUBE IN PLACE WITH FEEDING INFUSING ORDERED. LEFT LIMB ALERT IN PLACE. BED IN LOWER POSITION, CALL LIGHT AT REACH. FAMILY AT BED SIDE.
[2018-07-15 08:16] LABS: ANION GAP 25.5 mmol/L (8-16); CALCIUM 10.1 mg/dL (8.4-10.2); CREATININE, SERUM 9.61 mg/dL (0.72-1.25); MAGNESIUM 2.8 MG/DL (1.3-2.1); PHOSPHORUS 10.9 MG/DL (2.3-4.7); POTASSIUM 4.5 mmol/L (3.5-5.1)
[2018-07-15] MEDS: SEVELAMER CARBONATE 800 MG TAB PO SCH ×3 (08:20→17:45)
--- NOTE | 2018-07-15 09:10 | Diagnostic Imaging Report ---
A single frontal view of the chest. HISTORY: Acute respiratory failure, R/O PNA COMPARISON: Chest radiographs July 10, 2018 and July 08, 2018 DISCUSSION: Portable technique, limits sensitivity of the exam. Soft tissue attenuation partially limits sensitivity of the exam. Multiple overlying artifacts. Tubes/Lines: The NG/J-tube appears to been retracted during the interim, the tip now projects in the region of the lateral aspect of the proximal body of the stomach. Lungs and pleura: Low lung volumes result in bibasilar vascular crowding, accentuation of the pulmonary interstitial markings, central pulmonary vasculature, and the cardiac silhouette. Allowing for these limitations, the findings are as follows: However, there is slightly improved aeration of the lung bases with persistent mild patchy interstitial and airspace opacities in the left retrocardiac region. No definite pleural effusion or pneumothorax is identified. Heart and mediastinum: Appears unchanged. Bones and soft tissues: Appears unchanged. IMPRESSION: Persistent left retrocardiac opacity, consistent with evolving pneumonia in the provided setting. Signed by: Dr. Josue Mcfadden D.O., M.M.M. on 07/15/2018 9:06 AM
[2018-07-15] MEDS: THIAMINE HCL 100 MG TAB PO SCH (09:23)
[2018-07-15] MEDS: LACTOBACILLUS ACIDOPHILUS CAPSULE PO SCH ×2 (09:23→17:45)
[2018-07-15] MEDS: AMIODARONE HCL 200 MG TAB PO SCH ×2 (09:23→17:45)
[2018-07-15] MEDS: FAMOTIDINE 20 MG/2 ML VIAL IV SCH ×2 (09:23→17:45)
[2018-07-15] MEDS: HYDRALAZINE HCL 25 MG TAB PO SCH ×2 (09:23→21:01)
[2018-07-15] MEDS: SODIUM BICARBONATE 650 MG TAB PO SCH (09:23)
[2018-07-15] MEDS: PANTOPRAZOLE 40 MG 10ML VIAL IV SCH (09:23)
--- NOTE | 2018-07-15 11:14 | Progress Note ---
DATE: Pulmonary Critical Care Progress Note SUBJECTIVE: The patient still has a feeding tube in place. He is not having fevers. He is more alert, but is not speaking spontaneously. PHYSICAL EXAMINATION: VITAL SIGNS: The patient is afebrile. The vital signs are stable. HEENT: Shows no facial swelling or erythema. The patient has a nasogastric feeding tube. CARDIAC: Reveals regular rate and rhythm with normal S1, S2. There are no murmurs or rubs heard. LUNGS: Auscultation of lungs reveals clear breath sounds bilaterally. There is no wheezing. ABDOMEN: Soft, nontender. There is no rebound or guarding. EXTREMITIES: Show no leg edema or calf tenderness. IMPRESSION: 1. Paroxysmal atrial fibrillation with history of a rapid ventricular response. 2. Metabolic encephalopathy. 3. Aspiration pneumonia. 4. End-stage renal disease. 5. Hypertension. PLAN: 1. Await PEG. 2. Continue current antibiotics. 3. Physical therapy. 4. Wean oxygen. 5. Dialysis as needed. 6. Continue current cardiac regimen. Rojelio Willard MD [facility]/MODL /[id number]
[2018-07-15] MEDS: GUAIFENESIN 600 MG TAB PO SCH ×2 (12:46→18:02)
[2018-07-15] MEDS: MEROPENEM 500MG/ NS 50ML 50 ML IV SCH (12:46)
--- NOTE | 2018-07-15 14:20 | Progress Note ---
DATE: 07/15/2018 Cardiology Progress Note SUBJECTIVE: The patient's mental status is gradually improving, but remains altered. He denies chest pain. OBJECTIVE: VITAL SIGNS: Temperature 97.7 degrees, pulse 83, respiratory rate 18, blood pressure 145/60, and oxygen saturation 96% on 3 L nasal cannula. GENERAL: An elderly man, in no acute distress. Confused. LUNGS: Clear to auscultation bilaterally. No wheezes or crackles. CARDIOVASCULAR: Normal rate. Regular rhythm. No murmur. Normal S1, S2. ABDOMEN: Soft, nontender. EXTREMITIES: Trace edema. CARDIAC MEDICATIONS: Amiodarone 400 mg p.o. b.i.d., hydralazine 50 mg p.o. q.12 hours, diltiazem 90 mg p.o. q.6 hours, and atorvastatin 20 mg p.o. at bedtime. LABORATORY DATA: WBC 14.6, hemoglobin 11.5, hematocrit 35.4, and platelets 473. Sodium 139, potassium 4.5, chloride 96, CO2 of 22, BUN 101, and creatinine 9.61. BNP 102. TELEMETRY: Normal sinus rhythm. IMPRESSION: 1. Paroxysmal atrial fibrillation, currently sinus rhythm. 2. Episodes of sinus tachycardia. 3. History of nonsustained ventricular tachycardia. 4. Altered mental status. 5. Hypertension. 6. End-stage renal disease. 7. Aspiration pneumonia. RECOMMENDATIONS: Continue current cardiac medications. Resume anticoagulation once acceptable from a procedural standpoint after PEG. Continue current cardiac medications. Decrease amiodarone to 200 mg p.o. b.i.d. at discharge. Once the patient improves from acute illness and mental status improves, plan for outpatient stress test to evaluate for ischemia. Thank you for this consult. We will continue to follow. Lashaun Klein MD [facility]/MODL /[id number]
--- NOTE | 2018-07-15 15:02 | NUR ---
PATIENT ASSISTED WITH DIAPER CHANGE. HAD, A LARGE BM. LINEN CHANGED. BED IN LOWER POSITION, CALL LIGHT AT REACH.
--- NOTE | 2018-07-15 19:39 | NUR ---
PT IS RESTING IN BED WITH SON AT BEDSIDE. NO RESPIRATORY DISTRESS NOTED. BED IN THE LOWEST POSITION, LOCKED, BED ALARM ON, AND CALL LIGHT WITHIN REACH. WILL CONTINUE TO MONITOR.
[2018-07-15] MEDS: ATORVASTATIN 40 MG TAB PO SCH (21:01)
--- NOTE | 2018-07-15 23:15 | NUR ---
PER DR Bibi PRIDE INCREASE PT NEPRO FEEDING TO 40ML/HR. WILL CONTINUE TO MONITOR.
[2018-07-16] VITALS (8 sets, daily range): BP systolic 133–156; BP diastolic 65–75
[2018-07-16] MEDS: DILTIAZEM HCL 60 MG TAB NG SCH ×4 (00:31→17:39)
[2018-07-16] MEDS: INSULIN LISPRO 100 UNIT/1 ML 3ML VIAL SQ SCH ×4 (00:31→18:34)
[2018-07-16] MEDS: GUAIFENESIN 600 MG TAB PO SCH ×4 (00:31→17:39)
[2018-07-16] MEDS: IPRATROPIUM BROMIDE 0.02% 2.5 ML NEB NEB SCH ×4 (00:50→20:15)
[2018-07-16 04:12] LABS: BASOPHILS # (AUTO) 0.1 (0.0-0.1); BASOPHILS % 0.5 % (0.0-1.0); EOSINOPHILS # (AUTO) 0.4 (0.0-0.4); EOSINOPHILS % 2.8 % (0.0-6.0); HEMATOCRIT 33.1 % (38.2-49.6); HEMOGLOBIN 10.9 g/dL (14.0-18.0); LYMPHOCYTES # (AUTO) 1.5 (1.0-3.2); MEAN CORPUSCULAR HEMOGLOBIN 30.6 pg (28-32); MEAN CORPUSCULAR HGB CONC 32.9 g/dL (31-35); MONOCYTES # (AUTO) 1.3 (0.2-0.8); MONOCYTES % 9.5 % (4.4-11.3); NEUTROPHILS # (AUTO) 10.3 (2.1-6.9); NEUTROPHILS % 75.3 % (38.7-80.0); PLATELET COUNT 448 x10e3/uL (140-360); RED BLOOD COUNT 3.56 x10e6/uL (4.3-5.7); RED CELL DISTRIBUTION WIDTH 14.7 % (11.7-14.4)
--- NOTE | 2018-07-16 07:30 | NUR ---
PT UP IN BED ,NO DISTRESS NTOED,NGT TO RT NARE,INFUSION STOPPED UNTIL PLACEMENT CHECKED.O2 2LNC IN PLACE,PT SPOKE TO ME AND SAID GOOD MORNING,OX1.
[2018-07-16] MEDS: SEVELAMER CARBONATE 800 MG TAB PO SCH ×3 (08:00→17:39)
--- NOTE | 2018-07-16 08:15 | NUR ---
NGT PLACEMENT CHECKED BY MYSELF AND ANOTHER NURSE FEEDING RESTARTED,
[2018-07-16 08:17] LABS: ANION GAP 30.2 mmol/L (8-16); CREATININE, SERUM 12.65 mg/dL (0.72-1.25); MAGNESIUM 3.3 MG/DL (1.3-2.1); PHOSPHORUS 12.4 MG/DL (2.3-4.7); POTASSIUM 4.2 mmol/L (3.5-5.1)
[2018-07-16] MEDS: FAMOTIDINE 20 MG/2 ML VIAL IV SCH ×2 (09:00→17:39)
[2018-07-16] MEDS: THIAMINE HCL 100 MG TAB PO SCH (09:00)
[2018-07-16] MEDS: PANTOPRAZOLE 40 MG 10ML VIAL IV SCH (09:00)
[2018-07-16] MEDS: LACTOBACILLUS ACIDOPHILUS CAPSULE PO SCH ×2 (09:00→17:39)
[2018-07-16] MEDS: HYDRALAZINE HCL 25 MG TAB PO SCH ×2 (09:00→21:00)
[2018-07-16] MEDS: SODIUM BICARBONATE 650 MG TAB PO SCH (09:00)
[2018-07-16] MEDS: AMIODARONE HCL 200 MG TAB PO SCH ×2 (09:00→17:39)
--- NOTE | 2018-07-16 10:50 | Progress Note ---
DATE: Pulmonary Critical Care Progress Note SUBJECTIVE: The patient is still awaiting PEG tube. He has some infusion, but is very much improved. He is not speaking spontaneously. OBJECTIVE: VITAL SIGNS: The patient is afebrile. Vital signs are stable. HEENT: Shows no facial swelling or erythema. There is a nasogastric tube in place. LYMPHATIC: Shows no submandibular, cervical, or supraclavicular adenopathy. CARDIAC: Reveals regular rate and rhythm with normal S1 and S2. There are no murmurs or rubs heard. LUNGS: Auscultation of lungs reveals decreased breath sounds in the bases. There is no wheezing. ABDOMEN: Soft, nontender. There is no rebound or guarding. EXTREMITIES: Show no leg edema or calf tenderness. IMPRESSION: 1. Metabolic encephalopathy. 2. Atrial fibrillation with rapid ventricular response. 3. End-stage renal disease. 4. Aspiration pneumonia. 5. Hypertension. PLAN: 1. Continue current antibiotics. 2. Await PEG placement. 3. Continue dialysis. 4. Continue current cardiac regimen. MD TWIN Martinez/JOSE EDUARDO /[id number]
[2018-07-16 11:56] LABS: ABG PH 7.23 (7.31-7.41)
[2018-07-16 11:57] LABS: ABG PCO2 68 mmHg (41-51); ABG PO2 60 mmHg (80-105)
[2018-07-16 11:58] LABS: ABG HCO3 29 mmol/L (23-28)
[2018-07-16] MEDS: MEROPENEM 500MG/ NS 50ML 50 ML IV SCH ×2 (12:00→21:00)
[2018-07-16] MEDS: LORAZEPAM INJ 2 MG/ML VIAL IV PRN (13:10)
--- NOTE | 2018-07-16 13:51 | Progress Note ---
DATE: 07/16/2018 Cardiology Progress Note SUBJECTIVE: The patient is more alert today. When asked how he was doing, he gave the thumbs-up sign. He denies chest pain or shortness of breath. OBJECTIVE: VITAL SIGNS: Temperature 98.1 degrees, pulse 83, respiratory rate 18, blood pressure 139/73, and oxygen saturation 95% on 2 L nasal cannula. GENERAL: Elderly man, in no acute distress, still somewhat confused, but improving. LUNGS: Clear to auscultation bilaterally. No wheezes or crackles. CARDIOVASCULAR: Normal rate, regular rhythm. No murmur. Normal S1, S2. ABDOMEN: Soft, nontender. EXTREMITIES: Trace edema. CARDIAC MEDICATIONS: Amiodarone 400 mg p.o. b.i.d., hydralazine 50 mg p.o. q.12 hours, diltiazem 90 mg p.o. q.6 hours, and atorvastatin 40 mg p.o. at bedtime. LABORATORY DATA: WBC 13.61, hemoglobin 10.9, hematocrit 33.1, and platelets 448. Sodium 141, potassium 4.2, chloride 96, CO2 19, BUN 124, and creatinine 12.64. TELEMETRY: Normal sinus rhythm. IMPRESSION: 1. Paroxysmal atrial fibrillation, currently sinus rhythm. 2. Episodes of sinus tachycardia. 3. History of nonsustained ventricular tachycardia. 4. Altered mental status. 5. Hypertension. 6. End-stage renal disease. 7. Aspiration pneumonia. RECOMMENDATIONS: Continue current cardiac medications. Resume anticoagulation once acceptable from a procedural standpoint after PEG. It has still not been done due to hyperphosphatemia. Continue current cardiac medications otherwise. Amiodarone can be decreased to 200 mg p.o. b.i.d. at discharge. Once the patient improves from his acute illness and mental status improves, plan for outpatient stress test to evaluate for ischemia. Thank you for this consult. We will continue to follow. Lashaun Klein MD [facility]/MODL /[id number]
[2018-07-16] MEDS ORDERED: ONDANSETRON HCL 4 MG ORAL DISINTEGRATING TAB PO PRN (16:00)
--- NOTE | 2018-07-16 17:35 | NUR ---
PT RELAXING CALMLY WITH EYES OPENED. SON BEDSIDE. NO S/S OF DISTRESS.
[2018-07-16] MEDS: VANCOMYCIN 1GM/NS 250 ML 250 ML IV SCH (17:39)
--- NOTE | 2018-07-16 19:20 | NUR ---
BS rounds completed with morning nurse. Pt alert to name. Lying in bed HOB 60 degrees. Feeding pump Nepro @40 patent. No s/s of pain. Family at bedside. Call inman within reach. Bed low and locked. Will continue to monitor.
[2018-07-16] MEDS: ATORVASTATIN 40 MG TAB PO SCH (21:00)
--- NOTE | 2018-07-16 22:15 | NUR ---
Performed straight catheter as ordered for urinalysis. Pt tolerated well. Urine dark russ, clear, and without odor. Urine taken to lab.
[2018-07-16 22:49] LABS: CLARITY,URINE CLEAR (CLEAR); COLOR,URINE AMBER (YELLOW); KETONES,URINE NEGATIVE (NEGATIVE); LEUKOCYTE ESTERASE ,URINE NEGATIVE (NEGATIVE); NITRITE,URINE NEGATIVE (NEGATIVE); PROTEIN,URINE DIPSTICK 3+ (NEGATIVE); URINE UROBILINOGEN 0.2 mg/dL (0.2 - 1)
[2018-07-16 22:50] LABS: BILIRUBIN,URINE 1+ (NEGATIVE)
[2018-07-16 23:06] LABS: BACTERIA,URINE MANY /HPF; EPITHELIAL CELLS,URINE FEW /LPF
[2018-07-17] VITALS (8 sets, daily range): BP systolic 109–148; BP diastolic 56–70
[2018-07-17] MEDS: INSULIN LISPRO 100 UNIT/1 ML 3ML VIAL SQ SCH ×4 (00:35→18:14)
[2018-07-17] MEDS: DILTIAZEM HCL 60 MG TAB NG SCH ×4 (00:35→18:07)
[2018-07-17] MEDS: GUAIFENESIN 600 MG TAB PO SCH ×4 (00:35→18:07)
[2018-07-17] MEDS: IPRATROPIUM BROMIDE 0.02% 2.5 ML NEB NEB SCH ×5 (01:00→19:30)
[2018-07-17 06:27] LABS: BASOPHILS # (AUTO) 0.1 (0.0-0.1); BASOPHILS % 0.7 % (0.0-1.0); EOSINOPHILS # (AUTO) 0.4 (0.0-0.4); EOSINOPHILS % 3.9 % (0.0-6.0); HEMATOCRIT 34.2 % (38.2-49.6); HEMOGLOBIN 11.1 g/dL (14.0-18.0); LYMPHOCYTES # (AUTO) 1.1 (1.0-3.2); LYMPHOCYTES % 10.2 % (18.0-39.1); MEAN CORPUSCULAR HEMOGLOBIN 30.5 pg (28-32); MEAN CORPUSCULAR HGB CONC 32.5 g/dL (31-35); MONOCYTES # (AUTO) 1.4 (0.2-0.8); MONOCYTES % 12.8 % (4.4-11.3); NEUTROPHILS % 71.3 % (38.7-80.0); PLATELET COUNT 424 x10e3/uL (140-360); RED BLOOD COUNT 3.64 x10e6/uL (4.3-5.7); RED CELL DISTRIBUTION WIDTH 14.7 % (11.7-14.4)
[2018-07-17 06:53] LABS: CALCIUM 9.5 mg/dL (8.4-10.2); CREATININE, SERUM 7.57 mg/dL (0.72-1.25); MAGNESIUM 2.8 MG/DL (1.3-2.1)
--- NOTE | 2018-07-17 07:30 | NUR ---
REC'D PATIENT AAOX1, QUIETLY SLEEPING WITHOUT S/S OF DISTRESS, SON AT BEDSIDE, NGT FEEDINGS RUNNING AT 40 ML/HR.
--- NOTE | 2018-07-17 08:35 | NUR ---
SPOKE WITH DEBBIE MORENO, TODAY IS LAST DY OF SNF AUTH, SPOKE WITH NURSE ELIA WHO STATES PHOSPHORUS WAS ELEVATED AND CANNOT GET PLACEMENT UNTIL THAT IS UNDER CONTROL, PUT SNF ON HOLD AND WILL REINITIATE WHEN APPROPRIATE TO PLACE PATIENT.
[2018-07-17] MEDS: SEVELAMER CARBONATE 800 MG TAB PO SCH ×3 (08:49→18:06)
[2018-07-17] MEDS: PANTOPRAZOLE 40 MG 10ML VIAL IV SCH (08:49)
[2018-07-17] MEDS: FAMOTIDINE 20 MG/2 ML VIAL IV SCH ×2 (08:49→18:06)
[2018-07-17] MEDS: SODIUM BICARBONATE 650 MG TAB PO SCH (08:50)
[2018-07-17] MEDS: AMIODARONE HCL 200 MG TAB PO SCH ×2 (08:50→18:06)
[2018-07-17] MEDS: LACTOBACILLUS ACIDOPHILUS CAPSULE PO SCH ×2 (08:50→18:06)
[2018-07-17] MEDS: THIAMINE HCL 100 MG TAB PO SCH (08:50)
[2018-07-17] MEDS: HYDRALAZINE HCL 25 MG TAB PO SCH ×2 (08:50→20:21)
--- NOTE | 2018-07-17 10:45 | NUR ---
PT RESTING QUIETLY WITH EYES OPENED, AT BEDSIDE TALKING TO HIM, DIALYSIS IN SESSION, BED IN LOWEST POSITION, SIDE RAILS UP X3, AND CALL LIGHT WITHIN REACH. NO S/S OF DISTRESS.
--- NOTE | 2018-07-17 13:52 | Progress Note ---
DATE: 07/17/2018 Cardiology Progress Note SUBJECTIVE: The patient denies chest pain or shortness of breath. He was seen during dialysis. OBJECTIVE: VITAL SIGNS: Temperature 97 degrees, pulse 86, respiratory rate 16, blood pressure 127/60, and oxygen saturation 94%. GENERAL: Elderly man, in no acute distress, remains confused, but improving. LUNGS: Clear to auscultation bilaterally. No wheezes or crackles. CARDIOVASCULAR: Normal rate, regular rhythm. No murmur. Normal S1, S2. ABDOMEN: Soft, nontender. EXTREMITIES: Trace edema. CARDIAC MEDICATIONS: Amiodarone 400 mg p.o. b.i.d., diltiazem 90 mg p.o. q.6 hours, atorvastatin 40 mg p.o. at bedtime. LABORATORY DATA: WBC 11.2, hemoglobin 11.1, hematocrit 34.2, platelets 424. Sodium 135, potassium 4, chloride 95, CO2 of 28, BUN 16, and creatinine 7.57. TELEMETRY: Normal sinus rhythm. IMPRESSION: 1. Paroxysmal atrial fibrillation, currently sinus rhythm. 2. Episodes of sinus tachycardia. 3. History of nonsustained ventricular tachycardia. 4. Altered mental status. 5. Hypertension. 6. End-stage renal disease. 7. Aspiration pneumonia. RECOMMENDATIONS: Continue current cardiac medications. Resume anticoagulation once acceptable from a procedural standpoint after PEG, likely planned for tomorrow. Amiodarone can be decreased to 200 mg p.o. b.i.d. at discharge. Once the patient improves from his acute illness and mental status improves, plan for outpatient stress test to evaluate for ischemia. Thank you for this consult. We will continue to follow. Lashaun Klein MD [facility]/MODL /[id number]
[2018-07-17] MEDS: LORAZEPAM INJ 2 MG/ML VIAL IV PRN (15:23)
--- NOTE | 2018-07-17 15:27 | NUR ---
Nutrition Intervention Note RD Recommendation(s) for Physician: - After PEG placement, may increase Nepro TF goal rate to 50 ml/hr if tolerating. To provide 2160 kcal and 97 gm protein per day - Water flushes per MD discretion - Check daily labs, weight and GI tolerance - If PO is feasible pending MBSS, rec advancing diet to Renal/ ADA diet; diet texture per EQUIPMENT DRIVER Plan of Care: RD following, monitoring for tolerance and adequacy, TF rec Nutrition reason for involvement: Follow up RD Assessment 07/17-Pt discussed during am rounds, per RN pending PEG placement tomorrow now that critically elevated Phos and Mg have trended down- Phos 12.4 and Mg 3.3 on 07/16. Pt on Renvela for Phos management. Pt to also have an MBSS as pt failed BSE with EQUIPMENT DRIVER. Spoke with pt's regarding TF regimen, adequate nutrition, and pt remaining NPO at this time due to risk of aspiration and the pt's safety- all questions answered. Pt with ongoing diarrhea, pt has been on abx for an extended period of time and is currently on probiotics as well. HD schedule per MD. POC and rec's discussed with SAMEER Enciso. 07/10 - Pt was discussed during AM rounds. Stable TF with good tolerance. Pt was not speaking, per RN. Pending swallow eval. Last HD on 07/09 pulled out 2.8L of fluids. Will continue to monitor and follow. 07/06 Pt was discussed during AM rounds. Amiodarone drip was started. No HD planned for today. TF was running at 55mL/hr with good tolerance prior to being held today. Per SAMEER Schaefer, pt has had diarrhea. Rec to obtain stool culture and order probiotics to promote gut health. Will continue to monitor and follow. 07/02 Pt was discussed during AM rounds. Pt was extubated yesterday. Pt had dialysis today. He was confused and lethargic. TF was held during HD. KUB was unremarkable. RD rec to consult EQUIPMENT DRIVER for swallow eval when mental status improved. Otherwise, increase TF rate to 55mL/hr to more adequately meet his needs. Will continue to monitor and follow. 06/27 - 67yo M, who was admitted for severe dyspnea. Pt remained intubated and on vent. No pressor meds. Pt was receiving HD during my visit. No hx obtained due to current medical condition. TF order has been placed but not started. Awaiting Dr. Willard to page back for TF rec. Will continue to monitor and follow. Principal Problems/Diagnoses: sepsis, respiratory failure PMH: HTN, DM, ESRD on HD, alcoholism GI: abdomen non-tender, large, flatus present, +NGT. LBM 07/17- diarrhea per RN Skin: no pressure wound noted Labs: 07/17- Na 135, K 4, BUN 62, Cr 7.57, Ca 9.5, Phos 6.8, Mg 2.8 (07/10) Na 135 L, BUN 77 H, Crea 6.8 H, Glucose 133 H (07/06) Na 135 L, BUN 86 H, Creatinine 8.69 H, Glucose 134 H, Mg 2.6 H (07/02) BUN 48 H, Creatinine 6.04 H, Glucose 130 140 H, AST 56 H (06/27) K 3.4 L, BUN 37 H, Creatinine 4.31 H, Ca 8.2 L, Iron 18 L, ferritin 542 H, AST 60H Meds: insulin, probiotics, thiamine, renvela, pepcid, protonix, zofran Ht: 70in Wt: 190lb; 173.25lb;172lb; 163.25lb BMI: 27.3kg/m2 IBW: 166lb Malnutrition Evaluation (06/27) The patient does not meet criteria for a specified degree of malnutrition at this time. Will re-evaluate at follow-up as appropriate. Nutrition Prescription (Diet Order): Nepro at 30 mL/hr Estimated Nutritional Needs: Calories: 1840 - 2577kcal (25-35 kcal/kg/d) Weight used: current BW, adjusted as pt is sedentary Protein: 88 - 110g (1.2 1.5g/kg/d) Weight used: current BW Diet Adequacy: Meeting protein and calorie needs. Diet Education Needs Assessment: Diet education not indicated. Nutrition Care Level: Mod Nutrition Diagnosis: Inadequate oral intake related to current medical status as evidenced by pt requiring EN as main source of nutrition. Goal: Patient will meet 75-100% of estimated needs by follow up Progress: Progressing Interventions: Composition, Rate, Route Monitoring/Evaluation: Total energy intake, Total protein intake, Formula/Solution, Weight change, Check labs, Check GI tolerance Signed: Tracee Mesa RD, LD, CNSC
--- NOTE | 2018-07-17 15:29 | NUR ---
PT STATED TO NURSE STAFF THAT STAFF IS STARVING PT. PT IS NPO AND IS ON NGT FEEDING. NURSE STAFF STATED BACK TO THE THAT GIVING HIM FOOD WILL CAUSE HIM TO ASPIRATE AND PNEUMONIA. STILL DEMANDING FOR STAFF TO FEED PATIENT. SPEECH THERAPIST AND PSYCHIATRIC NURSE PRACTITIONER TALKED TO THE ABOUT PT CONDITION AND WHY CANNOT GET PO FEEDINGS. STILL UPSET.
--- NOTE | 2018-07-17 16:00 | NUR ---
PT LEADS REPLACED FOR SUSTAINABILITY PROJECT MANAGER. PT O2 IS 96% VIA RA. PT SLEEPING QUIETLY WITH NO S/S OF DISTRESS.
--- NOTE | 2018-07-17 18:04 | Progress Note ---
DATE: SUBJECTIVE: The patient is more alert. He has some wheezing today. He still has a nasogastric tube in place. OBJECTIVE: VITAL SIGNS: The patient is afebrile. HEENT: Shows no facial swelling or erythema. LYMPHATIC: Shows no submandibular, cervical, or supraclavicular adenopathy. CARDIAC: Reveals regular rate and rhythm with normal S1, S2. There are no murmurs or rubs heard. LUNGS: Auscultation of lungs reveals rhonchorous breath sounds bilaterally. There is no wheezing. ABDOMEN: Soft, nontender. There is no rebound or guarding. EXTREMITIES: Show no leg edema or calf tenderness. LABORATORY DATA: White cell count is 11.2 and hemoglobin is 11.1. The platelet count is 424. BUN to creatinine ratio is normal. The other electrolytes are within normal limits. IMPRESSION: 1. Paroxysmal atrial fibrillation. 2. Metabolic encephalopathy. 3. Aspiration pneumonia. 4. End-stage renal disease. PLAN: 1. Continue current antibiotics. 2. Await PEG placement. 3. Continue treatment for atrial fibrillation. 4. Bronchodilators. Rojelio Willard MD [facility]/MODL /[id number]
--- NOTE | 2018-07-17 19:17 | NUR ---
WALKING ROUNDS PERFORMED, RECEIVED PT LAYING SEMI FOWLERS IN BED, AAOX0, RR EVEN AND NON-LABORED, ON RA. NGT TO (L) NARE CONNECTED TO CONTINUOUS FEEDING AT 40 ML/HR. NO S/SX OF DISTRESS NOTED. LEFT PT LAYING SEMI FOWLERS IN BED, BED IN LOW LOCKED POSITION, SIDE RAILS UPX2, CALL LIGHT AND PHONE WITHIN REACH.
[2018-07-17] MEDS: MEROPENEM 500MG/ NS 50ML 50 ML IV SCH (20:21)
[2018-07-17] MEDS: ATORVASTATIN 40 MG TAB PO SCH (20:21)
[2018-07-18] VITALS (9 sets, daily range): BP systolic 107–139; BP diastolic 59–73
--- NOTE | 2018-07-18 00:22 | NUR ---
STOPPED TUBE FEEDING AT THIS TIME IN PREPARATION FOR POSSIBLE PEG PLACEMENT. MD Bibi PRIDE NOTIFIED.
[2018-07-18] MEDS: GUAIFENESIN 600 MG TAB PO SCH ×4 (00:39→18:34)
[2018-07-18] MEDS: DILTIAZEM HCL 60 MG TAB NG SCH ×4 (00:39→18:00)
[2018-07-18] MEDS: IPRATROPIUM BROMIDE 0.02% 2.5 ML NEB NEB SCH ×4 (01:00→19:45)
--- NOTE | 2018-07-18 03:30 | NUR ---
BLOOD DRAWN FROM (R) HAND AND DELIVERED TO LAB.
[2018-07-18 04:04] LABS: BASOPHILS # (AUTO) 0.1 (0.0-0.1); BASOPHILS % 0.8 % (0.0-1.0); EOSINOPHILS # (AUTO) 0.5 (0.0-0.4); EOSINOPHILS % 3.7 % (0.0-6.0); HEMATOCRIT 37.7 % (38.2-49.6); LYMPHOCYTES # (AUTO) 1.7 (1.0-3.2); MEAN CORPUSCULAR HEMOGLOBIN 30.5 pg (28-32); MEAN CORPUSCULAR HGB CONC 31.8 g/dL (31-35); MEAN CORPUSCULAR VOLUME 95.7 fL (81-99); MONOCYTES # (AUTO) 1.5 (0.2-0.8); MONOCYTES % 11.6 % (4.4-11.3); NEUTROPHILS # (AUTO) 9.3 (2.1-6.9); NEUTROPHILS % 69.7 % (38.7-80.0); PLATELET COUNT 442 x10e3/uL (140-360); RED BLOOD COUNT 3.94 x10e6/uL (4.3-5.7); RED CELL DISTRIBUTION WIDTH 14.8 % (11.7-14.4)
[2018-07-18 04:16] LABS: ANION GAP 18.1 mmol/L (8-16); CALCIUM 10.1 mg/dL (8.4-10.2); CREATININE, SERUM 6.26 mg/dL (0.72-1.25); MAGNESIUM 2.4 MG/DL (1.3-2.1); POTASSIUM 4.1 mmol/L (3.5-5.1)
[2018-07-18] MEDS: INSULIN LISPRO 100 UNIT/1 ML 3ML VIAL SQ SCH ×4 (06:00→18:45)
--- NOTE | 2018-07-18 06:32 | NUR ---
PAGE PLACED FOR MD Bibi PRIDE CONCERNING AM LABS AND PEG PLACEMENT. WAITING FOR CALLBACK.
--- NOTE | 2018-07-18 06:37 | NUR ---
SPOKE WITH MD Bibi PRIDE CONCERNING MAG LEVELS. ORDERS TO LEAVE PT TUBE FEEDING DISCONNECTED AND MD WILL SPEAK WITH ANESTHESIA ABOUT PEG PLACEMENT.
[2018-07-18 07:27] LABS: BAND NEUTROPHILS % (MANUAL) 1 %; EOSINOPHILS % (MANUAL) 3 % (0-7); LYMPHOCYTES % (MANUAL) 11 % (19-48); MONOCYTES % (MANUAL) 9 % (3.4-9.0); NEUTROPHILS % (MANUAL) 75 % (40-74)
[2018-07-18 07:28] LABS: PLATELET ESTIMATE ADEQUATE; PLATELET MORPHOLOGY COMMENT NORMAL; RBC MORPHOLOGY COMMENT NORMAL
[2018-07-18] MEDS: SEVELAMER CARBONATE 800 MG TAB PO SCH ×3 (08:00→18:33)
[2018-07-18] MEDS: LACTOBACILLUS ACIDOPHILUS CAPSULE PO SCH ×2 (08:16→18:33)
[2018-07-18] MEDS: PANTOPRAZOLE SODIUM 40 MG SUSPDR.PKT PEG SCH (08:16)
--- NOTE | 2018-07-18 08:40 | NUR ---
ST NOTE: Pt having peg placed today. will complete MBS on 07/19/18
[2018-07-18] MEDS: FAMOTIDINE 20 MG/2 ML VIAL IV SCH ×2 (08:44→18:33)
[2018-07-18] MEDS: HYDRALAZINE HCL 25 MG TAB PO SCH ×2 (09:00→21:37)
[2018-07-18] MEDS: AMIODARONE HCL 200 MG TAB PO SCH ×2 (09:00→17:00)
--- NOTE | 2018-07-18 10:25 | NUR ---
PATIENT'S ADMINISTERED FOOD TO PATIENT WHEN KNOWING PATIENT IS NPO FOR POSSIBLE PEG TUBE PLACEMENT. RN SPOKE WITH THE PATIENT'S AGAIN TO EXPLAIN THE REASONING WHY NO FOOD OR DRINK IS ADMINISTERED DURING NPO STATUS. INFORMED SERVICE DOG IS ALLOWED TO VISIT.
[2018-07-18] MEDS: THIAMINE HCL 100 MG TAB PO SCH (14:30)
[2018-07-18] MEDS: SODIUM BICARBONATE 650 MG TAB PO SCH (14:30)
--- NOTE | 2018-07-18 18:17 | Progress Note ---
DATE: Pulmonary Critical Care Progress Note SUBJECTIVE: Patient is requiring less oxygen. He is less confused and more alert. PHYSICAL EXAMINATION: VITAL SIGNS: The patient is afebrile. The vital signs are stable. HEENT: Shows no facial swelling or erythema. CARDIAC: Reveals regular rate and rhythm with normal S1, S2. There are no murmurs or rubs heard. LUNGS: Auscultation of lungs reveals rhonchorous breath sounds bilaterally. There is no wheezing. ABDOMEN: Soft, nontender. There is no rebound or guarding. EXTREMITIES: Show no leg edema or calf tenderness. IMPRESSION: 1. Paroxysmal atrial fibrillation. 2. Aspiration pneumonia. 3. End-stage renal disease. PLAN: 1. Complete current course of antibiotics. 2. Continue treatment for atrial fibrillation. 3. Await PEG placement. 4. Bronchodilators. 5. End-stage renal disease. MD TWIN Martinez/JOSE EDUARDO /[id number]
--- NOTE | 2018-07-18 18:22 | Progress Note ---
DATE: 07/18/2018 SUBJECTIVE: The patient denies chest pain or shortness of breath. He remains confused, PEG is pending. OBJECTIVE: VITAL SIGNS: Temperature 97.1 degrees, pulse 110, respiratory rate 18, blood pressure 109/70, oxygen saturation 94%. GENERAL: Awake, alert, no acute distress, confused. LUNGS: Clear to auscultation bilaterally. No wheezes or crackles. CARDIOVASCULAR: Normal rate. Regular rhythm. No murmur. Normal S1, S2. ABDOMEN: Soft, nontender. EXTREMITIES: Trace edema. CARDIAC MEDICATIONS: Atorvastatin 40 mg p.o. at bedtime, amiodarone 400 mg p.o. b.i.d., diltiazem 90 mg p.o. q.6 hours. LABORATORY DATA: WBC 13.28, hemoglobin 12, hematocrit 37.7, platelets 442. Sodium 135, potassium 4.1, chloride 96, CO2 of 25, BUN 47, creatinine 6.26. TELEMETRY: Sinus tachycardia. IMPRESSION: 1. Paroxysmal atrial fibrillation, currently sinus rhythm. 2. Episodes of sinus tachycardia. 3. History of nonsustained ventricular tachycardia. 4. Altered mental status. 5. Hypertension. 6. End-stage renal disease. 7. Aspiration pneumonia. RECOMMENDATIONS: Continue current cardiac medications. Resume anticoagulation once acceptable from a procedural standpoint after PEG, which appears to have been rescheduled for tomorrow. Amnio can be decreased to 200 mg p.o. b.i.d. Discharge once the patient improves from acute illness and mental status improves. Plan for outpatient stress test to evaluate for ischemia. Thank you for this consult. We will continue to follow. Lashaun Klein MD [facility]/MODL /[id number]
[2018-07-18] MEDS: VANCOMYCIN 1GM/NS 250 ML 250 ML IV SCH (18:33)
--- NOTE | 2018-07-18 19:49 | NUR ---
BEDSIDE REPORT GIVEN TO ONCOMING NURSE. PATIENT IN STALE CONDITION WITH NO S/S OF RESPIRATORY DISTRESS. NG TUBE FEEDING INFUSING. IV ANTIBIOTIC INFUSING. BED ALARM ON.
[2018-07-18] MEDS: MEROPENEM 500MG/ NS 50ML 50 ML IV SCH (21:37)
[2018-07-18] MEDS: ATORVASTATIN 40 MG TAB PO SCH (21:37)
--- NOTE | 2018-07-18 23:30 | NUR ---
PATIENT PULLED OUT NG TUBE FROM L NARE. TIP STILL INTACT. NO BLEEDING. PAGED DR. PRIDE.
[2018-07-19] VITALS (7 sets, daily range): BP systolic 108–140; BP diastolic 60–68
[2018-07-19] MEDS: IPRATROPIUM BROMIDE 0.02% 2.5 ML NEB NEB SCH ×4 (01:00→19:45)
[2018-07-19] MEDS: DILTIAZEM HCL 60 MG TAB NG SCH ×4 (05:30→17:03)
[2018-07-19] MEDS: INSULIN LISPRO 100 UNIT/1 ML 3ML VIAL SQ SCH ×4 (05:31→18:00)
[2018-07-19] MEDS: GUAIFENESIN 600 MG TAB PO SCH ×4 (05:31→17:18)
[2018-07-19 05:47] LABS: BASOPHILS # (AUTO) 0.1 (0.0-0.1); BASOPHILS % 0.9 % (0.0-1.0); EOSINOPHILS # (AUTO) 0.6 (0.0-0.4); EOSINOPHILS % 4.6 % (0.0-6.0); HEMATOCRIT 37.8 % (38.2-49.6); LYMPHOCYTES # (AUTO) 1.3 (1.0-3.2); LYMPHOCYTES % 11.1 % (18.0-39.1); MEAN CORPUSCULAR HGB CONC 31.7 g/dL (31-35); MEAN CORPUSCULAR VOLUME 94.5 fL (81-99); MONOCYTES # (AUTO) 1.3 (0.2-0.8); MONOCYTES % 10.6 % (4.4-11.3); NEUTROPHILS # (AUTO) 8.7 (2.1-6.9); PLATELET COUNT 396 x10e3/uL (140-360); RED CELL DISTRIBUTION WIDTH 14.5 % (11.7-14.4)
[2018-07-19 06:13] LABS: ALBUMIN 2.8 g/dL (3.5-5.0); BILIRUBIN,DIRECT 0.2 mg/dL (0.0-0.5); CREATININE, SERUM 6.01 mg/dL (0.72-1.25)
[2018-07-19 06:23] LABS: MAGNESIUM 2.4 MG/DL (1.3-2.1); PHOSPHORUS 5.6 MG/DL (2.3-4.7)
[2018-07-19 06:27] LABS: B-TYPE NATRIURETIC PEPTIDE2 76.5 pg/mL (0-100)
[2018-07-19] MEDS: SEVELAMER CARBONATE 800 MG TAB PO SCH ×3 (08:00→17:18)
[2018-07-19] MEDS: HYDRALAZINE HCL 25 MG TAB PO SCH ×2 (09:00→21:41)
[2018-07-19] MEDS: LACTOBACILLUS ACIDOPHILUS CAPSULE PO SCH ×2 (09:00→17:18)
[2018-07-19] MEDS: AMIODARONE HCL 200 MG TAB PO SCH ×2 (09:00→17:18)
[2018-07-19] MEDS: PANTOPRAZOLE SODIUM 40 MG SUSPDR.PKT PEG SCH (09:00)
[2018-07-19] MEDS: FAMOTIDINE 20 MG/2 ML VIAL IV SCH ×2 (09:08→17:18)
[2018-07-19] MEDS ORDERED: LORAZEPAM INJ 2 MG/ML VIAL IV PRN (11:00)
--- NOTE | 2018-07-19 12:00 | NUR ---
ST Note: Discussed case with SAMEER Holland. Pt's PEG placement re-scheduled to today and could possibly discharge sometime after procedure. Completion of MBS deferred until tomorrow due to decreased level of alertness following procedure. Discussed with Amalia that MBS can be completed by discharge facility and does not have to hold of discharge.
--- NOTE | 2018-07-19 12:32 | NUR ---
Nutrition Intervention Note RD Recommendation(s) for Physician: - After PEG placement, may increase Nepro TF goal rate to 50 ml/hr if tolerating. To provide 2160 kcal and 97 gm protein per day - Water flushes per MD discretion - Check daily labs, weight and GI tolerance - If PO is feasible pending MBS, rec advancing diet to Renal/ ADA diet; diet texture per PLASTIC INJECTION MOLD MAKER Plan of Care: RD following, monitoring for tolerance and adequacy, TF rec Nutrition reason for involvement: Follow up RD Assessment 07/19 - Pt was discussed during AM rounds. Last HD on 07/18. Per RN, pt was gone for PEG placement today. MBS scheduled after PEG placement. Possible d/c to SNF tomorrow. Phos and Mg have improved. RD consulted for TF rec. Communicated TF rec with SAMEER Holland. Will continue to monitor and follow. 07/17-Pt discussed during am rounds, per RN pending PEG placement tomorrow now that critically elevated Phos and Mg have trended down- Phos 12.4 and Mg 3.3 on 07/16. Pt on Renvela for Phos management. Pt to also have an MBSS as pt failed BSE with PLASTIC INJECTION MOLD MAKER. Spoke with pt's regarding TF regimen, adequate nutrition, and pt remaining NPO at this time due to risk of aspiration and the pt's safety- all questions answered. Pt with ongoing diarrhea, pt has been on abx for an extended period of time and is currently on probiotics as well. HD schedule per MD. POC and rec's discussed with SAMEER Enciso. 07/10 - Pt was discussed during AM rounds. Stable TF with good tolerance. Pt was not speaking, per RN. Pending swallow eval. Last HD on 07/09 pulled out 2.8L of fluids. Will continue to monitor and follow. 07/06 Pt was discussed during AM rounds. Amiodarone drip was started. No HD planned for today. TF was running at 55mL/hr with good tolerance prior to being held today. Per SAMEER Schaefer, pt has had diarrhea. Rec to obtain stool culture and order probiotics to promote gut health. Will continue to monitor and follow. 07/02 Pt was discussed during AM rounds. Pt was extubated yesterday. Pt had dialysis today. He was confused and lethargic. TF was held during HD. KUB was unremarkable. RD rec to consult PLASTIC INJECTION MOLD MAKER for swallow eval when mental status improved. Otherwise, increase TF rate to 55mL/hr to more adequately meet his needs. Will continue to monitor and follow. 06/27 - 67yo M, who was admitted for severe dyspnea. Pt remained intubated and on vent. No pressor meds. Pt was receiving HD during my visit. No hx obtained due to current medical condition. TF order has been placed but not started. Awaiting Dr. Willard to page back for TF rec. Will continue to monitor and follow. Principal Problems/Diagnoses: sepsis, respiratory failure PMH: HTN, DM, ESRD on HD, alcoholism GI: abdomen non-tender, soft, round, flatus present. LBM 07/18- soft stool per RN Skin: no pressure wound noted Labs: 07/19- BUN 42 H, Creatinine 6.01 H, Phos 5.6 H, Mg 2.4 H 07/17- Na 135, K 4, BUN 62, Cr 7.57, Ca 9.5, Phos 6.8, Mg 2.8 (07/10) Na 135 L, BUN 77 H, Crea 6.8 H, Glucose 133 H (07/06) Na 135 L, BUN 86 H, Creatinine 8.69 H, Glucose 134 H, Mg 2.6 H (07/02) BUN 48 H, Creatinine 6.04 H, Glucose 130 140 H, AST 56 H (06/27) K 3.4 L, BUN 37 H, Creatinine 4.31 H, Ca 8.2 L, Iron 18 L, ferritin 542 H, AST 60H Meds: pepcid Ht: 70in Wt: 190lb; 173.25lb;172lb; 163.25lb; 143.5lb BMI: 27.3kg/m2 IBW: 166lb Malnutrition Evaluation (06/27) The patient does not meet criteria for a specified degree of malnutrition at this time. Will re-evaluate at follow-up as appropriate. Nutrition Prescription (Diet Order): NPO Estimated Nutritional Needs: Calories: 1840 - 2577kcal (25-35 kcal/kg/d) Weight used: current BW, adjusted as pt is sedentary Protein: 88 - 110g (1.2 1.5g/kg/d) Weight used: current BW Diet Adequacy: Not meeting needs at this time - NPO Diet Education Needs Assessment: Diet education not indicated. Nutrition Care Level: Mod Nutrition Diagnosis: Inadequate oral intake related to current medical status as evidenced by pt requiring EN as main source of nutrition. Goal: Patient will meet 75-100% of estimated needs by follow up Progress: n/a Interventions: Composition, Rate, Route Monitoring/Evaluation: Total energy intake, Total protein intake, Formula/Solution, Weight change, Check labs, Check GI tolerance Signed by Keri Cox, MS, RD, LD
--- NOTE | 2018-07-19 13:33 | NUR ---
RECEIVED ORDER FOR NICOTINE FROM N.P.
--- NOTE | 2018-07-19 14:19 | NUR ---
CALLED AND SPOKE WITH COAL CUTTER REGARDING PATIENT'S MBS RESULTS. ORDER FOR DIET PER SPEECH RECOMMENDATION. ORDER FOR CASE MANAGEMENT FOR SNF RE-EVAL.
--- NOTE | 2018-07-19 14:42 | NUR ---
Bibi PRIDE IS INFORMED OF MBS RESULTS- ORDER TO CANCEL OF PEG TUBE PLACEMENT.
--- NOTE | 2018-07-19 14:46 | Progress Note ---
DATE: 07/19/2018 Cardiology Progress Note SUBJECTIVE: The patient denies chest pain or shortness of breath. PEG is scheduled for today. OBJECTIVE: VITAL SIGNS: Temperature 98.9 degrees, pulse 102, respiratory rate 16, blood pressure 108/60, and oxygen saturation 96% on room air. GENERAL: Awake, alert, in no acute distress, and confused. LUNGS: Clear to auscultation bilaterally. No wheezes or crackles. CARDIOVASCULAR: Normal rate. Regular rhythm. No murmur. Normal S1, S2. ABDOMEN: Soft and nontender. EXTREMITIES: Trace edema. CARDIAC MEDICATIONS: Atorvastatin 40 mg p.o. at bedtime, diltiazem 90 mg p.o. q.6 hours, and hydralazine 50 mg p.o. q.12 hours. LABORATORY DATA: WBC 12.12, hemoglobin 12, hematocrit 37.8, and platelets 396. Sodium 139, potassium 4, chloride 98, CO2 of 28, BUN 42, and creatinine 6.01. TELEMETRY: Sinus tachycardia. IMPRESSION: 1. Paroxysmal atrial fibrillation, currently sinus rhythm. 2. Episodes of sinus tachycardia. 3. History of nonsustained ventricular tachycardia. 4. Altered mental status. 5. Hypertension. 6. End-stage renal disease. 7. Aspiration pneumonia. RECOMMENDATIONS: Continue current cardiac medications. Resume anticoagulation once hemostasis achieved after PEG. Amiodarone can be decreased to 200 mg p.o. b.i.d. at discharge. Once the patient improves from his acute illness and mental status improves, plan for outpatient stress test to evaluate for ischemia. Thank you for this consult. We will continue to follow. Lashaun Klein MD [facility]/MODL /[id number]
[2018-07-19] MEDS: SODIUM BICARBONATE 650 MG TAB PO SCH (14:52)
[2018-07-19] MEDS: THIAMINE HCL 100 MG TAB PO SCH (14:52)
[2018-07-19] MEDS: NICOTINE 7 MG PATCH TOP SCH (14:52)
--- NOTE | 2018-07-19 15:26 | Diagnostic Imaging Report ---
Exam: Modified barium swallow dated 07/19/2018 History: Pneumonia Comparison: None available Findings: Fluoroscopic evaluation of the swallowing mechanism was accomplished in conjunction with Speech Pathology with administration of barium impregnated liquids and semisolid's. There is laryngeal penetration into the vestibule noted only one time. There was one episode of silent minimal aspiration of thin liquids. Fluoroscopy time: 2.2 minutes Total dose: 11.0 mGy Impression: Laryngeal penetration with silent minimal aspiration noted. Please see the full report provided by the Speech Pathologist. Signed by: Dr. Nilton Waldrop DO on 07/19/2018 3:22 PM
--- NOTE | 2018-07-19 16:12 | NUR ---
SPOKE WITH NURSE, FAXED CLINICALS SINCE PT IS NOT GETTING PEG, SPOKE WITH DEBBIE AT [facility], SHE IS GOING TO SEE IF CAN KEEP CURRENT AUTH FOR TRANSFER OUT TOMORROW MORNING.
--- NOTE | 2018-07-19 16:14 | NUR ---
PASRR COMPLETED FILED ON CHART AND FAXED COPY TO FACILITY
--- NOTE | 2018-07-19 19:26 | NUR ---
PATIENT IN STABLE CONDITION WITH NO S/S OF RESPIRATORY DISTRESS. NO PAIN VOICED. PATIENT RECEIVING BREATHING TREATMENT. TELEMETRY APPLIED. DIAPER APPLIED. BED ALARM ON. BEDSIDE REPORT GIVEN TO ONCOMING NURSE.
--- NOTE | 2018-07-19 19:42 | NUR ---
RECEIVED PT IN BED AOX3 .RESPIRATIONS ARE EVEN AND UNLABORED .DENIES PAIN CALL LIGHT WITH IN REACH .CONTINUE TO MONITOR .
[2018-07-19] MEDS: ATORVASTATIN 40 MG TAB PO SCH (21:41)
[2018-07-19] MEDS: MEROPENEM 500MG/ NS 50ML 50 ML IV SCH (21:44)
[2018-07-20] VITALS (8 sets, daily range): BP systolic 104–152; BP diastolic 62–88
[2018-07-20] MEDS: IPRATROPIUM BROMIDE 0.02% 2.5 ML NEB NEB SCH ×3 (01:12→13:00)
[2018-07-20] MEDS: INSULIN LISPRO 100 UNIT/1 ML 3ML VIAL SQ SCH ×4 (06:00→18:00)
[2018-07-20 06:33] LABS: BASOPHILS # (AUTO) 0.1 (0.0-0.1); BASOPHILS % 0.8 % (0.0-1.0); EOSINOPHILS # (AUTO) 0.8 (0.0-0.4); EOSINOPHILS % 7.5 % (0.0-6.0); HEMATOCRIT 32.8 % (38.2-49.6); HEMOGLOBIN 10.6 g/dL (14.0-18.0); LYMPHOCYTES # (AUTO) 1.4 (1.0-3.2); LYMPHOCYTES % 14.1 % (18.0-39.1); MEAN CORPUSCULAR HEMOGLOBIN 29.9 pg (28-32); MEAN CORPUSCULAR HGB CONC 32.3 g/dL (31-35); MEAN CORPUSCULAR VOLUME 92.7 fL (81-99); MONOCYTES % 9.5 % (4.4-11.3); NEUTROPHILS # (AUTO) 6.8 (2.1-6.9); NEUTROPHILS % 67.1 % (38.7-80.0); PLATELET COUNT 357 x10e3/uL (140-360); RED BLOOD COUNT 3.54 x10e6/uL (4.3-5.7); RED CELL DISTRIBUTION WIDTH 14.4 % (11.7-14.4)
[2018-07-20] MEDS: DILTIAZEM HCL 60 MG TAB NG SCH ×4 (06:34→17:16)
[2018-07-20] MEDS: GUAIFENESIN 600 MG TAB PO SCH ×4 (06:34→17:15)
[2018-07-20 06:52] LABS: ANION GAP 22.1 mmol/L (8-16); CALCIUM 9.4 mg/dL (8.4-10.2); CREATININE, SERUM 8.79 mg/dL (0.72-1.25); MAGNESIUM 2.5 MG/DL (1.3-2.1); PHOSPHORUS 6.8 MG/DL (2.3-4.7); POTASSIUM 4.1 mmol/L (3.5-5.1)
--- NOTE | 2018-07-20 07:35 | NUR ---
PT RESTING AND DENIES PAIN .CALL LIGHT WITH IN REACH HEMOGLOBIN DROPPED TO 10 INFORMED THE ONCOMING NURSE .
[2018-07-20] MEDS: SEVELAMER CARBONATE 800 MG TAB PO SCH ×3 (08:00→17:15)
[2018-07-20] MEDS: AMIODARONE HCL 200 MG TAB PO SCH ×2 (09:00→17:15)
[2018-07-20] MEDS: HYDRALAZINE HCL 25 MG TAB PO SCH ×2 (09:00→21:41)
[2018-07-20] MEDS: FAMOTIDINE 20 MG/2 ML VIAL IV SCH ×2 (09:00→17:15)
[2018-07-20] MEDS: PANTOPRAZOLE SODIUM 40 MG SUSPDR.PKT PEG SCH (09:00)
[2018-07-20] MEDS: SODIUM BICARBONATE 650 MG TAB PO SCH (10:08)
[2018-07-20] MEDS: THIAMINE HCL 100 MG TAB PO SCH (10:08)
[2018-07-20] MEDS: NICOTINE 7 MG PATCH TOP SCH (10:08)
[2018-07-20] MEDS: LACTOBACILLUS ACIDOPHILUS CAPSULE PO SCH ×2 (10:08→17:15)
--- NOTE | 2018-07-20 11:33 | NUR ---
MET W THE PT AT THE BEDSIDE. HD IN PROGRESS. HD NURSE STATES THE SON IS HERE AND CAN SIGN THE IMM. PT AGREED. MET W SON. EXPLAINED THE PURPOSE OF THE IMM LETTER. SON VERBALIZED UNDERSTANDING. IMM LETTER WAS SIGNED. COPY TO PT AND COPY TO CHART.
--- NOTE | 2018-07-20 15:57 | NUR ---
SPOKE WITH DEBBIE AT [facility], SHE STATES WHEN SHE GETS AUTH SHE WILL CALL NURSES STATION TO GIVE ROOM NUMBER
[2018-07-20] MEDS: VANCOMYCIN 1GM/NS 250 ML 250 ML IV SCH (16:00)
--- NOTE | 2018-07-20 16:36 | Diagnostic Imaging Report ---
EXAMINATION: CHEST SINGLE (PORTABLE) INDICATION: Aspiration pneumonia. COMPARISON: Chest radiograph 07/15/2018. FINDINGS: TUBES and LINES: Interval removal of enteric tube. LUNGS: Moderate inflation of the lungs. Improved patchy opacities in the left lower lung. No new consolidation. No evidence of pulmonary edema. PLEURA: No pleural effusion or pneumothorax. HEART AND MEDIASTINUM: The cardiomediastinal silhouette is unremarkable. BONES AND SOFT TISSUES: No acute osseous abnormality. UPPER ABDOMEN: No free air under the diaphragm. Upper abdominal enteric contrast is noted. IMPRESSION: Improving patchy opacities in the left lower lung, which may reflect resolving pneumonia. No evidence of new consolidation. Signed by: Dr. Michelle Shafer MD on 07/20/2018 4:32 PM
--- NOTE | 2018-07-20 18:08 | Progress Note ---
DATE: Pulmonary Critical Care Progress Note SUBJECTIVE: The patient had a PEG tube held yesterday. He had a subsequent modified barium swallow that did show some aspiration. OBJECTIVE: VITAL SIGNS: The patient is afebrile. The blood pressure is 108/67, saturation is 96%. HEENT: Shows no facial swelling or erythema. The nasal mucosa is normal. The oropharynx is normal. LYMPHATIC: Shows no submandibular, cervical, or supraclavicular adenopathy. CARDIAC: Reveals regular rate and rhythm with normal S1 and S2. LUNGS: Auscultation of lungs reveals decreased breath sounds at the bases. There is no wheezing. ABDOMEN: Soft, nontender. There is no rebound or guarding. EXTREMITIES: Show no leg edema or calf tenderness. IMPRESSION: 1. Paroxysmal atrial fibrillation. 2. Metabolic encephalopathy. 3. Aspiration pneumonia. 4. Hypertension. 5. End-stage renal disease. PLAN: 1. Continue current treatment for atrial fibrillation. 2. Complete antibiotics. 3. Dialysis as needed. 4. Repeat chest x-ray. MD TWIN Martinez/MODL /[id number]
[2018-07-20] MEDS ORDERED: Insulin Lispro SQ (18:21)
[2018-07-20] MEDS ORDERED: IPRATROPIU0.2 MG/1 M NEB (18:21)
[2018-07-20] MEDS ORDERED: AMIODARONE HCL200 MG PO (18:21)
[2018-07-20] MEDS ORDERED: RENVELA800 MG PO (18:21)
[2018-07-20] MEDS ORDERED: HYDRALAZINE HCL25 MG PO (18:21)
[2018-07-20] MEDS ORDERED: CARDIZEM60 MG NG (18:21)
[2018-07-20] MEDS ORDERED: VITAMIN B-1100 MG PO (18:21)
[2018-07-20] MEDS ORDERED: MUCINEX600 MG PO (18:21)
[2018-07-20] MEDS ORDERED: Apixaban PO (18:21)
--- NOTE | 2018-07-20 19:00 | NUR ---
Called report to Isra at [facility]. Family notified of pt transfer.
--- NOTE | 2018-07-20 19:25 | NUR ---
BS rounds completed with morning nurse. Pt alert to name. Lying in bed HOB 30 degrees. Denies pain at this time. Call inman within reach. Bed low and locked. Will continue to monitor.
[2018-07-20] MEDS: MEROPENEM 500MG/ NS 50ML 50 ML IV SCH (20:20)
--- NOTE | 2018-07-20 20:29 | Progress Note ---
DATE: 07/20/2018 Cardiology Progress Note SUBJECTIVE: The patient is confused. OBJECTIVE: VITAL SIGNS: Temperature 97.5 degrees, pulse 88, respiratory rate 18, blood pressure 124/76, and oxygen saturation 93%. GENERAL: Awake, alert, confused, in no acute distress. LUNGS: Clear to auscultation bilaterally. No wheezes or crackles. CARDIOVASCULAR: Normal rate. Regular rhythm. No murmur. Normal S1, S2. ABDOMEN: Soft, nontender. EXTREMITIES: Trace edema. CARDIAC MEDICATIONS: Diltiazem 90 mg p.o. q.6 hours, amiodarone 400 mg p.o. b.i.d., atorvastatin 40 mg p.o. at bedtime. LABORATORY DATA: WBC 10.07, hemoglobin 10.6, hematocrit 32.8, platelets 357. Sodium 137 potassium 4.1, chloride 95, CO2 of 24, BUN 67, creatinine 8.79. TELEMETRY: Sinus tachycardia. IMPRESSION: 1. Paroxysmal atrial fibrillation, currently sinus rhythm. 2. Episodes of sinus tachycardia. 3. History of nonsustained ventricular tachycardia. 4. Altered mental status. 5. Hypertension. 6. End-stage renal disease. 7. Aspiration pneumonia. RECOMMENDATIONS: Continue current cardiac medications. If no PEG is planned, we will resume anticoagulation. Amiodarone can be decreased to 200 mg p.o. b.i.d. upon discharge. Once the patient improves acute illness and mental status improves, plan for outpatient nuclear stress test to evaluate for ischemia. Thank you for this consult. We will continue to follow. Lashaun Klein MD ABS/MODL /[id number]
[2018-07-20] MEDS: ATORVASTATIN 40 MG TAB PO SCH (21:41)
--- NOTE | 2018-07-20 22:05 | NUR ---
Pt d/c to [facility] via stretcher by EMS. Alert to name. Low tone speech. Skin warm and intact. 20g IV rignt FA in place, per [facility] request. Resp even and unlabored. Max assist x1. Denies pain at this time. VS stable.
[2018-07-21] MEDS ORDERED: APIXABAN 5 MG TABLET PO SCH (09:00)
[2018-07-21] MEDS ORDERED: AMIODARONE HCL 200 MG TAB PO SCH (09:00)
== END 2018-07-20 22:05 | DRG 870 ==
LOC: ER 02:56 → ERHOLD 05:35 → ICU 16:54 → MED/SURG3 07-11 20:43
PROVIDERS: ADMIT Internal Medicine; ATTEND Internal Medicine
PROC: 0BH17EZ Insertion of Endotracheal Airway into Trachea, Via Natural or Artificial Opening (ICD-10-PCS; principal; 2018-06-25)
PROC: 5A1955Z Respiratory Ventilation, Greater than 96 Consecutive Hours (ICD-10-PCS; 2018-06-25)
PROC: 5A1D70Z Performance of Urinary Filtration, Intermittent, Less than 6 Hours Per Day (ICD-10-PCS; 2018-06-25)
PROC: 0DH67UZ Insertion of Feeding Device into Stomach, Via Natural or Artificial Opening (ICD-10-PCS; 2018-06-25)
PROC: 3E0G76Z Introduction of Nutritional Substance into Upper GI, Via Natural or Artificial Opening (ICD-10-PCS; 2018-06-26)
PROC: 05HM33Z Insertion of Infusion Device into Right Internal Jugular Vein, Percutaneous Approach (ICD-10-PCS; 2018-06-27)
PROC: 3E043XZ Introduction of Vasopressor into Central Vein, Percutaneous Approach (ICD-10-PCS; 2018-06-27)
PROC: 30233N1 Transfusion of Nonautologous Red Blood Cells into Peripheral Vein, Percutaneous Approach (ICD-10-PCS; 2018-06-28)
PROC: 5A09357 Assistance with Respiratory Ventilation, Less than 24 Consecutive Hours, Continuous Positive Airway Pressure (ICD-10-PCS; 2018-07-01)
DX: A41.9 Sepsis, unspecified organism (principal); J18.9 Pneumonia, unspecified organism; G93.41 Metabolic encephalopathy; N18.6 End stage renal disease; R65.21 Severe sepsis with septic shock; J96.21 Acute and chronic respiratory failure with hypoxia; I50.33 Acute on chronic diastolic (congestive) heart failure; J69.0 Pneumonitis due to inhalation of food and vomit; I13.2 Hypertensive heart and chronic kidney disease with heart failure and with stage 5 chronic kidney disease, or end stage renal disease; N25.81 Secondary hyperparathyroidism of renal origin; F10.231 Alcohol dependence with withdrawal delirium; R47.01 Aphasia; E87.2 Acidosis; I47.2 Ventricular tachycardia; J44.0 Chronic obstructive pulmonary disease with (acute) lower respiratory infection; E11.22 Type 2 diabetes mellitus with diabetic chronic kidney disease; I27.20 Pulmonary hypertension, unspecified; G89.29 Other chronic pain; I48.0 Paroxysmal atrial fibrillation; I49.1 Atrial premature depolarization; E78.5 Hyperlipidemia, unspecified; F17.200 Nicotine dependence, unspecified, uncomplicated; K70.30 Alcoholic cirrhosis of liver without ascites; D63.1 Anemia in chronic kidney disease; R53.81 Other malaise; R13.10 Dysphagia, unspecified; R00.0 Tachycardia, unspecified; E83.42 Hypomagnesemia; E83.39 Other disorders of phosphorus metabolism; Z78.1 Physical restraint status; Z91.19 Patient's noncompliance with other medical treatment and regimen; Z99.2 Dependence on renal dialysis; Z79.4 Long term (current) use of insulin; Z79.01 Long term (current) use of anticoagulants; Z79.82 Long term (current) use of aspirin; Z88.2 Allergy status to sulfonamides
CPT/HCPCS: 31500; 36415; 36600; 51700; 70450; 70551; 71045; 74018; 74176; 74230; 76700; 80048; 80053; 80076; 80202; 81001; 82140; 82248; 82270; 82550; 82553; 82607; 82728; 82746; 82805; 82948; 83036; 83540; 83690; 83735; 83880; 83921; 84100; 84145; 84311; 84425; 84439; 84443; 84466; 84484; 85025; 85610; 85730; 86592; 86705; 86706; 86707; 86850; 86900; 86920; 87040; 87070; 87081; 87086; 87205; 87340; 87400; 87449; 87493; 90962; 93005; 93306; 94002; 94003; 94640; 94660; 95819; 96372; 97139; 99285; C1751; J0360; J0456; J0692; J1160; J1644; J1650; J1720; J1940; J2001; J2060; J2250; J2920; J3370; J3411; J3480; J7030; J7050; P9016

== ENCOUNTER 2018-08-02 17:38 | Inpatient (IN) | payer MEDICARE ==
[~2018-08-02] VITALS: Ht 170.2 cm; Wt 83.3 kg
[~2018-08-02 17:38] MED LIST changes: +AMIODARONE HCL200 MG PO; +Apixaban PO; +CARDIZEM60 MG NG; +IPRATROPIU0.2 MG/1 M NEB; +Insulin Lispro SQ; +MUCINEX600 MG PO; +RENVELA800 MG PO; +VITAMIN B-1100 MG PO
--- OUTSIDE RECORDS SUMMARY | 2018-08-02 17:41 | XMS REPORT | Clinical Summary ---
Author Author RAFAELA [facility] Address Unknown Phone Unavailable Care Team Providers Care Appraiser Irrigation Tax Name Role Phone Chuckie Crawford PCP Unavailable Hardy, Keron 40 Allergies Comments Active Allergy Reactions [...] Encounters Care Team Description Date Type Specialty Yanick Reddingm 08/01/2018 Documentation Transplant Brandee Reddingiam 07/23/2018 Documentation Transplant ReddingBrandee freitasiam Appointment 07/16/2018 Telephone Transplant Floresita Goode RN Waitlist Maintenance 07/11/2018 Telephone Transplant Floresita Goode RN Awaiting transplantation of kidney (Primary Dx) 07/05/2018 Documentation Transplant Polina Redding Appointment 05/30/2018 Telephone Transplant Floresita [...] Coker RN Committee Review 08/31/2017 Telephone Transplant after 08/01/2017 Family History Medical History Relation Name Comments [...] travel history available. Last Filed Vital Signs Not on file Plan of Treatment Not on file Procedures Comments Procedure Name Priority Date/Time Associated Diagnosis FLOW PRA CLASS II WITH Routine 07/27/2018 Awaiting transplantation REFLEX TO ANTIBODY 1:53 PM CDT of kidney SPECIFICITY FLOW PRA CLASS I WITH Routine 07/27/2018 Awaiting transplantation REFLEX TO ANTIBODY 1:53 PM CDT of kidney SPECIFICITY FLOW PRA CLASS II WITH Routine 03/26/2018 Renal failure, REFLEX TO ANTIBODY 3:16 PM UPFITTER unspecified chronicity SPECIFICITY FLOW PRA CLASS I WITH Routine 03/26/2018 Renal failure, REFLEX TO ANTIBODY 3:16 PM UPFITTER unspecified chronicity SPECIFICITY OCCULT BLOOD, STOOL Routine 12/14/2017 Pre-transplant evaluation 12:10 PM CDT for chronic kidney disease OCCULT BLOOD, STOOL Routine 12/14/2017 Pre-transplant evaluation 12:10 PM CDT for chronic kidney disease ECHOCARDIOGRAM REPORT - 09/22/2017 SCAN 12:20 PM CDT 2D ECHO W/ DOPPLER Routine 09/22/2017 ESRD (end stage renal (CW/PW/COLOR) 10:45 AM CDT disease) on dialysis (HCC) Pre-transplant evaluation for chronic kidney disease 2D ECHO W/ DOPPLER Routine 09/22/2017 Pre-transplant evaluation (CW/PW/COLOR) 10:19 AM CDT for chronic kidney disease ESRD (end stage renal disease) on dialysis (HCC) CT/CTA ABDOMEN & PELVIS Routine 09/22/2017 Pre-transplant evaluation 10:10 AM CDT for chronic kidney disease ESRD (end stage renal disease) on dialysis (HCC) after 08/01/2017 Results * FLOW PRA CLASS II WITH REFLEX TO ANTIBODY SPECIFICITY (07/27/2018 1:53 PM CDT) Only the most recent of 2 results within the time period is included. Flow Class II Percent 0 [facility] Positive Flow Class Report [facility] Comments Specimen Blood Narrative Performed At Disclaimer: [facility] This test was developed and its performance characteristics determined by the [facility] Laboratory. It has not been cleared or [...] complexity clinical laboratory testing. Performing Organization Address City/State/[facility] Phone Number [facility] [address], MS: [id number], [place] [address] CLIA#[id number] CAP#[id number] UNOS#[id number] * FLOW PRA CLASS I WITH REFLEX TO ANTIBODY SPECIFICITY (07/27/2018 1:53 PM CDT) Only the most recent of 2 results within the time period is included. Flow Class I Percent 3 [facility] Positive Flow Class Report [facility] Comments Specimen Blood Narrative Performed At Disclaimer: [facility] This test was developed and its performance characteristics determined by the [facility] Laboratory. It has not been cleared or [...] complexity clinical laboratory testing. Performing Organization Address City/State/[facility] Phone Number [facility] [address], MS: [id number], [place] [address] CLIA#[id number] CAP#[id number] UNOS#[id number] * Occult blood, stool (12/14/2017 12:10 PM CDT) Only the most recent of 2 results within the time period is included. Occult blood Negative Negative [facility] Specimen Stool Performing Organization Address City/State/[facility] Phone Number [facility] [address] [place] [address] [facility] * ECHOCARDIOGRAM REPORT - SCAN (09/22/2017 12:20 PM CDT) Narrative Performed At * 2D Echo W/Doppler(CW/PW/Color) (09/22/2017 10:45 AM CDT) Ejection Fraction [facility] ECHO [facility]ART[facility] Specimen Narrative Performed At Transthoracic Echocardiography Report (TTE) [facility] ECHO [facility]ARTLAB Demographics [facility] Patient Name SEGUNDO JEFFREY Date of Study09/22/2017 [id number] Gender Male Visit Number [id number] Race Unknown [id number] Number Number Date of Birth1950 Timmy Johnson [...] of Study 09/22/2017 Gender Male Visit Number [id number] Race Unknown Room Number Number Date of 1950 Referring Rasta Johnson Physician Age 66 year(s) Rayon Tester Martinez Mendes Interpreting Stewart Callejas Physician MD [...] Address City/State/Zipcode Phone Number [facility] * CTA abdomen & pelvis (09/22/2017 10:10 AM CDT) Specimen Narrative Performed At Addendum Begins Otelic RIS REPORT STATUS:A ADDENDUM: I agree with the nonvascular findings as reported by Dr. Castellanos. Signed: René Victoria MD Report Verified Date/Time:09/22/2017 18:26:06 Reading Location: [place] [address] Angio Body Reading Room Addendum Ends FINAL [...] patent, except for minimal nonobstructive calcific atherosclerosis. Automatic Silk Screen Printer dimensions of the left and the right external iliac arteries are 8 and 9 mm, respectively. Similarly, the associated pelvic veins are patent with no venous thrombosis identified.Automatic Silk Screen Printer dimensions of the left and the right [...] no arterial stenosis or venous thrombosis identified. Automatic Silk Screen Printer dimensions of the left and the right external iliac arteries and veins are as described above. 2.Widely patent mesenteric and renal arteries. 3.Other findings as described above. 4.An addendum will be dictated regarding the non-vascular findings by the Associate Chemist Radiologist. Signed: Sebastien Castellanos MD Report Verified Date/Time:09/22/2017 10:45:05 Reading Location: [place] [address] Cardiology MRI Procedure Note Interface, External Ris In - 09/22/2017 6:28 PM CDT Addendum Begins REPORT STATUS:A ADDENDUM: I agree with the nonvascular findings as reported by Dr. Castellanos. Signed: René Victoria MD Report Verified Date/Time: 09/22/2017 18:26:06 Reading Location: [place] [address] Angio Body Reading Room Addendum Ends FINAL [...] patent, except for minimal nonobstructive calcific atherosclerosis. Automatic Silk Screen Printer dimensions of the left and the right external iliac arteries are 8 and 9 mm, respectively. Similarly, the associated pelvic veins are patent with no venous thrombosis identified. Automatic Silk Screen Printer dimensions of the left and the right [...] no arterial stenosis or venous thrombosis identified. Automatic Silk Screen Printer dimensions of the left and the right external iliac arteries and veins are as described above. 2. Widely patent mesenteric and renal arteries. 3. Other findings as described above. 4. An addendum will be dictated regarding the non-vascular findings by the Associate Chemist Radiologist. Signed: Sebastien Castellanos MD Report Verified Date/Time: 09/22/2017 10:45:05 Reading Location: [place] [address] Cardiology MRI Performing Organization Address City/State/Zipcode Phone Number GE RIS after 08/01/2017 Insurance Payer Benefit Subscriber ID Type Phone Address Plan / Group HUMANA - MEDICARE MGD HUMANA xxxxxxxxx [facility] MEDICARE Contracted [place] ([place]) [place] [address]
[2018-08-02] MEDS ORDERED: SODIUM CHLORIDE 0.9% 500ML 500 ML IV STA (18:07)
[2018-08-02] MEDS ORDERED: ACETAMINOPHEN 325 MG TAB PO ONE (18:15)
[2018-08-02 18:20] LABS: BASOPHILS % 0.1 % (0.0-1.0); EOSINOPHILS # (AUTO) 0.1 (0.0-0.4); EOSINOPHILS % 1.8 % (0.0-6.0); HEMATOCRIT 12.1 % (38.2-49.6); LYMPHOCYTES # (AUTO) 0.8 (1.0-3.2); LYMPHOCYTES % 11.1 % (18.0-39.1); MEAN CORPUSCULAR HEMOGLOBIN 31.8 pg (28-32); MEAN CORPUSCULAR HGB CONC 33.9 g/dL (31-35); MEAN CORPUSCULAR VOLUME 93.8 fL (81-99); MONOCYTES # (AUTO) 0.8 (0.2-0.8); MONOCYTES % 10.9 % (4.4-11.3); NEUTROPHILS # (AUTO) 5.2 (2.1-6.9); NEUTROPHILS % 75.4 % (38.7-80.0); PLATELET COUNT 179 x10e3/uL (140-360); RED BLOOD COUNT 1.29 x10e6/uL (4.3-5.7); RED CELL DISTRIBUTION WIDTH 15.7 % (11.7-14.4)
[2018-08-02 18:23] LABS: HEMOGLOBIN 4.1 g/dL (14.0-18.0)
[2018-08-02 18:28] LABS: INR 1.32
[2018-08-02 18:29] LABS: PARTIAL THROMBOPLASTIN TIME 42.4 seconds (23.8-35.5)
[2018-08-02 18:38] LABS: ALBUMIN 2.4 g/dL (3.5-5.0); ALBUMIN/GLOBULIN RATIO 0.8 (0.8-2.0); ANION GAP 13.1 mmol/L (8-16); CALCIUM 8.1 mg/dL (8.4-10.2); CREATININE, SERUM 2.21 mg/dL (0.72-1.25); MAGNESIUM 1.7 MG/DL (1.3-2.1); POTASSIUM 3.1 mmol/L (3.5-5.1)
--- NOTE | 2018-08-02 18:51 | Diagnostic Imaging Report ---
A single frontal view of the chest. HISTORY: Seizures COMPARISON: Chest radiograph July 20, 2018 DISCUSSION: Portable technique, limits sensitivity of the exam. Overlying artifacts partially vascular underlying evaluation. Tubes/Lines: None Lungs and pleura: The lungs are well inflated. No evidence of a consolidative pneumonia or pulmonary alveolar edema. No definite pleural effusion or pneumothorax is identified. Heart and mediastinum: The cardiomediastinal silhouette appears unremarkable. Bones and soft tissues: Appear unremarkable, given this limited exam. IMPRESSION: No acute radiographic abnormality. Signed by: Dr. Josue Mcfadden D.O., M.M.M. on 08/02/2018 6:48 PM
[2018-08-02 18:58] LABS: CREATINE KINASE MB 1.2 ng/mL (0-5.0); THYROID STIMULATING HORMONE 4.753 uIU/mL (0.350-4.940)
[2018-08-02] MEDS ORDERED: SODIUM CHLORIDE 0.9% 250ML 250 ML IV ONE ×2 (19:00)
[2018-08-02] MEDS ORDERED: CEFTRIAXONE SOD 1 GM VIAL IV ONE (19:30)
[2018-08-02] MEDS ORDERED: CEFTRIAXONE SOD 1 GM/NS 50 ML 50 ML IV ONE (19:45)
[2018-08-02 19:56] LABS: HEMATOCRIT 11.5 % (38.2-49.6); HEMOGLOBIN 3.8 g/dL (14.0-18.0)
[2018-08-02] MEDS ORDERED: VANCOMYCIN 1GM/NS 250 ML 250 ML IV ONE (20:00)
[2018-08-02] MEDS ORDERED: DEXTROSE 50% SYRINGE 50 ML IV PRN ×2 (20:15→21:00)
[2018-08-02] MEDS ORDERED: ONDANSETRON HCL INJ 2MG/ML 2ML 2 MG/ML VIAL IV PRN (20:15)
[2018-08-02] MEDS ORDERED: CEFTRIAXONE SOD 1 GM/NS 50 ML 50 ML IV SCH (20:15)
[2018-08-02] MEDS ORDERED: ACETAMINOPHEN 325 MG TAB PO PRN (20:15)
--- OUTSIDE RECORDS SUMMARY | 2018-08-02 20:21 | XMS REPORT | Clinical Summary ---
Author Author RAFAELA [facility] Address Unknown Phone Unavailable Care Team Providers Care Community Recreation Programmer Name Role Phone Chuckie Crawford PCP Unavailable [...] Mrs. Jeffrey and she's aware of Mr. Jfefrey MRB recommendations and per Mrs. Jeffrey her [...] to the hd unit) 09/07/2017 Telephone Transplant hSelly Coker RN Committee Review 08/31/2017 Telephone Transplant [...] Renal failure, REFLEX TO ANTIBODY 3:16 PM AUDITING CLERK unspecified chronicity SPECIFICITY FLOW PRA CLASS I WITH Routine 03/26/2018 Renal failure, REFLEX TO ANTIBODY 3:16 PM AUDITING CLERK unspecified chronicity SPECIFICITY OCCULT BLOOD, STOOL Routine [...] Comments Specimen Blood Narrative Performed At Disclaimer: [facility] HLA TESTING This test was developed and its performance characteristics determined by the [facility] Laboratory. It has not been cleared [...] complexity clinical laboratory testing. Performing Organization Address City/State/[facility] Phone Number [facility] [address], MS: [id number], [place] [address] CLIA#[id number] CAP#[id number] UNOS#[id number] * FLOW PRA CLASS I WITH REFLEX TO ANTIBODY SPECIFICITY (07/27/2018 1:53 PM CDT) Only the most recent of 2 results within the time period is included. Flow Class I Percent 3 [facility] Positive Flow Class Report [facility] Comments Specimen Blood Narrative Performed At Disclaimer: [facility] This test was developed and its performance characteristics determined by the [facility] Laboratory. It has not been cleared [...] complexity clinical laboratory testing. Performing Organization Address City/State/[facility] Phone Number [facility] [address], MS: [id number], [place] [address] CLIA#[id number] CAP#[id number] UNOS#[id number] * Occult blood, stool (12/14/2017 12:10 PM CDT) Only the most recent of 2 results within the time period is included. Occult blood Negative Negative [facility] Specimen Stool Performing Organization Address City/State/[facility] Phone Number [facility] [address] [place] [address] [facility] * ECHOCARDIOGRAM REPORT - SCAN (09/22/2017 12:20 PM CDT) Narrative Performed At * 2D Echo W/Doppler(CW/PW/Color) (09/22/2017 10:45 AM CDT) Ejection Fraction [facility] Specimen Narrative Performed At Transthoracic Echocardiography Report (TTE) [facility] Demographics [facility] Patient Name SEGUNDO JEFFREY Date of Study09/22/2017 [id number] Gender Male Visit Number [id number] Race Unknown [id number] Number Number Date of Birth1950 Timmy Johnson [...] of Study 09/22/2017 Gender Male Visit Number [id number] Race Unknown Room Number Number Date of 1950 Referring Rasta Johnson Physician Age 66 year(s) Lead Software Engineer Martinez Mendes Interpreting Stewart Callejas Physician MD [...] CDT) Specimen Narrative Performed At Addendum Begins [id number] RIS REPORT STATUS:A ADDENDUM: I agree with the nonvascular findings as reported by Dr. Castellanos. Signed: René Victoria MD Report Verified Date/Time:09/22/2017 18:26:06 Reading Location: [place] [address] Angio Body Reading Room Addendum Ends FINAL [...] patent, except for minimal nonobstructive calcific atherosclerosis. Bonus Clerk dimensions of the left and the right external iliac arteries are 8 and 9 mm, respectively. Similarly, the associated pelvic veins are patent with no venous thrombosis identified.Bonus Clerk dimensions of the left and the right [...] no arterial stenosis or venous thrombosis identified. Bonus Clerk dimensions of the left and the right external iliac arteries and veins are as described above. 2.Widely patent mesenteric and renal arteries. 3.Other findings as described above. 4.An addendum will be dictated regarding the non-vascular findings by the Financial Analyst Accountant Radiologist. Signed: Sebastien Castellanos MD Report Verified Date/Time:09/22/2017 10:45:05 Reading Location: [place] [address] Cardiology MRI Procedure Note Interface, External Ris In - 09/22/2017 6:28 PM CDT Addendum Begins REPORT STATUS:A ADDENDUM: I agree with the nonvascular findings as reported by Dr. Castellanos. Signed: René Victoria MD Report Verified Date/Time: 09/22/2017 18:26:06 Reading Location: [place] [address] Angio Body Reading Room Addendum Ends FINAL [...] patent, except for minimal nonobstructive calcific atherosclerosis. Bonus Clerk dimensions of the left and the right external iliac arteries are 8 and 9 mm, respectively. Similarly, the associated pelvic veins are patent with no venous thrombosis identified. Bonus Clerk dimensions of the left and the right [...] no arterial stenosis or venous thrombosis identified. Bonus Clerk dimensions of the left and the right external iliac arteries and veins are as described above. 2. Widely patent mesenteric and renal arteries. 3. Other findings as described above. 4. An addendum will be dictated regarding the non-vascular findings by the Financial Analyst Accountant Radiologist. Signed: Sebastien Castellanos MD Report Verified Date/Time: 09/22/2017 10:45:05 Reading Location: [place] [address] Cardiology MRI Performing Organization Address City/State/Zipcode Phone Number GE RIS after 08/01/2017 Insurance Payer Benefit Subscriber ID Type Phone Address Plan / Group HUMANA - MEDICARE MGD HUMANA xxxxxxxxx [facility] MEDICARE Contracted AD[place] ([place]) [place] [address]
[2018-08-02] MEDS ORDERED: HYDRALAZINE HCL 25 MG TAB PO PRN (20:45)
--- NOTE | 2018-08-02 20:45 | NUR ---
INFORMED PT ON BLOOD TRANSFUSION AND DISCLOSURE AND CONSENT FORM. PT VERBALIZED UNDERSTANDING OF BLOOD TRANSFUSION. CONSENT FORM SIGNED.
--- NOTE | 2018-08-02 20:45 | NUR ---
INCONTINCE CARE PROVIDED. PT HAD LARGE BM. LARGE BLOOD CLOT AND BLACK TARRY STOOL NOTED.
[2018-08-02] MEDS ORDERED: INSULIN REGULAR, HUMAN 100 UNIT/1 ML 3ML VIAL SQ SCH (21:00)
[2018-08-02] MEDS ORDERED: ATORVASTATIN 40 MG TAB PO SCH (21:00)
[2018-08-02] MEDS ORDERED: ATORVASTATIN 20 MG TAB PO SCH (21:00)
[2018-08-02 21:09] LABS: BILIRUBIN,URINE NEGATIVE (NEGATIVE); CLARITY,URINE SL CLOUDY (CLEAR); COLOR,URINE YELLOW (YELLOW); KETONES,URINE NEGATIVE (NEGATIVE); LEUKOCYTE ESTERASE ,URINE NEGATIVE (NEGATIVE); NITRITE,URINE NEGATIVE (NEGATIVE); PROTEIN,URINE DIPSTICK 2+ (NEGATIVE); URINE UROBILINOGEN 0.2 mg/dL (0.2 - 1)
--- NOTE | 2018-08-02 21:14 | History and Physical ---
CHIEF COMPLAINT: Melanotic stool, low blood counts, and fever. HISTORY OF PRESENT ILLNESS: The patient is a 67-year-old man. He has end-stage renal disease and hypertension. He received dialysis on a regular basis. He was recently hospitalized at [facility] with respiratory failure and aspiration pneumonia. He required mechanical ventilation for several days. His hospital course was complicated by atrial fibrillation with a rapid ventricular rate. He required Cardizem as well as Lopressor and even esmolol for a period. The patient also had metabolic encephalopathy. He was evaluated by Neurology. He had a CT scan and MRI that showed no acute strokes. His mental status gradually improved. The patient was discharged about 10 days ago, but now returns with worsening dyspnea. Upon evaluation in the ER, he was found to have a hemoglobin of 3.8 and remembered having melanotic stools. He does not complain of abdominal pain. He has had some fever at home. He denies cough. PAST SURGICAL HISTORY: 1. Status post dialysis fistula placement. 2. Status post craniotomy of some sort at [facility] in the past. PAST MEDICAL HISTORY: 1. Chronic renal failure. 2. Atrial fibrillation with a rapid ventricular response that was treated in the hospital several weeks ago. 3. Aspiration pneumonia. 4. Hypertension. 5. Metabolic encephalopathy. SOCIAL HISTORY: The patient is a drinker and has had problems with dialysis because of excessive drinking. He is not an active smoker. FAMILY HISTORY: Noncontributory. REVIEW OF SYSTEMS: The patient did have some fevers. He does not complain of headache. He does not have any neck pain or sore throat. He does not complain of chest pain. He did note some dyspnea. He does not complain of cough. He is not having abdominal pain, although he did have some melanotic stools. He does not have any focal neurological abnormalities. There are no rashes. ALLERGIES: HE IS ALLERGIC TO SULFA. PHYSICAL EXAMINATION: VITAL SIGNS: T-max is 100.1 and the pulse is 96. The blood pressure is 140/57 and the saturation is 98%. HEENT: No facial swelling or erythema. Oropharynx is normal. LYMPHATIC: No submandibular, cervical, or supraclavicular adenopathy. CARDIAC: Regular rate and rhythm with normal S1 and S2. LUNGS: Auscultation of lungs shows clear breath sounds bilaterally. There is no wheezing. ABDOMEN: Soft and nontender. There is no rebound or guarding. EXTREMITIES: No leg edema or calf tenderness. There is no cyanosis or clubbing. SKIN: No rashes. NEUROLOGIC: No focal abnormalities. LABORATORY DATA: White blood cell count is 6.85, hemoglobin is 4.1, and the platelet count is 179. The BUN to creatinine ratio is 15 to 2.21 and the other electrolytes are within normal limits except for potassium of 3.1. The lactic acid is 30. RADIOGRAPHIC DATA: Chest x-ray shows no active disease. IMPRESSION: 1. Anemia secondary to acute blood loss. 2. Upper gastrointestinal bleed. 3. Paroxysmal atrial fibrillation. 4. History of aspiration pneumonia. 5. Fevers of unclear etiology. PLAN: 1. The patient will receive packed red blood cells. 2. The patient will require an evaluation by GI. 3. The patient will be pancultured and started on IV antibiotics. 4. Continue prior cardiac regimen. 5. Continue dialysis as needed. Rojelio Willard MD [facility]/ISRRAELL /[id number]
[2018-08-02 21:16] LABS: BACTERIA,URINE MODERATE /HPF; RBC,URINE 0-5 /HPF (0-5); WBC,URINE (MAN) 0-5 /HPF (0-5)
--- NOTE | 2018-08-02 21:20 | NUR ---
INTIATED FIRST BAG OF PRBC TO PT. SEE FLOWSHEET ADMIN IN CHART.
[2018-08-02] MEDS: FAMOTIDINE 20 MG/2 ML VIAL IV SCH (21:47)
[2018-08-02] MEDS: PANTOPRAZOLE 40 MG 10ML VIAL IV SCH (21:50)
[2018-08-02] MEDS: INSULIN REGULAR, HUMAN 100 UNIT/1 ML 3ML VIAL SQ SCH (21:56)
--- NOTE | 2018-08-02 22:20 | NUR ---
RT AT BEDSIDE FOR NEB TX PER PRN ORDERS.
[2018-08-03] VITALS (7 sets, daily range): BP systolic 136–189; BP diastolic 66–79
[2018-08-03] MEDS: DILTIAZEM HCL 60 MG TAB NG SCH ×4 (00:02→22:00)
[2018-08-03] MEDS ORDERED: IPRATROPIUM BROMIDE 0.02% 2.5 ML NEB NEB SCH (01:00)
[2018-08-03] MEDS ORDERED: IPRATROPIUM BROMIDE 0.02% 2.5 ML NEB NEB PRN (01:00)
--- NOTE | 2018-08-03 01:04 | Diagnostic Imaging Report ---
EXAMINATION: CHEST SINGLE (PORTABLE) INDICATION: End-stage renal disease on dialysis. Coughing up blood. COMPARISON: 08/02/18. FINDINGS: TUBES and LINES: None. LUNGS: Lungs are well inflated. Mild bilateral perihilar, peribronchial thickening. There is mild prominence of the central pulmonary vasculature, consistent with pulmonary venous congestion. PLEURA: No pleural effusion or pneumothorax. HEART AND MEDIASTINUM: The cardiomediastinal silhouette is unremarkable. BONES AND SOFT TISSUES: No acute osseous lesion. Soft tissues are unremarkable. UPPER ABDOMEN: No free air under the diaphragm. IMPRESSION: No acute thoracic abnormality. Signed by: Dr. Dm Capone M.D. on 08/03/2018 1:01 AM
--- NOTE | 2018-08-03 01:25 | NUR ---
INITIATED 2NC BAG OF PRBC. SEE ADMIN FLOWSHEET IN PT'S CHART.
[2018-08-03 06:10] LABS: BASOPHILS % 0.2 % (0.0-1.0); EOSINOPHILS # (AUTO) 0.1 (0.0-0.4); LYMPHOCYTES # (AUTO) 1.1 (1.0-3.2); LYMPHOCYTES % 19.1 % (18.0-39.1); MEAN CORPUSCULAR HEMOGLOBIN 30.4 pg (28-32); MEAN CORPUSCULAR HGB CONC 34.3 g/dL (31-35); MEAN CORPUSCULAR VOLUME 88.6 fL (81-99); MONOCYTES # (AUTO) 0.9 (0.2-0.8); MONOCYTES % 15.3 % (4.4-11.3); NEUTROPHILS # (AUTO) 3.8 (2.1-6.9); NEUTROPHILS % 62.9 % (38.7-80.0); PLATELET COUNT 147 x10e3/uL (140-360); RED BLOOD COUNT 1.58 x10e6/uL (4.3-5.7); RED CELL DISTRIBUTION WIDTH 17.9 % (11.7-14.4)
[2018-08-03 06:20] LABS: ALBUMIN 1.9 g/dL (3.5-5.0); ALBUMIN/GLOBULIN RATIO 0.8 (0.8-2.0); ANION GAP 11.7 mmol/L (8-16); CALCIUM 7.1 mg/dL (8.4-10.2); CREATININE, SERUM 3.07 mg/dL (0.72-1.25); POTASSIUM 3.7 mmol/L (3.5-5.1)
[2018-08-03 06:30] LABS: HEMOGLOBIN 4.8 g/dL (14.0-18.0)
--- NOTE | 2018-08-03 06:42 | NUR ---
DR. Dm VELIZ CALLED AND NOTIFIED FOR PT'S CRITICAL LAB VALUES; HBG 4.8, HCT 14.0. DR. VELIZ ORDERED TO GIVE ONE UNIT OF PRBC.
--- NOTE | 2018-08-03 06:45 | NUR ---
CELIA PRIDE. SPOKE WITH ANSWERING SERVICE TO RADHA PRIDE.
--- NOTE | 2018-08-03 07:06 | NUR ---
BEDSIDE REPORT WITH WILFRIDO Grant
--- NOTE | 2018-08-03 07:07 | NUR ---
WILFRIDO Grant SPOKE WITH DR. Dm VELIZ. REGARDING HGB. PATIENT IS TO RECEIVED ADDITIONAL UNITS OF PRBC AND PRIDE HAS BEEN CONSULTED REGARDING HGB AND BLACK TARRY STOOLS. AWAITING HIS CALL BACK. RENAL HAS BEEN CONSULTED FOR POSSIBLE DIALYSIS TODAY.
[2018-08-03] MEDS ORDERED: SODIUM CHLORIDE 0.9% 250ML 250 ML ONE ×3 (07:41→22:19)
[2018-08-03] MEDS: FAMOTIDINE 20 MG/2 ML VIAL IV SCH ×2 (08:30→16:55)
[2018-08-03] MEDS: AMIODARONE HCL 200 MG TAB PO SCH ×2 (08:30→16:56)
[2018-08-03] MEDS: SODIUM BICARBONATE 650 MG TAB PO SCH (08:30)
[2018-08-03] MEDS: PANTOPRAZOLE 40 MG 10ML VIAL IV SCH ×2 (08:30→21:00)
[2018-08-03] MEDS: SEVELAMER CARBONATE 800 MG TAB PO SCH ×4 (08:30→16:52)
--- NOTE | 2018-08-03 08:45 | NUR ---
1ST UNIT PRBC STARTED.
[2018-08-03] MEDS: INSULIN REGULAR, HUMAN 100 UNIT/1 ML 3ML VIAL SQ SCH ×4 (08:58→21:00)
[2018-08-03] MEDS: METOPROLOL SUCCINATE 50 MG TAB XL PO SCH (08:59)
[2018-08-03] MEDS: THIAMINE HCL 100 MG TAB PO SCH (09:30)
--- NOTE | 2018-08-03 12:00 | NUR ---
PATIENT TOLERATED BLOOD TRANSFUSION SPOKE WITH DR. PRIDE AND UPDATED HIM ON PATIENTS STATUS
[2018-08-03 12:30] LABS: HEMATOCRIT 16.1 % (38.2-49.6)
[2018-08-03 12:34] LABS: HEMOGLOBIN 5.5 g/dL (14.0-18.0)
--- NOTE | 2018-08-03 13:55 | NUR ---
DR. VELIZ AT BEDSIDE EVALUATING PATIENT. ORDERS TO GIVE 4TH UNIT OF PRBC
[2018-08-03] MEDS: HYDROCODONE/APAP 7.5MG-325MG 1 EA TAB PO PRN (14:17)
--- NOTE | 2018-08-03 15:33 | NUR ---
Dr. Conklin roundjohan at this time. Order pt not to receive any additional blood products till tomorrow.
--- NOTE | 2018-08-03 16:39 | NUR ---
SPOKE WITH DR. Son HOPE. PATIENT TO RECEIVE 2 MORE UNITS OF PRBC DURING DIALYSIS
[2018-08-03] MEDS ORDERED: SODIUM CHLORIDE 0.9% 250ML 250 ML IV ONE (16:45)
--- NOTE | 2018-08-03 17:57 | NUR ---
RECEIVED PT FROM ER AT THIS TIME, PT IS AAOX3 AND RESPONDING APPROPRIATELY RA NO RESP DISTRESS NOTED SKIN WNL. PT ORIENTED TO ROOM AND HOSPITAL POLICY, CALL LIGHT WITHIN REACH SIDE RAILS UP X2 WILL CONTINUE TO MONITOR
--- NOTE | 2018-08-03 18:03 | NUR ---
PER LAB PT POTASSIUM 6.2 FLOOR NOTIFIED
--- NOTE | 2018-08-03 19:00 | NUR ---
Bedside report received from Steve ESTRELLA.
[2018-08-03] MEDS: SODIUM CHLORIDE FLUSH 10 ML SYR INJ PRN (19:30)
[2018-08-03] MEDS ORDERED: SODIUM CHLORIDE 0.9% 1000ML 1,000 ML ONE (21:16)
[2018-08-04] VITALS (14 sets, daily range): BP systolic 139–189; BP diastolic 69–96
[2018-08-04] MEDS: CEFTRIAXONE SOD 1 GM/NS 50 ML 50 ML IV SCH ×2 (01:59→23:54)
[2018-08-04] MEDS ORDERED: SODIUM CHLORIDE 0.9% 250ML 500 ML ONE (04:29)
[2018-08-04 04:36] LABS: BASOPHILS % 0.6 % (0.0-1.0); EOSINOPHILS # (AUTO) 0.3 (0.0-0.4); EOSINOPHILS % 4.8 % (0.0-6.0); HEMATOCRIT 21.7 % (38.2-49.6); HEMOGLOBIN 7.6 g/dL (14.0-18.0); LYMPHOCYTES # (AUTO) 1.1 (1.0-3.2); LYMPHOCYTES % 20.7 % (18.0-39.1); MEAN CORPUSCULAR HEMOGLOBIN 29.6 pg (28-32); MEAN CORPUSCULAR VOLUME 84.4 fL (81-99); MONOCYTES # (AUTO) 0.7 (0.2-0.8); MONOCYTES % 13.3 % (4.4-11.3); NEUTROPHILS # (AUTO) 3.2 (2.1-6.9); NEUTROPHILS % 59.9 % (38.7-80.0); PLATELET COUNT 160 x10e3/uL (140-360); RED BLOOD COUNT 2.57 x10e6/uL (4.3-5.7); RED CELL DISTRIBUTION WIDTH 17.8 % (11.7-14.4)
[2018-08-04 04:53] LABS: ANION GAP 11.2 mmol/L (8-16); CALCIUM 7.6 mg/dL (8.4-10.2); CREATININE, SERUM 2.55 mg/dL (0.72-1.25); POTASSIUM 3.2 mmol/L (3.5-5.1)
[2018-08-04 05:08] LABS: BILIRUBIN,DIRECT 0.4 mg/dL (0.0-0.5)
[2018-08-04] MEDS: DILTIAZEM HCL 60 MG TAB NG SCH ×4 (05:24→23:54)
[2018-08-04] MEDS: SODIUM CHLORIDE FLUSH 10 ML SYR INJ PRN (06:43)
--- NOTE | 2018-08-04 07:00 | NUR ---
Bedside report given to Mary ESTRELLA.
[2018-08-04] MEDS: INSULIN REGULAR, HUMAN 100 UNIT/1 ML 3ML VIAL SQ SCH ×4 (07:30→21:00)
[2018-08-04] MEDS: SEVELAMER CARBONATE 800 MG TAB PO SCH ×3 (08:00→16:57)
[2018-08-04] MEDS: FAMOTIDINE 20 MG/2 ML VIAL IV SCH ×2 (08:20→16:57)
[2018-08-04] MEDS: AMIODARONE HCL 200 MG TAB PO SCH ×2 (08:20→16:57)
[2018-08-04] MEDS: PANTOPRAZOLE 40 MG 10ML VIAL IV SCH ×2 (08:20→20:08)
[2018-08-04] MEDS: METOPROLOL SUCCINATE 50 MG TAB XL PO SCH (08:21)
[2018-08-04] MEDS: SODIUM BICARBONATE 650 MG TAB PO SCH (08:21)
[2018-08-04] MEDS: THIAMINE HCL 100 MG TAB PO SCH (08:21)
[2018-08-04] MEDS ORDERED: SODIUM CHLORIDE 0.9% 250ML 250 ML IV ONE (10:30)
--- NOTE | 2018-08-04 12:09 | NUR ---
PT TRANSFERRED TO ROOM 101, 2 UNITS OF FFP COMPLETE. RN TO RESUME CARE
[2018-08-04] MEDS ORDERED: SODIUM CHLORIDE 0.9% 500ML 500 ML ONE (15:16)
--- NOTE | 2018-08-04 15:35 | Progress Note ---
DATE: Pulmonary Critical Care Progress Note SUBJECTIVE: The patient is scheduled for dialysis today as well as endoscopy later this afternoon. He does not report any further melena. He has no abdominal pain. He has no dyspnea or chest pain. OBJECTIVE: VITAL SIGNS: The patient is afebrile. The vital signs are stable. HEENT: Shows no facial swelling or erythema. The nasal mucosa is normal. The oropharynx is normal. LYMPHATIC: Shows no submandibular, cervical, or supraclavicular adenopathy. CARDIAC: Reveals regular rate and rhythm with normal S1, S2. There are no murmurs or rubs. Auscultation of lungs reveals clear breath sounds bilaterally. There is no wheezing. ABDOMEN: Soft, nontender. There is no rebound or guarding. EXTREMITIES: Show no leg edema or calf tenderness. There is no cyanosis or clubbing. SKIN: Shows no rashes. NEUROLOGICAL: Shows no focal abnormalities. IMPRESSION: 1. Upper gastrointestinal bleed. 2. Anemia secondary to acute blood loss. 3. End-stage renal disease. 4. Paroxysmal atrial fibrillation. 5. History of aspiration pneumonia. PLAN: 1. Continue to monitor blood counts. 2. Dialysis today. 3. Endoscopy scheduled for today. Rojelio Willard MD [facility]/MODL /[id number]
--- NOTE | 2018-08-04 16:18 | NUR ---
SPOKE WITH MD Sabina PRIDE, MADE AWARE OF PT GETTING DIALYSIS AND BLOOD, ORDERS NOTED
--- NOTE | 2018-08-04 16:59 | NUR ---
DIALYSIS IN PROGRESS, 2ND UNIT PRBC TRANSFUSING, PT TOLERATING AT THIS TIME, CALL LIGHT WITHIN REACH
[2018-08-04] MEDS ORDERED: ONDANSETRON HCL 4 MG ORAL DISINTEGRATING TAB PO PRN (17:00)
[2018-08-04] MEDS ORDERED: PROPOFOL IV EMULSION 10 MG/ML 50 ML VIAL ONE (17:51)
[2018-08-04] MEDS ORDERED: LIDOCAINE HCL 2% LOCAL INJ 5 ML SDV VIAL INJ ONE (17:51)
[2018-08-04] MEDS ORDERED: GLUCAGON FOR INJ 1 MG VIAL ONE (17:51)
--- NOTE | 2018-08-04 17:51 | NUR ---
PER DIALYSIS NURSE, PT REQUESTED TO STOP DIALYSIS EARLY , PER DIALYSIS NURSE SHE "CALLED MD AND HE OKAYED", PT REQUESTING TO GET OOB TO GO TO BATHROOM, EDUCATED THAT PT IS STILL CONNECTED TO DIALYSIS MACHINE, DIALYSIS NURSE IS RETURNING BLOOD, PT STATES "THEY LET HIM DO IT IN ICU", AGAIN EDUCATED THAT FOR SAFETY PT IS NOT ALLOWED TO GET OOB WITH DIALYSIS STILL GOING, PT PLACED ON BEDPAN, CALL LIGHT WITHIN REACH
[2018-08-04] MEDS ORDERED: MIDAZOLAM HCL 2 MG/2 ML VIAL ONE (19:45)
[2018-08-04] MEDS ORDERED: FENTANYL CITRATE/PF 100MCG/2 ML INJ ONE (19:45)
[2018-08-04] MEDS: HYDROCODONE/APAP 7.5MG-325MG 1 EA TAB PO PRN (20:08)
--- NOTE | 2018-08-04 20:09 | NUR ---
PATIENT C/O HEADACHE AND BACK PAIN, MEDICATED WITH NORCO 1TAB ORDERED. CALL LIGHT WITHIN EASY REACH, INSTRUCTED TO CALL FOR ASSISTANCE NEEDED.
--- NOTE | 2018-08-04 20:28 | NUR ---
PATIENT ASSISTED TO THE TOILET, HE'S GIVEN TO EMERGENCY CORD TO CALL FOR ASSISTANCE UPON COMPLETION SO THAT HE CAN BE ASSISTED BACK TO BED.
--- NOTE | 2018-08-04 20:47 | NUR ---
PATIENT ASSISTED BACK TO THE BED WITH BED ALARM ON AND CALL LIGHT WITH URINAL IN EASY REACH.
[2018-08-04] MEDS ORDERED: SODIUM CHLORIDE 0.9% 50ML 50 ML ONE (23:47)
[2018-08-05] VITALS (7 sets, daily range): BP systolic 160–184; BP diastolic 66–91
[2018-08-05 00:06] LABS: INR 0.81; PROTHROMBIN TIME 11.7 seconds (11.9-14.5)
[2018-08-05 00:07] LABS: PARTIAL THROMBOPLASTIN TIME 29.2 seconds (23.8-35.5)
--- NOTE | 2018-08-05 03:27 | Consultation ---
DATE OF CONSULTATION: 08/04/2018 CONSULTING PHYSICIAN: Bari Marcano MD, Hematology-Oncology service. REASON FOR CONSULTATION: Evaluation and management of the patient with anemia and GI bleed. HISTORY OF PRESENTING ILLNESS: Mr. Garcia is a very pleasant 67-year-old gentleman with multiple medical problems including known history of hypertension, atrial fibrillation, and end-stage renal disease, on hemodialysis, who was admitted through the emergency department due to severe symptomatic anemia and noted a hemoglobin of 3.8. He was also having bleeding per rectum with melanotic stool. He was recently hospitalized due to aspiration pneumonia and at that time he was noted to be in atrial fibrillation with rapid ventricular response. He was treated with the Cardizem and Lopressor. Now, Hematology-Oncology has been consulted to assist with the management. Presently, the patient is sitting comfortably, not in acute distress, breathing normally. He has had 5-unit of PRBC transfusion. PAST MEDICAL HISTORY: 1. End-stage renal disease, on hemodialysis. 2. Atrial fibrillation. 3. Aspiration pneumonia. 4. Hypertension. 5. Recent hospitalization. 6. History of anemia. PAST SURGICAL HISTORY: 1. Dialysis fistula placement. 2. Status post craniotomy at [facility] [place]. SOCIAL HISTORY: The patient is drinker. Denies current smoking use or illicit drug use. FAMILY HISTORY: Noncontributory. ALLERGIES: SULFA. CURRENT MEDICATIONS: Reviewed and as per electronic medical record. REVIEW OF SYSTEMS: A 14-point review of systems is negative except as mentioned in the history of presenting illness. PHYSICAL EXAMINATION: VITAL SIGNS: Reviewed and as per electronic medical record. HEENT: PERRLA. Extraocular movements intact. Head is atraumatic and normocephalic. NECK: Supple. CVS: S1, S2 audible. RESPIRATORY: Decreased bilateral air entry. ABDOMEN: Soft. Positive bowel sounds. EXTREMITIES: Negative cyanosis. NEURO: The patient is alert and awake. LABORATORY DATA: White blood cell count of 5.4, hemoglobin 7.6, hematocrit 21.7, and platelets 160. BUN 17 and creatinine 2.5. ASSESSMENT AND PLAN: Mr. Garcia is a very pleasant 67-year-old gentleman with history of hypertension, known history of atrial fibrillation, and end-stage renal disease, on hemodialysis, presents to the Emergency Department due to symptomatic anemia. He was noted to have bleeding per rectum with melanotic stool. He has been given 3 units of PRBC transfusion in the emergency department and two more today. His hemoglobin is improved. His symptoms improved. He continued to have melanotic stool. He has been seen and evaluated by GI. The Hematology-Oncology has been consulted to assist with the management. I reviewed the record and discussed at length with the patient about his current disease and importance of further workup. At this point, recommendation will be to proceed forward with the EGD and colonoscopy to evaluate bleeding source. I have inquired from the patient about taking any blood thinner, he is not aware of taking any anticoagulation for atrial fibrillation. At this point, recommendation will be to avoid anticoagulation. For now, we will closely monitor, recheck blood count in the morning. We will wait for the EGD and colonoscopy. He probably will require IV iron infusion in outpatient setting. Thank you for the consult. I will continue to be available. Please call with questions. MD TAMMY Nathan/MODL /[id number]
--- NOTE | 2018-08-05 03:54 | NUR ---
PATIENT ASSISTED TO THE RESTROOM, HE'S NOW BACK IN BED. GAIT UNSTEADY, BED ALARM AND URINAL WITHIN EASY REACH.
[2018-08-05 06:16] LABS: BASOPHILS % 0.4 % (0.0-1.0); EOSINOPHILS # (AUTO) 0.3 (0.0-0.4); EOSINOPHILS % 3.4 % (0.0-6.0); HEMATOCRIT 30.1 % (38.2-49.6); HEMOGLOBIN 10.3 g/dL (14.0-18.0); LYMPHOCYTES # (AUTO) 1.2 (1.0-3.2); LYMPHOCYTES % 15.9 % (18.0-39.1); MEAN CORPUSCULAR HEMOGLOBIN 29.6 pg (28-32); MEAN CORPUSCULAR HGB CONC 34.2 g/dL (31-35); MEAN CORPUSCULAR VOLUME 86.5 fL (81-99); MONOCYTES # (AUTO) 0.9 (0.2-0.8); MONOCYTES % 12.5 % (4.4-11.3); NEUTROPHILS # (AUTO) 5.1 (2.1-6.9); NEUTROPHILS % 67.3 % (38.7-80.0); PLATELET COUNT 160 x10e3/uL (140-360); RED BLOOD COUNT 3.48 x10e6/uL (4.3-5.7); RED CELL DISTRIBUTION WIDTH 17.2 % (11.7-14.4)
[2018-08-05 06:35] LABS: PHOSPHORUS 2.3 MG/DL (2.3-4.7); POTASSIUM 3.7 mmol/L (3.5-5.1)
[2018-08-05] MEDS: DILTIAZEM HCL 60 MG TAB NG SCH ×3 (06:36→21:54)
[2018-08-05] MEDS: INSULIN REGULAR, HUMAN 100 UNIT/1 ML 3ML VIAL SQ SCH ×4 (07:30→21:00)
--- NOTE | 2018-08-05 07:47 | NUR ---
Patient alert and responsive, BP elevated and potassium at 3.2, reported to Dr. Escobedo and states will self-correct as on dialysis. No orders for IV meds at this time.
[2018-08-05] MEDS: SEVELAMER CARBONATE 800 MG TAB PO SCH ×3 (08:00→17:59)
--- NOTE | 2018-08-05 08:48 | NUR ---
Patient picked up at this time for procedure and consent sent with patient
[2018-08-05] MEDS: PANTOPRAZOLE 40 MG 10ML VIAL IV SCH ×2 (09:00→21:54)
[2018-08-05] MEDS: FAMOTIDINE 20 MG/2 ML VIAL IV SCH ×2 (09:00→17:59)
--- NOTE | 2018-08-05 10:39 | NUR ---
Patient returned from [facility] and alert and responsive, BP 166/79, P74, meds administered at this time and call light within reach. Will be on clear liquids and plan is for colonoscopy and HIDA scan to be done
[2018-08-05] MEDS: AMIODARONE HCL 200 MG TAB PO SCH ×2 (10:43→17:59)
[2018-08-05] MEDS: METOPROLOL SUCCINATE 50 MG TAB XL PO SCH (10:43)
[2018-08-05] MEDS: THIAMINE HCL 100 MG TAB PO SCH (10:43)
[2018-08-05] MEDS: SODIUM BICARBONATE 650 MG TAB PO SCH (10:43)
--- NOTE | 2018-08-05 13:14 | Progress Note ---
DATE: Pulmonary Critical Care Progress Note SUBJECTIVE: The patient went for endoscopy today. There is no active bleeding. The hemoglobin has improved. OBJECTIVE: VITAL SIGNS: Stable. HEENT: Shows no facial swelling or erythema. The nasal mucosa is normal. The oropharynx is normal. LYMPHATIC: Shows no submandibular, cervical, or supraclavicular adenopathy. CARDIAC: Reveals regular rate and rhythm with normal S1 and S2. LUNGS: Auscultation of lungs reveals rhonchorous breath sounds bilaterally. There is no wheezing. ABDOMEN: Soft, nontender. There is no rebound or guarding. EXTREMITIES: Show no leg edema or calf tenderness. There is no cyanosis or clubbing. SKIN: Shows no rashes. IMPRESSION: 1. Acute anemia secondary to acute blood loss. 2. Gastrointestinal bleed. 3. End-stage renal disease. PLAN: 1. The patient is scheduled for colonoscopy. 2. Continue dialysis as scheduled. 3. Continue to monitor blood counts and laboratory values. Rojelio Willard MD [facility]/ISRRAELL /[id number]
--- NOTE | 2018-08-05 13:54 | Operative Report ---
DATE OF PROCEDURE: 08/05/2018 SURGEON: José Miguel Hill MD PROCEDURE: Esophagogastroduodenoscopy. INDICATIONS FOR EGD: Anemia, melena. MEDICATION: The patient was done under MAC, please see anesthesiologist's note. PROCEDURE IN DETAIL: With the patient in left lateral decubitus position, the flexible fiberoptic Olympus gastroscope was introduced into the esophagus under direct visualization without any difficulty. The esophagus appeared to be within normal limits. The scope was then advanced with ease into the stomach and mucosa overlying the antrum and the body revealed some patchy erythema. The pylorus was of normal contour and shape, was intubated with ease and the scope was advanced all the way to the second portion of the duodenum. The scope was then withdrawn slowly and mucosa overlying the proximal second portion and the duodenal bulb appeared to be within normal limits. The scope was then withdrawn back into the stomach and retroflexed and mucosa overlying the fundus and the cardia appeared to be within normal limits. The scope was then straightened out, it was subsequently withdrawn. The patient tolerated procedure well. IMPRESSION: 1. Normal esophagus. 2. Gastritis. PLAN: Follow H and H. The patient will need a GI bleed scan and if negative, will need a colonoscopy as findings on the EGD does not explain the patient's anemia or the magnitude of his blood loss. José Miguel Hill MD [facility]/MODL /[id number] cc: Rojelio Willard MD
--- NOTE | 2018-08-05 13:56 | NUR ---
Call from Dr. Hill and states if GI Bleed scan is negative or if bleed is in the colon then patient will have a colonoscopy tomorrow, if scan is positive for the small bowel then patient will not need colonoscopy and will do further studies for GI bleed.
--- NOTE | 2018-08-05 17:00 | NUR ---
Spoke with radiology and informed results of GI bleed scan and nuclear med is working on the report but the images are available. Dr. Bibi Hill was notified.
--- NOTE | 2018-08-05 18:38 | Diagnostic Imaging Report ---
Tagged-RBC GI Bleed Study Clinical information: 67-year-old male with melanotic stool and anemia; hemoglobin to 3.6 mg/dL. Discussion: The patient's own red blood cells were labeled with 26 mCi of technetium-99m pertechnetate using the in vitro method (UltraTag). Dynamic images of the abdomen were obtained through 60 minutes. Distribution of tracer activity appears physiologic throughout the abdomen. No abnormal accumulation of tracer is seen within the gastrointestinal lumen. Impression: 1. No scan evidence of active gastrointestinal bleeding at this time. 2. Preliminary report of these results was rendered by Dr. Gay at 6:40pm on 08/05/2018 GI bleed study preliminary report: Clinical history: Melanotic stool, low blood count Impression: No evidence of gastrointestinal bleeding Signed by: Dr. Nirmala Alvares M.D. on 08/05/2018 8:12 PM
[2018-08-05] MEDS: HYDROCODONE/APAP 7.5MG-325MG 1 EA TAB PO PRN (19:20)
--- NOTE | 2018-08-05 19:20 | NUR ---
PATIENT C/O PAIN TO THE BACK WITH PAIN SCORE #7, MEDICATED WITH NORCO 1TAB ORDERED. CALL LIGHT WITHIN EASY REACH, INSTRUCTED TO CALL FOR ASSISTANCE NEEDED.
--- NOTE | 2018-08-05 19:23 | NUR ---
Gabo cunha started and orders for consent to do colonoscopy tomorrow per Dr. Hill
[2018-08-05] MEDS ORDERED: PEG (High)/E-LYTE SOLN 4,000 ML BTL PO ONE (19:30)
[2018-08-05] MEDS: CEFTRIAXONE SOD 1 GM/NS 50 ML 50 ML IV SCH (23:06)
--- NOTE | 2018-08-05 23:28 | NUR ---
PATIENT IS ASLEEP, HE'S EASY TO AROUSE. PLAN IS FOR COLONOSCOPY TOMORROW, HE HAS BEEN HAVING LOOSE STOOLS FROM BOWEL PREP AND HE WAS TOLD TO NOTIFY THE NURSE OF HIS NEXT BOWEL MOVEMENT BEFORE FLUSHING THE TOILET.
[2018-08-06] VITALS: BP 160/81
--- NOTE | 2018-08-06 03:50 | NUR ---
PATIENT IS SOUNDLY ASLEEP, HE'S EASY TO AROUSE. BED ALARM ON, CALL LIGHT WITHIN EASY REACH AND HE DENIES PAIN.
[2018-08-06 04:00] VITALS: BP 179/87
[2018-08-06] MEDS: DILTIAZEM HCL 60 MG TAB NG SCH (05:55)
[2018-08-06] MEDS: HYDROCODONE/APAP 7.5MG-325MG 1 EA TAB PO PRN (05:55)
[2018-08-06] MEDS: INSULIN REGULAR, HUMAN 100 UNIT/1 ML 3ML VIAL SQ SCH ×2 (07:30→11:30)
[2018-08-06] MEDS: SEVELAMER CARBONATE 800 MG TAB PO SCH ×3 (08:00→12:22)
[2018-08-06 08:27] VITALS: BP 161/78
[2018-08-06] MEDS: SODIUM BICARBONATE 650 MG TAB PO SCH ×2 (09:00→10:07)
[2018-08-06] MEDS: THIAMINE HCL 100 MG TAB PO SCH ×2 (09:00→10:07)
[2018-08-06 09:27] VITALS: BP 161/78
[2018-08-06] MEDS: FAMOTIDINE 20 MG/2 ML VIAL IV SCH (09:27)
[2018-08-06] MEDS: PANTOPRAZOLE 40 MG 10ML VIAL IV SCH (09:27)
--- NOTE | 2018-08-06 09:30 | NUR ---
Spoke with Dr. Bibi Hill at this time. Let him know that patient did not complete Golytely prep. And according to the patient, his last BM was brown liquid. Sergio stated that we can prep him again on 08/07 and attempt to complete the colonoscopy on 08/08 if patient is still in the hospital. If patient is discharged he can arrange to do colonoscopy on an outpatient basis. Will let the patient know the plan.
[2018-08-06] MEDS: AMIODARONE HCL 200 MG TAB PO SCH (10:07)
[2018-08-06] MEDS: METOPROLOL SUCCINATE 50 MG TAB XL PO SCH (10:08)
[2018-08-06 12:22] VITALS: BP 179/84
--- NOTE | 2018-08-06 13:43 | NUR ---
IMM letter delivered and explained to pt. He verbalized understanding. Signed copy placed in chart. Copy to pt.
--- NOTE | 2018-08-06 23:31 | Progress Note ---
DATE: CHIEF COMPLAINT: The patient with symptomatic anemia, admitted to the hospital. HISTORY OF PRESENT ILLNESS: Mr. Garcia is a very pleasant 67-year-old gentleman with multiple medical problems including known history of hypertension, atrial fibrillation, and end-stage renal disease, on hemodialysis, admitted due to symptomatic anemia. He required multiple units of transfusion. He underwent GI workup including EGD revealing gastritis with no abnormality. He has been recommended to follow up in the outpatient setting if he gets discharged. MD TAMMY Nathan/MODL /[id number]
--- NOTE | 2018-08-06 23:37 | Progress Note ---
DATE: 08/05/2018 SUBJECTIVE: The patient with known history of atrial fibrillation and end-stage renal disease, on hemodialysis, admitted due to symptomatic anemia. He was given multiple units of transfusion. OBJECTIVE: VITAL SIGNS: Reviewed and as per electronic medical record. LABORATORY DATA: Reviewed and as per electronic medical record. ASSESSMENT AND PLAN: Mr. Garcia is a very pleasant 67-year-old gentleman with a history of hypertension, known history of atrial fibrillation, and end-stage renal disease on hemodialysis, admitted due to symptomatic anemia. He was given multiple units of PRBCs transfusion. He is undergoing a GI workup. We will follow up with the results and closely monitor. MD TAMMY Nathan/MODL /[id number]
--- NOTE | 2018-08-07 05:42 | Discharge Summary ---
DISCHARGE MEDICATIONS: 1. Amiodarone 200 mg b.i.d. 2. Lipitor 20 mg p.o. daily. 3. Diltiazem 60 mg p.o. q.6. 4. Hydralazine 50 mg p.o. b.i.d. 5. Renvela 1600 mg daily. 6. Sodium bicarbonate 650 p.o. daily. 7. Thiamine 100 mg p.o. daily. 8. Insulin. DISCHARGE DIAGNOSES: 1. Anemia secondary to acute blood loss. 2. Upper GI bleed. 3. End-stage renal disease. 4. Hypertension. 5. Paroxysmal atrial fibrillation. 6. History of recent aspiration pneumonia. CONSULTING PHYSICIANS: 1. Dr. Bates of Nephrology. 2. Dr. Hill of Gastroenterology. 3. Dr. Marcano of Hematology. RADIOGRAPHIC DATA: Bleeding scan shows no evidence of active GI bleed on the . Chest x-ray shows no acute disease. PROCEDURES: Upper endoscopy by Dr. José Miguel Hill showed no active bleeding. There was some gastritis. HISTORY OF PRESENT ILLNESS: The patient is a 67-year-old man. He has end-stage renal disease and hypertension. He received dialysis on a regular basis. He was recently hospitalized at [facility] with respiratory failure and aspiration pneumonia. He required mechanical ventilation for several days, but was eventually extubated. His course was also complicated by atrial fibrillation with a rapid ventricular rate. The patient subsequently went to a [place] [facility] and was discharged home. He had been home for several days when he developed melenic stools. He noticed increasing dyspnea. He did not complain of chest pain. When he came to the emergency department, he had a hemoglobin of 3.8. HOSPITAL COURSE: The patient was admitted. He received a total of 4 units of packed red blood cells. He had no further melenic stools. He was seen by Gastroenterology. He had an upper GI that showed no active bleeding. He had a bleeding scan prior to discharge, it showed no active bleeding. The patient was also seen by Nephrology. He was continued on dialysis. His Eliquis was held because of the bleeding. He felt much better and was eager to go home. DISPOSITION: The patient will be discharged home. He will hold the Eliquis until he can follow up with his regular doctor. He will have a repeat blood count in 10 to 14 days. If he has no further bleeding then the Eliquis will be restarted as an outpatient. The patient will also follow up with Dr. Hill of Gastroenterology as well as with the dialysis center. Rojelio Willard MD [facility]/ISRRAELL /[id number]
--- NOTE | 2018-08-09 11:54 | Consultation ---
DATE OF CONSULTATION: LOCATION: Emergency room. HISTORY OF PRESENT ILLNESS: Mr. Garcia is well-known to me, 67-year-old gentleman, who came in with GI bleed. His initial hemoglobin was 3.3. He has received 3 units of packed RBC due to get another two. His potassium this morning was 3.2. He is awake, alert, status post dialysis yesterday. He is completely asymptomatic, sitting down, in no apparent distress. Denies shortness of breath or cough. He has been on Eliquis at home, which has been stopped now. CURRENT MEDICATIONS: Include ceftriaxone 1 time dose, Tylenol p.r.n., received vancomycin and ceftriaxone 1 time dose, hydralazine p.r.n., ipratropium, albuterol p.r.n., insulin sliding scale, Renagel 1600 mg p.o. t.i.d. with meals, sodium bicarbonate 1300 mg p.o. daily, thiamine, multivitamin one tab once a day. ALLERGIES: TO SULFA. SOCIAL HISTORY: Does not smoke or drink. PAST HISTORY: History of type 2 diabetes, diabetic kidney disease, end-stage renal disease, hypertension, anemia, chronic kidney disease, secondary hyperparathyroidism. LABORATORY DATA: Most recent labs, sodium 140, potassium 3.7, bicarbonate 26, creatinine 3.0, lactic acid 30. BNP of 1238. Chest x-ray negative. Most recent lab showed hemoglobin 5.5, up from 3.8. Platelets are 147, prior to that 179. IMPRESSION AND PLAN: 1. Gastrointestinal bleed. We will plan on dialysis and transfuse 2 units packed RBC. He is a Monday, , and Monday patient, so we will do a short treatment today and a full treatment tomorrow. Volume status appears stable. No sign of fluid overload, congestive heart failure. Blood pressure is stable relatively asymptomatic. GI to see. Please see. DICTATION ENDS HERE. MD SHAWN Martinez/JOSE EDUARDO /[id number]
== END 2018-08-06 14:08 | disposition home or self-care (01) | DRG 377 ==
LOC: ER 17:38 → ERHOLD 20:18 → ICU 08-03 18:00 → MED/SURG 08-04 11:58
PROVIDERS: ADMIT Internal Medicine Critical Care Medicine; ATTEND Internal Medicine Critical Care Medicine
PROC: 30233K1 Transfusion of Nonautologous Frozen Plasma into Peripheral Vein, Percutaneous Approach (ICD-10-PCS; 2018-08-02)
PROC: 5A1D70Z Performance of Urinary Filtration, Intermittent, Less than 6 Hours Per Day (ICD-10-PCS; principal; 2018-08-03)
PROC: 30233N1 Transfusion of Nonautologous Red Blood Cells into Peripheral Vein, Percutaneous Approach (ICD-10-PCS; 2018-08-04)
PROC: 0DJ08ZZ Inspection of Upper Intestinal Tract, Via Natural or Artificial Opening Endoscopic (ICD-10-PCS; 2018-08-05)
DX: K92.2 Gastrointestinal hemorrhage, unspecified (principal); N18.6 End stage renal disease; I12.0 Hypertensive chronic kidney disease with stage 5 chronic kidney disease or end stage renal disease; D62 Acute posthemorrhagic anemia; I48.0 Paroxysmal atrial fibrillation; Z79.01 Long term (current) use of anticoagulants
CPT/HCPCS: 36415; 43235; 71045; 78278; 80048; 80053; 80076; 81001; 82270; 82550; 82553; 82948; 83605; 83735; 83880; 84100; 84132; 84443; 84484; 85014; 85018; 85025; 85610; 85730; 86704; 86706; 86708; 86850; 86900; 86920; 87040; 87086; 87340; 87400; 90962; 93005; 94640; 96367; 96372; 99285; A9512; J0696; J1610; J2001; J2250; J3370; J3411; J7030; J7040; J7050; P9016; P9017

== ENCOUNTER 2018-08-09 19:39 | Emergency (ER) | payer MEDICARE ==
[~2018-08-09] VITALS: Ht 170.2 cm; Wt 83.0 kg
--- OUTSIDE RECORDS SUMMARY | 2018-08-09 19:42 | XMS REPORT | Clinical Summary ---
Author Author RAFAELA [facility] Address Unknown Phone Unavailable Care Team Providers Care Metrologist Name Role Phone Chuckie Crawford PCP Unavailable [...] Description Date Type Specialty Polina Redding Appointment 08/08/2018 Telephone Transplant Polina Redding 08/01/2018 Documentation Transplant ReddingPolina freitas 07/23/2018 Documentation Transplant ReddingPolina freitas Appointment 07/16/2018 Telephone Transplant Floresita Goode RN [...] Registry Generic 02/21/2018 UNOS Charge Transplant Visit Brandee Reddingnighat 02/21/2018 Documentation Transplant Jennifer Patton, SAMEER 02/21/2018 Documentation Transplant Mariya Pak RN Follow-up [...] ESRD (end stage renal disease) on dialysis ([facility]); Pre-transplant evaluation for chronic kidney disease 09/22/2017 [...] RN Committee Review 08/31/2017 Telephone Transplant after 08/08/2017 Family History Medical History Relation Name Comments [...] Renal failure, REFLEX TO ANTIBODY 3:16 PM BOTANY TECHNICIAN unspecified chronicity SPECIFICITY FLOW PRA CLASS I WITH Routine 03/26/2018 Renal failure, REFLEX TO ANTIBODY 3:16 PM BOTANY TECHNICIAN unspecified chronicity SPECIFICITY OCCULT BLOOD, STOOL Routine [...] stage renal disease) on dialysis (HCC) after 08/08/2017 Results * FLOW PRA CLASS II WITH REFLEX TO ANTIBODY SPECIFICITY (07/27/2018 1:53 PM CDT) Only the most recent of 2 results within the time period is included. Flow Class II Percent 0 [facility] Positive Flow Class Report [facility] Comments Specimen Blood Narrative Performed At Disclaimer: [facility] This test was developed and its performance characteristics determined by the [facility]. It has not been cleared or [...] testing. Performing Organization Address City/[facility] Phone Number [facility] [address], MS: [id number], [place] [address] CLIA#[id number] CAP#[id number] UNOS#[id number] * FLOW PRA CLASS I WITH REFLEX TO ANTIBODY SPECIFICITY (07/27/2018 1:53 PM CDT) Only the most recent of 2 results within the time period is included. Flow Class I Percent 3 [facility] Positive Flow Class Report [facility] Comments Specimen Blood Narrative Performed At Disclaimer: [facility] This test was developed and its performance characteristics determined by the [facility]. It has not been cleared or [...] complexity clinical laboratory testing. Performing Organization Address City/State/Zipcode Phone Number [facility] [address], MS: [id number], [place] [address] CLIA#[id number] CAP#[id number] UNOS#[id number] * Occult blood, stool (12/14/2017 12:10 PM CDT) Only the most recent of 2 results within the time period is included. Occult blood Negative Negative [facility] Specimen Stool Performing Organization Address City/State/Zipcode Phone Number RAFAELA [facility] [address] [place] [address] MEDICAL CENTER * ECHOCARDIOGRAM REPORT - SCAN (09/22/2017 12:20 PM CDT) Narrative Performed At * 2D Echo W/Doppler(CW/PW/Color) (09/22/2017 10:45 AM CDT) Ejection Fraction [facility] Specimen Narrative Performed At Transthoracic Echocardiography Report (TTE) [facility] Demographics [facility] Patient Name SEGUNDO JEFFREY Date of Study09/22/2017 [id number] Gender Male Visit Number [id number] Race Unknown [id number] Number Number Date of Birth1950 Timmy Johnson [...] of Study 09/22/2017 Gender Male Visit Number [id number] Race Unknown Room Number Number Date of 1950 Referring Rasta Johnson Physician Age 66 year(s) Breaker Boss Martinez Mendes Interpreting Stewart Callejas Physician MD [...] mmHg Performing Organization Address City/State/Zipcode Phone Number [facility] * CTA abdomen & pelvis (09/22/2017 10:10 AM CDT) Specimen Narrative Performed At Addendum Begins [employer] RIS REPORT STATUS:A ADDENDUM: I agree with the nonvascular findings as reported by Dr. Castellanos. Signed: René Victoria MD Report Verified Date/Time:09/22/2017 18:26:06 Reading Location: [place] [address] Angio Body Reading Room Addendum Ends FINAL [...] patent, except for minimal nonobstructive calcific atherosclerosis. Turner Off dimensions of the left and the right external iliac arteries are 8 and 9 mm, respectively. Similarly, the associated pelvic veins are patent with no venous thrombosis identified.Turner Off dimensions of the left and the right [...] no arterial stenosis or venous thrombosis identified. Turner Off dimensions of the left and the right external iliac arteries and veins are as described above. 2.Widely patent mesenteric and renal arteries. 3.Other findings as described above. 4.An addendum will be dictated regarding the non-vascular findings by the Raw Cheese Worker Radiologist. Signed: Sebastien Castellanos MD Report Verified Date/Time:09/22/2017 10:45:05 Reading Location: [place] [address] Cardiology MRI Procedure Note Interface, External Ris In - 09/22/2017 6:28 PM CDT Addendum Begins REPORT STATUS:A ADDENDUM: I agree with the nonvascular findings as reported by Dr. Castellanos. Signed: René Victoria MD Report Verified Date/Time: 09/22/2017 18:26:06 Reading Location: [place] [address] Angio Body Reading Room Addendum Ends FINAL [...] patent, except for minimal nonobstructive calcific atherosclerosis. Turner Off dimensions of the left and the right external iliac arteries are 8 and 9 mm, respectively. Similarly, the associated pelvic veins are patent with no venous thrombosis identified. Turner Off dimensions of the left and the right [...] no arterial stenosis or venous thrombosis identified. Turner Off dimensions of the left and the right external iliac arteries and veins are as described above. 2. Widely patent mesenteric and renal arteries. 3. Other findings as described above. 4. An addendum will be dictated regarding the non-vascular findings by the Raw Cheese Worker Radiologist. Signed: Sebastien Castellanos MD Report Verified Date/Time: 09/22/2017 10:45:05 Reading Location: [place] [address] Cardiology MRI Performing Organization Address City/State/Zipcode Phone Number [facility] RIS after 08/08/2017 Insurance Payer Benefit Subscriber ID Type Phone Address Plan / Group HUMANA - MEDICARE MGD HUMANA xxxxxxxxx [facility] MEDICARE Contracted ADV
--- OUTSIDE RECORDS SUMMARY | 2018-08-09 19:43 | XMS REPORT | Encounter Summary ---
Author Organization Unknown Address [address] [place] [address] Phone [phone] Care Team Providers Care Senior Engineering Technician Name Role Phone Dr. Siddhartha Mckee 3 [phone] Chuckie Schaffer MD 3 [phone] Jm Wasserman MD 102 [phone] Reason for Visit hospital follow up - TCM (VFP); Tobacco Cessation Counseling Instructions 1. Body mass index 25-29 - overweight learning about healthy weight 2. Spinal stenosis of lumbar region pain management referral - PLEASE CALL PATIENT AND SCHEDULE HIM AN APPOINTMENT. hydrocodone 10 mg-acetaminophen 325 mg tablet 3. Hospital patient generic DME transitional care management referral 4. Nicotine dependence stopping smoking: care instructions advised to quit smoking deciding about using medicines to quit smoking 5. Hyperlipidemia atorvastatin 80 mg tablet high cholesterol: care instructions 6. Chronic obstructive lung disease Symbicort 160 mcg-4.5 mcg/actuation HFA aerosol inhaler 7. Immunization refused 8. Hypertensive disorder nifedipine ER 60 mg tablet,extended release 24 hr hydralazine 50 mg tablet 9. Idiopathic peripheral neuropathy 10. Pneumococcal vaccination declined Xarelto 15 mg tablet 11. Tremor Discussion Note f/u in 1 month Plan of Care Patient Instructions It was good to see you in the office today for your Medicare Annual Wellness Visit. You have been provided some information on healthy nutrition, including a diet rich in fruits and vegetables, minimizing simple carbohydrates, salt, and saturated fats. I want to encourage regular cardiovascular exercise such as walking at least 30 minutes daily, 5 times per week. Please remember to schedule any preventive health measures that we talked about today. You have also been provided education on fall prevention and community- based lifestyle interventions to help reduce health risks and promote healthy living in your Annual Wellness folder. Screening Recommendations 1. Vaccines Pneumococcal: discussed today and information sent with patient in their Annual Wellness health folder Influenza: discussed today and information sent with patient in their Annual Wellness health folder Shingles: discussed today and information sent with patient in their Annual Wellness health folder Tetanus: discussed today and information sent with patient in their Annual Wellness health folder 2. Prostate Screening: discussed today and information sent with patient in their Annual Wellness health folder 3. Colorectal cancer Screening Colonoscopy: discussed today and information sent with patient in their Annual Wellness health folder Fecal Occult Blood: discussed today and information sent with patient in their Annual Wellness health folder 4. Bone Mass Measurement: discussed today 5. Eye Exam Screening: discussed today 6. Cholesterol Screening: discussed today 7. Diabetes Screening: discussed today Please follow up with your doctor in . Follow up with any specialists that we discussed during your visit today. If you need help getting your medications filled, our [facility] can sync medication refills, deliver within a 10 mile radius, or [employer] overnight at no additional cost. Please watch for warning symptoms that may occur: *fever *redness/oozing at surgical site *shortness of breath *uncontrolled pain *unexpected weight gain/loss *high or low blood pressure *chest pain *confusion *any other health concerns Call us at if you experience these symptoms. In addition to these services our office offers director social service services, home health options and chronic conditions management. Please reach out to us with your particular needs. Evening and day clinic hours are available if you have problems. If you have problems after hours, you can reach the [facility] physician cash applications clerk at . Quitting Tobacco Goals Quitting smoking is important for your health, but it is hard to do. We agreed to the following goals towards reducing your tobacco habits: Today we talked about how you are . Since you want to smoke less, but are not ready to quit yet, we agreed that by your next appointment, you would . Since your ready to quit smoking, we agreed that you would smoke your last cigarette on . Shelter Goals: *Permanently quit smoking *Improve lung function *Reduce my risk of getting emphysema, cancer and heart disease What can increase my chances of success for quitting smoking? *Regular exercise *Chew gum or hard candy *Identify triggers that lead to smoking, and establish new strategies for coping with these situations *Keep yourself busy *Contact additional resources for support, such as [employer] *Don't give up, even if you have a setback How can my healthcare team support me in quitting smoking? *Follow up visits to assess progress *Identify resources available to help you quit smoking *Consider medication to increase your chances of successfully quitting smoking *Referral to counseling for additional support Reminders Provider Appointments Est Patient 08/15/2018 11:30AM Cuhckie Lee MD Est Patient on or around 08/15/2018 Debo Blackwell MD Lab None recorded. Referral Transitional Care Management Referral 08/01/2018 Pain Management Referral 08/01/2018 Erik Alirio Procedures None recorded. Surgeries None recorded. Imaging None recorded. Medications Name Start Date albuterol sulfate HFA 90 mcg/actuation aerosol inhaler INHALE 2 PUFFS BY MOUTH EVERY 4 HOURS atorvastatin 80 mg tablet TAKE 1 TABLET BY MOUTH EVERY DAY hydralazine 50 mg tablet TAKE 1 TABLET BY MOUTH EVERY 12 HOURS hydrocodone 10 mg-acetaminophen 325 mg tablet TID PRN no alcohol ordriving when on this medicien nifedipine ER 60 mg tablet,extended release 24 hr TAKE 1 TABLET BY MOUTH TWICE DAILY qty 60 only, pt due in office, please advise to call for appt Symbicort 160 mcg-4.5 mcg/actuation HFA aerosol inhaler INHALE 1 PUFF BY MOUTH TWICE DAILY DIRECTED tizanidine 2 mg tablet Velphoro 500 mg chewable tablet 3 tabs with every meal Xarelto 15 mg tablet Take 1 tablet every day by oral route at bedtime for 30 days. Medications Administered None recorded. Vitals Height Weight BMI Blood Pressure 5 ft 8 in 170.6 lbs 25.9 kg/m2 (1) 157/64 mm[Hg] (2) 141/60 mm[Hg] Lab Results None recorded. Allergies Code Code System Name Reaction Severity Status Onset Sulfa (Sulfonamide Antibiotics) Active Problems Name Status Onset Date Source Idiopathic Peripheral Neuropathy Active 05/08/2017 Chronic Kidney Disease Active 05/08/2017 Dependence on Hemodialysis Active 05/08/2017 Chronic Obstructive Lung Disease Active 10/18/2017 History of Alcoholism Active 08/01/2018 Hyperlipidemia Active Hypertensive Disorder Active Acute Respiratory Failure Active External Renal Failure Syndrome Active Cellulitis Active Procedures Date Name Performed by 01/24/2018 Colonoscopy Information not available Vaccine List Vaccine Type influenza, unspecified formulation 12/09/2016 12/09/2017 pneumococcal, unspecified formulation 09/08/2017 Social History Smoking Status Current Some Day Smoker Past Encounters 08/01/2018 Body Mass Index 25-29 - Overweight; Spinal Stenosis of Lumbar Region; Hospital Patient; Nicotine Dependence; Hyperlipidemia; Chronic Obstructive Lung Disease; Immunization Refused; Hypertensive Disorder; Idiopathic Peripheral Neuropathy; Pneumococcal Vaccination Declined; Tremor Debo Blackwell MD: [id number] [place] [address], Ph. History of Present Illness TCM Provider Visit Reported By: Patient HPI: Timing: Date of admit:, Date of discharge:, Date of Initial Contact:, Please describe what events led up to this hospitalization:, Is Transitional Care Management team involved? Yes. Discharge Information: Discharge Diagnoses:, Discharged from: Other, Discharged to: Home, Hospital Records (H&P, DC Summary, Transition of Care Document) reviewed and scanned? Yes, Current Caregivers:family, Home health ordered? no If so, Agency Name . Functional Status No difficulty following discharge instructions, Taking medications as prescribed, Does patient need help getting medications filled? no, Is the pa tient dependent upon others to leave the home? yes, Durable medical equipment required? yes Notes: Admitted [facility]. Was admitted in hospital for fluid over load - was in ICU for 2.5- weeks , possibly chf ??? COPD. Renal dialysis D/ed yesterday from the retirement. Note:Here with s/p hosp for Fluid all ove r- pt nor able to tell if it was chf vs fluid over load for not going to dialysis for a few day s, denies missing any dialysis <div>Was d/c to [facility] [place] pain meds Ws initially admitted to [facility] on June & d/dede on July for pneumonia, fluid overload </div> Review of Systems:ROS as noted in the HPI Review of Systems Comprehensive General Adult ROS Reported By: Patient Physical Exam General Adult Exam (male), General Adult Exam (Female) Reported By: Patient Constitutional: General Appearance: well-developed; bmi - 25.9, tremors ++. Level of Distress: mild distress. Ambulation: ; ambulating with a rollator Psychiatric: Insight: good judgement, poor insight. Mental Status: active and alert, normal mood, normal affect. Orientation: to time, to place, to person. Memory: ; poor - pt does not know why he is here Head: Head: normocephalic, atraumatic Eyes: Lids and Conjunctivae: non-injected, no discharge, no pallor. Pupils: PERRLA. Corneas: grossly intact. EOM: EOMI. Lens: clear. Sclerae: non-icteric ENMT: Ears: no lesions on external ear, EACs clear, TMs clear. Hearing: no hearing loss. Nose: no lesions on external nose, nares patent, no septal deviation, no sinus tenderness, no nasal discharge, nasal passages clear. Lips, Teeth, and Gums: no mouth or lip ulcers, no bleeding gums, normal dentition. Oropharynx: moist mucous membranes, no erythema, no exudates, tonsils not enlarged Neck: Neck: supple, trachea midline, no masses, FROM. Lymph Nodes: no cervical LAD, no supraclavicular LAD, no axillary LAD. Thyroid: no enlargement, non- tender, no nodules Lungs: Respiratory effort: no dyspnea. Auscultation: breath sounds normal, good air movement, CTA except as noted, no wheezing, no rales/crackles, no rhonchi Cardiovascular: Heart Auscultation: RRR, normal S1, normal S2, no murmurs, no rubs, no gallops Abdomen: Bowel Sounds: normal. Inspection and Palpation: soft, non-distended, no tenderness, no guarding, no rebound tenderness, no masses, no CVA tenderness. Liver: non-tender, no hepatomegaly Musculoskeletal:: Motor Strength and Tone: normal tone, normal motor strength. Joints, Bones, and Muscles: normal movement of all extremities, no contractures, no malalignment, no tenderness, no bony abnormalities. Extremities: no cyanosis, no edema, no varicosities; thrill palpable in fistula Neurologic: Gait and Station: normal gait, normal station. Cranial Nerves: grossly intact. Sensation: grossly intact Skin: Inspection and palpation: no lesions, good turgor, no jaundice, no rash, no abnormal nevi; ? rosacea , thickened skin all over face. Nails: normal Back: Thoracolumbar Appearance: normal curvature Notes: Alert, oriented x 3 , Cranial nerves 2-12 intact , Strength 5/5 in all 4 extremities , Gait - Normal , Speech - normal, Visual gordon - Intact , Sensations - intact in all 4 extremities, DTR's - 2 + in all 4 extremities , No tremors, cerebellar signs intact , straight line walking test & finger nose test - normal, Rhomberg- Negative
[2018-08-09 20:49] LABS: BASOPHILS % 0.5 % (0.0-1.0); EOSINOPHILS # (AUTO) 0.3 (0.0-0.4); EOSINOPHILS % 5.3 % (0.0-6.0); HEMATOCRIT 32.9 % (38.2-49.6); HEMOGLOBIN 10.9 g/dL (14.0-18.0); LYMPHOCYTES # (AUTO) 0.9 (1.0-3.2); LYMPHOCYTES % 15.6 % (18.0-39.1); MEAN CORPUSCULAR HEMOGLOBIN 29.8 pg (28-32); MEAN CORPUSCULAR HGB CONC 33.1 g/dL (31-35); MEAN CORPUSCULAR VOLUME 89.9 fL (81-99); MONOCYTES # (AUTO) 0.8 (0.2-0.8); MONOCYTES % 14.6 % (4.4-11.3); NEUTROPHILS # (AUTO) 3.6 (2.1-6.9); NEUTROPHILS % 63.1 % (38.7-80.0); PLATELET COUNT 264 x10e3/uL (140-360); RED BLOOD COUNT 3.66 x10e6/uL (4.3-5.7); RED CELL DISTRIBUTION WIDTH 16.3 % (11.7-14.4)
[2018-08-09 21:00] LABS: ALBUMIN 2.8 g/dL (3.5-5.0); ALBUMIN/GLOBULIN RATIO 0.7 (0.8-2.0); ANION GAP 13.3 mmol/L (8-16); CALCIUM 8.7 mg/dL (8.4-10.2); CREATININE, SERUM 3.37 mg/dL (0.72-1.25); POTASSIUM 3.3 mmol/L (3.5-5.1)
--- NOTE | 2018-08-09 21:20 | NUR ---
REPORT GIVEN TO SAMEER FISHER GOLF CLUB MANAGER NURSE.
[2018-08-09 23:03] VITALS: BP 159/80
== END 2018-08-09 23:06 | disposition home or self-care (01) ==
LOC: ER 19:39
DX: K60.1 Chronic anal fissure (principal); K92.2 Gastrointestinal hemorrhage, unspecified
CPT/HCPCS: 36415; 80053; 82270; 85025; 85730; 86850; 86900; 99284

== ENCOUNTER → 2018-08-31 | Day surgery (SDC) | payer MEDICARE ==
[~2018-08-31] MED LIST changes: +ALBUTEROL0.63 MG/3 INH; +CLONIDINE HCL0.1 MG PO; +HYOSCYAMINE SULFATE 0.5 MG/ML INJ ONE; +LIDOCAINE HCL 2% LOCAL INJ 5 ML SDV VIAL INJ ONE; +MIDAZOLAM HCL 2 MG/2 ML VIAL ONE; +NIFEDIPINE ER30 M1 PO; +NORCO 10-325 T1 EACH PO; +PROPOFOL IV EMULSION 10 MG/ML 50 ML VIAL ONE; +SODIUM CHLORIDE 0.9% 500ML 500 ML ONE; +[UNRECOGNIZED DRUG - OTHER] PO
--- OUTSIDE RECORDS SUMMARY | 2018-08-31 09:10 | XMS REPORT | Clinical Summary ---
Author Author [facility] Address Unknown Phone Unavailable Care Team Providers Care Production Tech Name Role Phone Chuckie Crawford PCP Unavailable [...] Encounters Care Team Description Date Type Specialty ReddingBrandee freitasiam 08/10/2018 Documentation Transplant [place] Meriam Appointment 08/08/2018 Telephone Transplant [place] Meriam 08/01/2018 Documentation Transplant [place], Meriam 07/23/2018 Documentation Transplant [place] Meriam Appointment 07/16/2018 Telephone Transplant Floresita Goode RN Waitlist Maintenance 07/11/2018 Telephone Transplant Floresita Goode RN Awaiting transplantation of kidney (Primary Dx) 07/05/2018 Documentation Transplant [place] Meriam Appointment 05/30/2018 Telephone Transplant Floresita Goode RN [...] ESRD (end stage renal disease) on dialysis ([facility]); Pre-transplant evaluation for chronic kidney disease 09/22/2017 [...] RN Committee Review 08/31/2017 Telephone Transplant after 08/30/2017 Family History Medical History Relation Name Comments [...] Renal failure, REFLEX TO ANTIBODY 3:16 PM ASSEMBLER BRAZER unspecified chronicity SPECIFICITY FLOW PRA CLASS I WITH Routine 03/26/2018 Renal failure, REFLEX TO ANTIBODY 3:16 PM ASSEMBLER BRAZER unspecified chronicity SPECIFICITY OCCULT BLOOD, STOOL Routine [...] ESRD (end stage renal disease) on dialysis ([facility]) after 08/30/2017 Results * FLOW PRA CLASS II WITH [...] and its performance characteristics determined by the [facility] Laboratory. It has not been [...] complexity clinical laboratory testing. Performing Organization Address City/[facility] Phone Number [facility] Salty [place], [place]: [id number], [place] [id number] CLIA#[id number] CAP#[id number] UNOS#[id number] * FLOW PRA CLASS I WITH [...] and its performance characteristics determined by the [facility] Laboratory. It has not been [...] complexity clinical laboratory testing. Performing Organization Address City/[facility] Phone Number [facility] Salty Hairston, MS: [id number], [place] [address] CLIA#[id number] CAP#[id number] UNOS#[id number] * Occult blood, stool (12/14/2017 12:10 PM CDT) Only the most recent of 2 results within the time period is included. Occult blood Negative Negative [facility] Specimen Stool Performing Organization Address City/State/Zipcode Phone Number [facility] [address] [place] [address] [facility] * ECHOCARDIOGRAM REPORT - SCAN (09/22/2017 12:20 PM CDT) Narrative Performed At * 2D Echo W/Doppler(CW/PW/Color) (09/22/2017 10:45 AM CDT) Ejection Fraction [facility] Specimen Narrative Performed At Transthoracic Echocardiography Report (TTE) [facility] Demographics [facility] Patient Name SEGUNDO JEFFREY Date of Study09/22/2017 [id number] Gender Male Visit Number [id number] Race Unknown [id number] Number Number Date of Birth1950 ReferringRasta Johnson [...] of Study 09/22/2017 Gender Male Visit Number [id number] Race Unknown Room Number Number Date of 1950 Referring Rasta Johnson Physician Age 66 year(s) Human Geography Faculty Member Martinez Mendes Interpreting Stewart Callejas Physician MD [...] Performing Organization Address City/State/Zipcode Phone Number [facility] * CTA abdomen & pelvis (09/22/2017 10:10 AM CDT) Specimen Narrative Performed At Addendum Begins [facility] REPORT STATUS:A ADDENDUM: I agree with the nonvascular findings as reported by Dr. Castellanos. Signed: René Vicotria MD Report Verified Date/Time:09/22/2017 18:26:06 Reading Location: [place] [id number] Angio Body Reading Room Addendum Ends FINAL [...] patent, except for minimal nonobstructive calcific atherosclerosis. [employer] dimensions of the left and the right external iliac arteries are 8 and 9 mm, respectively. Similarly, the associated pelvic veins are patent with no venous thrombosis identified.[place] [employer] [place] dimensions of the left and the right [...] no arterial stenosis or venous thrombosis identified. [place] [employer] [place] dimensions of the left and the right external iliac arteries and veins are as described above. 2.Widely patent mesenteric and renal arteries. 3.Other findings as described above. 4.An addendum will be dictated regarding the non-vascular findings by the Mold Sheet Cleaner Radiologist. Signed: Sebastien Castellanos MD Report Verified Date/Time:09/22/2017 10:45:05 Reading Location: [place] [address] Cardiology MRI Procedure Note Interface, External Ris In - 09/22/2017 6:28 PM CDT Addendum Begins REPORT STATUS:A ADDENDUM: I agree with the nonvascular findings as reported by Dr. Castellanos. Signed: René Victoria MD Report Verified Date/Time: 09/22/2017 18:26:06 Reading Location: [facility] P048 Angio Body Reading Room [...] patent, except for minimal nonobstructive calcific atherosclerosis. [place] [employer] [address] dimensions of the left and the right external iliac arteries are 8 and 9 mm, respectively. Similarly, the associated pelvic veins are patent with no venous thrombosis identified. [place] [employer] [place] dimensions of the left and the right [...] no arterial stenosis or venous thrombosis identified. [place] [employer] [place] dimensions of the left and the right external iliac arteries and veins are as described above. 2. Widely patent mesenteric and renal arteries. 3. Other findings as described above. 4. An addendum will be dictated regarding the non-vascular findings by the Mold Sheet Cleaner Radiologist. Signed: Sebastien Castellanos MD Report Verified Date/Time: 09/22/2017 10:45:05 Reading Location: [place] [address] Cardiology MRI Performing Organization Address City/State/Zipcode Phone Number [facility] RIS after 08/30/2017 Insurance Payer Benefit Subscriber ID Type Phone Address Plan / Group [employer] - MEDICARE MGD HU[employer]NA xxxxxxxxx [facility] MEDICARE Contracted ADV
--- OUTSIDE RECORDS SUMMARY | 2018-08-31 09:10 | XMS REPORT | Encounter Summary ---
Author Organization Unknown Address [address] [place] [address] Phone [phone] Care Team Providers Care Leather Goods Ii Assembler Name Role Phone Dr. Siddhartha Mckee 3 [phone] Chuckie Schaffer MD 3 [phone] Jm Wasserman MD 102 [phone] Reason for Visit hospital follow up - [facility] ([facility]) Instructions 1. Hospital patient transitional care management referral 2. Irregular heart beat cardiology referral electrocardiogram 3. Hypertensive disorder 4. Hyperlipidemia CMP, serum or plasma lipid panel, serum 5. Melena CBC w/ auto diff gastroenterology referral 6. Dependence on hemodialysis 7. Chronic obstructive lung disease 8. Depression screening learning about depression 9. Body mass index 25-29 - overweight 10. Spinal stenosis of lumbar region 11. Gastroesophageal reflux disease pantoprazole 40 mg tablet,delayed release 12. Immunization refused 13. Hyperglycemia HbA1c (hemoglobin A1c), blood Discussion Note: None recorded. Plan of Care Reminders Provider Appointments Est Patient 08/31/2018 1:45PM Chuckie Lee MD Return to Office on or around 08/31/2018 Chuckie Lee MD Lab CBC W/ Auto Diff 08/17/2018 [facility] HbA1C (Hemoglobin a1C), Blood 08/17/2018 [facility] CMP, Serum or Plasma 08/17/2018 [facility] Lipid Panel, Serum 08/17/2018 [facility] Referral Transitional Care Management Referral 08/17/2018 Gastroenterology Referral 08/17/2018 José Miguel Hill MD Cardiology Referral 08/17/2018 Kal Banegas MD Procedures None recorded. Surgeries None recorded. Imaging Electrocardiogram 08/17/2018 [facility] ([facility]) [place] Medications Name Start Date albuterol sulfate HFA 90 mcg/actuation aerosol inhaler INHALE 2 PUFFS BY MOUTH EVERY 4 HOURS amiodarone 400 mg tablet Take 1 tablet twice a day by oral route. atorvastatin 40 mg tablet Take 1 tablet every day by oral route. diltiazem 60 mg tablet Take 1 tablet every 6 hours by oral route. hydralazine 50 mg tablet TAKE 1 TABLET BY MOUTH EVERY 12 HOURS hydrocodone 10 mg-acetaminophen 325 mg tablet TID PRN nifedipine ER 60 mg tablet,extended release 24 hr TAKE 1 TABLET BY MOUTH TWICE DAILY pantoprazole 40 mg tablet,delayed release Take 1 tablet every day by oral route in the morning. Symbicort 160 mcg-4.5 mcg/actuation HFA aerosol inhaler INHALE 1 PUFF BY MOUTH TWICE DAILY DIRECTED Velphoro 500 mg chewable tablet 3 tabs with every meal Xarelto 15 mg tablet Take 1 tablet every day by oral route at bedtime for 30 days. Medications Administered None recorded. Vitals Height Weight BMI Blood Pressure 5 ft 8 in 174.2 lbs 26.5 kg/m2 (1) 140/75 mm[Hg] (2) 140/70 mm[Hg] Lab Results None recorded. Allergies Code Code System Name Reaction Severity Status Onset Sulfa (Sulfonamide Antibiotics) Active Problems Name Status Onset Date Source Idiopathic Peripheral Neuropathy Active 05/08/2017 Chronic Kidney Disease Active 05/08/2017 Dependence on Hemodialysis Active 05/08/2017 Chronic Obstructive Lung Disease Active 10/18/2017 History of Alcoholism Active 08/01/2018 Opioid Dependence Active 08/16/2018 Nicotine Dependence Active 08/16/2018 Tremor Active 08/16/2018 Chronic Tremor Active 08/16/2018 Hyperlipidemia Active Hypertensive Disorder Active Acute Respiratory Failure Active Renal Failure Syndrome Active Cellulitis Active Procedures Date Name Performed by 01/24/2018 Colonoscopy Information not available 08/17/2018 Electrocardiogram [facility] ([facility]) [address] [address] (Work Place) Vaccine List Vaccine Type influenza, unspecified formulation 12/09/2016 12/09/2017 pneumococcal, unspecified formulation 09/08/2017 Social History Smoking Status Former Smoker Past Encounters 08/17/2018 Hospital Patient; Irregular Heart Beat; Hypertensive Disorder; Hyperlipidemia; Melena; Dependence on Hemodialysis; Chronic Obstructive Lung Disease; Depression Screening; Body Mass Index 25-29 - Overweight; Spinal Stenosis of Lumbar Region; Gastroesophageal Reflux Disease; Immunization Refused; Hyperglycemia Chuckie Lee MD: [address] [place] [address], Ph. 08/01/2018 Body Mass Index 25-29 - Overweight; Spinal Stenosis of Lumbar Region; Hospital Patient; Nicotine Dependence; Hyperlipidemia; Chronic Obstructive Lung Disease; Immunization Refused; Hypertensive Disorder; Idiopathic Peripheral Neuropathy; Pneumococcal Vaccination Declined; Tremor Debo Blackwell MD: [address] [place] [address], Ph. History of Present Illness TCM Provider Visit Reported By: Patient HPI: Timing: Date of admit:, Date of discharge:, Please describe what events led up to this hospitalization:, Is Transitional Care Management team involved? No - If No, refer to TCM. Discharge Information: Discharge Diagnoses: Notes: Pt and are poor historian. Confusing history. Pt is not taking the diltiazem (rx at the hospital), hydralazine or amiodarone. Pt is feeling better today. Review of Systems Comprehensive General Adult ROS Reported By: Patient Constitutional: Constitutional: no fever, no night sweats Eyes: Eyes: no vision change ENMT: Ears: no ear pain. Nose: no sinus problems. Mouth/Throat: no sore throat Cardiovascular: Cardiovascular: no chest pain, no arm pain on exertion, no shortness of breath when walking, no shortness of breath when lying down, no palpitations, no lightheadedness Respiratory: Respiratory: no cough, no wheezing, no shortness of breath, no coughing up blood Gastrointestinal: Gastrointestinal: no abdominal pain, no nausea, no vomiting, no constipation, no diarrhea Musculoskeletal: Musculoskeletal: no muscle aches, no swelling in the extremities, arthralgias/joint pain Integumentary: Skin: no rashes Neurologic: Neurologic: no loss of consciousness, no headaches Psychiatric: Psych: no depression Physical Exam General Adult Exam (male) Reported By: Patient Constitutional: General Appearance: healthy-appearing, overweight. Level of Distress: NAD. Ambulation: ambulating normally Psychiatric: Insight: good judgement. Mental Status: active and alert, normal mood, normal affect. Orientation: to time, to place, to person. Memory: recent memory normal, remote memory normal Eyes: Lids and Conjunctivae: non-injected, no discharge ENMT: Ears: TMs clear. Nose: nares patent, no sinus tenderness, no nasal discharge. Lips, Teeth, and Gums: no mouth or lip ulcers. Oropharynx: moist mucous membranes, no erythema, no exudates, tonsils not enlarged Neck: Neck: supple, trachea midline. Thyroid: no enlargement, non-tender Lungs: Respiratory effort: no dyspnea. Auscultation: no wheezing, no rhonchi, diminished air movement Cardiovascular: Heart Auscultation: RRR, normal S1, normal S2, no murmurs Musculoskeletal:: Motor Strength and Tone: normal, normal tone. Joints, Bones, and Muscles: normal movement of all extremities. Extremities: no edema Neurologic: Gait and Station: normal gait
[2018-08-31 10:41] LABS: ANION GAP 17.3 mmol/L (8-16); CALCIUM 8.7 mg/dL (8.4-10.2); CREATININE, SERUM 5.72 mg/dL (0.72-1.25); POTASSIUM 4.3 mmol/L (3.5-5.1)
[2018-08-31 13:00] VITALS: BP 144/68
--- NOTE | 2018-08-31 15:49 | Operative Report ---
DATE OF PROCEDURE: 08/31/2018 SURGEON: José Miguel Hill MD PROCEDURE: Colonoscopy and polypectomy with hemoclip. INDICATION FOR COLONOSCOPY: Anemia. MEDICATION: The patient was done under MAC, please see anesthesiologist's note. PROCEDURE IN DETAIL: With the patient in left lateral decubitus position, flexible fiberoptic Olympus colonoscope was inserted into the rectum with ease and advanced all the way to the cecum. Prep was then adequate with retained stools in the colon. Approximately 1.8 cm sessile polypoid lesion was noted in the cecum and that was partially resected per snare electrocautery and polypectomy site was hemoclipped x2. Whatever was visualized of the ascending transverse and descending grossly appeared to be within normal limits. There was no obvious obstructing or constricting lesions. Some scattered diverticular disease was noted throughout. Two minute polyps were snared from the sigmoid colon. Two polyps were hot biopsied from the rectum. The scope was then retroflexed into the distal rectum and small internal hemorrhoids were noted, none of which was actively bleeding. The scope was then straightened out, it was subsequently withdrawn. The patient tolerated the procedure well. IMPRESSION: 1. Inadequate prep. 2. Approximately 1.8 cm sessile polypoid lesion in the cecum, partially resected per snare electrocautery and site was hemoclipped x2. 3. Diverticulosis. 4. Sigmoid colon polyps x2 snared. 5. Rectal polyps x2 hot biopsied. 6. Internal hemorrhoids, none actively bleeding. PLAN: Follow up histology. The patient will need a repeat colonoscopy after a better prep to rule out synchronous colon neoplasm as well as to remove any residual polypoid tissue in the cecum. José Miguel Hill MD [facility]/ISRRAELL /[id number] cc: Dr. Chuckie Crawford
== END | disposition home or self-care (01) ==
LOC: OR 09:07
PROVIDERS: ATTEND Internal Medicine Gastroenterology
DX: D64.89 Other specified anemias (principal); D12.0 Benign neoplasm of cecum; D12.5 Benign neoplasm of sigmoid colon; D12.8 Benign neoplasm of rectum; K59.00 Constipation, unspecified; K92.1 Melena; K57.30 Diverticulosis of large intestine without perforation or abscess without bleeding; K64.8 Other hemorrhoids; J44.9 Chronic obstructive pulmonary disease, unspecified; E78.00 Pure hypercholesterolemia, unspecified; I12.0 Hypertensive chronic kidney disease with stage 5 chronic kidney disease or end stage renal disease; N18.6 End stage renal disease; R00.0 Tachycardia, unspecified; F17.210 Nicotine dependence, cigarettes, uncomplicated; Z88.2 Allergy status to sulfonamides; Z99.2 Dependence on renal dialysis; Z68.27 Body mass index [BMI] 27.0-27.9, adult
CPT/HCPCS: 36415; 45384; 45385; 80048; 88305; J1980; J2001; J2250; J2704; J7040; 45378